=== PATIENT | male | born 1990 | race African-American/Black ===

== ENCOUNTER 2017-01-31 22:13 | Emergency (ER) | payer MEDICARE, MEDICAID ==
[2017-01-31 22:49] LABS: Hematocrit 46 % (42-52); Hemoglobin 15.7 g/dl (14.0-18.0); Mean Corpuscular HGB Conc 34 g/dl (31-36); Mean Corpuscular Hemoglobin 32 pg (27-31); Mean Corpuscular Volume 94 fL (80-94); Mean Platelet Volume 8 um3 (7.4-10.4); Red Blood Count 4.91 10^6/ul (4.0-5.4); Red Cell Distribution Width 14 % (10.5-15); White Blood Count 10.3 10^3/ul (3.5-10.8)
[2017-01-31 23:04] LABS: ALT 26 U/L (7-52); AST 18 U/L (13-39); Albumin 4.9 g/dL (3.2-5.2); Alkaline Phosphatase 70 U/L (34-104); Anion Gap 10 mmol/L (2-11); BUN/Creatinine Ratio 13.4 (8-20); Blood Urea Nitrogen 13 mg/dL (6-24); CO2 Carbon Dioxide 25 mmol/L (22-32); Calcium 9.8 mg/dL (8.6-10.3); Chloride 103 mmol/L (101-111); EGFR African American 122.3 (>60); EGFR Non-African American 95.1 (>60); Globulin 2.7 g/dL (2-4); Glucose 92 mg/dL (70-100); Potassium 3.6 mmol/L (3.5-5.0); Sodium 138 mmol/L (133-145); Total Protein 7.6 g/dL (6.4-8.9)
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
[2017-01-31 23:43] LABS: Acetaminophen < 15 mcg/mL; Alcohol 23 mg/dL (<10); Salicylate < 2.50 mg/dL (<30)
[2017-01-31 23:53] LABS: TSH (Thyroid Stimulating Horm) 1.51 mcIU/mL (0.34-5.60)
[2017-02-01 01:01] LABS: Urine Bilirubin Negative (Negative); Urine Glucose Negative (Negative); Urine Nitrite Negative (Negative)
[2017-02-01 01:07] LABS: Benzodiazepine Urine Screen None Detected (None Detect)
[2017-02-01 10:54] VITALS: BP 119/54
== END 2017-02-01 16:03 ==
LOC: ED 22:13
DX: F20.9 Schizophrenia, unspecified (principal); F32.9 Major depressive disorder, single episode, unspecified; F17.210 Nicotine dependence, cigarettes, uncomplicated
CPT/HCPCS: 36415; 80053; 80307; 80320; 80329; 81003; 84443; 85025; 93005; 99285; G0480

== ENCOUNTER 2017-02-28 21:03 | Inpatient (IN) | payer MEDICARE, MEDICAID ==
[2017-02-28 21:48] LABS: Hematocrit 45 % (42-52); Hemoglobin 15.8 g/dl (14.0-18.0); Mean Corpuscular HGB Conc 35 g/dl (31-36); Mean Corpuscular Hemoglobin 32 pg (27-31); Mean Corpuscular Volume 93 fL (80-94); Mean Platelet Volume 8 um3 (7.4-10.4); Red Blood Count 4.87 10^6/ul (4.0-5.4); Red Cell Distribution Width 14 % (10.5-15); White Blood Count 9.7 10^3/ul (3.5-10.8)
[2017-02-28 22:03] LABS: ALT 17 U/L (7-52); AST 16 U/L (13-39); Albumin 4.7 g/dL (3.2-5.2); Alkaline Phosphatase 62 U/L (34-104); Anion Gap 9 mmol/L (2-11); BUN/Creatinine Ratio 8.1 (8-20); Blood Urea Nitrogen 7 mg/dL (6-24); CO2 Carbon Dioxide 22 mmol/L (22-32); Calcium 9.3 mg/dL (8.6-10.3); Chloride 105 mmol/L (101-111); EGFR African American 140.5 (>60); EGFR Non-African American 109.3 (>60); Globulin 2.4 g/dL (2-4); Glucose 108 mg/dL (70-100); Potassium 3.3 mmol/L (3.5-5.0); Sodium 136 mmol/L (133-145); Total Protein 7.1 g/dL (6.4-8.9)
[2017-02-28] MEDS ORDERED: OLANzapine TAB*ODT* 10 MG TAB PO ONE (22:15)
[2017-02-28 22:23] LABS: Acetaminophen < 15 mcg/mL; Alcohol < 10 mg/dL (<10); Salicylate < 2.50 mg/dL (<30)
[2017-02-28 22:31] LABS: TSH (Thyroid Stimulating Horm) 1.71 mcIU/mL (0.34-5.60)
[2017-02-28 22:33] LABS: Urine Bilirubin Negative (Negative); Urine Glucose Negative (Negative); Urine Nitrite Negative (Negative)
[2017-02-28 22:50] LABS: Benzodiazepine Urine Screen None Detected (None Detect)
--- NOTE | 2017-02-28 23:07 | ED ---
Rafael Wallace Rebecca, scribed for Robbie Katz MD on 02/28/17 at 2124 . Psychiatric Complaint - HPI Summary HPI Summary: Pt is a 26 y/o M BIBA accompanied by [facility] and [facility] who presents to ED c/o auditory and visual hallucinations. Sx aggravated and alleviated by nothing. Per EMS, he was quiet while en route to [facility] ED. PMHx schizophrenia, anxiety, depression, PTSD. - History Of Current Complaint Chief Complaint: EDMentalHealth Hx Obtained From: Patient, EMS Onset/Duration: Still Present Aggravating Factor(s): Nothing Alleviating Factor(s): Nothing Associated Signs And Symptoms: Positive: Hallucinating - Auditory and visual Related History: Positive For: Prior Psychiatric Issues - Schizophrenia, anxiety , depression, PTSD - Allergies/Home Medications Allergies/Adverse Reactions: Allergies Allergy/AdvReac Type Severity Reaction Status Date / Time No Known Allergies Allergy Verified 05/30/16 18:50 Home Medications: Home Medications Allopurinol TAB* [Zyloprim 100 MG TAB*] 100 mg PO DAILY 03/01/17 [History Confirmed 03/01/17] Gabapentin TAB(NF) [Neurontin 600 mg TAB(NF)] 600 mg PO TID 03/01/17 [History Confirmed 03/01/17] Argyle Carbonate TAB* 450 mg PO BID 03/01/17 [History Confirmed 03/01/17] PMH/Surg Hx/FS Hx/Imm Hx Endocrine/Hematology History: Denies: Hx Anticoagulant Therapy, Hx Blood Disorders, Hx Blood Transfusions, Hx Bone Marrow Disease, Hx Diabetes, Hx Systemic Lupus Erythematosus, Hx Sickle Cell Disease, Hx Thyroid Disease, Hx Anemia, Hx Unexplained Bleeding, Other Endocrine/Hematological Disorders Cardiovascular History: Denies: Hx Aneurysm, Hx Angina, Hx Angioplasty, Hx Auto Implanted Cardiovert Defib, Hx Cardiac Arrest, Hx Cardiomegaly, Hx Congenital Heart Disease, Hx Congestive Heart Failure, Hx Coronary Artery Disease, Hx Deep Vein Thrombosis, Hx Hypercholesterolemia, Hx Hypotension, Hx Hypertension, Hx Pacemaker/ICD, Hx Peripheral Vascular Disease, Hx Rheumatic Fever, Hx Syncope, Hx Valvular Heart Disease, Other Cardiovascular Problems/Disorders Respiratory History: Denies: Hx Asthma, Hx Chronic Bronchitis, Hx Chronic Obstructive Pulmonary Disease (COPD), Hx Cystic Fibrosis, Hx Lung Cancer, Hx Pleural Effusion, Hx Pneumonia, Hx Pulmonary Edema, Hx Pulmonary Embolism, Hx Seasonal Allergies, Hx Sleep Apnea, Other Respiratory Problems/Disorders GI History: Denies: Hx Cirrhosis, Hx Crohn's Disease, Hx Diverticulosis, Hx Gall Bladder Disease, Hx Gastroesophageal Reflux Disease, Hx Gastrointestinal Bleed, Hx Hiatal Hernia, Hx Irritable Bowel, Hx Jaundice, Hx Obstructive Bowel, Hx Ileostomy, Hx Pyloric Stenosis, Hx Ulcer, Other GI Disorders History: Denies: Hx Acute Renal Failure, Hx Benign Prostatic Hyperplasia, Hx Chronic Renal Failure, Hx Dialysis, Hx Kidney Infection, Hx Kidney Stones, Other Problems/Disorders Musculoskeletal History: Denies: Hx Arthritis, Hx Back Problems, Hx Bursitis, Hx Congenital Bone Abnormalities, Hx Fibromyalgia, Hx Gout, Hx Orthopedic Injury, Hx Osteoporosis, Hx Scoliosis, Hx Tendonitis, Other Musculoskeletal History Sensory History: Denies: Hx Cataracts, Hx Contacts or Glasses, Hx Eye Injury, Hx Eye Prosthesis, Hx Glaucoma, Hx Macular Degeneration, Hx Vision Problem, Hx Deafness , Hx Hearing Aid, Hx Hearing Problem, Other Sensory Impairments Opthamlomology History: Denies: Hx Cataracts, Hx Contacts or Glasses, Hx Eye Injury, Hx Eye Prosthesis, Hx Glaucoma, Hx Macular Degeneration, Hx Vision Problem, Other Sensory Impairments Neurological History: Denies: Hx Dementia, Hx Developmental Delay, Hx Headaches, Hx Migraine, Hx Seizures, Hx Spinal Cord Injury, Hx Transient Ischemic Attacks (TIA), Other Neuro Impairments/Disorders Psychiatric History: Reports: Hx Anxiety, Hx Depression, Hx Post Traumatic Stress Disorder, Hx Inpatient Treatment, Hx Community Mental Health Tx, Hx Schizophrenia, Hx Suicide Attempt, Hx of Violent Episodes Against Others, Hx Substance Abuse, Other Psychiatric Issues/Disorders - psychosis Denies: Hx Attention Deficit Hyperactivity Disorder, Hx Eating Disorder, Hx Panic Disorder, Hx Bipolar Disorder - Cancer History Hx Chemotherapy: No Hx Radiation Therapy: No - Surgical History Hx Anesthesia Reactions: No - Immunization History Date of Tetanus Vaccine: unk Date of Influenza Vaccine: unk Infectious Disease History: No Infectious Disease History: Denies: Hx Clostridium Difficile, Hx Hepatitis, Hx Human Immunodeficiency Virus (HIV), Hx Shingles, Hx Tuberculosis, Traveled Outside the [place] in Last 30 Days - Family History Known Family History: Positive: Hypertension, Diabetes - grandfather - Social History Alcohol Use: Weekly Hx Substance Use: Yes Substance Use Type: Reports: Marijuana Substance Use Comment - Amount & Last Used: last use 02/29/2016 Hx Tobacco Use: Yes Smoking Status (MU): Current Every Day Smoker Type: Cigarettes Amount Used/How Often: 1/2 PPD Length of Time of Smoking/Using Tobacco: 5YRS Have You Smoked in the Last Year: Yes Review of Systems Negative: Fever Positive: Other - Auditory and visual hallucinations All Other Systems Reviewed And Are Negative: Yes Physical Exam Triage Information Reviewed: Yes Vital Signs On Initial Exam: Initial Vitals Temp Pulse Resp BP Pulse Ox 97.4 F 72 18 140/69 97 02/28/17 21:15 02/28/17 21:15 02/28/17 21:15 02/28/17 21:15 02/28/17 21:15 Vital Signs Reviewed: Yes Appearance: Positive: Well-Appearing, No Pain Distress Skin: Positive: Warm Head/Face: Positive: Normal Head/Face Inspection Eyes: Positive: KALEY ENT: Positive: Hearing grossly normal Neck: Positive: Supple Respiratory/Lung Sounds: Positive: Breath Sounds Present Cardiovascular: Positive: RRR Abdomen Description: Positive: Nontender, Soft Bowel Sounds: Positive: Present Musculoskeletal: Positive: Strength/ROM Intact Neurological: Positive: Alert, Oriented to Person Place, Time Psychiatric: Positive: Anxious Diagnostics - Vital Signs Vital Signs Temp Pulse Resp BP Pulse Ox 02/28/17 21:15 97.4 F 72 18 140/69 97 - Laboratory Result Diagrams: 02/28/17 21:30 02/28/17 21:30 Lab Statement: Any lab studies that have been ordered have been reviewed, and results considered in the medical decision making process. Course/Dx - Course Assessment/Plan: Pt is a 26 y/o M BIBA accompanied by [facility] and [facility] who presents to ED c/o auditory and visual hallucinations. Sx aggravated and alleviated by nothing. Per EMS, he was quiet while en route to [facility] ED. PMHx schizophrenia, anxiety, depression, PTSD. After [facility] it has been determined that the pt will be admitted to [facility]. - Differential Dx/Clinical Impression Provider Diagnosis: Psychosis - Physician Notifications Instructed by Provider To: Admit As Inpatient Discharge - Discharge Plan Condition: Fair Disposition: PSYCHIATRIC FACILITY-[facility] The documentation as recorded by the Rafael jones Rebecca accurately reflects the service I personally performed and the decisions made by , Robbie Katz MD.
[2017-03-01] MEDS ORDERED: Ibuprofen TAB* 600 MG ONE (01:40)
[2017-03-01] MEDS ORDERED: Ibuprofen TAB* 600 MG PO ONE (01:42)
[2017-03-01] MEDS ORDERED: Al Hydrox/Mg Hydrox/Simet LIQ* 30 ML UDC PO PRN (06:11)
[2017-03-01] MEDS ORDERED: Mouth Piece, Nicotine* 1 EACH CARTRIDGE INH SCH (06:11)
[2017-03-01] MEDS ORDERED: Nicotine Inhaler* 10 MG AMP INH PRN (06:11)
[2017-03-01] MEDS: Lithium Carbonate ER* 450 MG TAB.ER PO SCH ×2 (11:29→20:53)
[2017-03-01] MEDS: Vitamin THERAPEUTIC TAB PO SCH (11:29)
[2017-03-01] MEDS: Allopurinol TAB* 100 MG PO SCH (11:30)
[2017-03-01] MEDS: Gabapentin CAP(*) 300 MG PO SCH ×4 (11:30→20:52)
[2017-03-01] MEDS: Nicotine GUM* 2 MG PO PRN ×3 (11:42→20:54)
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
[2017-03-02] MEDS: Lithium Carbonate ER* 450 MG TAB.ER PO SCH ×2 (09:22→20:30)
[2017-03-02] MEDS: Vitamin THERAPEUTIC TAB PO SCH (09:22)
[2017-03-02] MEDS: Gabapentin CAP(*) 300 MG PO SCH ×3 (09:22→20:30)
[2017-03-02] MEDS: Allopurinol TAB* 100 MG PO SCH (09:23)
[2017-03-02] MEDS: Nicotine GUM* 2 MG PO PRN (14:46)
--- NOTE | 2017-03-02 14:58 | PN ---
Subjective - Subjective Service Type: 20218 Hosp care 15 min low complexity Subjective: Ba reports that he came back to the hospital because he wasn't feeling safe at home but denied paranoia, hallucinations or SI/HI. Smokes pot daily but doesn 't believe that has anything to do with his mental health, it rather helps he says. Objective - Appearance Appearance: Well Developed/Nourished Dysmorphic Features: No Hygiene: Mal-odorous Grooming: Disheveled - Behavior Psychomotor Activities: Normal Exhibits Abnormal Movement: No - Attitude and Relatedness Attitude and Relatedness: Regressed Eye Contact: Fair - Speech Quality: Unpressured Latencies: Long Quantity: Terse - Mood Patient's Decription of Mood: "Okay" - Affect Observed Affect: Constricted Affect Consistent with: Dysphoria - Thought Process Patient's Thought Process: Coherent, Tangential Thought Content: No Passive Wish, No Suicidal Planning, No Homicidal Ideation, No Paranoid Ideation - Sensorium Experiencing Hallucinations: No, Sensorium is Clear Type of Hallucinations: Visual: No, Auditory: No, Command: No - Level of Consciousness Level of Consciousness: Alert Orientation: Yes Intact, Yes Orientated to Time, Yes Orientated to Place, Yes Orientated to Person - Impulse Control Impulse Control: Intact - Insight and Judgement Insight and Judgement: Impaired - Group Participation Particating in Group Activities: No - Medication Management Medication Management Adherence: Yes Assessment - Assessment Merits Inpatient Hospitalization: For Immediate Safety, For Stabilization, For Discharge Planning Inpatient DSM-IV Dx: Schizoprenia vs Substance induced psychosis. Clinical Impression: 26 y/o male with nkown h/o daily Cannabis use and a prior diagnosis of Schizophrenia readmitted for feeling unsafe at home in the context of regular use of Cannabis and possible noncompliance of meds. Plan - Plan Treatment Plan: Name: BA JONES Birthdate: 1990 [id number] Continued Medication Management: Continue Outpt Medication Medications: Current Medications Acetaminophen (Tylenol Tab*) 650 mg PO Q4H PRN PRN Reason: PAIN or TEMP > 101 F Al Hydrox/Mg Hydrox/Simethicone (Maalox Plus*) 30 ml PO Q4H PRN PRN Reason: INDIGESTION Last Admin: 03/01/17 11:33 Dose: 30 ml Allopurinol (Zyloprim Tab*) 100 mg PO DAILY [facility] Last Admin: 03/02/17 09:23 Dose: 100 mg Device (Nicotine Mouth Piece*) 1 each INH [facility] Gabapentin (Neurontin Cap(*)) 600 mg PO TID [facility] Last Admin: 03/02/17 14:46 Dose: 600 mg [place] Carbonate ([place] Carbonate Er Tab*) 450 mg PO BID [facility] Last Admin: 03/02/17 09:22 Dose: 450 mg Multivitamins (Theragran Tab*) 1 tab PO DAILY [facility] Last Admin: 03/02/17 09:22 Dose: 1 tab Nicotine (Nicotine Inhaler*) 10 mg INH Q2H PRN PRN Reason: CRAVING Last Admin: 03/01/17 11:36 Dose: 10 mg Nicotine Polacrilex (Nicotine Gum*) 2 mg PO Q2H PRN PRN Reason: CRAVING Last Admin: 03/02/17 14:46 Dose: 2 mg - Discharge Plan Discharge Plan: Outpatient Follow Up [facility]
[2017-03-03] MEDS: Lithium Carbonate ER* 450 MG TAB.ER PO SCH ×2 (10:46→21:10)
[2017-03-03] MEDS: Gabapentin CAP(*) 300 MG PO SCH ×3 (10:46→21:09)
[2017-03-03] MEDS: Vitamin THERAPEUTIC TAB PO SCH (10:47)
[2017-03-03] MEDS: Allopurinol TAB* 100 MG PO SCH (10:47)
--- NOTE | 2017-03-03 11:48 | PN ---
MHU: Group Therapy Note - Service Type Service Type: [id number] Group Psychotherapy - Cognitive Behavioral Group Therapy ( CBT):Patient attended CBT programming this morning and presented with flat affect that did not vary with discussion. Although responsive to direct prompts to respond to questions, patient did not engage in spontaneous conversation.
--- NOTE | 2017-03-03 18:15 | PN ---
Subjective - Subjective Service Type: 74458 Hosp care 15 min low complexity Subjective: Patient endorses daily use of cannabis. He reports the marijuana he smoked was already rolled and he did not inspect the cannabis to see if it indeed cannabis or if it had been spiked with something else. Patient does report that after smoking this pre-rolled joint, he began to feel that he was "not in control". He reports feeling he might hurt someone else, destroy something, or hurt himself. Patient reports he experienced "uncontrolled emotions" and reported he felt he was "being led to commit suicide". Patient reports experiencing commanding AHs of both male and female voices. He reported they were telling him to do multiple terrible things. He called his sister and informed her the voices were telling him to rape her. He reported they told him to "do what you want, rape, murder, incest". Patient reports experiencing racing thoughts and reports recent poor sleep. Patient reports he experienced VHs while trying to sleep. He described looking around his room at clothes on the floor or pictures on the wall and they would "morph into a character from a cartoon". He reports seeing [employer] tunes characters including Bugs Bunsamreen. Patient reports he does not believe he has a mental illness. He is grandiose and religiously preoccupied. He reports that he is "privy to knowledge in the bible" and describes himself as "omnipresent". He reports his hallucinations started while in college. He reports he had been daily smoking since before graduation. He reports noticing AHs shortly after observing his friend kill himself by GSW. He reports its at this time he became fascinated with and the universe. Currently patient reports good sleep and appetite. He reports compliance with Haldol dec 150mg IM [id number]. His mother is noted to have reported she does not believe patient is compliance with [place] 450mg po BID. Admission [place] level - 0.23. Patient amenable to d/c of Haldol dec and to the initiation Abilify with plan to uptitrate from starting dose of 15mg po qhs to 30mg po qhs and if beneficial initiate DESHPANDE Abilify Maintena prior to discharge. Objective - Appearance Appearance: Well Developed/Nourished, Healthy Appearing Dysmorphic Features: No Hygiene: Normal Grooming: Fairly Well Kept - Behavior Psychomotor Activities: Normal Exhibits Abnormal Movement: No - Attitude and Relatedness Attitude and Relatedness: Cooperative Eye Contact: Fair - Speech Quality: Unpressured Latencies: Normal Quantity: Appropriate - Mood Patient's Decription of Mood: "Okay" - Affect Observed Affect: Fair Affect Consistent with: Euthymia - Thought Process Patient's Thought Process: Coherent Thought Content: No Passive Wish, No Suicidal Planning, No Homicidal Ideation, No Paranoid Ideation - Sensorium Experiencing Hallucinations: No, Sensorium is Clear Type of Hallucinations: Visual: No, Auditory: No, Command: No - Level of Consciousness Level of Consciousness: Alert Orientation: Yes Intact, Yes Orientated to Time, Yes Orientated to Place, Yes Orientated to Person - Impulse Control Impulse Control: Intact - Insight and Judgement Insight and Judgement: Poor - Group Participation Particating in Group Activities: Yes - Medication Management Medication Management Adherence: Yes Assessment - Assessment Merits Inpatient Hospitalization: For Immediate Safety, For Stabilization Inpatient DSM-IV Dx: Schizoaffective d/o, Bipolar type MRE manic Plan - Plan Treatment Plan: Name: CALLIE JONES Birthdate: 1990 [id number] 1. Continue admission to the [facility] for safety and symptom management. 2. Will discontinue patient's scheduled IM Haldol decanoate 150mg [id number] due to ineffectiveness. 3. Will start Abilify po tab 15mg po qhs for mood stabilization and psychosis. Plan to uptitrate to 30mg po qhs and monitor symptoms, if noted to be beneficial will start monthly IM DESHPANDE Abilify Maintena. 4. Continue [place] at home dose of 450mg po BID for mood stabilization. Repeat [place] Level on Thursday03/09/17. Also will order Lipid panel, repeat CMP, and HgbA1C.] 5. Continue Gabapentin 300mg po TID for anxiety. 6. Continue gathering collateral information from ACT team and family. 7. Patient to participate in milieu activities and groups. Continued Medication Management: Different Medication Medications: Current Medications Acetaminophen (Tylenol Tab*) 650 mg PO Q4H PRN PRN Reason: PAIN or TEMP > 101 F Al Hydrox/Mg Hydrox/Simethicone (Maalox Plus*) 30 ml PO Q4H PRN PRN Reason: INDIGESTION Last Admin: 03/01/17 11:33 Dose: 30 ml Allopurinol (Zyloprim Tab*) 100 mg PO DAILY [facility] Last Admin: 03/03/17 10:47 Dose: 100 mg Device (Nicotine Mouth Piece*) 1 each INH .[facility] Gabapentin (Neurontin Cap(*)) 600 mg PO TID [facility] Last Admin: 03/03/17 14:14 Dose: 600 mg [place] Carbonate ([place] Carbonate Er Tab*) 450 mg PO BID [facility] Last Admin: 03/03/17 10:46 Dose: 450 mg Multivitamins (Theragran Tab*) 1 tab PO DAILY [facility] Last Admin: 03/03/17 10:47 Dose: 1 tab Nicotine (Nicotine Inhaler*) 10 mg INH Q2H PRN PRN Reason: CRAVING Last Admin: 03/01/17 11:36 Dose: 10 mg Nicotine Polacrilex (Nicotine Gum*) 2 mg PO Q2H PRN PRN Reason: CRAVING Last Admin: 03/02/17 14:46 Dose: 2 mg - Discharge Plan Discharge Plan: Outpatient Follow Up
[2017-03-03] MEDS: Nicotine GUM* 2 MG PO PRN (21:12)
[2017-03-03] MEDS: ARIPiprazole TAB* 15 MG PO SCH (22:00)
[2017-03-04] MEDS: Allopurinol TAB* 100 MG PO SCH (08:49)
[2017-03-04] MEDS: Vitamin THERAPEUTIC TAB PO SCH (08:49)
[2017-03-04] MEDS: Gabapentin CAP(*) 300 MG PO SCH ×3 (08:49→21:35)
[2017-03-04] MEDS: Lithium Carbonate ER* 450 MG TAB.ER PO SCH ×2 (08:49→21:35)
--- NOTE | 2017-03-04 13:30 | PN ---
Subjective - Subjective Service Type: 58592 Hosp care 15 min low complexity Subjective: Patient noted to be visible in the milieu, social with peers, and is attending groups. Patient reports improved mood this morning. He reports having a "good" nights sleep last night and waking feeling rested without thinking about turning over and going to back to sleep like is nml recently. Patient reports med compliance with 1st dose of Abilify 15mg last night. He reports no med s/e's. Patient continues to express bizarre ideations on interview. He expresses no grandiose ideations or yazidism preoccupations. Patient reports no SI/HI and AH/VH. Objective - Appearance Appearance: Well Developed/Nourished, Healthy Appearing Dysmorphic Features: No Hygiene: Normal Grooming: Fairly Well Kept - Behavior Psychomotor Activities: Normal Exhibits Abnormal Movement: No - Attitude and Relatedness Attitude and Relatedness: Cooperative Eye Contact: Fair - Speech Quality: Unpressured Latencies: Normal Quantity: Terse - Mood Patient's Decription of Mood: "Better" - Affect Observed Affect: Fair Affect Consistent with: Euthymia - Thought Process Patient's Thought Process: Coherent Thought Content: No Passive Wish, No Suicidal Planning, No Homicidal Ideation, No Paranoid Ideation - Sensorium Experiencing Hallucinations: No, Sensorium is Clear Type of Hallucinations: Visual: No, Auditory: No, Command: No - Level of Consciousness Level of Consciousness: Alert Orientation: Yes Intact, Yes Orientated to Time, Yes Orientated to Place, Yes Orientated to Person - Impulse Control Impulse Control: Intact - Insight and Judgement Insight and Judgement: Fair - Group Participation Particating in Group Activities: Yes - Medication Management Medication Management Adherence: Yes Assessment - Assessment Merits Inpatient Hospitalization: For Immediate Safety, For Stabilization Inpatient DSM-IV Dx: Schizoaffective d/o, Bipolar type MRE manic Plan - Plan Treatment Plan: Name: CALLIE JONES Birthdate: 1990 [id number] 1. Continue admission to the [facility] for safety and symptom management. 2. Will discontinue patient's scheduled IM Haldol decanoate 150mg [id number] due to ineffectiveness. 3. Continue Abilify po tab 15mg po qhs for mood stabilization and psychosis. Plan to uptitrate to 30mg po qhs and monitor symptoms on Thursday and if med noted to be beneficial will start monthly IM DESHPANDE Abilify Maintena. 4. Continue [place] at home dose of 450mg po BID for mood stabilization. Repeat [place] Level on Thursday03/09/17. Also will order Lipid panel, repeat CMP, and HgbA1C.] 5. Continue Gabapentin 600mg po TID for anxiety. 6. Continue gathering collateral information from ACT team. 7. Collateral information obtained from mother. 8. Patient to participate in milieu activities and groups. Continued Medication Management: Different Medication Medications: Current Medications Acetaminophen (Tylenol Tab*) 650 mg PO Q4H PRN PRN Reason: PAIN or TEMP > 101 F Al Hydrox/Mg Hydrox/Simethicone (Maalox Plus*) 30 ml PO Q4H PRN PRN Reason: INDIGESTION Last Admin: 03/01/17 11:33 Dose: 30 ml Allopurinol (Zyloprim Tab*) 100 mg PO DAILY [facility] Last Admin: 03/04/17 08:49 Dose: 100 mg Aripiprazole (Abilify Tab*) 15 mg PO BEDTIME [facility] Last Admin: 03/03/17 22:00 Dose: 15 mg Device (Nicotine Mouth Piece*) 1 each INH [facility] Gabapentin (Neurontin Cap(*)) 600 mg PO TID [facility] Last Admin: 03/04/17 08:49 Dose: 600 mg [place] Carbonate ([place] Carbonate Er Tab*) 450 mg PO BID [facility] Last Admin: 03/04/17 08:49 Dose: 450 mg Multivitamins (Theragran Tab*) 1 tab PO DAILY [facility] Last Admin: 03/04/17 08:49 Dose: 1 tab Nicotine (Nicotine Inhaler*) 10 mg INH Q2H PRN PRN Reason: CRAVING Last Admin: 03/01/17 11:36 Dose: 10 mg Nicotine Polacrilex (Nicotine Gum*) 2 mg PO Q2H PRN PRN Reason: CRAVING Last Admin: 03/03/17 21:12 Dose: 2 mg - Discharge Plan Discharge Plan: Outpatient Follow Up
--- NOTE | 2017-03-04 14:01 | PN ---
MHU: Group Therapy Note - Service Type Service Type: 37097 Group Psychotherapy - Cognitive Behavioral Therapy (CBT): Patient presents with high volume of speech that impresses as being coherent within the context of self-report, but is tangential and off topic in group context. Concerns regarding disorganization of thought are apparent.
[2017-03-04] MEDS: ARIPiprazole TAB* 15 MG PO SCH (21:35)
[2017-03-05] MEDS: Gabapentin CAP(*) 300 MG PO SCH ×3 (10:22→20:43)
[2017-03-05] MEDS: Lithium Carbonate ER* 450 MG TAB.ER PO SCH ×2 (10:23→20:44)
[2017-03-05] MEDS: Allopurinol TAB* 100 MG PO SCH (10:23)
[2017-03-05] MEDS: Vitamin THERAPEUTIC TAB PO SCH (10:26)
--- NOTE | 2017-03-05 10:45 | PN ---
Subjective - Subjective Service Type: 39850 Hosp care 15 min low complexity Subjective: Patient noted to be visible in the milieu, social, pleasant, and participating in groups. Patient reports med compliance and denies med s/e's. He reports no SIMMONS, CP, Abd pain and reports urination and bowel movements are wnl. Patient reports ongoing good sleep and appetite. Patient reports feeling more like his old self. He continues to be circumstantial in TP but not demonstrating racing thoughts. TC was appropriate.He did not express grandiose ideations, jain preoccupations , or bizarre ideations on interview. Patient denies SI/HI and AH/VH. Objective - Appearance Appearance: Well Developed/Nourished Dysmorphic Features: No Hygiene: Normal Grooming: Well Kept - Behavior Psychomotor Activities: Normal Exhibits Abnormal Movement: No - Attitude and Relatedness Attitude and Relatedness: Cooperative Eye Contact: Good - Speech Quality: Unpressured Latencies: Normal Quantity: Appropriate - Mood Patient's Decription of Mood: "Fine" - Affect Observed Affect: Fair Affect Consistent with: Euthymia - Thought Process Patient's Thought Process: Coherent Thought Content: No Passive Wish, No Suicidal Planning, No Homicidal Ideation, No Paranoid Ideation - Sensorium Experiencing Hallucinations: No, Sensorium is Clear Type of Hallucinations: Visual: No, Auditory: No, Command: No - Level of Consciousness Level of Consciousness: Alert Orientation: Yes Intact, Yes Orientated to Time, Yes Orientated to Place, Yes Orientated to Person - Impulse Control Impulse Control: Intact - Insight and Judgement Insight and Judgement: Fair - Group Participation Particating in Group Activities: Yes - Medication Management Medication Management Adherence: Yes Assessment - Assessment Merits Inpatient Hospitalization: For Immediate Safety, For Stabilization Inpatient DSM-IV Dx: Schizoaffective d/o, Bipolar type MRE manic Plan - Plan Treatment Plan: Name: CALLIE JONES Birthdate: 1990 [id number] 1. Continue admission to the [facility] for safety and symptom management. 2. Will discontinue patient's scheduled IM Haldol decanoate 150mg [id number] due to ineffectiveness. 3. Continue Abilify po tab 15mg po qhs for mood stabilization and psychosis. Plan to uptitrate to 30mg po qhs and monitor symptoms on Thursday and if med noted to be beneficial will start monthly IM [place]ANDE Abilify Maintena. 4. Continue [place] at home dose of 450mg po BID for mood stabilization. Repeat [place] Level tomorrow am. Also will order Lipid panel and HgbA1C.] 5. Continue Gabapentin 600mg po TID for anxiety. 6. Continue gathering collateral information from ACT team. 7. Collateral information obtained from mother. 8. Patient to participate in milieu activities and groups. Medications: Current Medications Acetaminophen (Tylenol Tab*) 650 mg PO Q4H PRN PRN Reason: PAIN or TEMP > 101 F Al Hydrox/Mg Hydrox/Simethicone (Maalox Plus*) 30 ml PO Q4H PRN PRN Reason: INDIGESTION Last Admin: 03/01/17 11:33 Dose: 30 ml Allopurinol (Zyloprim Tab*) 100 mg PO DAILY [facility] Last Admin: 03/05/17 10:23 Dose: 100 mg Aripiprazole (Abilify Tab*) 15 mg PO BEDTIME [facility] Last Admin: 03/04/17 21:35 Dose: 15 mg Device (Nicotine Mouth Piece*) 1 each INH [facility] Gabapentin (Neurontin Cap(*)) 600 mg PO TID [facility] Last Admin: 03/05/17 10:22 Dose: 600 mg [place] Carbonate ([place] Carbonate Er Tab*) 450 mg PO BID [facility] Last Admin: 03/05/17 10:23 Dose: 450 mg Multivitamins (Theragran Tab*) 1 tab PO DAILY [facility] Last Admin: 03/05/17 10:26 Dose: 1 tab Nicotine (Nicotine Inhaler*) 10 mg INH Q2H PRN PRN Reason: CRAVING Last Admin: 03/01/17 11:36 Dose: 10 mg Nicotine Polacrilex (Nicotine Gum*) 2 mg PO Q2H PRN PRN Reason: CRAVING Last Admin: 03/03/17 21:12 Dose: 2 mg - Discharge Plan Discharge Plan: Outpatient Follow Up Outpatient Program: ACT team
[2017-03-05] MEDS: ARIPiprazole TAB* 15 MG PO SCH (20:44)
[2017-03-06] MEDS: Lithium Carbonate ER* 450 MG TAB.ER PO SCH ×2 (09:05→22:10)
[2017-03-06] MEDS: Vitamin THERAPEUTIC TAB PO SCH (09:05)
[2017-03-06] MEDS: Gabapentin CAP(*) 300 MG PO SCH ×3 (09:05→22:09)
[2017-03-06] MEDS: Allopurinol TAB* 100 MG PO SCH (09:05)
[2017-03-06 10:30] LABS: Lithium 0.34 mmol/L (0.6-1.2)
[2017-03-06 10:31] LABS: Albumin 4.4 g/dL (3.2-5.2); BUN/Creatinine Ratio 14.6 (8-20); Calcium 9.5 mg/dL (8.6-10.3); EGFR African American 135.1 (>60); Globulin 2.5 g/dL (2-4); HDL Cholesterol 47.5 mg/dL; Total Bilirubin 0.4 mg/dL (0.2-1.0); Total Protein 6.9 g/dL (6.4-8.9)
[2017-03-06 10:58] LABS: Potassium 3.7 mmol/L (3.5-5.0)
--- NOTE | 2017-03-06 11:37 | PN ---
MHU: Group Therapy Note - Service Type Service Type: 60232 Group Psychotherapy - Cognitive Behavioral Group Therapy ( CBT):Patient was attentive and participatory in CBT programming this morning, and remained in good behavioral control. Patient expressed positive insights regarding relevant treatment interventions and goals.
--- NOTE | 2017-03-06 12:28 | PN ---
Subjective - Subjective Service Type: 88835 Hosp care 35 min high complexity Subjective: Patient continues to be visible in the milieu and noted to be social with peers. He is attending groups. Patient seen with unit SW. He is calm and cooperative with the interview. He is linear and goal directed in TP. Disposition options discussed with patient. Patient informed the team and mom do not feel it is best for him to return to mom's residence. He is noted to become med non-compliant once discharged home from his recent inpatient hospitalizations. Within days he is noted to return to alcohol abuse and cannabis use as well. Patient becomes manic and violent when intoxicated and/or when [place] non- compliant. Patient has made many homicidal statements mom and his 2yo nephew. He has recently reported to his sister he had thoughts of raping her. Patient has had no behavioral issues on the unit. He has been med compliant and denies med s/e's. He declines recommendation to discharge to an inpatient rehab for alcohol and cannabis. He reports he will meet with [facility] next week. Patient amenable to increase in Abilify from 15mg to 30mg po qhs for psychosis/mood stabilization. He denies SI/HI and AH/VH. He continues to express grandiose ideations, but displays more insight and understands why team feels he may present a danger to his family if he continues to abuse drugs and alcohol and if he continues to be med non-compliant. Mom#[phone] called and updated on content of conversation with patient and on Abilify dose increase. Objective - Appearance Appearance: Well Developed/Nourished, Healthy Appearing Dysmorphic Features: No Hygiene: Normal Grooming: Fairly Well Kept - Behavior Psychomotor Activities: Normal Exhibits Abnormal Movement: No - Attitude and Relatedness Attitude and Relatedness: Cooperative Eye Contact: Good - Speech Quality: Unpressured Latencies: Normal Quantity: Appropriate - Mood Patient's Decription of Mood: "Okay" - Affect Observed Affect: Fair Affect Consistent with: Euthymia - Thought Process Patient's Thought Process: Coherent Thought Content: No Passive Wish, No Suicidal Planning, No Homicidal Ideation, No Paranoid Ideation - Sensorium Experiencing Hallucinations: No, Sensorium is Clear Type of Hallucinations: Visual: No, Auditory: No, Command: No - Level of Consciousness Level of Consciousness: Alert Orientation: Yes Intact, Yes Orientated to Time, Yes Orientated to Place, Yes Orientated to Person - Impulse Control Impulse Control: Intact - Insight and Judgement Insight and Judgement: Fair - Group Participation Particating in Group Activities: Yes - Medication Management Medication Management Adherence: Yes Assessment - Assessment Merits Inpatient Hospitalization: For Immediate Safety, For Stabilization Inpatient DSM-IV Dx: Schizoaffective d/o, Bipolar type MRE manic Plan - Plan Treatment Plan: Name: CALLIE JONES Birthdate: 1990 [id number] 1. Continue admission to the [facility] for safety and symptom management. 2. Will discontinue patient's scheduled IM Haldol decanoate 150mg [id number] due to ineffectiveness. 3. Increase Abilify from 15mg to 30mg po qhs for mood stabilization and psychosis. If med noted to be beneficial will start monthly IM [place]ANDE Abilify Maintena prior to discharge. 4. Continue [place] at home dose of 450mg po BID for mood stabilization. Repeat [place] Level today(03/06/17) up from 0.23 to 0.34. Lipid panel and HgbA1C. - both WNL. CMP - evelated transaminases. Repeat CMP and [place] level prior to patient discharge.] 5. Continue Gabapentin 600mg po TID for anxiety. 6. Continue gathering collateral information from ACT team. 7. Collateral information obtained from mother. 8. Patient to participate in milieu activities and groups. Medications: Current Medications Acetaminophen (Tylenol Tab*) 650 mg PO Q4H PRN PRN Reason: PAIN or TEMP > 101 F Al Hydrox/Mg Hydrox/Simethicone (Maalox Plus*) 30 ml PO Q4H PRN PRN Reason: INDIGESTION Last Admin: 03/01/17 11:33 Dose: 30 ml Allopurinol (Zyloprim Tab*) 100 mg PO DAILY [facility] Last Admin: 03/06/17 09:05 Dose: 100 mg Aripiprazole (Abilify Tab*) 30 mg PO BEDTIME [facility] Device (Nicotine Mouth Piece*) 1 each INH [facility] Gabapentin (Neurontin Cap(*)) 600 mg PO TID [facility] Last Admin: 03/06/17 09:05 Dose: 600 mg [place] Carbonate ([place] Carbonate Er Tab*) 450 mg PO BID [facility] Last Admin: 03/06/17 09:05 Dose: 450 mg Multivitamins (Theragran Tab*) 1 tab PO DAILY [facility] Last Admin: 03/06/17 09:05 Dose: 1 tab Nicotine (Nicotine Inhaler*) 10 mg INH Q2H PRN PRN Reason: CRAVING Last Admin: 03/01/17 11:36 Dose: 10 mg Nicotine Polacrilex (Nicotine Gum*) 2 mg PO Q2H PRN PRN Reason: CRAVING Last Admin: 03/03/17 21:12 Dose: 2 mg - Discharge Plan Discharge Plan: Outpatient Follow Up
[2017-03-06] MEDS: ARIPiprazole TAB* 15 MG PO SCH (22:10)
[2017-03-07] MEDS: Gabapentin CAP(*) 300 MG PO SCH ×3 (10:35→22:04)
[2017-03-07] MEDS: Allopurinol TAB* 100 MG PO SCH (10:35)
[2017-03-07] MEDS: Vitamin THERAPEUTIC TAB PO SCH (10:35)
[2017-03-07] MEDS: Lithium Carbonate ER* 450 MG TAB.ER PO SCH ×2 (10:35→22:04)
[2017-03-07] MEDS: ARIPiprazole TAB* 15 MG PO SCH (22:04)
[2017-03-08] MEDS: Lithium Carbonate ER* 450 MG TAB.ER PO SCH ×2 (10:02→22:00)
[2017-03-08] MEDS: Gabapentin CAP(*) 300 MG PO SCH ×3 (10:02→22:00)
[2017-03-08] MEDS: Vitamin THERAPEUTIC TAB PO SCH (10:02)
[2017-03-08] MEDS: Allopurinol TAB* 100 MG PO SCH (10:02)
--- NOTE | 2017-03-08 19:17 | PN ---
Subjective - Subjective Service Type: 24630 Hosp care 15 min low complexity Subjective: Ba appears to be at his base line mental status. Says he anxious over his thoughts but had hard time explaining. Otherwise happily involved with peers n the milieu. Per Nursing no problem. Objective - Appearance Appearance: Healthy Appearing, Obese Dysmorphic Features: No Hygiene: Normal Grooming: Disheveled - Behavior Psychomotor Activities: Normal Exhibits Abnormal Movement: No - Attitude and Relatedness Attitude and Relatedness: Child Like Eye Contact: Fair - Speech Quality: Unpressured Latencies: Normal Quantity: Terse - Mood Patient's Decription of Mood: "Fine" - Affect Observed Affect: Non-labile Affect Consistent with: Euthymia - Thought Process Patient's Thought Process: Coherent, Goal Directed Thought Content: No Passive Wish, No Suicidal Planning, No Homicidal Ideation, No Paranoid Ideation - Sensorium Experiencing Hallucinations: No, Sensorium is Clear Type of Hallucinations: Visual: No, Auditory: No, Command: No - Level of Consciousness Level of Consciousness: Alert Orientation: Yes Intact, Yes Orientated to Time, Yes Orientated to Place, Yes Orientated to Person - Impulse Control Impulse Control: Tenuous - Group Participation Particating in Group Activities: Yes - Medication Management Medication Management Adherence: Yes Assessment - Assessment Merits Inpatient Hospitalization: Consolidate Improvements, Pending Safe DC Plan Inpatient DSM-IV Dx: Schizoaffective d/o, Bipolar type MRE manic Clinical Impression: 26 y/o male with nkown h/o daily Cannabis use and a prior diagnosis of Schizophrenia readmitted for feeling unsafe at home in the context of regular use of Cannabis and possible noncompliance of meds. Plan - Plan Treatment Plan: Name: BA JONES Birthdate: 1990 [id number] Continued Medication Management: Continue Outpt Medication Medications: Current Medications Acetaminophen (Tylenol Tab*) 650 mg PO Q4H PRN PRN Reason: PAIN or TEMP > 101 F Al Hydrox/Mg Hydrox/Simethicone (Maalox Plus*) 30 ml PO Q4H PRN PRN Reason: INDIGESTION Last Admin: 03/01/17 11:33 Dose: 30 ml Allopurinol (Zyloprim Tab*) 100 mg PO DAILY [facility] Last Admin: 03/08/17 10:02 Dose: 100 mg Aripiprazole (Abilify Tab*) 30 mg PO BEDTIME [facility] Last Admin: 03/07/17 22:04 Dose: 30 mg Device (Nicotine Mouth Piece*) 1 each INH .[place] [facility] Gabapentin (Neurontin Cap(*)) 600 mg PO TID [facility] Last Admin: 03/08/17 13:50 Dose: 600 mg [place] Carbonate ([place] Carbonate Er Tab*) 450 mg PO BID [facility] Last Admin: 03/08/17 10:02 Dose: 450 mg Multivitamins (Theragran Tab*) 1 tab PO DAILY [facility] Last Admin: 03/08/17 10:02 Dose: 1 tab Nicotine (Nicotine Inhaler*) 10 mg INH Q2H PRN PRN Reason: CRAVING Last Admin: 03/01/17 11:36 Dose: 10 mg Nicotine Polacrilex (Nicotine Gum*) 2 mg PO Q2H PRN PRN Reason: CRAVING Last Admin: 03/03/17 21:12 Dose: 2 mg - Discharge Plan Discharge Plan: Outpatient Follow Up Outpatient Program: [facility]
[2017-03-08] MEDS: ARIPiprazole TAB* 15 MG PO SCH (22:00)
[2017-03-08] MEDS: Acetaminophen TAB* 325 MG PO PRN (22:01)
[2017-03-09] MEDS: Lithium Carbonate ER* 450 MG TAB.ER PO SCH ×2 (09:55→21:26)
[2017-03-09] MEDS: Allopurinol TAB* 100 MG PO SCH (09:55)
[2017-03-09] MEDS: Vitamin THERAPEUTIC TAB PO SCH (09:55)
[2017-03-09] MEDS: Gabapentin CAP(*) 300 MG PO SCH ×3 (09:55→21:25)
[2017-03-09] MEDS: Acetaminophen TAB* 325 MG PO PRN (09:56)
--- NOTE | 2017-03-09 10:40 | PN ---
Subjective - Subjective Service Type: 05379 Hosp care 15 min low complexity Subjective: Patient reports no issues over the weekend. Patient noted to be visible in the milieu, social, and participating in milieu activities and groups. Patient reports med compliance with increased Abilify dose, now at 30mg po qhs. He reports no med s/e's. Patient is linear in TP and TC is focused on discharge disposition but mostly appropriate. He has not expressed grandiose or paranoid delusions on interview. Patient declined recommendation to enter inpatient rehab. Patient also reports he will decline meeting with [facility] rep. He reports having a cousin, Marilyn#[phone]. Per discussion with Marilyn she will allow patient to discharge to her home. She has conditions that he must be on his medications as recommended by this provider, specifically Abilify Maintena. Patient reports sleep and appetite are wnl. He denies SI/HI/AI(assaultive ideations) and AH/VH. Objective - Appearance Appearance: Well Developed/Nourished Dysmorphic Features: No Hygiene: Normal Grooming: Fairly Well Kept - Behavior Psychomotor Activities: Normal Exhibits Abnormal Movement: No - Attitude and Relatedness Attitude and Relatedness: Cooperative Eye Contact: Good - Speech Quality: Unpressured Latencies: Normal Quantity: Appropriate - Mood Patient's Decription of Mood: "Fine" - Affect Observed Affect: Fair Affect Consistent with: Euthymia - Thought Process Patient's Thought Process: Coherent Thought Content: No Passive Wish, No Suicidal Planning, No Homicidal Ideation, No Paranoid Ideation - Sensorium Experiencing Hallucinations: No, Sensorium is Clear Type of Hallucinations: Visual: No, Auditory: No, Command: No - Level of Consciousness Level of Consciousness: Alert Orientation: Yes Intact, Yes Orientated to Time, Yes Orientated to Place, Yes Orientated to Person - Impulse Control Impulse Control: Intact - Insight and Judgement Insight and Judgement: Fair - Group Participation Particating in Group Activities: Yes - Medication Management Medication Management Adherence: Yes Assessment - Assessment Merits Inpatient Hospitalization: For Immediate Safety, For Stabilization Inpatient DSM-IV Dx: Schizoaffective d/o, Bipolar type MRE manic Plan - Plan Treatment Plan: Name: CALLIE JONES Birthdate: 1990 [id number] 1. Continue admission to the [facility] for safety and symptom management. 2. Will discontinue patient's scheduled IM Haldol decanoate 150mg [id number] due to ineffectiveness. 3. Continue Abilify 30mg po qhs for mood stabilization and psychosis. Plan to start [place] Abilify Maintena tomorrow. 4. Continue [place] at home dose of 450mg po BID for mood stabilization. Repeat [place] Level 03/06/17 up from 0.23(admission) to 0.34. Lipid panel and HgbA1C. - both WNL. CMP - evelated transaminases. Repeat CMP and [place] level prior to patient discharge.] 5. Continue Gabapentin 600mg po TID for anxiety. 6. Continue gathering collateral information from ACT team. 7. Collateral information obtained from mother. 8. Collateral information obtained from aunt#[phone]. 9. Patient to participate in milieu activities and groups. Continued Medication Management: Different Medication Medications: Current Medications Acetaminophen (Tylenol Tab*) 650 mg PO Q4H PRN PRN Reason: PAIN or TEMP > 101 F Last Admin: 03/09/17 09:56 Dose: 650 mg Al Hydrox/Mg Hydrox/Simethicone (Maalox Plus*) 30 ml PO Q4H PRN PRN Reason: INDIGESTION Last Admin: 03/01/17 11:33 Dose: 30 ml Allopurinol (Zyloprim Tab*) 100 mg PO DAILY [facility] Last Admin: 03/09/17 09:55 Dose: 100 mg Aripiprazole (Abilify Tab*) 30 mg PO BEDTIME [facility] Last Admin: 03/08/17 22:00 Dose: 30 mg Device (Nicotine Mouth Piece*) 1 each INH .[place] Gabapentin (Neurontin Cap(*)) 600 mg PO TID [facility] Last Admin: 03/09/17 09:55 Dose: 600 mg [place] Carbonate ([place] Carbonate Er Tab*) 450 mg PO BID [facility] Last Admin: 03/09/17 09:55 Dose: 450 mg Multivitamins (Theragran Tab*) 1 tab PO DAILY [facility] Last Admin: 03/09/17 09:55 Dose: 1 tab Nicotine (Nicotine Inhaler*) 10 mg INH Q2H PRN PRN Reason: CRAVING Last Admin: 03/01/17 11:36 Dose: 10 mg Nicotine Polacrilex (Nicotine Gum*) 2 mg PO Q2H PRN PRN Reason: CRAVING Last Admin: 03/03/17 21:12 Dose: 2 mg - Discharge Plan Discharge Plan: Outpatient Follow Up
--- NOTE | 2017-03-09 13:09 | PN ---
[facility]: Group Therapy Note - Service Type Service Type: 36604 Group Psychotherapy - Cognitive Behavioral Group Therapy ( CBT):Patient presented in CBT programming as disorganized and disruptive in discussion and needed repeated redirection to attend to presented materials.
[2017-03-09] MEDS: ARIPiprazole TAB* 15 MG PO SCH (21:25)
[2017-03-10] MEDS: Allopurinol TAB* 100 MG PO SCH (09:39)
[2017-03-10] MEDS: Lithium Carbonate ER* 450 MG TAB.ER PO SCH ×2 (09:39→21:41)
[2017-03-10] MEDS: Gabapentin CAP(*) 300 MG PO SCH ×3 (09:39→21:40)
[2017-03-10] MEDS: Vitamin THERAPEUTIC TAB PO SCH (09:40)
--- NOTE | 2017-03-10 16:00 | PN ---
Subjective - Subjective Service Type: [id number] Hosp care 15 min low complexity Subjective: Patient noted to be visible in the milieu, pleasant, social and participating in groups. Patient's affect is relaxed and calm. He engages this provider in appropriate conversation. He does not express paranoid or grandiose delusions nor is he religiously preoccupied. Patient reports his aunts phone is off. He reports he will attempt to have his sister pick him up. He was instructed to have someone attend the 1pm meeting with ACT prior to his discharge. Patient is med compliant and denies med s/e's. He is to start Abilify Maintena in the am prior to discharge. He denies SI/HI and AH/VH. Objective - Appearance Appearance: Well Developed/Nourished Dysmorphic Features: No Hygiene: Normal Grooming: Fairly Well Kept - Behavior Psychomotor Activities: Normal Exhibits Abnormal Movement: No - Attitude and Relatedness Attitude and Relatedness: Cooperative Eye Contact: Good - Speech Quality: Unpressured Latencies: Normal Quantity: Appropriate - Mood Patient's Decription of Mood: "Good" - Affect Observed Affect: Fair Affect Consistent with: Euthymia - Thought Process Patient's Thought Process: Coherent Thought Content: No Passive Wish, No Suicidal Planning, No Homicidal Ideation, No Paranoid Ideation - Sensorium Experiencing Hallucinations: No, Sensorium is Clear Type of Hallucinations: Visual: No, Auditory: No, Command: No - Level of Consciousness Level of Consciousness: Alert Orientation: Yes Intact, Yes Orientated to Time, Yes Orientated to Place, Yes Orientated to Person - Impulse Control Impulse Control: Intact - Insight and Judgement Insight and Judgement: Fair - Group Participation Particating in Group Activities: Yes - Medication Management Medication Management Adherence: Yes Assessment - Assessment Merits Inpatient Hospitalization: For Immediate Safety, For Stabilization Inpatient DSM-IV Dx: Schizoaffective d/o, Bipolar type MRE manic Plan - Plan Treatment Plan: Name: CALLIE JONES Birthdate: 1990 [id number] 1. Continue admission to the [facility] for safety and symptom management. 2. Will discontinue patient's scheduled IM Haldol decanoate 150mg [id number] due to ineffectiveness. 3. Continue Abilify 30mg po qhs for mood stabilization and psychosis. Plan to start [place] Abilify Maintena in am. 4. Continue [place] at home dose of 450mg po BID for mood stabilization. Repeat [place] Level 03/06/17 up from 0.23(admission) to 0.34. Lipid panel and HgbA1C. - both WNL. CMP - evelated transaminases. Repeat CMP and [place] level prior to patient discharge.] 5. Continue Gabapentin 600mg po TID for anxiety. 6. Meeting with ACT team rep, this provider, roxann HUNTER, patient and patient's family member tomorrow at 1pm. 7. Collateral information obtained from mother. 8. Collateral information obtained from aunt#[phone]. 9. Patient to participate in milieu activities and groups. Medications: Current Medications Acetaminophen (Tylenol Tab*) 650 mg PO Q4H PRN PRN Reason: PAIN or TEMP > 101 F Last Admin: 03/09/17 09:56 Dose: 650 mg Al Hydrox/Mg Hydrox/Simethicone (Maalox Plus*) 30 ml PO Q4H PRN PRN Reason: INDIGESTION Last Admin: 03/01/17 11:33 Dose: 30 ml Allopurinol (Zyloprim Tab*) 100 mg PO DAILY [facility] Last Admin: 03/10/17 09:39 Dose: 100 mg Aripiprazole (Abilify Tab*) 30 mg PO BEDTIME [facility] Last Admin: 03/09/17 21:25 Dose: 30 mg Device (Nicotine Mouth Piece*) 1 each INH .[facility] Gabapentin (Neurontin Cap(*)) 600 mg PO TID [facility] Last Admin: 03/10/17 13:28 Dose: 600 mg [place] Carbonate ([place] Carbonate Er Tab*) 450 mg PO BID [facility] Last Admin: 03/10/17 09:39 Dose: 450 mg Multivitamins (Theragran Tab*) 1 tab PO DAILY [facility] Last Admin: 03/10/17 09:40 Dose: 1 tab Nicotine (Nicotine Inhaler*) 10 mg INH Q2H PRN PRN Reason: CRAVING Last Admin: 03/01/17 11:36 Dose: 10 mg Nicotine Polacrilex (Nicotine Gum*) 2 mg PO Q2H PRN PRN Reason: CRAVING Last Admin: 03/03/17 21:12 Dose: 2 mg - Discharge Plan Discharge Plan: Outpatient Follow Up
[2017-03-10] MEDS: ARIPiprazole TAB* 15 MG PO SCH (21:41)
[2017-03-11 08:20] VITALS: BP 143/81
[2017-03-11] MEDS: Gabapentin CAP(*) 300 MG PO SCH ×2 (09:39→14:28)
[2017-03-11] MEDS: Allopurinol TAB* 100 MG PO SCH (09:39)
[2017-03-11] MEDS: Lithium Carbonate ER* 450 MG TAB.ER PO SCH (09:39)
[2017-03-11] MEDS: Vitamin THERAPEUTIC TAB PO SCH (09:39)
--- NOTE | 2017-03-11 10:32 | PN ---
Subjective - Subjective Service Type: 43928 Hosp care 15 min low complexity Assessment - Assessment Inpatient DSM-IV Dx: Schizoaffective d/o, Bipolar type MRE manic Plan - Plan Treatment Plan: Name: CALLIE JONES Birthdate: 1990 [id number] 1. Continue admission to the [facility] for safety and symptom management. 2. Will discontinue patient's scheduled IM Haldol decanoate 150mg [id number] due to ineffectiveness. 3. Continue Abilify 30mg po qhs for mood stabilization and psychosis. Plan to start [place] Abilify Maintena in am. 4. Continue [place] at home dose of 450mg po BID for mood stabilization. Repeat [place] Level 03/06/17 up from 0.23(admission) to 0.34. Lipid panel and HgbA1C. - both WNL. CMP - evelated transaminases. Repeat CMP and [place] level prior to patient discharge.] 5. Continue Gabapentin 600mg po TID for anxiety. 6. Meeting with ACT team rep, this provider, inradha SW, patient and patient's family member tomorrow at 1pm. 7. Collateral information obtained from mother. 8. Collateral information obtained from aunt#[phone]. 9. Patient to participate in milieu activities and groups. Medications: Current Medications Acetaminophen (Tylenol Tab*) 650 mg PO Q4H PRN PRN Reason: PAIN or TEMP > 101 F Last Admin: 03/09/17 09:56 Dose: 650 mg Al Hydrox/Mg Hydrox/Simethicone (Maalox Plus*) 30 ml PO Q4H PRN PRN Reason: INDIGESTION Last Admin: 03/01/17 11:33 Dose: 30 ml Allopurinol (Zyloprim Tab*) 100 mg PO DAILY [facility] Last Admin: 03/11/17 09:39 Dose: 100 mg Aripiprazole (Abilify Tab*) 30 mg PO BEDTIME [facility] Last Admin: 03/10/17 21:41 Dose: 30 mg Aripiprazole (Abilify Maintena (Nf)) 400 mg IM Q28D [facility] Last Admin: 03/11/17 10:22 Dose: 400 mg Device (Nicotine Mouth Piece*) 1 each INH .[place] [facility] Gabapentin (Neurontin Cap(*)) 600 mg PO TID [facility] Last Admin: 03/11/17 09:39 Dose: 600 mg [place] Carbonate ([place] Carbonate Er Tab*) 450 mg PO BID [facility] Last Admin: 03/11/17 09:39 Dose: 450 mg Multivitamins (Theragran Tab*) 1 tab PO DAILY [facility] Last Admin: 03/11/17 09:39 Dose: 1 tab Nicotine (Nicotine Inhaler*) 10 mg INH Q2H PRN PRN Reason: CRAVING Last Admin: 03/01/17 11:36 Dose: 10 mg Nicotine Polacrilex (Nicotine Gum*) 2 mg PO Q2H PRN PRN Reason: CRAVING Last Admin: 03/03/17 21:12 Dose: 2 mg
--- NOTE | 2017-03-11 14:35 | DS ---
Subjective - Subjective Service Types: 93969 Hosp DC Day Mgmt simple under 30 min Subjective: Patient noted to be visible most of the day in the milieu, pleasant, social with peers and attending groups. Patient is med compliant. Patient denies med s/ e's. Patient reports feeling ready for discharge. Patient is A&Ox4, linear and GD in TP, and future oriented in TC. He looks forward to discharge home to be with his friend for his B-day. Patient again today has not expressed paranoid or grandiose delusions, nor has he been bizarre in thinking as on admission. Patient again denies SI/HI and AH/VH. Patient is psychiatrically stable. Patient aware ACT team will be at his new place of residence tomorrow at 2pm for there post hospital discharge follow-up appt. Discharge plan has been discussed and patient is amenable and acknowledges understanding. Patient instructed to call the crisis hotline, 911, or self present to a local ED if SI/HI or AIs recur. Patient was amenable and acknowledged understanding of family and community supports. Patient will be discharged to his family friend's home who has okayed his coming there to live, Mrs. Marilyn George#[phone]. Objective - Appearance Appearance: Well Developed/Nourished, Healthy Appearing Dysmorphic Features: No Hygiene: Normal Grooming: Fairly Well Kept - Behavior Psychomotor Activities: Normal Exhibits Abnormal Movement: No - Attitude and Relatedness Attitude and Relatedness: Cooperative Eye Contact: Poor - Speech Quality: Unpressured Latencies: Normal Quantity: Appropriate - Mood Patient's Decription of Mood: "Fine" - Affect Observed Affect: Fair Affect Consistent with: Euthymia - Thought Process Patient's Thought Process: Coherent Thought Content: No Passive Wish, No Suicidal Planning, No Homicidal Ideation, No Paranoid Ideation - Sensorium Experiencing Hallucinations: No, Sensorium is Clear Type of Hallucinations: Visual: No, Auditory: No, Command: No - Level of Consciousness Level of Consciousness: Alert Orientation: Yes Intact, Yes Orientated to Time, Yes Orientated to Place, Yes Orientated to Person - Impulse Control Impulse Control: Intact - Insight and Judgement Insight and Judgement: Fair - Group Participation Particating in Group Activities: Yes - Medication Management Medication Management Adherence: Yes Treatment Course & Assessment Clinical Course & Impression: HOSPITAL COURSE: Patient is a 26yo male with PPHx significant for Schizoaffective d/o, bipolar type mre manic. Patient self presented to the [facility] ED at behest of his family after reporting SI and HI as well as more disorganized thinking and delusional and bizarre thoughts. Patient reported to family recent thoughts to kill his mother and nephew as well as rape his sister. Patient lives with his mother who frequently has her 2yo grandson at her house to baby sit for her daughter. Patient endorses daily use of cannabis. He reports the marijuana he smoked was already rolled and he did not inspect the cannabis to see if it indeed cannabis or if it had been spiked with something else. He believes this may have triggered his latest decompensation. Patient does report that after smoking this pre-rolled joint,he began to feel that he was "not in control". He reports feeling he might hurt someone else, destroy something, or hurt himself. Patient reports he experienced "uncontrolled emotions" and reported he felt he was "being led to commit suicide". Patient reports experiencing commanding AHs of both male and female voices. He reported they were telling him to do multiple terrible things. He called his sister and informed her the voices were telling him to rape her. He reported they told him to "do what you want, rape, murder, incest". Patient reports experiencing racing thoughts and reports recent poor sleep. Patient reports he experienced VHs while trying to sleep. He described looking around his room at clothes on the floor or pictures on the wall and they would "morph into a character from a cartoon". He reports seeing [employer] tunes characters including Bugs Bunny. Patient reports he does not believe he has a mental illness. He is grandiose and religiously preoccupied. He reports that he is "privy to knowledge in the bible" and describes himself as "omnipresent". He reports his hallucinations started while in college. He reports he had been daily smoking since before graduation. He reports noticing AHs shortly after observing his friend kill himself by GSW. He reports its at this time he became fascinated with and the universe. On admission,patient reported compliance with Haldol dec 150mg IM [id number]. His mother is noted to have reported she does not believe patient is compliance with Nelagoney 450mg po BID. Admission Nelagoney level - 0.23. Patient amenable to d/c of Haldol dec due to ineffectiveness. Patient educated on importance of Nelagoney med compliance. Patient was amenable to the initiation of Abilify with plan to uptitrate from starting dose of 15mg po qhs to 30mg po qhs and if beneficial initiate DESHPANDE Abilify Maintena prior to discharge. Abilify was noted to be beneficial and patient did take his first injection of Abilify Maintena on day of discharge. On day of discharge, patient noted to continue to be visible most of the day in the milieu, pleasant, social with peers and attending groups. Patient is med compliant. Patient denies med s/e's. Patient reports feeling ready for discharge. Patient is A&Ox4, linear and GD in TP, and future oriented in TC. He looks forward to discharge home to be with his friend for his -day. Patient again today has not expressed paranoid or grandiose delusions, nor has he been bizarre in thinking as on admission. Patient again denies SI/HI and AH/VH. Patient is psychiatrically stable. Patient made aware ACT team will be at his new place of residence tomorrow at 2pm for there post hospital discharge follow- up appt. Discharge plan has been discussed and patient is amenable and acknowledges understanding. Patient instructed to call the crisis hotline, 911, or self present to a local ED if SI/HI or AIs recur. Patient was amenable and acknowledged understanding of family and community supports. Patient will be discharged to his family friend's home who has okayed his coming there to live, Mrs. Marilyn George#[phone]. PERTINENT LABS: Laboratory Tests 02/28/17 02/28/17 02/28/17 21:30 21:30 22:05 WBC 9.7 RBC 4.87 Hgb 15.8 Hct 45 MCV 93 MCH 32 H MCHC 35 RDW 14 Plt Count 304 MPV 8 Neut % (Auto) 64.2 Lymph % (Auto) 25.5 [place] % (Auto) 9.0 Eos % (Auto) 0.9 Baso % (Auto) 0.4 Absolute Neuts (auto) 6.2 Absolute Lymphs (auto) 2.5 Absolute Monos (auto) 0.9 H Absolute Eos (auto) 0.1 Absolute Basos (auto) 0 Absolute Nucleated RBC 0 Nucleated RBC % 0 Sodium 136 Potassium 3.3 L Chloride 105 Carbon Dioxide 22 Anion Gap 9 BUN 7 Creatinine 0.86 Est GFR ( Amer) 140.5 Est GFR (Non-Af Amer) 109.3 BUN/Creatinine Ratio 8.1 Glucose 108 H Hemoglobin A1c Calcium 9.3 Total Bilirubin 0.40 AST 16 ALT 17 Alkaline Phosphatase 62 Total Protein 7.1 Albumin 4.7 Globulin 2.4 Albumin/Globulin Ratio 2.0 Triglycerides Cholesterol LDL Cholesterol HDL Cholesterol TSH 1.71 Urine Color Urine Appearance Urine pH Ur Specific [place] Urine Protein Urine Ketones Urine Blood Urine Nitrate Urine Bilirubin Urine Urobilinogen Ur Leukocyte Esterase Urine Glucose Salicylates < 2.50 Urine Opiates Screen None detected Acetaminophen < 15 Ur Barbiturates Screen None detected Ur Phencyclidine Scrn None detected Ur Amphetamines Screen None detected U Benzodiazepines Scrn None detected Nelagoney Urine Cocaine Screen None detected U Cannabinoids Screen Presumptive positive H Serum Alcohol < 10 02/28/17 03/02/17 03/06/17 22:05 08:31 08:56 WBC RBC Hgb Hct MCV MCH MCHC RDW Plt Count MPV Neut % (Auto) Lymph % (Auto) [place] % (Auto) Eos % (Auto) Baso % (Auto) Absolute Neuts (auto) Absolute Lymphs (auto) Absolute Monos (auto) Absolute Eos (auto) Absolute Basos (auto) Absolute Nucleated RBC Nucleated RBC % Sodium 136 Potassium 3.7 Chloride 104 Carbon Dioxide 23 Anion Gap 9 BUN 13 Creatinine 0.89 Est GFR ( Amer) 135.1 Est GFR (Non-Af Amer) 105.0 BUN/Creatinine Ratio 14.6 Glucose 134 H Hemoglobin A1c Calcium 9.5 Total Bilirubin 0.40 AST 84 H ALT 56 H Alkaline Phosphatase 71 Total Protein 6.9 Albumin 4.4 Globulin 2.5 Albumin/Globulin Ratio 1.8 Triglycerides 395 Cholesterol 195 LDL Cholesterol 69 HDL Cholesterol 47.5 TSH Urine Color Yellow Urine Appearance Clear Urine pH 7.0 Ur Specific [place] 1.009 L Urine Protein Negative Urine Ketones Negative Urine Blood Negative Urine Nitrate Negative Urine Bilirubin Negative Urine Urobilinogen Negative Ur Leukocyte Esterase Negative Urine Glucose Negative Salicylates Urine Opiates Screen Acetaminophen Ur Barbiturates Screen Ur Phencyclidine Scrn Ur Amphetamines Screen U Benzodiazepines Scrn Nelagoney 0.23 L 0.34 L Urine Cocaine Screen U Cannabinoids Screen Serum Alcohol 03/06/17 08:56 WBC RBC Hgb Hct MCV MCH MCHC RDW Plt Count MPV Neut % (Auto) Lymph % (Auto) [place] % (Auto) Eos % (Auto) Baso % (Auto) Absolute Neuts (auto) Absolute Lymphs (auto) Absolute Monos (auto) Absolute Eos (auto) Absolute Basos (auto) Absolute Nucleated RBC Nucleated RBC % Sodium Potassium Chloride Carbon Dioxide Anion Gap BUN Creatinine Est GFR ( Amer) Est GFR (Non-Af Amer) BUN/Creatinine Ratio Glucose Hemoglobin A1c 5.2 Calcium Total Bilirubin AST ALT Alkaline Phosphatase Total Protein Albumin Globulin Albumin/Globulin Ratio Triglycerides Cholesterol LDL Cholesterol HDL Cholesterol TSH Urine Color Urine Appearance Urine pH Ur Specific [place] Urine Protein Urine Ketones Urine Blood Urine Nitrate Urine Bilirubin Urine Urobilinogen Ur Leukocyte Esterase Urine Glucose Salicylates Urine Opiates Screen Acetaminophen Ur Barbiturates Screen Ur Phencyclidine Scrn Ur Amphetamines Screen U Benzodiazepines Scrn Nelagoney Urine Cocaine Screen U Cannabinoids Screen Serum Alcohol Consultants: none Discharge Meds: Home Medications Medication Instructions Recorded Confirmed Type Allopurinol TAB* [Zyloprim 100 MG 100 mg PO DAILY 03/01/17 03/01/17 History TAB*] Gabapentin TAB(NF) [Neurontin 600 600 mg PO TID 03/01/17 03/01/17 History mg TAB(NF)] Aripiprazole Maintena (NF) 400 mg IM Q28D #1 syringe 03/11/17 Rx [Abilify Maintena (NF)] Nelagoney Carbonate ER TAB* 450 mg PO BID #60 tab.er 03/11/17 Rx Vitamin THERAPEUTIC TAB* 1 tab PO DAILY #30 tab 03/11/17 Rx [Theragran TAB*] Follow-Up: Appt. for with ACT team tomorrow at 2pm scheduled by SW as well with PCP for within 2weeks of discharge. Clear for Discharge: Adequate Clinical Respons, Acceptable Safety Profile Inpatient DSM-IV Dx: Schizoaffective d/o, Bipolar type MRE manic Discharge Planning - Discharge Planning Discharge Plan: Outpatient Follow Up Outpatient Program: Private Clinician(s) - PCP Recommendations for Continuing Care: Therapeutic Drug Levels Medications: Current Medications Acetaminophen (Tylenol Tab*) 650 mg PO Q4H PRN PRN Reason: PAIN or TEMP > 101 F Last Admin: 03/09/17 09:56 Dose: 650 mg Al Hydrox/Mg Hydrox/Simethicone (Maalox Plus*) 30 ml PO Q4H PRN PRN Reason: INDIGESTION Last Admin: 03/01/17 11:33 Dose: 30 ml Allopurinol (Zyloprim Tab*) 100 mg PO DAILY [facility] Last Admin: 03/11/17 09:39 Dose: 100 mg Aripiprazole (Abilify Tab*) 30 mg PO BEDTIME [facility] Last Admin: 03/10/17 21:41 Dose: 30 mg Aripiprazole (Abilify Maintena (Nf)) 400 mg IM Q28D [facility] Last Admin: 03/11/17 10:22 Dose: 400 mg Device (Nicotine Mouth Piece*) 1 each INH .CARTRIDGE [facility] Gabapentin (Neurontin Cap(*)) 600 mg PO TID [facility] Last Admin: 03/11/17 14:28 Dose: 600 mg Nelagoney Carbonate (Nelagoney Carbonate Er Tab*) 450 mg PO BID [facility] Last Admin: 03/11/17 09:39 Dose: 450 mg Multivitamins (Theragran Tab*) 1 tab PO DAILY [facility] Last Admin: 03/11/17 09:39 Dose: 1 tab Nicotine (Nicotine Inhaler*) 10 mg INH Q2H PRN PRN Reason: CRAVING Last Admin: 03/01/17 11:36 Dose: 10 mg Nicotine Polacrilex (Nicotine Gum*) 2 mg PO Q2H PRN PRN Reason: CRAVING Last Admin: 03/03/17 21:12 Dose: 2 mg Discharge Planning: Prescriptions provided for discharge [x] Yes [] No Follow up care details as per social work arrangements. Patient response to discharge plan: [] eager for discharge [x] agreeable with discharge plan [] ambivalent about discharge [] disagrees with discharge today
--- NOTE | 2017-03-11 16:19 | PN ---
[facility]: Group Therapy Note - Service Type Service Type: [id number] Group Psychotherapy - Medication Education Group: Patient joined group midway and left early. Patient asked questions that were not particularly on topic.
== END 2017-03-11 18:10 | disposition home or self-care (01) | DRG 885 ==
LOC: ED 21:03 → BSU 03-01 03:00 → ED 03-01 03:12
PROVIDERS: ADMIT Psychiatry & Neurology Psychiatry; ATTEND Psychiatry & Neurology Psychiatry
PROC: GZHZZZZ Group Psychotherapy (ICD-10-PCS; principal; 2017-03-03)
DX: F25.0 Schizoaffective disorder, bipolar type (principal); R45.851 Suicidal ideations; R45.850 Homicidal ideations; F12.20 Cannabis dependence, uncomplicated; F10.20 Alcohol dependence, uncomplicated; F32.9 Major depressive disorder, single episode, unspecified; F17.210 Nicotine dependence, cigarettes, uncomplicated; F41.9 Anxiety disorder, unspecified; F43.10 Post-traumatic stress disorder, unspecified; Z91.5 Personal history of self-harm; Z56.0 Unemployment, unspecified; Z82.49 Family history of ischemic heart disease and other diseases of the circulatory system; Z83.3 Family history of diabetes mellitus
CPT/HCPCS: 36415; 80053; 80061; 80178; 80307; 80320; 80329; 81003; 83036; 84443; 85025; 90853; 99222; 99231; 99232; 99233; 99238; 99406; A9270-GY; G0480

== ENCOUNTER 2017-03-16 23:27 | Emergency (ER) | payer MEDICARE, MEDICAID ==
[2017-03-16 23:50] VITALS: BP 133/75
[2017-03-17 00:37] LABS: Hematocrit 44 % (42-52); Hemoglobin 14.6 g/dl (14.0-18.0); Mean Corpuscular HGB Conc 33 g/dl (31-36); Mean Corpuscular Hemoglobin 31 pg (27-31); Mean Corpuscular Volume 94 fL (80-94); Mean Platelet Volume 7 um3 (7.4-10.4); Red Blood Count 4.65 10^6/ul (4.0-5.4); Red Cell Distribution Width 14 % (10.5-15); White Blood Count 14.6 10^3/ul (3.5-10.8)
[2017-03-17 00:48] LABS: ALT 37 U/L (7-52); AST 19 U/L (13-39); Albumin 4.8 g/dL (3.2-5.2); Alkaline Phosphatase 58 U/L (34-104); Anion Gap 8 mmol/L (2-11); BUN/Creatinine Ratio 7.5 (8-20); Blood Urea Nitrogen 8 mg/dL (6-24); CO2 Carbon Dioxide 24 mmol/L (22-32); Calcium 9.3 mg/dL (8.6-10.3); Chloride 105 mmol/L (101-111); EGFR African American 109.2 (>60); EGFR Non-African American 84.9 (>60); Globulin 2.5 g/dL (2-4); Glucose 100 mg/dL (70-100); Potassium 3.4 mmol/L (3.5-5.0); Sodium 137 mmol/L (133-145); Total Protein 7.3 g/dL (6.4-8.9)
[2017-03-17 00:49] LABS: Acetaminophen < 15 mcg/mL; Alcohol < 10 mg/dL (<10); Salicylate < 2.50 mg/dL (<30)
[2017-03-17 01:01] LABS: Urine Bacteria Absent (Absent); Urine Bilirubin Negative (Negative); Urine Glucose Negative (Negative); Urine Nitrite Negative (Negative)
[2017-03-17 01:11] LABS: Benzodiazepine Urine Screen None Detected (None Detect)
[2017-03-17] MEDS ORDERED: LORazepam TAB(*) 1 MG ONE (02:01)
[2017-03-17] MEDS ORDERED: LORazepam TAB(*) 1 MG PO ONE (02:02)
--- NOTE | 2017-03-17 07:34 | ED ---
Rafael Wallace Rebecca, scribed for Reagan Doyle MD on 03/17/17 at 0116 . Psychiatric Complaint - HPI Summary HPI Summary: Pt is a 26 y/o M who presents to ED stating that he would like to be admitted. When asked why he presents, he repeatedly states "I'm high." Confirms marijuana use today and denies any alcohol use. PMHx schizophrenia, anxiety and depression that are not particularly worse recently. - History Of Current Complaint Chief Complaint: EDMentalHealth Hx Obtained From: Patient Onset/Duration: Still Present Aggravating Factor(s): Drug Use - Marijuana Alleviating Factor(s): Nothing Related History: Positive For: Prior Psychiatric Issues - Schizophrenia, anxiety , depression Ingestion History: Type/Name Of Drug - Marijuana - Allergies/Home Medications Allergies/Adverse Reactions: Allergies Allergy/AdvReac Type Severity Reaction Status Date / Time No Known Allergies Allergy Verified 03/16/17 23:50 PMH/Surg Hx/FS Hx/Imm Hx Endocrine/Hematology History: Denies: Hx Anticoagulant Therapy, Hx Blood Disorders, Hx Blood Transfusions, Hx Bone Marrow Disease, Hx Diabetes, Hx Systemic Lupus Erythematosus, Hx Sickle Cell Disease, Hx Thyroid Disease, Hx Anemia, Hx Unexplained Bleeding, Other Endocrine/Hematological Disorders Cardiovascular History: Denies: Hx Aneurysm, Hx Angina, Hx Angioplasty, Hx Auto Implanted Cardiovert Defib, Hx Cardiac Arrest, Hx Cardiomegaly, Hx Congenital Heart Disease, Hx Congestive Heart Failure, Hx Coronary Artery Disease, Hx Deep Vein Thrombosis, Hx Hypercholesterolemia, Hx Hypotension, Hx Hypertension, Hx Pacemaker/ICD, Hx Peripheral Vascular Disease, Hx Rheumatic Fever, Hx Syncope, Hx Valvular Heart Disease, Other Cardiovascular Problems/Disorders Respiratory History: Denies: Hx Asthma, Hx Chronic Bronchitis, Hx Chronic Obstructive Pulmonary Disease (COPD), Hx Cystic Fibrosis, Hx Lung Cancer, Hx Pleural Effusion, Hx Pneumonia, Hx Pulmonary Edema, Hx Pulmonary Embolism, Hx Seasonal Allergies, Hx Sleep Apnea, Other Respiratory Problems/Disorders GI History: Denies: Hx Cirrhosis, Hx Crohn's Disease, Hx Diverticulosis, Hx Gall Bladder Disease, Hx Gastroesophageal Reflux Disease, Hx Gastrointestinal Bleed, Hx Hiatal Hernia, Hx Irritable Bowel, Hx Jaundice, Hx Obstructive Bowel, Hx Ileostomy, Hx Pyloric Stenosis, Hx Ulcer, Other GI Disorders History: Denies: Hx Acute Renal Failure, Hx Benign Prostatic Hyperplasia, Hx Chronic Renal Failure, Hx Dialysis, Hx Kidney Infection, Hx Kidney Stones, Other Problems/Disorders Musculoskeletal History: Denies: Hx Arthritis, Hx Back Problems, Hx Bursitis, Hx Congenital Bone Abnormalities, Hx Fibromyalgia, Hx Gout, Hx Orthopedic Injury, Hx Osteoporosis, Hx Scoliosis, Hx Tendonitis, Other Musculoskeletal History Sensory History: Denies: Hx Cataracts, Hx Contacts or Glasses, Hx Eye Injury, Hx Eye Prosthesis, Hx Glaucoma, Hx Macular Degeneration, Hx Vision Problem, Hx Deafness , Hx Hearing Aid, Hx Hearing Problem, Other Sensory Impairments Opthamlomology History: Denies: Hx Cataracts, Hx Contacts or Glasses, Hx Eye Injury, Hx Eye Prosthesis, Hx Glaucoma, Hx Macular Degeneration, Hx Vision Problem, Other Sensory Impairments Neurological History: Denies: Hx Dementia, Hx Developmental Delay, Hx Headaches, Hx Migraine, Hx Seizures, Hx Spinal Cord Injury, Hx Transient Ischemic Attacks (TIA), Other Neuro Impairments/Disorders Psychiatric History: Reports: Hx Anxiety, Hx Depression, Hx Post Traumatic Stress Disorder, Hx Inpatient Treatment, Hx Community Mental Health Tx, Hx Schizophrenia, Hx Suicide Attempt, Hx of Violent Episodes Against Others, Hx Substance Abuse, Other Psychiatric Issues/Disorders - psychosis Denies: Hx Attention Deficit Hyperactivity Disorder, Hx Eating Disorder, Hx Panic Disorder, Hx Bipolar Disorder - Cancer History Hx Chemotherapy: No Hx Radiation Therapy: No - Surgical History Hx Anesthesia Reactions: No - Immunization History Date of Tetanus Vaccine: unk Date of Influenza Vaccine: unk Infectious Disease History: Denies: Hx Clostridium Difficile, Hx Hepatitis, Hx Human Immunodeficiency Virus (HIV), Hx Shingles, Hx Tuberculosis, Traveled Outside the [place] in Last 30 Days - Family History Known Family History: Positive: Hypertension, Diabetes - grandfather - Social History Alcohol Use: Occasionally Hx Substance Use: Yes Substance Use Type: Reports: Marijuana Substance Use Comment - Amount & Last Used: tonight Hx Tobacco Use: Yes Smoking Status (MU): Heavy Every Day Tobacco Smoker Type: Cigarettes Amount Used/How Often: 1/2 PPD Length of Time of Smoking/Using Tobacco: 5YRS Have You Smoked in the Last Year: Yes Review of Systems Negative: Fever Positive: Other - High from marijuana All Other Systems Reviewed And Are Negative: Yes Physical Exam - Summary Physical Exam Summary: General: well-appearing, no pain distress Skin: warm, color reflects adequate perfusion, dry Head: normal Eyes: EOMI, KALEY ENT: normal Neck: supple, nontender Respiratory: CTA, breath sounds present Cardiovascular: RRR Abdomen: soft, nontender Bowel: present Musculoskeletal: normal, strength/ROM intact Neurological: normal, sensory/motor intact, A&O x3 Psychological: affect/mood appropriate Triage Information Reviewed: Yes Vital Signs On Initial Exam: Initial Vitals Temp Pulse Resp BP Pulse Ox 98.2 F 100 18 133/75 98 03/16/17 23:47 03/16/17 23:47 03/16/17 23:47 03/16/17 23:47 03/16/17 23:47 Vital Signs Reviewed: Yes - [place] Coma Scale Coma Scale Total: 15 Diagnostics - Vital Signs Vital Signs Temp Pulse Resp BP Pulse Ox 03/16/17 23:47 98.2 F 100 18 133/75 98 - Laboratory Lab Results: Lab Results 03/17/17 Range/Units 00:20 WBC 14.6 H (3.5-10.8) 10^3/ul RBC 4.65 (4.0-5.4) 10^6/ul Hgb 14.6 (14.0-18.0) g/dl Hct 44 (42-52) % MCV 94 (80-94) fL MCH 31 (27-31) pg MCHC 33 (31-36) g/dl RDW 14 (10.5-15) % Plt Count 342 (150-450) 10^3/ul MPV 7 L (7.4-10.4) um3 Neut % (Auto) 74.0 (38-83) % Lymph % (Auto) 18.4 L (25-47) % [place] % (Auto) 6.5 (1-9) % Eos % (Auto) 0.6 (0-6) % Baso % (Auto) 0.5 (0-2) % Absolute Neuts (auto) 10.8 H (1.5-7.7) 10^3/ul Absolute Lymphs (auto) 2.7 (1.0-4.8) 10^3/ul Absolute Monos (auto) 1.0 H (0-0.8) 10^3/ul Absolute Eos (auto) 0.1 (0-0.6) 10^3/ul Absolute Basos (auto) 0.1 (0-0.2) 10^3/ul Absolute Nucleated RBC 0.01 10^3/ul Nucleated RBC % 0 Result Diagrams: 03/17/17 00:20 03/17/17 00:20 Lab Statement: Any lab studies that have been ordered have been reviewed, and results considered in the medical decision making process. Course/Dx - Course Assessment/Plan: Pt is a 26 y/o M who presents to ED stating that he would like to be admitted. When asked why he presents, he repeatedly states "I'm high." Confirms marijuana use today and denies any alcohol use. PMHx schizophrenia, anxiety and depression that are not particularly worse recently. Medically cleared for MHE at 0216. Upon completion of his MHE and consultation with Dr. العراقي, it has been determined that the pt will be D/C to home. Elevated BP noted and advised to f/u with PCP. - Differential Dx/Clinical Impression Provider Diagnosis: Mental health problem Discharge - Discharge Plan Condition: Stable Disposition: HOME Referrals: Felipe Alva MD [Primary Care Provider] - The documentation as recorded by the Rafael jones Rebecca accurately reflects the service I personally performed and the decisions made by me, Reagan Doyle MD.
[2017-03-17 07:35] LABS: Lithium 0.44 mmol/L (0.6-1.2)
--- NOTE | 2017-03-17 20:15 | CONSULT ---
Consult Consult: I gave doc to doc to psychiatrist at [facility] for this patient, provided history to best of my ability. Dr. Herring no longer in department. He accepted doc to doc report for this patient that had already left our facility.
== END 2017-03-17 06:03 | disposition home or self-care (01) ==
LOC: ED 23:27
DX: Z00.8 Encounter for other general examination (principal); F12.90 Cannabis use, unspecified, uncomplicated; F17.210 Nicotine dependence, cigarettes, uncomplicated
CPT/HCPCS: 36415; 80053; 80178; 80307; 80320; 80329; 81003; 81015; 84443; 85025; 87086; 99285; A9270-GY; G0480

== ENCOUNTER 2017-03-17 08:34 | Emergency (ER) | payer MEDICARE, MEDICAID ==
[2017-03-17 08:40] VITALS: BP 154/74
[2017-03-17 10:24] LABS: Benzodiazepine Urine Screen None Detected (None Detect)
--- NOTE | 2017-03-17 18:59 | ED ---
Mohini Wallace Thomas, scribed for Reji Herring MD on 03/17/17 at 0951 . Psychiatric Complaint - HPI Summary HPI Summary: The pt is a 26 y/o M BIB security with HI and paranoia. He was discharged from [facility] this AM at 06:00, but he was brought back by security at approximately 07: 00 for verbalized HI. In the examination room, he says there are people I want to kill that are following me, keep searching information and putting shame on my name. People drive by and stare at me and talk to me. Pt denies sleep disturbances and SI. He takes Abilifiy and [place]. He says that he drank 2 days ago. PMHx: schizophrenia, Bipolar. SHx: occasional alcohol use, marijuana use. - History Of Current Complaint Chief Complaint: EDMentalHealth Time Seen by Provider: 03/17/17 08:47 Hx Obtained From: Patient, Other: - Security Onset/Duration: Still Present Timing: Constant Severity Currently: Moderate Aggravating Factor(s): Nothing Alleviating Factor(s): Nothing Associated Signs And Symptoms: Positive: Paranoid Behavior, Social Withdrawal. Negative: Sleep Disturbance Related History: Positive For: Prior Psychiatric Issues Has Suicidal: Denies: Thoughts Has Homicidal: Reports: Thoughts, Demonstrates Gesture Recent Stressor(s): He was discharged from [facility] at 06:00 - Allergies/Home Medications Allergies/Adverse Reactions: Allergies Allergy/AdvReac Type Severity Reaction Status Date / Time No Known Allergies Allergy Verified 03/17/17 08:41 PMH/Surg Hx/FS Hx/Imm Hx Previously Healthy: No Endocrine/Hematology History: Denies: Hx Anticoagulant Therapy, Hx Blood Disorders, Hx Blood Transfusions, Hx Bone Marrow Disease, Hx Diabetes, Hx Systemic Lupus Erythematosus, Hx Sickle Cell Disease, Hx Thyroid Disease, Hx Anemia, Hx Unexplained Bleeding, Other Endocrine/Hematological Disorders Cardiovascular History: Denies: Hx Aneurysm, Hx Angina, Hx Angioplasty, Hx Auto Implanted Cardiovert Defib, Hx Cardiac Arrest, Hx Cardiomegaly, Hx Congenital Heart Disease, Hx Congestive Heart Failure, Hx Coronary Artery Disease, Hx Deep Vein Thrombosis, Hx Hypercholesterolemia, Hx Hypotension, Hx Hypertension, Hx Pacemaker/ICD, Hx Peripheral Vascular Disease, Hx Rheumatic Fever, Hx Syncope, Hx Valvular Heart Disease, Other Cardiovascular Problems/Disorders Respiratory History: Denies: Hx Asthma, Hx Chronic Bronchitis, Hx Chronic Obstructive Pulmonary Disease (COPD), Hx Cystic Fibrosis, Hx Lung Cancer, Hx Pleural Effusion, Hx Pneumonia, Hx Pulmonary Edema, Hx Pulmonary Embolism, Hx Seasonal Allergies, Hx Sleep Apnea, Other Respiratory Problems/Disorders GI History: Denies: Hx Cirrhosis, Hx Crohn's Disease, Hx Diverticulosis, Hx Gall Bladder Disease, Hx Gastroesophageal Reflux Disease, Hx Gastrointestinal Bleed, Hx Hiatal Hernia, Hx Irritable Bowel, Hx Jaundice, Hx Obstructive Bowel, Hx Ileostomy, Hx Pyloric Stenosis, Hx Ulcer, Other GI Disorders History: Denies: Hx Acute Renal Failure, Hx Benign Prostatic Hyperplasia, Hx Chronic Renal Failure, Hx Dialysis, Hx Kidney Infection, Hx Kidney Stones, Other Problems/Disorders Musculoskeletal History: Denies: Hx Arthritis, Hx Back Problems, Hx Bursitis, Hx Congenital Bone Abnormalities, Hx Fibromyalgia, Hx Gout, Hx Orthopedic Injury, Hx Osteoporosis, Hx Scoliosis, Hx Tendonitis, Other Musculoskeletal History Sensory History: Denies: Hx Cataracts, Hx Contacts or Glasses, Hx Eye Injury, Hx Eye Prosthesis, Hx Glaucoma, Hx Macular Degeneration, Hx Vision Problem, Hx Deafness , Hx Hearing Aid, Hx Hearing Problem, Other Sensory Impairments Opthamlomology History: Denies: Hx Cataracts, Hx Contacts or Glasses, Hx Eye Injury, Hx Eye Prosthesis, Hx Glaucoma, Hx Macular Degeneration, Hx Vision Problem, Other Sensory Impairments Neurological History: Denies: Hx Dementia, Hx Developmental Delay, Hx Headaches, Hx Migraine, Hx Seizures, Hx Spinal Cord Injury, Hx Transient Ischemic Attacks (TIA), Other Neuro Impairments/Disorders Psychiatric History: Reports: Hx Anxiety, Hx Depression, Hx Post Traumatic Stress Disorder, Hx Inpatient Treatment, Hx Community Mental Health Tx, Hx Schizophrenia, Hx Suicide Attempt, Hx Substance Abuse, Other Psychiatric Issues/ Disorders - psychosis Denies: Hx Attention Deficit Hyperactivity Disorder, Hx Eating Disorder, Hx Panic Disorder, Hx Bipolar Disorder, Hx of Violent Episodes Against Others - Cancer History Hx Chemotherapy: No Hx Radiation Therapy: No - Surgical History Surgery Procedure, Year, and Place: None. Hx Anesthesia Reactions: No - Immunization History Date of Tetanus Vaccine: unk Date of Influenza Vaccine: unk Infectious Disease History: Unable to Obtain/Confirm Infectious Disease History: Denies: Hx Clostridium Difficile, Hx Hepatitis, Hx Human Immunodeficiency Virus (HIV), Hx Shingles, Hx Tuberculosis, Traveled Outside the [place] in Last 30 Days - Family History Known Family History: Positive: Hypertension, Diabetes - grandfather - Social History Alcohol Use: Occasionally Hx Substance Use: Yes Substance Use Type: Reports: Marijuana Substance Use Comment - Amount & Last Used: tonight Hx Tobacco Use: Yes Smoking Status (MU): Heavy Every Day Tobacco Smoker Type: Cigarettes Amount Used/How Often: 1/2 PPD Length of Time of Smoking/Using Tobacco: 5YRS Have You Smoked in the Last Year: Yes Review of Systems Negative: Fever Psychological: Other - POS: SI, paranoia; NEG: SI, sleep disturbances All Other Systems Reviewed And Are Negative: Yes Physical Exam - Summary Physical Exam Summary: The patient is well-nourished in no acute distress and in no acute pain. The skin is warm and dry and skin color reflects adequate perfusion. HEENT: The head is normocephalic and atraumatic. The pupils are equal and reactive. The conjunctivae are clear and without drainage. Nares are patent and without drainage. Mouth reveals moist mucous membranes and the throat is without erythema and exudate. The external ears are intact. The ear canals are patent and without drainage. The tympanic membranes are intact. Neck is supple with full range of motion and non-tender. There are no carotid bruits. There is no neck vein distension. Respiratory: Chest is non-tender. Lungs are clear to auscultation and breath sounds are symmetrical and equal. Cardiovascular: Heart is regular rate and rhythm. There is no murmur or rub auscultated. There is no peripheral edema and pulses are symmetrical and equal. Abdomen: The abdomen is soft and non-tender. There are normal bowel sounds heard in all four quadrants and there is no organomegaly palpated. Musculoskeletal: There is no back pain noted. Extremities are non-tender with full range of motion. There is good capillary refill. There is no peripheral edema or calf tenderness elicited. Neurological: Patient is alert and oriented to person, place and time. The patient has symmetrical motor strength in all four extremities. Cranial nerves are grossly intact. Deep tendon reflexes are symmetrical and equal in all four extremities. Psychiatric: He is extremely paranoid. He is disheveled. He has flight of ideas. There is no evidence of lacerations to his arms. He is alert and cooperative. Triage Information Reviewed: Yes Vital Signs On Initial Exam: Initial Vitals Temp Pulse Resp BP Pulse Ox 98.2 F 98 20 154/74 100 03/17/17 08:34 03/17/17 08:34 03/17/17 08:34 03/17/17 08:34 03/17/17 08:34 Vital Signs Reviewed: Yes - Sylvia Coma Scale Coma Scale Total: 15 Diagnostics - Vital Signs Vital Signs Temp Pulse Resp BP Pulse Ox 03/17/17 08:34 98.2 F 98 20 154/74 100 - Laboratory Lab Results: Lab Results 03/17/17 Range/Units 09:40 Urine Opiates Screen None detected (None Detect) Ur Barbiturates Screen None detected (None Detect) Ur Phencyclidine Scrn None detected (None Detect) Ur Amphetamines Screen None detected (None Detect) U Benzodiazepines Scrn None detected (None Detect) Urine Cocaine Screen None detected (None Detect) U Cannabinoids Screen Presumptive positive H (None Detect) Lab Statement: Any lab studies that have been ordered have been reviewed, and results considered in the medical decision making process. - EKG 16:31 Cardiac Rate: NL - 82 BPM EKG Interpretation: NSR. Nml axis. No ST elev. No STEMI. 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 He was discharged from [facility] this AM at 06:00, but he was brought back by security at approximately 07:00 for verbalized HI. In the examination room, he says there are people I want to kill that are following me, keep searching information and putting shame on my name. People drive by and stare at me and talk to me. Pt denies sleep disturbances and SI. He takes Abilifiy and [place]. He says that he drank 2 days ago. PMHx: schizophrenia, Bipolar. SHx: occasional alcohol use, marijuana use. EKG at 16:31 shows NSR at 82 BPM, Nml axis, regular rhythm, no ST elevations, no STEMI, poor R wave progression. Drug screen shows presumptive positive for cannabinoids. He is medically cleared for MHE at 10:03. After MHE, patient will be transferred to higher level of care at [place]. The patient is stable. - Differential Dx/Clinical Impression Differential Diagnosis/HQI/PQRI: Positive: Acute Psychosis, Schizophrenia Provider Diagnosis: Acute psychosis - Physician Notifications Reason For Transfer: Patient not appropriate for [facility] No beds available. Discharge - Discharge Plan Condition: Stable Disposition: PSYCHIATRIC FACILITY-OTHER Discharge Disposition Comment: Transferred to [place] for higher level of care. Referrals: Felipe Alva MD [Primary Care Provider] - The documentation as recorded by the Mohini jones Thomas accurately reflects the service I personally performed and the decisions made by me, Reji Herring MD.
== END 2017-03-17 21:05 ==
LOC: ED 08:34
DX: F23 Brief psychotic disorder (principal); F17.210 Nicotine dependence, cigarettes, uncomplicated
CPT/HCPCS: 36415; 80307; 93005; 99285

== ENCOUNTER 2017-09-12 00:56 | Inpatient (IN) | payer MEDICARE, MEDICAID ==
[2017-09-12 02:02] LABS: ABS Basophils 0.1 10^3/ul (0-0.2); ABS Eosinophils 0.2 10^3/ul (0-0.6); ABS Lymphocytes 2.8 10^3/ul (1.0-4.8); ABS Monocytes 0.7 10^3/ul (0-0.8); ABS Nucleated RBC 0 10^3/ul; Eosinophil % 2.8 % (0-6); Hematocrit 45 % (42-52); Hemoglobin 15.9 g/dl (14.0-18.0); Lymphocyte % 35.5 % (25-47); Mean Corpuscular HGB Conc 35 g/dl (31-36); Mean Corpuscular Hemoglobin 33 pg (27-31); Mean Corpuscular Volume 92 fL (80-94); Mean Platelet Volume 8 um3 (7.4-10.4); Nucleated Red Blood Cells % 0.1; Platelet Count 228 10^3/ul (150-450); Red Blood Count 4.87 10^6/ul (4.0-5.4); Red Cell Distribution Width 14 % (10.5-15); White Blood Count 7.8 10^3/ul (3.5-10.8)
[2017-09-12 02:20] LABS: EGFR Non-African American 101.5 (>60)
[2017-09-12 02:21] LABS: Urine Appearance Clear; Urine Blood Negative (Negative); Urine Color Yellow; Urine Ketones Trace (Negative); Urine Protein Negative (Negative); Urine Specific Gravity 1.034 (1.010-1.030); Urine Urobilinogen Positive (Negative)
[2017-09-12] MEDS ORDERED: Nicotine GUM* 2 MG PO PRN (07:45)
[2017-09-12] MEDS ORDERED: Mouth Piece, Nicotine* 1 EACH CARTRIDGE INH SCH (07:45)
[2017-09-12] MEDS ORDERED: Al Hydrox/Mg Hydrox/Simet LIQ* 30 ML UDC PO PRN (07:45)
[2017-09-12] MEDS ORDERED: Nicotine Inhaler* 10 MG AMP INH PRN (07:45)
[2017-09-12] MEDS ORDERED: Acetaminophen TAB* 325 MG PO PRN (07:45)
[2017-09-12] MEDS: Gabapentin CAP(*) 300 MG PO SCH ×3 (10:03→21:18)
[2017-09-12] MEDS: Vitamin THERAPEUTIC TAB PO SCH (10:03)
[2017-09-12] MEDS: Lithium LIQ* 300 MG/5 ML UDC PO SCH ×2 (10:03→21:19)
[2017-09-12 12:36] VITALS: BP 93/46
--- NOTE | 2017-09-12 14:24 | ED ---
William Wallace Sixian, scribed for Bobby Davis MD on 09/12/17 at 0205 . Psychiatric Complaint - HPI Summary HPI Summary: This patient is a 27 year old M presenting to ED with a chief complaint of SI and audtiory hallucinations since 0000 today. Patient reports hearing voices telling him to harm himself and has been dealing with actual demons who have been affecting his behavior. Pt states he has not been taking his mental health medications for several months. pt states he has also continued to use several illegal drugs as well as alcohol intake. - History Of Current Complaint Chief Complaint: EDMentalHealth Time Seen by Provider: 09/12/17 01:17 Hx Obtained From: Patient Onset/Duration: Lasting Hours, Still Present Timing: Hours Aggravating Factor(s): Nothing Alleviating Factor(s): Nothing Has Suicidal: Reports: Thoughts - Allergies/Home Medications Allergies/Adverse Reactions: Allergies Allergy/AdvReac Type Severity Reaction Status Date / Time No Known Allergies Allergy Verified 09/12/17 01:21 PMH/Surg Hx/FS Hx/Imm Hx Endocrine/Hematology History: Denies: Hx Anticoagulant Therapy, Hx Blood Disorders, Hx Blood Transfusions, Hx Bone Marrow Disease, Hx Diabetes, Hx Systemic Lupus Erythematosus, Hx Sickle Cell Disease, Hx Thyroid Disease, Hx Anemia, Hx Unexplained Bleeding, Other Endocrine/Hematological Disorders Cardiovascular History: Denies: Hx Aneurysm, Hx Angina, Hx Angioplasty, Hx Auto Implanted Cardiovert Defib, Hx Cardiac Arrest, Hx Cardiomegaly, Hx Congenital Heart Disease, Hx Congestive Heart Failure, Hx Coronary Artery Disease, Hx Deep Vein Thrombosis, Hx Hypercholesterolemia, Hx Hypotension, Hx Hypertension, Hx Pacemaker/ICD, Hx Peripheral Vascular Disease, Hx Rheumatic Fever, Hx Syncope, Hx Valvular Heart Disease, Other Cardiovascular Problems/Disorders Respiratory History: Denies: Hx Asthma, Hx Chronic Bronchitis, Hx Chronic Obstructive Pulmonary Disease (COPD), Hx Cystic Fibrosis, Hx Lung Cancer, Hx Pleural Effusion, Hx Pneumonia, Hx Pulmonary Edema, Hx Pulmonary Embolism, Hx Seasonal Allergies, Hx Sleep Apnea, Other Respiratory Problems/Disorders GI History: Denies: Hx Cirrhosis, Hx Crohn's Disease, Hx Diverticulosis, Hx Gall Bladder Disease, Hx Gastroesophageal Reflux Disease, Hx Gastrointestinal Bleed, Hx Hiatal Hernia, Hx Irritable Bowel, Hx Jaundice, Hx Obstructive Bowel, Hx Ileostomy, Hx Pyloric Stenosis, Hx Ulcer, Other GI Disorders History: Denies: Hx Acute Renal Failure, Hx Benign Prostatic Hyperplasia, Hx Chronic Renal Failure, Hx Dialysis, Hx Kidney Infection, Hx Kidney Stones, Other Problems/Disorders Musculoskeletal History: Denies: Hx Arthritis, Hx Back Problems, Hx Bursitis, Hx Congenital Bone Abnormalities, Hx Fibromyalgia, Hx Gout, Hx Orthopedic Injury, Hx Osteoporosis, Hx Scoliosis, Hx Tendonitis, Other Musculoskeletal History Sensory History: Denies: Hx Cataracts, Hx Contacts or Glasses, Hx Eye Injury, Hx Eye Prosthesis, Hx Glaucoma, Hx Macular Degeneration, Hx Vision Problem, Hx Deafness , Hx Hearing Aid, Hx Hearing Problem, Other Sensory Impairments Opthamlomology History: Denies: Hx Cataracts, Hx Contacts or Glasses, Hx Eye Injury, Hx Eye Prosthesis, Hx Glaucoma, Hx Macular Degeneration, Hx Vision Problem, Other Sensory Impairments Neurological History: Denies: Hx Dementia, Hx Developmental Delay, Hx Headaches, Hx Migraine, Hx Seizures, Hx Spinal Cord Injury, Hx Transient Ischemic Attacks (TIA), Other Neuro Impairments/Disorders Psychiatric History: Reports: Hx Anxiety, Hx Depression, Hx Post Traumatic Stress Disorder, Hx Inpatient Treatment, Hx Community Mental Health Tx, Hx Schizophrenia, Hx Suicide Attempt, Hx Substance Abuse, Other Psychiatric Issues/ Disorders - psychosis Denies: Hx Attention Deficit Hyperactivity Disorder, Hx Eating Disorder, Hx Panic Disorder, Hx Bipolar Disorder, Hx of Violent Episodes Against Others - Cancer History Hx Chemotherapy: No Hx Radiation Therapy: No - Surgical History Surgery Procedure, Year, and Place: None. Hx Anesthesia Reactions: No - Immunization History Date of Tetanus Vaccine: unk Date of Influenza Vaccine: unk Immunizations Up to Date: Unable to Obtain/Confirm Infectious Disease History: No Infectious Disease History: Denies: Hx Clostridium Difficile, Hx Hepatitis, Hx Human Immunodeficiency Virus (HIV), Hx Shingles, Hx Tuberculosis, Traveled Outside the [place] in Last 30 Days - Family History Known Family History: Positive: None, Hypertension, Diabetes - grandfather - Social History Alcohol Use: Occasionally Hx Substance Use: Yes Substance Use Type: Reports: Marijuana Substance Use Comment - Amount & Last Used: tonight Hx Tobacco Use: Yes Smoking Status (MU): Heavy Every Day Tobacco Smoker Type: Cigarettes Amount Used/How Often: 1/2 PPD Length of Time of Smoking/Using Tobacco: 5YRS Have You Smoked in the Last Year: Yes Review of Systems Negative: Fever Psychological: Other - SI, hallucinations All Other Systems Reviewed And Are Negative: Yes Physical Exam - Summary Physical Exam Summary: Appearance: Well-appearing, no distress, Well-nourished Skin: Warm, color reflects adequate perfusion Head: Normal Head/Face inspection Eyes: Conjunctiva clear ENT: Normal inspection Neck: Supple, no nodes, no JVD. Respiratory: Lungs clear, Normal breath sounds, no respiratory distress Cardio: RRR, No murmur, pulses normal, brisk capillary refill Abdomen: soft, nontender, no guarding, no rebound Bowel sounds: present Musculoskeletal: Strength Intact/ ROM intact. No edema. Neuro: Alert, speech normal, sensory/motor intact Psychological: SI Auditory hallucinations Triage Information Reviewed: Yes Vital Signs On Initial Exam: Initial Vitals Temp Pulse Resp BP Pulse Ox 97.2 F 73 18 118/82 97 09/12/17 01:00 09/12/17 01:00 09/12/17 01:00 09/12/17 01:00 09/12/17 01:00 Vital Signs Reviewed: Yes Diagnostics - Vital Signs Vital Signs Temp Pulse Resp BP Pulse Ox 09/12/17 01:00 97.2 F 73 18 118/82 97 - Laboratory Lab Results: Lab Results 09/12/17 09/12/17 09/12/17 Range/Units 01:48 01:48 01:50 WBC 7.8 (3.5-10.8) 10^3/ul RBC 4.87 (4.0-5.4) 10^6/ul Hgb 15.9 (14.0-18.0) g/dl Hct 45 (42-52) % MCV 92 (80-94) fL MCH 33 H (27-31) pg MCHC 35 (31-36) g/dl RDW 14 (10.5-15) % Plt Count 228 (150-450) 10^3/ul MPV 8 (7.4-10.4) um3 Neut % (Auto) 52.0 (38-83) % Lymph % (Auto) 35.5 (25-47) % [place] % (Auto) 8.8 H (0-7) % Eos % (Auto) 2.8 (0-6) % Baso % (Auto) 0.9 (0-2) % Absolute Neuts (auto) 4.0 (1.5-7.7) 10^3/ul Absolute Lymphs (auto) 2.8 (1.0-4.8) 10^3/ul Absolute Monos (auto) 0.7 (0-0.8) 10^3/ul Absolute Eos (auto) 0.2 (0-0.6) 10^3/ul Absolute Basos (auto) 0.1 (0-0.2) 10^3/ul Absolute Nucleated RBC 0 10^3/ul Nucleated RBC % 0.1 Sodium 138 (133-145) mmol/L Potassium Pending Chloride 105 (101-111) mmol/L Carbon Dioxide 24 (22-32) mmol/L Anion Gap Pending BUN 13 (6-24) mg/dL Creatinine 0.91 (0.67-1.17) mg/dL Est GFR ( Amer) 130.6 (>60) Est GFR (Non-Af Amer) 101.5 (>60) BUN/Creatinine Ratio 14.3 (8-20) Glucose 105 H (70-100) mg/dL Calcium 9.2 (8.6-10.3) mg/dL Total Bilirubin 0.30 (0.2-1.0) mg/dL AST Pending ALT 36 (7-52) U/L Alkaline Phosphatase 75 (34-104) U/L Total Protein 6.6 (6.4-8.9) g/dL Albumin 4.5 (3.2-5.2) g/dL Globulin 2.1 (2-4) g/dL Albumin/Globulin Ratio 2.1 (1-3) TSH 2.74 (0.34-5.60) mcIU/mL Urine Color Urine Appearance Urine pH (5-9) Ur Specific [place] (1.010-1.030) Urine Protein (Negative) Urine Ketones (Negative) Urine Blood (Negative) Urine Nitrate (Negative) Urine Bilirubin (Negative) Urine Urobilinogen (Negative) Ur Leukocyte Esterase (Negative) Urine WBC (Auto) (Absent) Urine RBC (Auto) (Absent) Urine Bacteria (Absent) Urine Glucose (Negative) Urine Ascorbic Acid (Negative) Salicylates < 2.50 (<30) mg/dL Urine Opiates Screen None detected (None Detect) Acetaminophen < 15 mcg/mL Ur Barbiturates Screen None detected (None Detect) Ur Phencyclidine Scrn None detected (None Detect) Ur Amphetamines Screen None detected (None Detect) U Benzodiazepines Scrn None detected (None Detect) Urine Cocaine Screen Presumptive positive A (None Detect) U Cannabinoids Screen Presumptive positive A (None Detect) Serum Alcohol < 10 (<10) mg/dL 09/12/17 Range/Units 01:50 WBC (3.5-10.8) 10^3/ul RBC (4.0-5.4) 10^6/ul Hgb (14.0-18.0) g/dl Hct (42-52) % MCV (80-94) fL MCH (27-31) pg MCHC (31-36) g/dl RDW (10.5-15) % Plt Count (150-450) 10^3/ul MPV (7.4-10.4) um3 Neut % (Auto) (38-83) % Lymph % (Auto) (25-47) % [place] % (Auto) (0-7) % Eos % (Auto) (0-6) % Baso % (Auto) (0-2) % Absolute Neuts (auto) (1.5-7.7) 10^3/ul Absolute Lymphs (auto) (1.0-4.8) 10^3/ul Absolute Monos (auto) (0-0.8) 10^3/ul Absolute Eos (auto) (0-0.6) 10^3/ul Absolute Basos (auto) (0-0.2) 10^3/ul Absolute Nucleated RBC 10^3/ul Nucleated RBC % Sodium (133-145) mmol/L Potassium Chloride (101-111) mmol/L Carbon Dioxide (22-32) mmol/L Anion Gap BUN (6-24) mg/dL Creatinine (0.67-1.17) mg/dL Est GFR ( Amer) (>60) Est GFR (Non-Af Amer) (>60) BUN/Creatinine Ratio (8-20) Glucose (70-100) mg/dL Calcium (8.6-10.3) mg/dL Total Bilirubin (0.2-1.0) mg/dL AST ALT (7-52) U/L Alkaline Phosphatase (34-104) U/L Total Protein (6.4-8.9) g/dL Albumin (3.2-5.2) g/dL Globulin (2-4) g/dL Albumin/Globulin Ratio (1-3) TSH (0.34-5.60) mcIU/mL Urine Color Yellow Urine Appearance Clear Urine pH 5.0 (5-9) Ur Specific [place] 1.034 H (1.010-1.030) Urine Protein Negative (Negative) Urine Ketones Trace A (Negative) Urine Blood Negative (Negative) Urine Nitrate Negative (Negative) Urine Bilirubin Negative (Negative) Urine Urobilinogen Positive A (Negative) Ur Leukocyte Esterase Trace A (Negative) Urine WBC (Auto) Trace(0-5/hpf) (Absent) Urine RBC (Auto) Trace(0-2/hpf) (Absent) Urine Bacteria Absent (Absent) Urine Glucose Negative (Negative) Urine Ascorbic Acid * A (Negative) Salicylates (<30) mg/dL Urine Opiates Screen (None Detect) Acetaminophen mcg/mL Ur Barbiturates Screen (None Detect) Ur Phencyclidine Scrn (None Detect) Ur Amphetamines Screen (None Detect) U Benzodiazepines Scrn (None Detect) Urine Cocaine Screen (None Detect) U Cannabinoids Screen (None Detect) Serum Alcohol (<10) mg/dL Result Diagrams: 09/12/17 01:48 09/12/17 01:48 Lab Statement: Any lab studies that have been ordered have been reviewed, and results considered in the medical decision making process. Re-Evaluation - Re-Evaluation First Eval Change: Unchanged - Pt clear for Psych evaluation Course/Dx - Course Assessment/Plan: Pt seen and evaluated by Psych. Plan for inpatient psych treatment. - Differential Dx/Clinical Impression Differential Diagnosis/HQI/PQRI: Positive: Acute Psychosis, Anxiety, Bipolar Disorder, Depression, Schizophrenia, Suicidal Ideation Provider Diagnosis: Acute psychosis Discharge - Discharge Plan Condition: Stable Disposition: PSYCHIATRIC FACILITY-[facility] The documentation as recorded by the William jones Sixian accurately reflects the service I personally performed and the decisions made by , Bobby Davis MD.
--- NOTE | 2017-09-12 22:05 | HP ---
PSYCHIATRIC HISTORY AND PHYSICAL: DATE OF ADMISSION: 09/12/17 JUSTIFICATION FOR ADMISSION: The patient is in need of 24-hour supervision and care secondary to alvaro cidal ideations. CHIEF COMPLAINT: "I think the voices are spiritual. They are telling me things about the future." HISTORY OF PRESENT ILLNESS: The patient is a 27-year-old single -Thai male with a history of chronic and persistent schizophrenia, who was brought into the hospital on 9.41 legal status due to hearing voices and endorsing suicidal ideation. Per the police report, the patient had called his mother voicing suicidality resulting in her calling the police. Upon evaluation, he admitted to rec ent alcohol and marijuana use, although when he was confronted that his urine drug screen also had co arik in it, he denied this, stating that somebody must have spiked his cannabis. The patient was ca lm and appropriate during the evaluation. He does endorse increased auditory hallucinations over the last several weeks, although he insist that he has been adherent with outpatient medications. We wer e able to reach his live-in girlfriend, Alea, who stated that she was unaware that he was going throu gh these issues recently and could not speak regarding his safety. The patient denied suicidal ideati ons; however, we could not reach his mother to substantiate the claims on the police report. When I meet with him, he appears to be internally preoccupied. He does admit to hearing voices. He also ap pears to be somewhat paranoid and slightly disorganized. He is requesting transfer to an inpatient ubstance abuse treatment facility. PAST PSYCHIATRIC HISTORY: This is the 13th inpatient psychiatric admission for this patient since hi s first psychotic break at the age of 20 when he was a freshman at [employer]. His most re cent admission was in February 2017 under the service of Dr. Patrick Elena. At that time, he had b een switched from Haldol to Abilify Maintena and discharged to his apartment in [place]. More recentl y, he has been treated with IM Haldol Decanoate 150 mg every 2 weeks with last injection being approx imately 3 days ago. He is also treated with lithium and gabapentin. The patient has had long-term p sychiatric hospitalization at [facility] as well as acute hospitalization at [facility]. He has been followed by the ACT team in the past; however, currently, he is seen by Kevin Feliz and therapist, Aman Llanos at the [facility]. SUBSTANCE ABUSE HISTORY: The patient admits to drinking 2 to 3 beers daily and smoking about 2 g of marijuana daily. He denies cocaine abuse despite the substance being in his urine drug screen. He d enies ever being in a rehab facility in the past. PAST MEDICAL HISTORY: Significant for gout. FAMILY HISTORY: Insignificant for mental illness or completed suicide. SOCIAL HISTORY: The patient was born and raised in [place], brought up primarily by his mother. He d oes have 3 sisters and a brother. He was able to graduate from [place] [employer] and went to [employer] where he had his first psychotic break. He has not been able to return to college or gain employment since. He does receive disability benefits. At one point, he lived with his [facility] er in [place] before moving back to this area. He currently has a girlfriend who resides with him in [place]. He identifies as being heterosexual. He denies any current legal stressors. REVIEW OF SYSTEMS: The patient denies headache or double vision. He denies sore throat, cough, ches t pain, or difficulty breathing. He denies abdominal pain, nausea, vomiting, diarrhea, or constipati on. He denies difficulty ambulating, rashes, enlarged lymph nodes, fevers, or changes in weight. PHYSICAL EXAMINATION VITAL SIGNS: Blood pressure is 93/46, heart rate 80, temperature 98.4 degrees Fahrenheit, respirator y rate is 18, oxygen saturations are 99% on room air. HEENT: Head is normocephalic, atraumatic. NECK: Supple. CHEST: Clear to auscultation bilaterally. CARDIAC: Exam reveals normal heart sounds. ABDOMEN: Soft and nontender. MUSCULOSKELETAL: Exam reveals no sign of edema. NEUROLOGIC: He is grossly intact with no focal deficits. SKIN: Warm and dry. LABORATORY DATA: His CBC is within normal limits. Complete metabolic panel is significant for slig htly elevated glucose at 105, slightly low potassium at 3.3. His TSH is normal at 2.74. Metabolic la bs show that his hemoglobin A1c is 5.5, total cholesterol 199, triglycerides 481, LDL cholesterol 122 , and HDL cholesterol 39.2. Urinalysis is significant for trace leukocyte esterases as well as trace ketones. Urine drug screen is positive for both cocaine and cannabinoid metabolites. His alcohol l evel is negative. MENTAL STATUS EXAM: The patient is a young light skinned -Thai male, wearing a [employer] basketball jersey who is clean, well groomed, calm, cooperative, initially lying in bed, but easily responds to this observer. Speech is slow and measured, but articulate. His mood would appe ar to be euthymic with a somewhat blunted affect. Thought process is slowed with some signs of impov erishment. Thought content is paranoid. He is endorsing auditory, but not visual hallucinations. I nsight and judgment are fair given his willingness to come in for treatment. Cognitively, he is awak e and alert with an average intellect. DIAGNOSES: [place] I: Schizophrenia, cannabis use disorder, cocaine use disorder. [place] II: Deferred. A xis III: Gout. [place] IV: Moderate primary support stressors. [place] V: At this time is 35. IMPRESSION: The patient is a 27-year-old single -Thai male with a history of schizophreni a as well as apparent cocaine and cannabis abuse, who arrived via the police after calling his mother and expressing suicidal ideations. In our emergency room, he was no longer suicidal but he was clear ly responding to internal stimuli and it was felt that involuntary admission was warranted. Currently , he is stating that he can no longer control his cannabis consumption and would like to go to inpati ent rehab. PLAN: The patient is admitted to the adult behavioral health unit where he was placed on q.15 minute checks for his own safety. We would like to get further collateral information and are awaiting rosetta ne call back from his mother. We would also like to talk with members of the [facility] to see when in fact his last injection of Haldol was and how compliant he has been. Wh ile he is here, he is certainly encouraged to take advantage of group therapy in the milieu setting. If he continues to request inpatient drug rehab, we will certainly make this available. [id number]/[facility] #: [id number]
[2017-09-13] MEDS: Gabapentin CAP(*) 300 MG PO SCH ×3 (12:21→21:12)
[2017-09-13] MEDS: Vitamin THERAPEUTIC TAB PO SCH (12:21)
[2017-09-13] MEDS: Allopurinol TAB* 100 MG PO SCH (12:22)
[2017-09-13] MEDS: Lithium LIQ* 300 MG/5 ML UDC PO SCH ×2 (12:22→21:13)
[2017-09-14] MEDS: Allopurinol TAB* 100 MG PO SCH (10:51)
[2017-09-14] MEDS: Gabapentin CAP(*) 300 MG PO SCH ×2 (10:51→16:33)
[2017-09-14] MEDS: Vitamin THERAPEUTIC TAB PO SCH (10:51)
[2017-09-14] MEDS: Lithium LIQ* 300 MG/5 ML UDC PO SCH (10:52)
--- NOTE | 2017-09-14 11:13 | PN ---
Subjective - Subjective Date of Service: 09/14/17 Service Type: 42617 Hosp care 15 min low complexity Subjective: Ba is found in his bed. He is isolative and not participating much in the group/milieu setting. Today he has reversed himself and states that he is no longer interested in drug rehab. He admits that he expressed suicidal ideation to his mother over the phone on Thursday, but denies any intention to and has not had thoughts of self-harm since arriving at the hospital. I placed a voicemail to his outpatient psychiatrist, Dr. Feliz, and await collateral contact with [facility]. The patient denies AH or VH. He denies HI. Objective - Appearance Appearance: Obese Dysmorphic Features: No Hygiene: Normal Grooming: Fairly Well Kept - Behavior Psychomotor Activities: Normal Exhibits Abnormal Movement: No - Attitude and Relatedness Attitude and Relatedness: Withdrawn Eye Contact: Fair - Speech Quality: Unpressured Latencies: Normal Quantity: Terse - Mood Patient's Decription of Mood: "Okay" - Affect Observed Affect: Unvariable Affect Consistent with: Euthymia - Thought Process Patient's Thought Process: Impoverished Thought Content: No Passive Wish, No Suicidal Planning, No Homicidal Ideation, No Paranoid Ideation - Sensorium Experiencing Hallucinations: No, Sensorium is Clear Type of Hallucinations: Visual: No, Auditory: No, Command: No - Level of Consciousness Level of Consciousness: Alert Orientation: Yes Intact, Yes Orientated to Time, Yes Orientated to Place, Yes Orientated to Person - Impulse Control Impulse Control: Tenuous - Insight and Judgement Insight and Judgement: Fair - Group Participation Particating in Group Activities: No - Medication Management Medication Management Adherence: Yes Assessment - Assessment Merits Inpatient Hospitalization: For Immediate Safety, For Stabilization Inpatient DSM-V Dx: F20.9 Clinical Impression: 27 y.o. single, AA male with a history of schizophrenia and chronic cannabis dependence arrives via 9.41 legal status after calling his mother and expressing SI over the phone. The patient was endorsing AH and requesting referral to an inpatient drug rehab due to cannabis misuse. Plan - Plan Treatment Plan: Name: BA JONES Birthdate: 1990 [id number] We have resumed the patient's outpatient regimen of haldol decanoate, lithium ER and gabapentin. I have called [facility] to see when his next dose of haldol dec is scheduled. The patient is now backing off his request for inpatient drug treatment. Will continue to treat on an inpatient basis here on the [facility]. Continued Medication Management: Continue Outpt Medication Medications: Current Medications Acetaminophen (Tylenol Tab*) 650 mg PO Q4H PRN PRN Reason: PAIN or TEMP > 101 F Al Hydrox/Mg Hydrox/Simethicone (Maalox Plus*) 30 ml PO Q4H PRN PRN Reason: INDIGESTION Allopurinol (Zyloprim Tab*) 100 mg PO DAILY [facility] Last Admin: 09/14/17 10:51 Dose: 100 mg Device (Nicotine Mouth Piece*) 1 each INH .[place] Gabapentin (Neurontin Cap(*)) 600 mg PO TID [facility] Last Admin: 09/14/17 10:51 Dose: 600 mg Guanica Citrate (Guanica Liq*) 450 mg PO BID [facility] Last Admin: 09/14/17 10:52 Dose: 450 mg Multivitamins (Theragran Tab*) 1 tab PO DAILY [facility] Last Admin: 09/14/17 10:51 Dose: 1 tab Nicotine (Nicotine Inhaler*) 10 mg INH Q2H PRN PRN Reason: CRAVING Nicotine Polacrilex (Nicotine Gum*) 2 mg PO Q2H PRN PRN Reason: CRAVING - Discharge Plan Discharge Plan: Inpatient Hospitalization
[2017-09-15] MEDS: Gabapentin CAP(*) 300 MG PO SCH ×2 (03:30→10:59)
[2017-09-15] MEDS: Lithium LIQ* 300 MG/5 ML UDC PO SCH ×2 (03:30→11:00)
[2017-09-15] MEDS: Vitamin THERAPEUTIC TAB PO SCH (10:59)
[2017-09-15] MEDS: Allopurinol TAB* 100 MG PO SCH (10:59)
--- NOTE | 2017-09-15 16:03 | DS ---
DATE OF ADMISSION: 09/12/2017. DATE OF DISCHARGE: 09/15/2017. DISCHARGE DIAGNOSES: [place] I: Schizophrenia; cannabis use disorder; cocaine use disorder. AXIS II: Deferred. AXIS III: Gout. AXIS IV: Moderate, primary support stressors. AXIS V: At the time of admission was 35 and at the time of discharge is 55. CONDITION AT THE TIME OF DISCHARGE: Improved. The patient is no longer endorsing suicidal ideations . He has denied suicidal ideations throughout this hospitalization. One cause for concern is that blanka remy remains somewhat delusional. He believes that he is an excellent ad taker and can get int o the [employer] and thereafter work for the [employer] and earn money. We have been notified by the outpatient mental health clinic that he has recently taken out two credit cards and placed charges for expensive items on these without the support of his home furnishings sales representative payee. We have been in contact with his outpatient residential case manager, Darnell Christian, at [facility] a s well as Dr. Moses Feliz. It does appear that the patient's baseline includes delusions and liz tory hallucinations. For this reason, he is monitored closely and kept on Haldol Decanoate therapy e very two weeks. The patient is agreeable with outpatient follow-up. He states that his intention is to continue taking medications. He states there are no problems with his housing and he denies suic idal or homicidal ideations. For this reason, we feel that we do not have any compelling reason to k eep him on an involuntary basis and he is being discharged to outpatient care. MENTAL STATUS EXAMINATION AT THE TIME OF DISCHARGE: The patient is a young, light- skinned, somewhat overweight, -[place] male wearing a [employer] basketball jersey who demonstrates so mewhat limited grooming, although he is calm and cooperative, sits up in bed, makes good eye contact. Speech is somewhat slow and measured, but otherwise articulate. His mood would appear to be euthym ic with a somewhat blunted affect. Thought process is slowed with some signs of impoverishment. Tho ught content significant for some grandiose delusions that he will play for the [employer] someday. Current ly, he is denying auditory or visual hallucinations, but has recently been spotted responding to inte rnal stimuli, which I understand is his psychiatric baseline. Insight and judgment are fair given hi s willingness to follow-up in the outpatient clinic. Cognitively, he is awake and alert with what wo uld appear to be a low average intellect. DISCHARGE INSTRUCTIONS TO THE PATIENT: A. Medications: The patient takes Haldol Decanoate 150 mg IM every two weeks, next injection due We , 09/23/2017. He also takes Allopurinol 100 mg p.o. daily, Happy Citrate 450 mg p.o. b.i.d. , Gabapentin 600 mg p.o. t.i.d. B. Diet: Regular. C. Activities: As tolerated. The patient is a smoker and he is offered continued nicotine replacem ent therapy; however, he is declining it at this time. Instead, we give him the [facility]' Quitline which is a toll free number at in the event that he changes his mind. The re are no laboratory or diagnostic studies pending at this time. D. Follow-up care: The patient will be seen at the [facility] on September [address] Moses Feliz. He also has a follow-up appointment with his casewo Darnell pak. E. Substance abuse follow-up: The patient was offered substance use treatment referrals to [facility] rehab; however, he is refusing at this time. LABORATORY DATA: Metabolic testing was done on the 12 of September revealing a hemoglobin A1c of 5.5, triglycerides 481, cholesterol 199, LDL cholesterol 122, HDL cholesterol 39.2. HOSPITAL COURSE - PART A: Reason for admission: The patient is a 27-year-old, single, -[place] an male with a history of chronic and persistent schizophrenia who I am told has a fairly low baselin e of functioning who was brought into the hospital on 9.41 legal status due to hearing voices and end orsing suicidal ideation. Per the police report, the patient had called his mother, who resides [place], voicing suicidality resulting in her calling the police. Upon evaluation, he admitted to recent alcohol and marijuana use, although when he was confronted that his urine drug screen also had cocai ne in it, he denied use of that substance, stating that somebody must have spiked his cannabis. The patient was calm and appropriate during the evaluation. He does endorse increased auditory hallucinat ions over the last several weeks, although he insisted that he had been adherent with outpatient medi cations. We were able to reach his live-in girlfriend, Alea, who stated that she was unaware that he was going through these issues and could not speak regarding his safety. The patient denied suicidal ideations; however, we could not reach his mother to substantiate the claims of the police report. When I met with him, he appeared to be internally preoccupied. He did admit to hearing voices. He a lso appeared to be somewhat paranoid and slightly disorganized. [facility] HOSPITAL COURSE - PART B: Psychiatric treatment rendered: The patient was admitted to the [facility] where he was placed on q.15 minute checks for his own safety. We immediately resu med his prior medications, including oral Gabapentin and Happy. We were able to reach the [facility] and confirm that his last shot of Decanoate Haldol had been on the August at the dose of 150 mg every two weeks. They were less aware of his adherence with oral medic ations. As previously stated, he was initially requesting substance abuse rehab; however, on follow- up, he started declining this, saying that cannabis was not a problem and that he would like to go ho me. When I spoke with Dr. Feliz, Dr. Feliz mentioned that the patient has recently obtained some credit cards and gotten into some credit card debt against the wishes of his financial representativ e payee. We spoke with Ba about this and he was fairly delusional on the subject, insisting that soon he would get a job for the [employer] as a ad taker and he wo uld be able to repay all these debts. My understanding is that this is more or less his baseline. A t any rate, throughout his hospital stay he was calm and cooperative, he was never violent or aggress kel, never made any thoughts of self-harm known to the staff. He was safe on all checks. He does ma intain an apartment in [place] and he is willing to follow-up on an outpatient basis. He steadfastly denies any thoughts of hurting himself or others and for these reasons we felt that we could not just camden further inpatient hospitalization. The patient is to be discharged today, back to his apartment a nd his follow-up will continue to be at [facility]. He did refuse substanc e abuse rehabilitation either in the inpatient or outpatient settings. [id number]/[facility] #: [id number]
[2017-09-23] MEDS ORDERED: Haloperidol Decanoate* 50 MG/ML AMP IM SCH (12:00)
== END 2017-09-15 14:35 | disposition home or self-care (01) | DRG 885 ==
LOC: ED 00:56 → BSU 05:27
PROVIDERS: ADMIT Psychiatry & Neurology Psychiatry; ATTEND Psychiatry & Neurology Psychiatry
DX: F20.9 Schizophrenia, unspecified (principal); R45.851 Suicidal ideations; F14.10 Cocaine abuse, uncomplicated; F12.10 Cannabis abuse, uncomplicated; F17.210 Nicotine dependence, cigarettes, uncomplicated; M10.9 Gout, unspecified; Z81.8 Family history of other mental and behavioral disorders
CPT/HCPCS: 36415; 80053; 80061; 80307; 80320; 80329; 81003; 81015; 83036; 83721; 84443; 85025; 86703; 87086; 99222; 99231; 99238; 99285; A9270-GY; G0480

== ENCOUNTER 2017-09-20 14:59 | Inpatient (IN) | payer MEDICARE, MEDICAID ==
[2017-09-20 15:36] LABS: ABS Basophils 0.1 10^3/ul (0-0.2); ABS Eosinophils 0.1 10^3/ul (0-0.6); ABS Lymphocytes 1.8 10^3/ul (1.0-4.8); ABS Monocytes 0.7 10^3/ul (0-0.8); ABS Neutrophils 4.7 10^3/ul (1.5-7.7); ABS Nucleated RBC 0 10^3/ul; Eosinophil % 1.3 % (0-6); Hematocrit 46 % (42-52); Hemoglobin 15.8 g/dl (14.0-18.0); Lymphocyte % 24.2 % (25-47); Mean Corpuscular HGB Conc 35 g/dl (31-36); Mean Corpuscular Hemoglobin 32 pg (27-31); Mean Corpuscular Volume 92 fL (80-94); Mean Platelet Volume 7.2 um3 (7.4-10.4); Nucleated Red Blood Cells % 0.1; Platelet Count 244 10^3/ul (150-450); Red Blood Count 4.96 10^6/ul (4.0-5.4); Red Cell Distribution Width 14 % (10.5-15); White Blood Count 7.4 10^3/ul (3.5-10.8)
[2017-09-20 21:02] LABS: Urine Appearance Clear; Urine Blood Negative (Negative); Urine Color Yellow; Urine Ketones Negative (Negative); Urine Protein Negative (Negative); Urine Specific Gravity 1.023 (1.010-1.030); Urine Urobilinogen Positive (Negative)
--- NOTE | 2017-09-20 21:32 | ED ---
Brooke Wallace Edward, scribed for Lucian Avilauel on 09/20/17 at 1508 . Psychiatric Complaint - HPI Summary HPI Summary: 27 y/o male presents to the ED with SI thoughts with a plan. Pt states he "lost everything". He states he has a gun at home and plans to use it. Associated sx: hallucinations. PMHx schizophrenia, bipolar disorder. - History Of Current Complaint Time Seen by Provider: 09/20/17 15:07 Hx Obtained From: Patient Character: Depressed Aggravating Factor(s): Nothing Alleviating Factor(s): Nothing Associated Signs And Symptoms: Positive: Hallucinating Related History: Positive For: Prior Psychiatric Issues Has Suicidal: Reports: Thoughts, With A Plan - Allergies/Home Medications Allergies/Adverse Reactions: Allergies Allergy/AdvReac Type Severity Reaction Status Date / Time No Known Allergies Allergy Verified 09/20/17 17:15 PMH/Surg Hx/FS Hx/Imm Hx Previously Healthy: No Endocrine/Hematology History: Denies: Hx Anticoagulant Therapy, Hx Blood Disorders, Hx Blood Transfusions, Hx Bone Marrow Disease, Hx Diabetes, Hx Systemic Lupus Erythematosus, Hx Sickle Cell Disease, Hx Thyroid Disease, Hx Anemia, Hx Unexplained Bleeding, Other Endocrine/Hematological Disorders Cardiovascular History: Denies: Hx Aneurysm, Hx Angina, Hx Angioplasty, Hx Auto Implanted Cardiovert Defib, Hx Cardiac Arrest, Hx Cardiomegaly, Hx Congenital Heart Disease, Hx Congestive Heart Failure, Hx Coronary Artery Disease, Hx Deep Vein Thrombosis, Hx Hypercholesterolemia, Hx Hypotension, Hx Hypertension, Hx Pacemaker/ICD, Hx Peripheral Vascular Disease, Hx Rheumatic Fever, Hx Syncope, Hx Valvular Heart Disease, Other Cardiovascular Problems/Disorders Respiratory History: Denies: Hx Asthma, Hx Chronic Bronchitis, Hx Chronic Obstructive Pulmonary Disease (COPD), Hx Cystic Fibrosis, Hx Lung Cancer, Hx Pleural Effusion, Hx Pneumonia, Hx Pulmonary Edema, Hx Pulmonary Embolism, Hx Seasonal Allergies, Hx Sleep Apnea, Other Respiratory Problems/Disorders GI History: Denies: Hx Cirrhosis, Hx Crohn's Disease, Hx Diverticulosis, Hx Gall Bladder Disease, Hx Gastroesophageal Reflux Disease, Hx Gastrointestinal Bleed, Hx Hiatal Hernia, Hx Irritable Bowel, Hx Jaundice, Hx Obstructive Bowel, Hx Ileostomy, Hx Pyloric Stenosis, Hx Ulcer, Other GI Disorders History: Denies: Hx Acute Renal Failure, Hx Benign Prostatic Hyperplasia, Hx Chronic Renal Failure, Hx Dialysis, Hx Kidney Infection, Hx Kidney Stones, Other Problems/Disorders Musculoskeletal History: Denies: Hx Arthritis, Hx Back Problems, Hx Bursitis, Hx Congenital Bone Abnormalities, Hx Fibromyalgia, Hx Gout, Hx Orthopedic Injury, Hx Osteoporosis, Hx Scoliosis, Hx Tendonitis, Other Musculoskeletal History Sensory History: Denies: Hx Cataracts, Hx Contacts or Glasses, Hx Eye Injury, Hx Eye Prosthesis, Hx Glaucoma, Hx Macular Degeneration, Hx Vision Problem, Hx Deafness , Hx Hearing Aid, Hx Hearing Problem, Other Sensory Impairments Opthamlomology History: Denies: Hx Cataracts, Hx Contacts or Glasses, Hx Eye Injury, Hx Eye Prosthesis, Hx Glaucoma, Hx Macular Degeneration, Hx Vision Problem, Other Sensory Impairments Neurological History: Denies: Hx Dementia, Hx Developmental Delay, Hx Headaches, Hx Migraine, Hx Seizures, Hx Spinal Cord Injury, Hx Transient Ischemic Attacks (TIA), Other Neuro Impairments/Disorders Psychiatric History: Reports: Hx Anxiety, Hx Depression, Hx Post Traumatic Stress Disorder, Hx Inpatient Treatment, Hx Community Mental Health Tx, Hx Schizophrenia, Hx Suicide Attempt, Hx Substance Abuse, Other Psychiatric Issues/ Disorders - psychosis Denies: Hx Attention Deficit Hyperactivity Disorder, Hx Eating Disorder, Hx Panic Disorder, Hx Bipolar Disorder, Hx of Violent Episodes Against Others - Cancer History Hx Chemotherapy: No Hx Radiation Therapy: No - Surgical History Surgery Procedure, Year, and Place: None. Hx Anesthesia Reactions: No - Immunization History Date of Tetanus Vaccine: unk Date of Influenza Vaccine: unk Infectious Disease History: Denies: Hx Clostridium Difficile, Hx Hepatitis, Hx Human Immunodeficiency Virus (HIV), Hx Shingles, Hx Tuberculosis - Family History Known Family History: Positive: Hypertension, Diabetes - grandfather - Social History Alcohol Use: Occasionally Hx Substance Use: Yes Substance Use Type: Reports: Marijuana Substance Use Comment - Amount & Last Used: tonight Hx Tobacco Use: Yes Smoking Status (MU): Heavy Every Day Tobacco Smoker Type: Cigarettes Amount Used/How Often: 1/2 PPD Length of Time of Smoking/Using Tobacco: 5YRS Have You Smoked in the Last Year: Yes Review of Systems Constitutional: Negative Eyes: Negative ENT: Negative Cardiovascular: Negative Respiratory: Negative Gastrointestinal: Negative Genitourinary: Negative Musculoskeletal: Negative Skin: Negative Neurological: Negative Psychological: Other - SI All Other Systems Reviewed And Are Negative: Yes Physical Exam - Summary Physical Exam Summary: Appearance: Well appearing, no pain distress Skin: warm, dry, reflects adequate perfusion Head/face: normal Eyes: EOMI, KALEY ENT: normal Neck: supple, non-tender Respiratory: CTA, breath sounds present Cardiovascular: RRR, pulses symmetrical Abdomen: non-tender, soft Bowel: present Musculoskeletal: normal, strength/ROM intact Neuro: normal, sensory motor intact, A&Ox3 Psych: flat affect. Triage Information Reviewed: Yes Vital Signs Reviewed: Yes Diagnostics - Laboratory Result Diagrams: 09/20/17 15:23 09/20/17 15:23 Lab Statement: Any lab studies that have been ordered have been reviewed, and results considered in the medical decision making process. - EKG 1 EKG Interpretation: 19:00 - SR @ 78 BPM. No acute changes Course/Dx - Course Assessment/Plan: 27 y/o male presents to the ED with SI thoughts with a plan. Pt states he "lost everything". He states he has a gun at home and plans to use it. Associated sx: hallucinations. PMHx schizophrenia, bipolar disorder. Pt medically cleared for MHU. EKG - 19:00 - SR @ 78 BPM. No acute changes. Pt will be signed out to the evening attending pending dispo. - Differential Dx/Clinical Impression Provider Diagnosis: Depression, Substance-induced psychotic disorder, Suicidal ideation Discharge - Sign-Out/Discharge Documenting (check all that apply): Sign-Out Patient Signing out patient TO: Dennis Mann Receiving patient FROM: Matthew Avila - Discharge Plan Referrals: Felipe Alva MD [Primary Care Provider] - The documentation as recorded by the Brooke jones Edward accurately reflects the service I personally performed and the decisions made by Austin aquino Emmanuel.
--- NOTE | 2017-09-21 05:26 | ED ---
Terry Wallace Nikita, scribed for Dennis Mann MD on 09/21/17 at 0035 . Progress - Progress Note Progress Note: This patient was signed out from Dr. Avila, pending disposition, awaiting official MHE. Patient was last at [facility], awaiting possible acceptance there. - Consult/PCP Time Called: 16:30 Course/Dx - Diagnoses Provider Diagnoses: Depression, Substance-induced psychotic disorder, Suicidal ideation Discharge - Sign-Out/Discharge Documenting (check all that apply): Sign-Out Patient Signing out patient TO: Reagan Doyle - Discharge Plan Condition: Stable Discharge Disposition Comment: still awaiting official psychiatric dispo Referrals: Felipe Alva MD [Primary Care Provider] - - Billing Disposition and Condition Condition: STABLE The documentation as recorded by the Terry jones Nikita accurately reflects the service I personally performed and the decisions made by me, Dennis Mann MD.
[2017-09-21] MEDS ORDERED: Nicotine GUM* 2 MG PO PRN (08:55)
[2017-09-21] MEDS ORDERED: Al Hydrox/Mg Hydrox/Simet LIQ* 30 ML UDC PO PRN (08:55)
--- NOTE | 2017-09-21 11:20 | PN ---
ED Flex Patient Progress Note Subjective: This is a 27 year-old M who is pending admission to psychiatric facility ([facility] or ) secondary to SI status post fiancs suicide . Pt offers no complaints at this time. He is resting comfortably upon entrance and reports he had breakfast without difficulty. Denies any pain and has no other complaints at this time. Objective: Vitals: Most recent vital signs documented below. General NAD, Alert and oriented x3. Heart: rrr , S1-S2 Lungs: CTA , breathing easily ab: Soft, positive bowel sounds, nontender to palpation Assessment: 1) SI Plan: Pending psychiatric transfer / admit. Will follow up daily __while in ED_ __. Plan is to transfer to [facility] as opposed to being admitted here as admission here may make his symptoms worse - he met his late fianc on this mental health unit. Vital Signs Temp Pulse Resp BP Pulse Ox 98.4 F 83 17 122/64 98 09/21/17 10:40 09/21/17 10:40 09/21/17 10:40 09/21/17 10:40 09/21/17 10:40 Lab Results - Entire Visit 09/20/17 09/20/17 09/20/17 20:20 20:20 15:23 WBC 7.4 RBC 4.96 Hgb 15.8 Hct 46 MCV 92 MCH 32 H MCHC 35 RDW 14 Plt Count 244 MPV 7.2 L Neut % (Auto) 63.7 Lymph % (Auto) 24.2 L Walker % (Auto) 10.1 H Eos % (Auto) 1.3 Baso % (Auto) 0.7 Absolute Neuts (auto) 4.7 Absolute Lymphs (auto) 1.8 Absolute Monos (auto) 0.7 Absolute Eos (auto) 0.1 Absolute Basos (auto) 0.1 Absolute Nucleated RBC 0 Nucleated RBC % 0.1 Sodium Potassium Chloride Carbon Dioxide Anion Gap BUN Creatinine Est GFR ( Amer) Est GFR (Non-Af Amer) BUN/Creatinine Ratio Glucose Calcium Total Bilirubin AST ALT Alkaline Phosphatase Total Protein Albumin Globulin Albumin/Globulin Ratio TSH Urine Color Yellow Urine Appearance Clear Urine pH 6.0 Ur Specific [place] 1.023 Urine Protein Negative Urine Ketones Negative Urine Blood Negative Urine Nitrate Negative Urine Bilirubin Negative Urine Urobilinogen Positive A Ur Leukocyte Esterase Negative Urine Glucose Negative Urine Ascorbic Acid * A Salicylates Urine Opiates Screen None detected Acetaminophen Ur Barbiturates Screen None detected Ur Phencyclidine Scrn None detected Ur Amphetamines Screen None detected U Benzodiazepines Scrn None detected Urine Cocaine Screen None detected U Cannabinoids Screen Presumptive positive A Serum Alcohol 09/20/17 15:23 WBC RBC Hgb Hct MCV MCH MCHC RDW Plt Count MPV Neut % (Auto) Lymph % (Auto) Walker % (Auto) Eos % (Auto) Baso % (Auto) Absolute Neuts (auto) Absolute Lymphs (auto) Absolute Monos (auto) Absolute Eos (auto) Absolute Basos (auto) Absolute Nucleated RBC Nucleated RBC % Sodium 136 Potassium 3.9 Chloride 102 Carbon Dioxide 29 Anion Gap 5 BUN 13 Creatinine 1.03 Est GFR ( Amer) 113.2 Est GFR (Non-Af Amer) 88.0 BUN/Creatinine Ratio 12.6 Glucose 81 Calcium 9.6 Total Bilirubin 0.50 AST 15 ALT 22 Alkaline Phosphatase 52 Total Protein 7.1 Albumin 4.6 Globulin 2.5 Albumin/Globulin Ratio 1.8 TSH 0.44 Urine Color Urine Appearance Urine pH Ur Specific [place] Urine Protein Urine Ketones Urine Blood Urine Nitrate Urine Bilirubin Urine Urobilinogen Ur Leukocyte Esterase Urine Glucose Urine Ascorbic Acid Salicylates < 2.50 Urine Opiates Screen Acetaminophen < 15 Ur Barbiturates Screen Ur Phencyclidine Scrn Ur Amphetamines Screen U Benzodiazepines Scrn Urine Cocaine Screen U Cannabinoids Screen Serum Alcohol < 10
[2017-09-21] MEDS: Vitamin THERAPEUTIC TAB PO SCH (17:21)
[2017-09-21] MEDS: Lithium Carbonate ER* 450 MG TAB.ER PO SCH ×2 (17:21→20:17)
[2017-09-21] MEDS: Nicotine Patch Removal NOTE PATCH OFF SCH (21:09)
[2017-09-21] MEDS ORDERED: diPHENhydraMINE PO* 50 MG PO PRN (22:52)
[2017-09-21] MEDS ORDERED: diPHENhydraMINE PO* 25 MG ONE (23:14)
[2017-09-22] MEDS: Nicotine PATCH 14 MG/24 HR* PATCH TRANSDERM SCH (09:43)
[2017-09-22] MEDS: Lithium Carbonate ER* 450 MG TAB.ER PO SCH ×2 (09:43→20:09)
[2017-09-22] MEDS: Vitamin THERAPEUTIC TAB PO SCH (09:43)
[2017-09-22] MEDS: Nicotine Patch Removal NOTE PATCH OFF SCH (20:10)
--- NOTE | 2017-09-22 21:22 | HP ---
HISTORY AND PHYSICAL: DATE OF ADMISSION: 09/21/17 ATTENDING PROVIDER: Camilo Peterson MD * (DICTATED BY IVIS PAL NP) JUSTIFICATION FOR ADMISSION: The patient is in need of 24-hour supervision and care secondary to suicidal ideation and psychosis. CHIEF COMPLAINT: "It is just my insanity... I have vision of the future and they come true." HISTORY OF PRESENT ILLNESS: The patient is a 27-year-old single, - Mauritanian male with a history of chronic and persistent schizophrenia who was brought into the hospital on legal status due to threatening to kill himself using a gun. Most recently, his ex-girlfriend suicided earlier last week. Ba is interested in being discharged from this facility. He does use marijuana. He comes up positive for that on the drug test. He does hear voices. He does not state that they are threatening at this time. He states that his life is getting better. He did not mention the suicide of his ex- girlfriend, Alea, when I spoke with him. He is psychotic at this time. He does not endorse suicidal ideation at this time. He did discuss that he does not have a gun, does not have access to a gun. He is internally preoccupied. He is a bit paranoid and he is disorganized. PAST PSYCHIATRIC HISTORY: This is the 14th inpatient psychiatric admission for this patient since his first psychotic break at the age of 20 when he was a freshman at [employer]. His most recent admission was earlier this morning, 09/12/17, under the service of Dr. Salinas Duque. He has been treated with IM Haldol Decanoate 150 mg every 2 weeks with the last injection being on 09/09/17. He is due for another injection tomorrow. He is also treated with lithium and gabapentin. Ba has had a long-term psychiatric hospitalization at [facility] as well as an acute hospitalization at [facility]. He has been followed by the ACT team in the past. Currently, he is seen by Dr. Moses Feliz and therapist, Aman Llanos , at the [facility]. SUBSTANCE ABUSE HISTORY: The patient states he drinks 2 to 3 beers daily and he smokes about 2 g of marijuana daily. He denies cocaine abuse despite that appeared in his drug screen in the past. PAST MEDICAL HISTORY: Significant for gout. FAMILY HISTORY: Insignificant for mental illness or completed suicide. SOCIAL HISTORY: The patient was born and raised in [place], brought up primarily by his mother. He does have 3 sisters and a brother. He was able to graduate from [place] [employer] and went to [employer] where he had his first psychotic break. He has not been able to return to college or gain employment since. He does receive disability benefits. At one point, he lived with his father in [place] before moving back to this area. His recently estranged girlfriend, Alea, suicided early last week. He identifies as being heterosexual. He denies any current legal stressors. REVIEW OF SYSTEMS: The patient denies headache or double vision. He denies sore throat, cough, chest pain, or difficulty breathing. He denies abdominal pain, nausea, vomiting, diarrhea, or constipation. He denies difficulty ambulating, rashes, enlarged lymph nodes, fever, or changes in weight. PHYSICAL EXAMINATION VITAL SIGNS: Blood pressure is 140/71, heart rate 93, temperature is 98.4, respiratory rate 18, O2 sat on room air 99%. For further physical examination data, please see emergency department documents obtained less than 24 hours ago. MENTAL STATUS EXAM: Ba is a young light skinned -[place]auritanian male, wearing a tank top and shorts. He is clean, reasonably well groomed. He is calm and generally cooperative, initially lying in bed, but upon hearing his name arises to speak with this movie writer. Speech is precise. His mood is apparently euthymic with an odd affect. Thought process is slow. Thought content is bizarre. Insight and judgment are fair at best. Cognitively, he is awake and alert x3 with an average intellect. LABORATORY DATA: His CBC is within normal limits. His CMP is significant for an elevated MCH, decreased MPV, decreased lymph percentage and increased monocyte percentage. As of 09/12/17, his A1c is 5.5. His total cholesterol is 199, triglycerides 481, LDL cholesterol 122, and HDL cholesterol 39.2. Urine is positive for urobilinogen and ascorbic acid and the toxicology is positive for cannabinoids. His alcohol level is negative. DIAGNOSES: [place] I: Schizophrenia, cannabis use disorder. [place] II: Deferred. [place]lee III: Gout. [place] IV: Significant primary support stressors. Oklee V: At this time is 35. IMPRESSION: The patient is a 27-year-old single -[place]itanian male with a history of schizophrenia as well as an apparent cannabis abuse disorder, who arrived via the police after expressing suicidal ideations that he wanted to kill himself with a gun. He states at this point that he is no longer suicidal , but he is distinctly psychotic. Currently, he would really like to go home. PLAN: The patient is admitted to the adult behavioral health unit where he is placed on q.15-minute checks for his own safety. We will obtain further collateral from his mother and from [facility]. While he is here, he is encouraged to take advantage of group therapy and the milieu setting. IVIS PAL, SALOMON [id number]/CPS #: [id number] PELON
[2017-09-23] MEDS: Acetaminophen TAB* 325 MG PO PRN (00:44)
[2017-09-23] MEDS ORDERED: Haloperidol Decanoate* 50 MG/ML AMP IM SCH (11:00)
--- NOTE | 2017-09-23 11:00 | PN ---
Subjective - Subjective Date of Service: 09/23/17 Service Type: 49753 Hosp care 25 min moderate complexity Subjective: Callie is found resting in the dark in his room under the covers. He is pleasant during the interview and eventually sits up to talk. He would really like to leave today. I indicated that there was concern about how he was dealing with the of his ex-girlfriend and that he threatened to shoot himself with a gun. He explained that he was dealing with her in his own way and that he hadn't threatened to kill himself with a gun at all. He states he was asked how he would kill himself, and he answered, "With a gun." He states he had a vision of his own dying, but he was saved in his "dream" by a woman who pulled him out of the way. I spoke to Dr. Shady Feliz at the [facility] who suggested that we continue the Haldol Decanoate 150 mg q2 weeks. He also was curious about Callie's lithium level, so one of those will be drawn with the possibility of increasing that dose, which is currently 450 mg BID. I also spoke to Aman Llanos RN, at the [facility]. He reports Callie is almost constantly religiously preoccupied in addition to believing the [employer] want him to play for them. Apparently Rebecca Mcmanus LCSW was called out to speak with Callie after his ex-girlfriend Alea . Otherwise he has minimized the impact on himself. Objective - Appearance Appearance: Well Developed/Nourished Dysmorphic Features: No Hygiene: Normal Grooming: Disheveled - Behavior Psychomotor Activities: Normal Exhibits Abnormal Movement: No - Attitude and Relatedness Attitude and Relatedness: Cooperative Eye Contact: Good - Speech Quality: Unpressured Latencies: Normal Quantity: Appropriate - Mood Patient's Decription of Mood: "Great" - Affect Observed Affect: Good Affect Consistent with: Euthymia - Thought Process Patient's Thought Process: Coherent, Goal Directed Thought Content: Yes Passive Wish - He dreams about his own attempt, but not completion., Yes Paranoid Ideation - Is currently psychotic and pleasant and not clearly paranoid., No Suicidal Planning, No Homicidal Ideation - Sensorium Experiencing Hallucinations: Yes Type of Hallucinations: Visual: No, Auditory: Yes, Command: No - Level of Consciousness Level of Consciousness: Alert Orientation: Yes Intact, Yes Orientated to Time, Yes Orientated to Place, Yes Orientated to Person - Impulse Control Impulse Control: Impaired - Insight and Judgement Insight and Judgement: Fair - Group Participation Particating in Group Activities: No - Medication Management Medication Management Adherence: Yes - Additional Observations Comments: Pleasant with goal directed thoughts regarding being discharged today if possible. Does not appear to be grossly disorganized, but it is obvious that he thoughts are not clear. Assessment - Assessment Merits Inpatient Hospitalization: For Stabilization Inpatient DSM-V Dx: F20.0 Clinical Impression: 27-y.o. black male currently living in [place] who comes in to the ED with complaints of suicidal ideation and related fear. He is psychotic at this time, stating he feels "great" today because his "body feel is so good." The high dose of Haldol Dec does not seem to improve him to wellness and it is unclear whether he is taking lithium consistently. Plan - Plan Treatment Plan: Name: CALLIE JONES Birthdate: 1990 [id number] Continued Medication Management: Continue Outpt Medication Medications: Current Medications Acetaminophen (Tylenol Tab*) 650 mg PO Q4H PRN PRN Reason: for pain; or Temp >101 F Last Admin: 09/23/17 00:44 Dose: 650 mg Al Hydrox/Mg Hydrox/Simethicone (Maalox Plus*) 30 ml PO Q4H PRN PRN Reason: INDIGESTION Diphenhydramine HCl (Benadryl Po*) 50 mg PO ONCE PRN PRN Reason: INSOMNIA Haloperidol Decanoate (Haldol Decanoate*) 150 mg IM Q14D [facility] Kaylor Carbonate (Kaylor Carbonate Er Tab*) 450 mg PO BID [facility] Last Admin: 09/22/17 20:09 Dose: 450 mg Multivitamins (Theragran Tab*) 1 tab PO DAILY [facility] Last Admin: 09/22/17 09:43 Dose: 1 tab Nicotine (Nicotine Inhaler*) 10 mg INH Q2H PRN PRN Reason: CRAVING Nicotine (Nicotine Patch 14 Mg/24 Hr*) 1 patch TRANSDERM DAILY@0800 [facility] Last Admin: 09/22/17 09:43 Dose: Not Given Nicotine Polacrilex (Nicotine Gum*) 2 mg PO Q2H PRN PRN Reason: CRAVING Pharmacy Profile Note (Nicotine Patch Removal Note*) 1 note PATCH OFF [address] Last Admin: 09/22/17 20:10 Dose: Not Given - Discharge Plan Discharge Plan: Outpatient Follow Up Outpatient Program: [facility] Additional Comments: The current plan is for Callie to receive the ordered 150 mg Haldol Decanoate injection today. We will also obtain a lithium level. Discharge will depend on his immediate and future behaviors.
[2017-09-23] MEDS: Nicotine PATCH 14 MG/24 HR* PATCH TRANSDERM SCH (11:51)
[2017-09-23] MEDS: Lithium Carbonate ER* 450 MG TAB.ER PO SCH ×2 (11:51→20:37)
[2017-09-23] MEDS: Vitamin THERAPEUTIC TAB PO SCH (11:51)
[2017-09-23] MEDS: Nicotine Patch Removal NOTE PATCH OFF SCH (20:38)
[2017-09-24] MEDS: Vitamin THERAPEUTIC TAB PO SCH (12:06)
[2017-09-24] MEDS: Lithium Carbonate ER* 450 MG TAB.ER PO SCH ×2 (12:06→21:50)
[2017-09-24] MEDS: Nicotine PATCH 14 MG/24 HR* PATCH TRANSDERM SCH (12:48)
--- NOTE | 2017-09-24 15:57 | PN ---
Subjective - Subjective Date of Service: 09/24/17 Service Type: 17480 Hosp care 25 min moderate complexity Subjective: Ba is found lying in bed resting and thinking. He appears full of thought, but states he isn't really thinking about anything in particular. He would like d/c tomorrow, but there must be some discussion regarding that potentiality. Ba seems to have made his peace with Alea's , stating that she is in [place] now and he has no plans to join her any time soon. He also has forward- looking plans to see his dad in [place], stating he has money to buy a plane ticket and go stay with him with a plan to eventually move there. He continues to have delusional thoughts regarding being picked up by the [employer] as a house player. The plan to see his father may also be delusional, as his father has not been supportive, according to Krissy Stewart LMSW. Further, Krissy indicates Ba does not have a lot of good support outside the hospital. Objective - Appearance Appearance: Healthy Appearing Dysmorphic Features: No Hygiene: Normal Grooming: Fairly Well Kept - Behavior Psychomotor Activities: Normal Exhibits Abnormal Movement: No - Attitude and Relatedness Attitude and Relatedness: Superficially Cooperative Eye Contact: Good - Speech Quality: Unpressured Latencies: Short Quantity: Appropriate - Mood Patient's Decription of Mood: "Great" - Affect Observed Affect: Constricted Affect Consistent with: Euthymia - Thought Process Patient's Thought Process: Goal Directed Thought Content: No Passive Wish, No Suicidal Planning, No Homicidal Ideation, No Paranoid Ideation - Sensorium Experiencing Hallucinations: Yes Type of Hallucinations: Visual: Yes - sees prophecies in his phone, Auditory: Yes - is not forthcoming about content, Command: No - Level of Consciousness Level of Consciousness: Alert Orientation: Yes Intact, Yes Orientated to Time, Yes Orientated to Place, Yes Orientated to Person - Impulse Control Impulse Control: Impaired - Insight and Judgement Insight and Judgement: Impaired - Group Participation Particating in Group Activities: No - Medication Management Medication Management Adherence: Yes - Additional Observations Comments: Pleasant with goal directed thoughts regarding being discharged tomorrow if possible. Does not appear to be grossly disorganized, but it is obvious that his thoughts are not clear. Today he revealed that he sees prophecies though his phone. While not obviiously religiously preoccupied, he did identify his ex- girlfriend as being in "[place]." Assessment - Assessment Merits Inpatient Hospitalization: For Stabilization Inpatient DSM-V Dx: F20.0 Clinical Impression: 27-y.o. black male currently living in [place] who comes in to the ED with complaints of suicidal ideation and related fear. The high dose of Haldol Dec does not seem to improve him to wellness and it is unclear whether he is taking lithium consistently. The lithium level will be re-ordered. Discussion regarding his discharge will continue. Plan - Plan Treatment Plan: Name: BA JONES Birthdate: 1990 [id number] Medications: Current Medications Acetaminophen (Tylenol Tab*) 650 mg PO Q4H PRN PRN Reason: for pain; or Temp >101 F Last Admin: 09/23/17 00:44 Dose: 650 mg Al Hydrox/Mg Hydrox/Simethicone (Maalox Plus*) 30 ml PO Q4H PRN PRN Reason: INDIGESTION Diphenhydramine HCl (Benadryl Po*) 50 mg PO ONCE PRN PRN Reason: INSOMNIA Haloperidol Decanoate (Haldol Decanoate*) 150 mg IM Q14D [facility] Last Admin: 09/23/17 13:12 Dose: 150 mg [place] Carbonate ([place] Carbonate Er Tab*) 450 mg PO BID [facility] Last Admin: 09/24/17 12:06 Dose: 450 mg Multivitamins (Theragran Tab*) 1 tab PO DAILY [facility] Last Admin: 09/24/17 12:06 Dose: 1 tab Nicotine (Nicotine Inhaler*) 10 mg INH Q2H PRN PRN Reason: CRAVING Nicotine (Nicotine Patch 14 Mg/24 Hr*) 1 patch TRANSDERM DAILY@0800 [facility] Last Admin: 09/24/17 12:48 Dose: Not Given Nicotine Polacrilex (Nicotine Gum*) 2 mg PO Q2H PRN PRN Reason: CRAVING Pharmacy Profile Note (Nicotine Patch Removal Note*) 1 note PATCH OFF 2100 [facility] Last Admin: 09/23/17 20:38 Dose: Not Given - Discharge Plan Additional Comments: Ba received the Haldol 150 mg injection yesterday. We will also obtain a lithium level. Discharge will depend on his immediate and future behaviors.
[2017-09-24] MEDS: Nicotine Patch Removal NOTE PATCH OFF SCH (21:50)
[2017-09-25] MEDS: Lithium Carbonate ER* 450 MG TAB.ER PO SCH ×2 (10:46→21:39)
[2017-09-25] MEDS: Nicotine PATCH 14 MG/24 HR* PATCH TRANSDERM SCH (10:46)
[2017-09-25] MEDS: Vitamin THERAPEUTIC TAB PO SCH (10:48)
--- NOTE | 2017-09-25 14:45 | PN ---
Subjective - Subjective Date of Service: 09/25/17 Service Type: 31873 Hosp care 35 min high complexity Subjective: Ba meets with Krissy Stewart and me in the comfort room. Ba is not happy about being kept at the hospital. He explains again how he is safe for discharge but in the process also reveals some psychotic lines of thought that seem to eventually lead to suicidal ideation, albeit in about five years. While the level of psychosis may be typical for Ba, the circumstances regarding his admission (the suicide of his ex-girlfriend) in addition to his recent vision of shooting himself and being saved by a woman who is his friend from [employer] lead to caution regarding discharge. Objective - Appearance Appearance: Well Developed/Nourished Dysmorphic Features: No Hygiene: Normal Grooming: Fairly Well Kept - Behavior Psychomotor Activities: Normal Exhibits Abnormal Movement: No - Attitude and Relatedness Attitude and Relatedness: Psychotically Related Eye Contact: Good - Speech Quality: Unpressured Latencies: Normal Quantity: Copious - Mood Patient's Decription of Mood: "Good" - Affect Observed Affect: Tense Affect Consistent with: Euthymia - Thought Process Patient's Thought Process: Disorganized Thought Content: Yes Passive Wish, No Suicidal Planning, No Homicidal Ideation, No Paranoid Ideation - Sensorium Experiencing Hallucinations: Yes Type of Hallucinations: Visual: Yes, Auditory: Yes, Command: No - Level of Consciousness Level of Consciousness: Alert Orientation: Yes Intact, Yes Orientated to Time, Yes Orientated to Place, Yes Orientated to Person - Impulse Control Impulse Control: Tenuous - Insight and Judgement Insight and Judgement: Impaired - Group Participation Particating in Group Activities: No - Medication Management Medication Management Adherence: Yes - Additional Observations Comments: Superficially pleasant with goal directed thoughts regarding being discharged as soon as possible. There is an odd, slightly menacing quality to the conversation. Content of conversation consists of psychotic dreams and visions that are grandiose and bizarre. Assessment - Assessment Merits Inpatient Hospitalization: For Immediate Safety Inpatient DSM-V Dx: F20.0 Clinical Impression: 27-y.o. black male currently living in [place] who comes in to the ED with complaints of suicidal ideation and related fear. The high dose of Haldol Dec does not seem to improve him to wellness and it is unclear whether he is taking lithium consistently. Ba has declined to get a lithium level drawn. Discussion regarding his discharge will continue. Plan - Plan Treatment Plan: Name: BA JONES Birthdate: 1990 [id number] Medications: Current Medications Acetaminophen (Tylenol Tab*) 650 mg PO Q4H PRN PRN Reason: for pain; or Temp >101 F Last Admin: 09/23/17 00:44 Dose: 650 mg Al Hydrox/Mg Hydrox/Simethicone (Maalox Plus*) 30 ml PO Q4H PRN PRN Reason: INDIGESTION Diphenhydramine HCl (Benadryl Po*) 50 mg PO ONCE PRN PRN Reason: INSOMNIA Haloperidol Decanoate (Haldol Decanoate*) 150 mg IM Q14D [facility] Last Admin: 09/23/17 13:12 Dose: 150 mg [place] Carbonate ([place] Carbonate Er Tab*) 450 mg PO BID [facility] Last Admin: 09/25/17 10:46 Dose: 450 mg Multivitamins (Theragran Tab*) 1 tab PO DAILY [facility] Last Admin: 09/25/17 10:48 Dose: 1 tab Nicotine (Nicotine Inhaler*) 10 mg INH Q2H PRN PRN Reason: CRAVING Nicotine (Nicotine Patch 14 Mg/24 Hr*) 1 patch TRANSDERM DAILY@0800 [facility] Last Admin: 09/25/17 10:46 Dose: Not Given Nicotine Polacrilex (Nicotine Gum*) 2 mg PO Q2H PRN PRN Reason: CRAVING Pharmacy Profile Note (Nicotine Patch Removal Note*) 1 note PATCH OFF 2100 [facility] Last Admin: 09/24/17 21:50 Dose: Not Given - Discharge Plan Additional Comments: Ba received the Haldol 150 mg injection. We will also attempt to obtain a lithium level. Discharge will depend on his immediate and future behaviors. He has not been participating in any milieu activities and he has been encouraged to participate and that his discharge will depend on his engagement.
[2017-09-25] MEDS: Nicotine Inhaler* 10 MG AMP INH PRN (19:03)
[2017-09-25] MEDS ORDERED: Mouth Piece, Nicotine* 1 EACH CARTRIDGE ONE (19:03)
[2017-09-25] MEDS: Nicotine Patch Removal NOTE PATCH OFF SCH (21:40)
[2017-09-26] MEDS: Lithium Carbonate ER* 450 MG TAB.ER PO SCH ×2 (10:24→20:58)
[2017-09-26] MEDS: Vitamin THERAPEUTIC TAB PO SCH (10:24)
[2017-09-26] MEDS: Nicotine PATCH 14 MG/24 HR* PATCH TRANSDERM SCH (10:27)
[2017-09-26] MEDS: Nicotine Inhaler* 10 MG AMP INH PRN (21:17)
[2017-09-26] MEDS: Acetaminophen TAB* 325 MG PO PRN (21:18)
[2017-09-26] MEDS: Nicotine Patch Removal NOTE PATCH OFF SCH (22:09)
[2017-09-27] MEDS: Nicotine PATCH 14 MG/24 HR* PATCH TRANSDERM SCH (09:52)
[2017-09-27] MEDS: Vitamin THERAPEUTIC TAB PO SCH (09:52)
[2017-09-27] MEDS: Lithium Carbonate ER* 450 MG TAB.ER PO SCH ×2 (09:52→20:23)
--- NOTE | 2017-09-27 14:40 | ED ---
Mohini Wallace Thomas, scribed for Reagan Doyle MD on 09/21/17 at 1446 . Progress - Progress Note Progress Note: The patient is a sign out from Dr. Mann, pending mental health evaluation. After evaluation by the evaluators, Dr. Alford recommends admission to [facility]. The patient will be voluntarily admitted to [facility]. Course/Dx - Diagnoses Provider Diagnoses: Schizoaffective disorder - Provider Notifications Discussed Care Of Patient With: Sb Alford Time Discussed With Above Provider: 14:45 Instructed by Provider To: Admit As Inpatient Discharge - Sign-Out/Discharge Documenting (check all that apply): Discharge - ADMIT MHU STABLE, Receiving Sign -Out Receiving patient FROM: Dennis Mann - Discharge Plan Condition: Stable Disposition: ADMITTED TO [facility] - Billing Disposition and Condition Condition: STABLE Disposition: HOSP-[facility] The documentation as recorded by the Mohini jones Thomas accurately reflects the service I personally performed and the decisions made by , Reagan Doyle MD.
--- NOTE | 2017-09-27 16:02 | PN ---
Subjective - Subjective Date of Service: 09/27/17 Service Type: 14911 Hosp care 15 min low complexity Subjective: Ba continues to be aloof, guarded and ambivalent about thoughts of self harm or any decision making. He has a long latency in responding to questions and doesn't appear to have decision capacity for a safe discharge a t this time due to the facts mentioned above. Objective - Appearance Appearance: Healthy Appearing Dysmorphic Features: No Grooming: Disheveled - Behavior Psychomotor Activities: Abnormal-Decreased Exhibits Abnormal Movement: No - Attitude and Relatedness Attitude and Relatedness: Guarded Eye Contact: Poor - Speech Quality: Unpressured Latencies: Long Quantity: Terse - Mood Patient's Decription of Mood: "Sad" - Affect Observed Affect: Constricted Affect Consistent with: Dysphoria - Thought Process Patient's Thought Process: Coherent, Impoverished Thought Content: Yes Passive Wish, No Suicidal Planning, No Homicidal Ideation, No Paranoid Ideation - Sensorium Experiencing Hallucinations: No, Sensorium is Clear Type of Hallucinations: Visual: No, Auditory: No, Command: No - Level of Consciousness Level of Consciousness: Alert Orientation: Yes Intact, Yes Orientated to Time, Yes Orientated to Place, Yes Orientated to Person - Impulse Control Impulse Control: Tenuous - Insight and Judgement Insight and Judgement: Impaired - Group Participation Particating in Group Activities: No - Medication Management Medication Management Adherence: Yes Assessment - Assessment Merits Inpatient Hospitalization: For Immediate Safety, For Stabilization, Pending Safe DC Plan Inpatient DSM-V Dx: F20.0 Clinical Impression: Still guarded and ambivalent with lack of mental capacity to make a reasonable decision about his safety and discharge. Plan - Plan Treatment Plan: Name: BA JONES Birthdate: 1990 [id number] Continued Medication Management: Continue Outpt Medication Medications: Current Medications Acetaminophen (Tylenol Tab*) 650 mg PO Q4H PRN PRN Reason: for pain; or Temp >101 F Last Admin: 09/26/17 21:18 Dose: 650 mg Al Hydrox/Mg Hydrox/Simethicone (Maalox Plus*) 30 ml PO Q4H PRN PRN Reason: INDIGESTION Diphenhydramine HCl (Benadryl Po*) 50 mg PO ONCE PRN PRN Reason: INSOMNIA Haloperidol Decanoate (Haldol Decanoate*) 150 mg IM Q14D [facility] Last Admin: 09/23/17 13:12 Dose: 150 mg [place] Carbonate ([place] Carbonate Er Tab*) 450 mg PO BID [facility] Last Admin: 09/27/17 09:52 Dose: 450 mg Multivitamins (Theragran Tab*) 1 tab PO DAILY [facility] Last Admin: 09/27/17 09:52 Dose: 1 tab Nicotine (Nicotine Inhaler*) 10 mg INH Q2H PRN PRN Reason: CRAVING Last Admin: 09/26/17 21:17 Dose: 10 mg Nicotine (Nicotine Patch 14 Mg/24 Hr*) 1 patch TRANSDERM DAILY@0800 [facility] Last Admin: 09/27/17 09:52 Dose: Not Given Nicotine Polacrilex (Nicotine Gum*) 2 mg PO Q2H PRN PRN Reason: CRAVING Pharmacy Profile Note (Nicotine Patch Removal Note*) 1 note PATCH OFF 2100 [facility] Last Admin: 09/26/17 22:09 Dose: Not Given - Discharge Plan Discharge Plan: Outpatient Follow Up Outpatient Program: [facility]
[2017-09-27] MEDS: Nicotine Patch Removal NOTE PATCH OFF SCH (20:24)
[2017-09-28] MEDS: Lithium Carbonate ER* 450 MG TAB.ER PO SCH ×2 (09:45→21:00)
[2017-09-28] MEDS: Vitamin THERAPEUTIC TAB PO SCH (09:45)
[2017-09-28] MEDS: Nicotine PATCH 14 MG/24 HR* PATCH TRANSDERM SCH (09:50)
--- NOTE | 2017-09-28 13:35 | PN ---
Subjective - Subjective Date of Service: 09/28/17 Service Type: 68818 Hosp care 25 min moderate complexity Subjective: Ba was informed today that we are recommending that he go to the [facility], specifically [facility]. Ba is not enthusiastic about this plan, but does eventually agree to be transferred to [facility]. Krissy Setwart and I present our concerns for his safety, which he dismisses as not his concerns. Nevertheless, from last week's conversation when he mentioned suicide at age 27 (his current age), his disorganizatiion which seems to be interfering with his ability to comprehend simple explanations, and his inconsistent manner in reassuring different providers of his safety, he is clearly a candidate for a longer term stay in the hospital. Objective - Appearance Appearance: Healthy Appearing Dysmorphic Features: No Hygiene: Normal Grooming: Fairly Well Kept - Behavior Psychomotor Activities: Normal Exhibits Abnormal Movement: No - Attitude and Relatedness Attitude and Relatedness: Psychotically Related Eye Contact: Good - Speech Quality: Unpressured Latencies: Short Quantity: Appropriate - Mood Patient's Decription of Mood: "Good" - Affect Observed Affect: Constricted Affect Consistent with: Dysphoria - Thought Process Patient's Thought Process: Disorganized Thought Content: No Passive Wish, No Suicidal Planning, No Homicidal Ideation, No Paranoid Ideation - Sensorium Experiencing Hallucinations: Yes Type of Hallucinations: Visual: No, Auditory: Yes, Command: No - Level of Consciousness Level of Consciousness: Alert Orientation: Yes Intact, Yes Orientated to Time, Yes Orientated to Place, Yes Orientated to Person - Impulse Control Impulse Control: Impaired - Insight and Judgement Insight and Judgement: Poor - Group Participation Particating in Group Activities: No - Medication Management Medication Management Adherence: Yes - Additional Observations Comments: Superficially pleasant with goal directed thoughts regarding being discharged as soon as possible. There is an odd, slightly menacing quality to the conversation. Content of conversation consists of psychotic dreams and visions that are grandiose and bizarre. He is unable to provide a cogent argument as to why he is safe. His disorganization is moderate to severe. Assessment - Assessment Merits Inpatient Hospitalization: For Stabilization Inpatient DSM-V Dx: F20.0 Clinical Impression: 27-y.o. black male currently living in [place] who comes in to the ED with complaints of suicidal ideation and related fear. The high dose of Haldol Dec does not seem to improve him to wellness and it is unclear whether he is taking lithium consistently. Ba has declined to get a lithium level drawn. Discussion regarding his discharge has resulted in the decision to send him to the [facility] in [place], [place]. Plan - Plan Treatment Plan: Name: BA JONES Birthdate: 1990 [id number] Medications: Current Medications Acetaminophen (Tylenol Tab*) 650 mg PO Q4H PRN PRN Reason: for pain; or Temp >101 F Last Admin: 09/26/17 21:18 Dose: 650 mg Al Hydrox/Mg Hydrox/Simethicone (Maalox Plus*) 30 ml PO Q4H PRN PRN Reason: INDIGESTION Diphenhydramine HCl (Benadryl Po*) 50 mg PO ONCE PRN PRN Reason: INSOMNIA Haloperidol Decanoate (Haldol Decanoate*) 150 mg IM Q14D [facility] Last Admin: 09/23/17 13:12 Dose: 150 mg [place] Carbonate ([place] Carbonate Er Tab*) 450 mg PO BID [facility] Last Admin: 09/28/17 09:45 Dose: 450 mg Multivitamins (Theragran Tab*) 1 tab PO DAILY [facility] Last Admin: 09/28/17 09:45 Dose: 1 tab Nicotine (Nicotine Inhaler*) 10 mg INH Q2H PRN PRN Reason: CRAVING Last Admin: 09/26/17 21:17 Dose: 10 mg Nicotine (Nicotine Patch 14 Mg/24 Hr*) 1 patch TRANSDERM DAILY@0800 [facility] Last Admin: 09/28/17 09:50 Dose: Not Given Nicotine Polacrilex (Nicotine Gum*) 2 mg PO Q2H PRN PRN Reason: CRAVING Pharmacy Profile Note (Nicotine Patch Removal Note*) 1 note PATCH OFF 2100 [facility] Last Admin: 09/27/17 20:24 Dose: Not Given - Discharge Plan Discharge Plan: Consider Longer Term Tx Additional Comments: Ba received the Haldol 150 mg injection. We may attempt to obtain a lithium level, but he has so far declined that option. He has not been participating in any milieu activities. discharge had been contingent on his participation; Ba was made aware of that. nevertheless, he did not participate in many groups over the weekend. His engagement was low; his insight was poor: he will be referred to the [facility].
[2017-09-28] MEDS: Nicotine Patch Removal NOTE PATCH OFF SCH (19:44)
[2017-09-29] MEDS: Lithium Carbonate ER* 450 MG TAB.ER PO SCH ×2 (09:16→20:36)
[2017-09-29] MEDS: Vitamin THERAPEUTIC TAB PO SCH (09:17)
[2017-09-29] MEDS: Nicotine PATCH 14 MG/24 HR* PATCH TRANSDERM SCH (09:17)
[2017-09-29] MEDS: Nicotine Patch Removal NOTE PATCH OFF SCH (20:36)
[2017-09-30] MEDS: Vitamin THERAPEUTIC TAB PO SCH (10:28)
[2017-09-30] MEDS: Lithium Carbonate ER* 450 MG TAB.ER PO SCH ×2 (10:28→21:23)
[2017-09-30] MEDS: Nicotine PATCH 14 MG/24 HR* PATCH TRANSDERM SCH (10:30)
--- NOTE | 2017-09-30 14:39 | PN ---
Subjective - Subjective Date of Service: 09/30/17 Service Type: 43266 Hosp care 15 min low complexity Subjective: Ba is found in the morning lying in bed asleep. In the afternoon, he is in the Comfort Room lying on the couch asleep. Ba is uninterested in being here or participating in groups. Still, he remains psychotically related when spoken with and has some trouble comprehending questions. Objective - Appearance Appearance: Well Developed/Nourished Dysmorphic Features: No Hygiene: Mal-odorous Grooming: Disheveled - Behavior Psychomotor Activities: Normal Exhibits Abnormal Movement: No - Attitude and Relatedness Attitude and Relatedness: Psychotically Related Eye Contact: Good - Speech Quality: Unpressured Latencies: Short Quantity: Terse - Mood Patient's Decription of Mood: "Fine" - Affect Observed Affect: Constricted - Thought Process Patient's Thought Process: Disorganized Thought Content: No Passive Wish, No Suicidal Planning, No Homicidal Ideation, No Paranoid Ideation - Sensorium Experiencing Hallucinations: Yes Type of Hallucinations: Visual: No, Auditory: Yes, Command: No - Level of Consciousness Level of Consciousness: Alert Orientation: Yes Intact, Yes Orientated to Time, Yes Orientated to Place, Yes Orientated to Person - Impulse Control Impulse Control: Impaired - Insight and Judgement Insight and Judgement: Poor - Group Participation Particating in Group Activities: No - Medication Management Medication Management Adherence: Yes - Additional Observations Comments: Superficially pleasant with goal directed thoughts regarding being discharged as soon as possible. There is an odd, slightly menacing quality to conversation. Content of conversation consists of psychotic dreams and visions that are grandiose and bizarre. He is unable to provide a cogent argument as to why he is safe. His disorganization is moderate to severe. Assessment - Assessment Merits Inpatient Hospitalization: For Stabilization Inpatient DSM-V Dx: F20.0 Clinical Impression: 27-y.o. black male currently living in [place] who comes in to the ED with complaints of suicidal ideation and related fear. The high dose of Haldol Dec does not seem to improve him to wellness and it is unclear whether he is taking lithium consistently in the outpatient setting. Ba has twice declined to get a lithium level drawn. Discussion regarding his discharge has resulted in the decision to send him to the [facility] in [place], [place]. Plan - Plan Treatment Plan: Name: BA JONES Birthdate: 1990 [id number] Medications: Current Medications Acetaminophen (Tylenol Tab*) 650 mg PO Q4H PRN PRN Reason: for pain; or Temp >101 F Last Admin: 09/26/17 21:18 Dose: 650 mg Al Hydrox/Mg Hydrox/Simethicone (Maalox Plus*) 30 ml PO Q4H PRN PRN Reason: INDIGESTION Diphenhydramine HCl (Benadryl Po*) 50 mg PO ONCE PRN PRN Reason: INSOMNIA Haloperidol Decanoate (Haldol Decanoate*) 150 mg IM Q14D [facility] Last Admin: 09/23/17 13:12 Dose: 150 mg [place] Carbonate ([place] Carbonate Er Tab*) 450 mg PO BID [facility] Last Admin: 09/30/17 10:28 Dose: 450 mg Multivitamins (Theragran Tab*) 1 tab PO DAILY [facility] Last Admin: 09/30/17 10:28 Dose: 1 tab Nicotine (Nicotine Inhaler*) 10 mg INH Q2H PRN PRN Reason: CRAVING Last Admin: 09/26/17 21:17 Dose: 10 mg Nicotine (Nicotine Patch 14 Mg/24 Hr*) 1 patch TRANSDERM DAILY@0800 [facility] Last Admin: 09/30/17 10:30 Dose: Not Given Nicotine Polacrilex (Nicotine Gum*) 2 mg PO Q2H PRN PRN Reason: CRAVING Pharmacy Profile Note (Nicotine Patch Removal Note*) 1 note PATCH OFF 2100 [facility] Last Admin: 09/29/17 20:36 Dose: Not Given - Discharge Plan Discharge Plan: Consider Longer Term Tx Outpatient Program: [facility] Additional Comments: Ba received the Haldol 150 mg injection soon after admission. We attempted to obtain a lithium level, but he has so far declined that option. He has not been participating in any milieu activities. His engagement is low; his insight is poor: he has been referred to the [facility].
[2017-10-01] MEDS: Nicotine Patch Removal NOTE PATCH OFF SCH (01:00)
[2017-10-01] MEDS: Nicotine PATCH 14 MG/24 HR* PATCH TRANSDERM SCH (09:45)
[2017-10-01] MEDS: Lithium Carbonate ER* 450 MG TAB.ER PO SCH (10:39)
[2017-10-01] MEDS: Vitamin THERAPEUTIC TAB PO SCH (10:39)
[2017-10-01 12:39] VITALS: BP 133/70
--- NOTE | 2017-10-02 10:44 | DS ---
DISCHARGE SUMMARY: DATE OF ADMISSION: 09/21/17 DATE OF DISCHARGE: 10/01/17 PROVIDER: Beti Hugo NP in Psychiatry. SUPERVISING PHYSICIAN: Dr. Salinas Duque.* (dictated by Beti Hugo NP ) DIAGNOSES: [place] I: Schizoaffective disorder and cannabis use disorder; also hx psychosis, not otherwise specified. [place] II: Deferred. [place] III: History of multiple head traumas r/t football injuries CONDITION AT THE TIME OF DISCHARGE: Ba's condition is guarded. He remains paranoid, delusional, has poor insight despite 2 weeks here of ongoing inpatient treatment. He is not psychiatrically cleared. He is going to be discharged to [facility] at the [facility] that he prefers to visit. He is seclusive to himself. He is not social with others, although he is cooperative when asked to do most things. MENTAL STATUS EXAMINATION: At the time of discharge, the patient is calm and cooperative. His eye contact is intermittent. He is alert and oriented x3. His grooming is adequate. He had to be prompted to take a shower. His speech rate is normal. His thought processes are illogical, for example, he believes that the great rulers of the world are Bugs Bunny and Annie Bunny, and he believes that if he were to shoot himself, a goddess would intervene and work order sorting clerk the way and save him. He is having auditory hallucinations. He is not stating he has visual hallucinations. He passionately denies SI and HI, although he also in his ramblings gives plenty of reasons to worry that SI and HI are still a distinct part of the program. He is somewhat willing to go to [facility]. He is going to be followed there. He has to believe that he will be discharged in 2 weeks, although that was not promised to him. DISCHARGE INSTRUCTIONS TO THE PATIENT: Medications: 1. Haldol Decanoate 150 mg IM q.14 days. 2. Cos Cob carbonate 450 mg p.o. b.i.d. 3. Nicotine replacement inhaler and gum and the patch. Diet is regular. Activities are as tolerated. He is a smoker, but he has currently declined a referral to the [facility] Smokers' [facility]. There are no studies pending at the time of discharge, although we did request that he give a blood sample for a lithium level. He declined to do that, thus the lab study may be pending , but there is no blood with which to do these tests. Followup care: He will have followup care through [facility]. He is a direct transfer there. They are responsible for making all the inpatient referrals and appointments at the time of discharge from that facility. Substance abuse followup would be ideal if he were to agree to it, but he has refused cannabis treatment for long time and also does not have any insight into why he would need it. HOSPITAL COURSE: Part A: "It is just my insanity, I have the vision of the future and they come true." The patient is a 27-year-old single - Romanian male with a history of chronic and persistent schizophrenia, who was brought to the hospital on status due to threatening to kill himself using a gun. Most recently, his ex-girlfriend suicided earlier last week. Ba is interested in being discharged from this facility. He does use marijuana. He comes up positive for that on the drug screen. He does hear voices. He does not state that they are threatening at this time. He states that his life is getting better. He did not mention the suicide of his ex-girlfriend, Alea when I spoke to him. He is psychotic at this time. He does not endorse suicidal ideation at this time. He did discuss that he does not have a gun, does not have access to a gun. He is internally preoccupied. He is a bit paranoid and he is disorganized. Part B: Psychiatric treatment was rendered. The patient was admitted to the adult behavioral unit and placed on 15-minute checks for safety. He is on a full code. Ba agreed to take the 150 mg of Haldol Decanoate and received that injection in his right biceps. He did not improve after having that injection. He agreed to take medication and was medication compliant while on the unit, but this also does not appear to have made any difference in his presentation or behavior. He did not particularly want to go to groups. He interacted with peers moderately well. He mostly ignored them. He tolerated the medications that he was given. No meds were started or changed or discontinued as he had been somewhat noncompliant from home before and we were curious to see if he would become stable on his own. His hemoglobin A1c was 5.3. His triglycerides were 197, cholesterol 216, LDL cholesterol 135, HDL cholesterol 42.0. He did not require any consult. He continues to be delusional and psychotic. He denies suicidality, but it is not a convincing denial and he is so disorganized that it is impossible to tell what is reality for him and what is not. BETI HUGO, BOILER HOUSE MECHANIC [id number]/[facility] #: [id number] PELON
== END 2017-10-01 15:38 | disposition short-term general hospital (02) | DRG 885 ==
LOC: ED 14:59 → BSU 09-21 14:20
PROVIDERS: ADMIT Psychiatry & Neurology Psychiatry; ATTEND Psychiatry & Neurology Psychiatry
DX: F25.9 Schizoaffective disorder, unspecified (principal); R45.851 Suicidal ideations; F31.9 Bipolar disorder, unspecified; F41.9 Anxiety disorder, unspecified; F43.10 Post-traumatic stress disorder, unspecified; F29 Unspecified psychosis not due to a substance or known physiological condition; F17.210 Nicotine dependence, cigarettes, uncomplicated; F12.90 Cannabis use, unspecified, uncomplicated; M10.9 Gout, unspecified; Z91.14 Patient's other noncompliance with medication regimen; Z91.5 Personal history of self-harm; Z82.49 Family history of ischemic heart disease and other diseases of the circulatory system; Z83.3 Family history of diabetes mellitus; Z72.89 Other problems related to lifestyle
CPT/HCPCS: 36415; 80053; 80061; 80307; 80320; 80329; 81003; 83036; 84443; 85025; 93005; 99222; 99231; 99232; 99233; 99238; 99283; A9270-GY; G0480; J1631

== ENCOUNTER 2017-12-23 15:41 | Emergency (ER) | payer MEDICARE, MEDICAID ==
[2017-12-23 16:37] LABS: ABS Basophils 0 10^3/ul (0-0.2); ABS Eosinophils 0.2 10^3/ul (0-0.6); ABS Lymphocytes 1.4 10^3/ul (1.0-4.8); ABS Monocytes 0.6 10^3/ul (0-0.8); ABS Neutrophils 5.6 10^3/ul (1.5-7.7); ABS Nucleated RBC 0 10^3/ul; Eosinophil % 2.3 % (0-6); Hematocrit 40 % (42-52); Hemoglobin 13.5 g/dl (14.0-18.0); Lymphocyte % 17.6 % (25-47); Mean Corpuscular HGB Conc 34 g/dl (31-36); Mean Corpuscular Hemoglobin 32 pg (27-31); Mean Corpuscular Volume 93 fL (80-94); Mean Platelet Volume 7.2 um3 (7.4-10.4); Nucleated Red Blood Cells % 0; Platelet Count 269 10^3/ul (150-450); Red Blood Count 4.27 10^6/ul (4.00-5.40); Red Cell Distribution Width 15 % (10.5-15); White Blood Count 7.8 10^3/ul (3.5-10.8)
[2017-12-23 17:01] LABS: Urine Appearance Cloudy; Urine Blood Negative (Negative); Urine Color Yellow; Urine Ketones Negative (Negative); Urine Protein Negative (Negative); Urine Specific Gravity 1.023 (1.010-1.030); Urine Urobilinogen Negative (Negative)
[2017-12-23] MEDS ORDERED: Ibuprofen TAB* 600 MG PO ONE (18:13)
[2017-12-23] MEDS ORDERED: diPHENhydraMINE PO* 50 MG PO ONE (18:23)
[2017-12-23] MEDS ORDERED: LORazepam TAB(*) 1 MG PO ONE (18:23)
[2017-12-23] MEDS ORDERED: Haloperidol TAB* 5 MG PO ONE (18:23)
[2017-12-23] MEDS ORDERED: Haloperidol TAB* 5 MG ONE (18:26)
[2017-12-23] MEDS ORDERED: LORazepam TAB(*) 1 MG ONE (18:26)
[2017-12-23] MEDS ORDERED: diPHENhydraMINE PO* 50 MG ONE (18:26)
--- NOTE | 2017-12-23 18:32 | ED ---
Harsha Wallace Tiffany, scribed for Lucian Avilauel on 12/23/17 at 1613 . Psychiatric Complaint - HPI Summary HPI Summary: 27 year old Norberto MORFIN complains of delusions since one hour ago. Symptoms aggravated by nothing. Symptoms alleviated by nothing. Patient reports lower back pain, bilateral wrist pain, bilateral ankle pain. He denies suicidal ideation, auditory hallucinations. States that he wants to "see Richard Jai before he destroys the world" and "be in [place] when it is attacked." Hx schizoaffective bipolar disorder. - History Of Current Complaint Time Seen by Provider: 12/23/17 15:53 Hx Obtained From: Patient Onset/Duration: Lasting Hours - 1, Still Present Timing: Constant Aggravating Factor(s): Nothing Alleviating Factor(s): Nothing Has Suicidal: Denies: Thoughts - Allergies/Home Medications Allergies/Adverse Reactions: Allergies Allergy/AdvReac Type Severity Reaction Status Date / Time No Known Allergies Allergy Verified 09/20/17 17:15 PMH/Surg Hx/FS Hx/Imm Hx Previously Healthy: No Endocrine/Hematology History: Denies: Hx Anticoagulant Therapy, Hx Blood Disorders, Hx Blood Transfusions, Hx Bone Marrow Disease, Hx Diabetes, Hx Systemic Lupus Erythematosus, Hx Sickle Cell Disease, Hx Thyroid Disease, Hx Anemia, Hx Unexplained Bleeding, Other Endocrine/Hematological Disorders Cardiovascular History: Denies: Hx Aneurysm, Hx Angina, Hx Angioplasty, Hx Auto Implanted Cardiovert Defib, Hx Cardiac Arrest, Hx Cardiomegaly, Hx Congenital Heart Disease, Hx Congestive Heart Failure, Hx Coronary Artery Disease, Hx Deep Vein Thrombosis, Hx Hypercholesterolemia, Hx Hypotension, Hx Hypertension, Hx Pacemaker/ICD, Hx Peripheral Vascular Disease, Hx Rheumatic Fever, Hx Syncope, Hx Valvular Heart Disease, Other Cardiovascular Problems/Disorders Respiratory History: Denies: Hx Asthma, Hx Chronic Bronchitis, Hx Chronic Obstructive Pulmonary Disease (COPD), Hx Cystic Fibrosis, Hx Lung Cancer, Hx Pleural Effusion, Hx Pneumonia, Hx Pulmonary Edema, Hx Pulmonary Embolism, Hx Seasonal Allergies, Hx Sleep Apnea, Other Respiratory Problems/Disorders GI History: Denies: Hx Cirrhosis, Hx Crohn's Disease, Hx Diverticulosis, Hx Gall Bladder Disease, Hx Gastroesophageal Reflux Disease, Hx Gastrointestinal Bleed, Hx Hiatal Hernia, Hx Irritable Bowel, Hx Jaundice, Hx Obstructive Bowel, Hx Ileostomy, Hx Pyloric Stenosis, Hx Ulcer, Other GI Disorders History: Denies: Hx Acute Renal Failure, Hx Benign Prostatic Hyperplasia, Hx Chronic Renal Failure, Hx Dialysis, Hx Kidney Infection, Hx Kidney Stones, Other Problems/Disorders Musculoskeletal History: Denies: Hx Arthritis, Hx Back Problems, Hx Bursitis, Hx Congenital Bone Abnormalities, Hx Fibromyalgia, Hx Gout, Hx Orthopedic Injury, Hx Osteoporosis, Hx Scoliosis, Hx Tendonitis, Other Musculoskeletal History Sensory History: Denies: Hx Cataracts, Hx Contacts or Glasses, Hx Eye Injury, Hx Eye Prosthesis, Hx Glaucoma, Hx Macular Degeneration, Hx Vision Problem, Hx Deafness , Hx Hearing Aid, Hx Hearing Problem, Other Sensory Impairments Opthamlomology History: Denies: Hx Cataracts, Hx Contacts or Glasses, Hx Eye Injury, Hx Eye Prosthesis, Hx Glaucoma, Hx Macular Degeneration, Hx Vision Problem, Other Sensory Impairments Neurological History: Denies: Hx Dementia, Hx Developmental Delay, Hx Headaches, Hx Migraine, Hx Seizures, Hx Spinal Cord Injury, Hx Transient Ischemic Attacks (TIA), Other Neuro Impairments/Disorders Psychiatric History: Reports: Hx Anxiety, Hx Depression, Hx Post Traumatic Stress Disorder, Hx Inpatient Treatment, Hx Community Mental Health Tx, Hx Schizophrenia, Hx Suicide Attempt, Hx Substance Abuse, Other Psychiatric Issues/ Disorders - psychosis, schizoaffective bipolar disorder Denies: Hx Attention Deficit Hyperactivity Disorder, Hx Eating Disorder, Hx Panic Disorder, Hx of Violent Episodes Against Others - Cancer History Hx Chemotherapy: No Hx Radiation Therapy: No - Surgical History Surgery Procedure, Year, and Place: None. Hx Anesthesia Reactions: No - Immunization History Date of Tetanus Vaccine: unk Date of Influenza Vaccine: unk Infectious Disease History: Denies: Hx Clostridium Difficile, Hx Hepatitis, Hx Human Immunodeficiency Virus (HIV), Hx Shingles, Hx Tuberculosis - Family History Known Family History: Positive: Hypertension, Diabetes - grandfather - Social History Alcohol Use: Occasionally Hx Substance Use: Yes Substance Use Type: Reports: Marijuana Hx Tobacco Use: Yes Smoking Status (MU): Heavy Every Day Tobacco Smoker Type: Cigarettes Amount Used/How Often: 1/2 PPD Length of Time of Smoking/Using Tobacco: 5YRS Have You Smoked in the Last Year: Yes Review of Systems Positive: Other - Lower back pain, bilateral wrist pain, bilateral ankle pain Positive: Other - delusions; NEGATIVE: auditory hallucinations, SI All Other Systems Reviewed And Are Negative: Yes Physical Exam - Summary Physical Exam Summary: Appearance: Well appearing, no pain distress Skin: warm, dry, reflects adequate perfusion Head/face: normal Eyes: EOMI, KALEY ENT: normal Neck: supple, non-tender Respiratory: CTA, breath sounds present Cardiovascular: RRR, pulses symmetrical Abdomen: non-tender, soft Bowel: present Musculoskeletal: normal, strength/ROM intact Neuro: normal, sensory motor intact, A&Ox3 Psych: Anxious. Flat affect Triage Information Reviewed: Yes Vital Signs On Initial Exam: Initial Vitals Temp Pulse Resp BP Pulse Ox 98.2 F 80 17 115/63 97 12/23/17 15:52 12/23/17 15:52 12/23/17 15:52 12/23/17 15:52 12/23/17 15:52 Vital Signs Reviewed: Yes Diagnostics - Vital Signs Vital Signs Temp Pulse Resp BP Pulse Ox 12/23/17 17:21 98.8 F 70 16 103/38 99 12/23/17 15:52 98.2 F 80 17 115/63 97 - Laboratory Lab Results: Lab Results 12/23/17 12/23/17 12/23/17 Range/Units 16:26 16:26 16:49 WBC 7.8 (3.5-10.8) 10^3/ul RBC 4.27 (4.00-5.40) 10^6/ul Hgb 13.5 L (14.0-18.0) g/dl Hct 40 L (42-52) % MCV 93 (80-94) fL MCH 32 H (27-31) pg MCHC 34 (31-36) g/dl RDW 15 (10.5-15) % Plt Count 269 (150-450) 10^3/ul MPV 7.2 L (7.4-10.4) um3 Neut % (Auto) 71.6 (38-83) % Lymph % (Auto) 17.6 L (25-47) % [place] % (Auto) 7.9 H (0-7) % Eos % (Auto) 2.3 (0-6) % Baso % (Auto) 0.6 (0-2) % Absolute Neuts (auto) 5.6 (1.5-7.7) 10^3/ul Absolute Lymphs (auto) 1.4 (1.0-4.8) 10^3/ul Absolute Monos (auto) 0.6 (0-0.8) 10^3/ul Absolute Eos (auto) 0.2 (0-0.6) 10^3/ul Absolute Basos (auto) 0 (0-0.2) 10^3/ul Absolute Nucleated RBC 0 10^3/ul Nucleated RBC % 0 Sodium 139 (135-145) mmol/L Potassium 3.6 (3.5-5.0) mmol/L Chloride 106 (101-111) mmol/L Carbon Dioxide 24 (22-32) mmol/L Anion Gap 9 (2-11) mmol/L BUN 12 (6-24) mg/dL Creatinine 0.93 (0.67-1.17) mg/dL Est GFR ( Amer) 119.8 (>60) Est GFR (Non-Af Amer) 99.0 (>60) BUN/Creatinine Ratio 12.9 (8-20) Glucose 95 (70-100) mg/dL Calcium 9.2 (8.6-10.3) mg/dL Total Bilirubin 0.40 (0.2-1.0) mg/dL AST 18 (13-39) U/L ALT 18 (7-52) U/L Alkaline Phosphatase 61 (34-104) U/L Total Protein 6.6 (6.4-8.9) g/dL Albumin 4.2 (3.2-5.2) g/dL Globulin 2.4 (2-4) g/dL Albumin/Globulin Ratio 1.8 (1-3) TSH 0.59 (0.34-5.60) mcIU/mL Urine Color Yellow Urine Appearance Cloudy Urine pH 5.0 (5-9) Ur Specific [place] 1.023 (1.010-1.030) Urine Protein Negative (Negative) Urine Ketones Negative (Negative) Urine Blood Negative (Negative) Urine Nitrate Negative (Negative) Urine Bilirubin Negative (Negative) Urine Urobilinogen Negative (Negative) Ur Leukocyte Esterase Negative (Negative) Urine Glucose Negative (Negative) Urine Ascorbic Acid * A (Negative) Salicylates < 2.50 (<30) mg/dL Urine Opiates Screen (None Detect) Acetaminophen < 15 mcg/mL Ur Barbiturates Screen (None Detect) Ur Phencyclidine Scrn (None Detect) Ur Amphetamines Screen (None Detect) U Benzodiazepines Scrn (None Detect) Urine Cocaine Screen (None Detect) U Cannabinoids Screen (None Detect) Serum Alcohol < 10 (<10) mg/dL 12/23/17 Range/Units 16:49 WBC (3.5-10.8) 10^3/ul RBC (4.00-5.40) 10^6/ul Hgb (14.0-18.0) g/dl Hct (42-52) % MCV (80-94) fL MCH (27-31) pg MCHC (31-36) g/dl RDW (10.5-15) % Plt Count (150-450) 10^3/ul MPV (7.4-10.4) um3 Neut % (Auto) (38-83) % Lymph % (Auto) (25-47) % [place] % (Auto) (0-7) % Eos % (Auto) (0-6) % Baso % (Auto) (0-2) % Absolute Neuts (auto) (1.5-7.7) 10^3/ul Absolute Lymphs (auto) (1.0-4.8) 10^3/ul Absolute Monos (auto) (0-0.8) 10^3/ul Absolute Eos (auto) (0-0.6) 10^3/ul Absolute Basos (auto) (0-0.2) 10^3/ul Absolute Nucleated RBC 10^3/ul Nucleated RBC % Sodium (135-145) mmol/L Potassium (3.5-5.0) mmol/L Chloride (101-111) mmol/L Carbon Dioxide (22-32) mmol/L Anion Gap (2-11) mmol/L BUN (6-24) mg/dL Creatinine (0.67-1.17) mg/dL Est GFR ( Amer) (>60) Est GFR (Non-Af Amer) (>60) BUN/Creatinine Ratio (8-20) Glucose (70-100) mg/dL Calcium (8.6-10.3) mg/dL Total Bilirubin (0.2-1.0) mg/dL AST (13-39) U/L ALT (7-52) U/L Alkaline Phosphatase (34-104) U/L Total Protein (6.4-8.9) g/dL Albumin (3.2-5.2) g/dL Globulin (2-4) g/dL Albumin/Globulin Ratio (1-3) TSH (0.34-5.60) mcIU/mL Urine Color Urine Appearance Urine pH (5-9) Ur Specific [place] (1.010-1.030) Urine Protein (Negative) Urine Ketones (Negative) Urine Blood (Negative) Urine Nitrate (Negative) Urine Bilirubin (Negative) Urine Urobilinogen (Negative) Ur Leukocyte Esterase (Negative) Urine Glucose (Negative) Urine Ascorbic Acid (Negative) Salicylates (<30) mg/dL Urine Opiates Screen None detected (None Detect) Acetaminophen mcg/mL Ur Barbiturates Screen None detected (None Detect) Ur Phencyclidine Scrn None detected (None Detect) Ur Amphetamines Screen None detected (None Detect) U Benzodiazepines Scrn None detected (None Detect) Urine Cocaine Screen None detected (None Detect) U Cannabinoids Screen Presumptive positive A (None Detect) Serum Alcohol (<10) mg/dL Result Diagrams: 12/23/17 16:26 12/23/17 16:26 Lab Statement: Any lab studies that have been ordered have been reviewed, and results considered in the medical decision making process. Course/Dx - Course Course Of Treatment: 27 year old Norberto MORFIN complains of delusions since one hour ago. Patient medically cleared for MHE at 17:20. Patient will be signed out to Dr. Oneill at shift change, awaiting MHE, pending dispo plan. - Differential Dx/Clinical Impression Differential Diagnosis/HQI/PQRI: Positive: Acute Psychosis, Schizophrenia Provider Diagnosis: Unspecified psychosis Discharge - Sign-Out/Discharge Documenting (check all that apply): Sign-Out Patient Signing out patient TO: Cristobal Oneill - Awaiting MHE, pending dispo - Discharge Plan Referrals: Felipe Alva MD [Primary Care Provider] - The documentation as recorded by the Harsha jones Tiffany accurately reflects the service I personally performed and the decisions made by , Matthew Avila.
--- NOTE | 2017-12-23 20:33 | RAD ---
INDICATION: Cough COMPARISON: None TECHNIQUE: PA and lateral dual-energy views were obtained. FINDINGS: Bones/Soft Tissues: There are no acute bony findings. Cardiomediastinal: The cardiomediastinal silhouette is normal. Lungs: There are no infiltrates. Pleura: There are no pleural effusions. Other: None IMPRESSION: NEGATIVE EXAMINATION.
--- NOTE | 2017-12-23 20:33 | RAD ---
INDICATION: Back pain COMPARISON: None TECHNIQUE: Routine PA, lateral, and oblique imaging was performed . FINDINGS: Bones: There are no acute bony findings. There are no significant osteoarthritic findings. Alignment: Normal Disc spaces: The disc spaces are well-maintained Soft tissues: There are no soft tissue abnormalities. IMPRESSION: NEGATIVE EXAMINATION.
--- NOTE | 2017-12-24 01:51 | ED ---
Mireya Wallace Jade, scribed for Cristobal Oneill MD on 12/23/17 at 2047 . Progress - Progress Note Progress Note: Pt will be transferred in the morning to [facility], pending availability. He has been stable through the night. - EKG/XRAY/CT XRAY: Lumbar Spine - 18:12 NEGATIVE EXAMINATION. ED physician reviewed radiology report. Xray Comments: CXR 18:12 NEGATIVE EXAMINATION. ED physician reviewed radiology report. Course/Dx - Course Course Of Treatment: 27 year old Norberto MORFIN complains of delusions since one hour ago. Patient medically cleared for MHE at 17:20. Patient will be signed out to Dr. Oneill at shift change, awaiting MHE, pending dispo plan. - Diagnoses Provider Diagnoses: Schizophrenia, Acute psychosis Discharge - Sign-Out/Discharge Documenting (check all that apply): Sign-Out Patient, Receiving Sign-Out Signing out patient TO: Dedrick Conway Receiving patient FROM: Matthew Avila - Discharge Plan Condition: Stable Referrals: Felipe Alva MD [Primary Care Provider] - - Billing Disposition and Condition Condition: STABLE The documentation as recorded by the Mireya jones Jade accurately reflects the service I personally performed and the decisions made by Nino aquino Kirk, MD.
[2017-12-24 09:32] VITALS: BP 99/66
--- NOTE | 2017-12-24 10:19 | PN ---
ED Flex Patient Progress Note Date of Service: 12/24/17 Subjective: This is a 27 year-old M who is pending transfer to another psychiatric facility secondary to psychosis Pt is currently sleeping at this time. He got up early today and went back to sleep Objective: Vitals: Most recent vital signs documented below. General NAD, currently a sleep Heart: rrr at 70 bpm Lungs: breathing unlabored Laboratory: Current laboratory results documented below. Assessment: psychosis Plan: Pending psychiatric to transfer to [place] will follow up daily until bed available condition:Stable disposition: transfer Vital Signs Temp Pulse Resp BP Pulse Ox 98.2 F 74 17 99/66 99 12/24/17 09:31 12/24/17 09:31 12/24/17 09:31 12/24/17 09:31 12/24/17 09:31 Lab Results - Entire Visit 12/23/17 12/23/17 12/23/17 16:49 16:49 16:26 WBC RBC Hgb Hct MCV MCH MCHC RDW Plt Count MPV Neut % (Auto) Lymph % (Auto) [place] % (Auto) Eos % (Auto) Baso % (Auto) Absolute Neuts (auto) Absolute Lymphs (auto) Absolute Monos (auto) Absolute Eos (auto) Absolute Basos (auto) Absolute Nucleated RBC Nucleated RBC % Sodium 139 Potassium 3.6 Chloride 106 Carbon Dioxide 24 Anion Gap 9 BUN 12 Creatinine 0.93 Est GFR ( Amer) 119.8 Est GFR (Non-Af Amer) 99.0 BUN/Creatinine Ratio 12.9 Glucose 95 Calcium 9.2 Total Bilirubin 0.40 AST 18 ALT 18 Alkaline Phosphatase 61 Total Protein 6.6 Albumin 4.2 Globulin 2.4 Albumin/Globulin Ratio 1.8 TSH 0.59 Urine Color Yellow Urine Appearance Cloudy Urine pH 5.0 Ur Specific [place] 1.023 Urine Protein Negative Urine Ketones Negative Urine Blood Negative Urine Nitrate Negative Urine Bilirubin Negative Urine Urobilinogen Negative Ur Leukocyte Esterase Negative Urine Glucose Negative Urine Ascorbic Acid * A Salicylates < 2.50 Urine Opiates Screen None detected Acetaminophen < 15 Ur Barbiturates Screen None detected Ur Phencyclidine Scrn None detected Ur Amphetamines Screen None detected U Benzodiazepines Scrn None detected Urine Cocaine Screen None detected U Cannabinoids Screen Presumptive positive A Serum Alcohol < 10 12/23/17 16:26 WBC 7.8 RBC 4.27 Hgb 13.5 L Hct 40 L MCV 93 MCH 32 H MCHC 34 RDW 15 Plt Count 269 MPV 7.2 L Neut % (Auto) 71.6 Lymph % (Auto) 17.6 L [place] % (Auto) 7.9 H Eos % (Auto) 2.3 Baso % (Auto) 0.6 Absolute Neuts (auto) 5.6 Absolute Lymphs (auto) 1.4 Absolute Monos (auto) 0.6 Absolute Eos (auto) 0.2 Absolute Basos (auto) 0 Absolute Nucleated RBC 0 Nucleated RBC % 0 Sodium Potassium Chloride Carbon Dioxide Anion Gap BUN Creatinine Est GFR ( Amer) Est GFR (Non-Af Amer) BUN/Creatinine Ratio Glucose Calcium Total Bilirubin AST ALT Alkaline Phosphatase Total Protein Albumin Globulin Albumin/Globulin Ratio TSH Urine Color Urine Appearance Urine pH Ur Specific [place] Urine Protein Urine Ketones Urine Blood Urine Nitrate Urine Bilirubin Urine Urobilinogen Ur Leukocyte Esterase Urine Glucose Urine Ascorbic Acid Salicylates Urine Opiates Screen Acetaminophen Ur Barbiturates Screen Ur Phencyclidine Scrn Ur Amphetamines Screen U Benzodiazepines Scrn Urine Cocaine Screen U Cannabinoids Screen Serum Alcohol
--- NOTE | 2017-12-24 10:53 | PN ---
ED Flex Patient Progress Note Date of Service: 12/24/17 Subjective: ED Flex Day #1 for this 27 y.o. single, AA male with a history of schizophrenia and chronic cannabis use DO, recently discharged from [facility], who presents with bizarre, paranoid behavior and inability to care for himself in the setting of self-discontinuation of psychiatric medications. Objective: young AA male, poorly groomed; paranoid and responding to internal stimuli Assessment: Schizophrenia Plan: Will pursue readmission to [facility]. Vital Signs Temp Pulse Resp BP Pulse Ox 98.2 F 74 17 99/66 99 12/24/17 09:31 12/24/17 09:31 12/24/17 09:31 12/24/17 09:31 12/24/17 09:31 Lab Results - Entire Visit 12/23/17 12/23/17 12/23/17 16:49 16:49 16:26 WBC RBC Hgb Hct MCV MCH MCHC RDW Plt Count MPV Neut % (Auto) Lymph % (Auto) [place] % (Auto) Eos % (Auto) Baso % (Auto) Absolute Neuts (auto) Absolute Lymphs (auto) Absolute Monos (auto) Absolute Eos (auto) Absolute Basos (auto) Absolute Nucleated RBC Nucleated RBC % Sodium 139 Potassium 3.6 Chloride 106 Carbon Dioxide 24 Anion Gap 9 BUN 12 Creatinine 0.93 Est GFR ( Amer) 119.8 Est GFR (Non-Af Amer) 99.0 BUN/Creatinine Ratio 12.9 Glucose 95 Calcium 9.2 Total Bilirubin 0.40 AST 18 ALT 18 Alkaline Phosphatase 61 Total Protein 6.6 Albumin 4.2 Globulin 2.4 Albumin/Globulin Ratio 1.8 TSH 0.59 Urine Color Yellow Urine Appearance Cloudy Urine pH 5.0 Ur Specific [place] 1.023 Urine Protein Negative Urine Ketones Negative Urine Blood Negative Urine Nitrate Negative Urine Bilirubin Negative Urine Urobilinogen Negative Ur Leukocyte Esterase Negative Urine Glucose Negative Urine Ascorbic Acid * A Salicylates < 2.50 Urine Opiates Screen None detected Acetaminophen < 15 Ur Barbiturates Screen None detected Ur Phencyclidine Scrn None detected Ur Amphetamines Screen None detected U Benzodiazepines Scrn None detected Urine Cocaine Screen None detected U Cannabinoids Screen Presumptive positive A Serum Alcohol < 10 12/23/17 16:26 WBC 7.8 RBC 4.27 Hgb 13.5 L Hct 40 L MCV 93 MCH 32 H MCHC 34 RDW 15 Plt Count 269 MPV 7.2 L Neut % (Auto) 71.6 Lymph % (Auto) 17.6 L [place] % (Auto) 7.9 H Eos % (Auto) 2.3 Baso % (Auto) 0.6 Absolute Neuts (auto) 5.6 Absolute Lymphs (auto) 1.4 Absolute Monos (auto) 0.6 Absolute Eos (auto) 0.2 Absolute Basos (auto) 0 Absolute Nucleated RBC 0 Nucleated RBC % 0 Sodium Potassium Chloride Carbon Dioxide Anion Gap BUN Creatinine Est GFR ( Amer) Est GFR (Non-Af Amer) BUN/Creatinine Ratio Glucose Calcium Total Bilirubin AST ALT Alkaline Phosphatase Total Protein Albumin Globulin Albumin/Globulin Ratio TSH Urine Color Urine Appearance Urine pH Ur Specific [place] Urine Protein Urine Ketones Urine Blood Urine Nitrate Urine Bilirubin Urine Urobilinogen Ur Leukocyte Esterase Urine Glucose Urine Ascorbic Acid Salicylates Urine Opiates Screen Acetaminophen Ur Barbiturates Screen Ur Phencyclidine Scrn Ur Amphetamines Screen U Benzodiazepines Scrn Urine Cocaine Screen U Cannabinoids Screen Serum Alcohol
[2017-12-24] MEDS ORDERED: Mouth Piece, Nicotine* 1 EACH CARTRIDGE INH PRN (13:23)
[2017-12-24] MEDS: Nicotine Inhaler* 10 MG AMP INH PRN ×2 (14:05→16:33)
--- NOTE | 2017-12-24 18:23 | ED ---
Negro Wallace Angela, scribed for Dedrick Conway MD on 12/24/17 at 1808 . Progress - Progress Note Progress Note: Pt was signed out by Dr. Oneill, pending transfer to [facility]. Course/Dx - Course Course Of Treatment: Mr. Sutherland was intermittently mildly agitated during his stay here in the emergency department but only required medication once on initial presentation. He is being transferred to [facility] Dr. Jessica brand. - Diagnoses Provider Diagnoses: Acute psychosis Discharge - Sign-Out/Discharge Documenting (check all that apply): Discharge/Admit/Transfer - Transfer, Receiving Sign-Out Receiving patient FROM: Cristobal Oneill - Discharge Plan Condition: Stable Disposition: PSYCHIATRIC FACILITY-OTHER Referrals: Felipe Alva MD [Primary Care Provider] - - Billing Disposition and Condition Condition: STABLE Disposition: Psychiatric Facility Other The documentation as recorded by the Negro jones Angela accurately reflects the service I personally performed and the decisions made by , Dedrick Conway MD.
[2017-12-24] MEDS ORDERED: Haloperidol TAB* 5 MG PO SCH (21:00)
== END 2017-12-24 05:00 ==
LOC: ED 15:41
DX: F20.9 Schizophrenia, unspecified (principal); F23 Brief psychotic disorder
CPT/HCPCS: 36415; 71046; 72110; 80053; 80178; 80307; 80320; 80329; 81003; 84443; 85025; 99283; A9270-GY; G0480

== ENCOUNTER 2019-04-25 16:51 | Emergency (ER) | payer MEDICARE, MEDICAID ==
[2019-04-25] MEDS ORDERED: Naproxen TAB* 250 MG PO PRN (17:12)
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
[2019-04-25 20:30] LABS: Urine Benzodiazepine Screen None Detected (None Detect); Urine Opiates Screen None Detected (None Detect)
[2019-04-25 21:44] VITALS: BP 0/0
== END 2019-04-25 21:42 | disposition home or self-care (01) ==
LOC: ED 16:51
DX: F25.0 Schizoaffective disorder, bipolar type (principal); F43.10 Post-traumatic stress disorder, unspecified; F41.9 Anxiety disorder, unspecified; Z79.899 Other long term (current) drug therapy; F17.210 Nicotine dependence, cigarettes, uncomplicated
CPT/HCPCS: 36415; 80307; 80320; 99285; G0480

== ENCOUNTER 2019-05-08 00:47 | Emergency (ER) | payer MEDICARE, MEDICAID ==
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
[2019-05-08 02:30] LABS: ABS Basophils 0.1 10^3/ul (0-0.2); ABS Eosinophils 0.5 10^3/ul (0-0.6); ABS Lymphocytes 2.3 10^3/ul (1.0-4.8); ABS Monocytes 0.9 10^3/ul (0-0.8); ABS Neutrophils 7.4 10^3/ul (1.5-7.7); Eosinophil % 4.1 %; Hematocrit 47 % (42-52); Hemoglobin 15.9 g/dL (14.0-18.0); Lymphocyte % 20.9 %; Mean Corpuscular HGB Conc 34 g/dL (31-36); Mean Corpuscular Hemoglobin 32 pg (27-31); Mean Corpuscular Volume 94 fL (80-94); Mean Platelet Volume 7.8 fL (7.4-10.4); Platelet Count 269 10^3/uL (150-450); Red Blood Count 5.03 10^6 /uL (4.18-5.48); Red Cell Distribution Width 14 % (10-15); White Blood Count 11.1 10^3/uL (3.5-10.8)
[2019-05-08 02:44] LABS: ALT 51 U/L (7-52); AST 24 U/L (13-39); Albumin 4.6 g/dL (3.2-5.2); Alkaline Phosphatase 68 U/L (34-104); Anion Gap 6 mmol/L (2-11); Blood Urea Nitrogen 16 mg/dL (6-24); CO2 Carbon Dioxide 28 mmol/L (22-32); Calcium 9.8 mg/dL (8.6-10.3); Chloride 105 mmol/L (101-111); EGFR African American 101.1 (>60); EGFR Non-African American 83.5 (>60); Globulin 2.3 g/dL (2-4); Glucose 98 mg/dL (70-100); Potassium 4.1 mmol/L (3.5-5.0); Sodium 139 mmol/L (135-145); Total Protein 6.9 g/dL (6.4-8.9)
[2019-05-08 02:55] LABS: Acetaminophen < 15 mcg/mL; Alcohol < 10 mg/dL (<10); Lithium < 0.10 mmol/L (0.6-1.2); Salicylate < 2.50 mg/dL (<30)
[2019-05-08 03:09] LABS: TSH (Thyroid Stimulating Horm) 0.79 mcIU/mL (0.34-5.60)
[2019-05-08 05:15] VITALS: BP 122/73
== END 2019-05-08 05:09 | disposition home or self-care (01) ==
LOC: ED 00:47
DX: F25.9 Schizoaffective disorder, unspecified (principal); F19.10 Other psychoactive substance abuse, uncomplicated; F17.210 Nicotine dependence, cigarettes, uncomplicated; Z79.899 Other long term (current) drug therapy
CPT/HCPCS: 36415; 80053; 80178; 80320; 80329; 84443; 85025; 99284; G0480

== ENCOUNTER 2019-05-11 19:41 | Inpatient (IN) | payer MEDICARE, MEDICAID ==
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
[2019-05-11 20:56] LABS: ABS Basophils 0.1 10^3/ul (0-0.2); ABS Eosinophils 0.3 10^3/ul (0-0.6); ABS Lymphocytes 2.2 10^3/ul (1.0-4.8); ABS Monocytes 0.8 10^3/ul (0-0.8); ABS Neutrophils 5.5 10^3/ul (1.5-7.7); Eosinophil % 3.5 %; Hematocrit 45 % (42-52); Hemoglobin 15.7 g/dL (14.0-18.0); Lymphocyte % 24.9 %; Mean Corpuscular HGB Conc 35 g/dL (31-36); Mean Corpuscular Hemoglobin 33 pg (27-31); Mean Corpuscular Volume 93 fL (80-94); Mean Platelet Volume 7.8 fL (7.4-10.4); Platelet Count 275 10^3/uL (150-450); Red Blood Count 4.81 10^6 /uL (4.18-5.48); Red Cell Distribution Width 14 % (10-15); White Blood Count 8.9 10^3/uL (3.5-10.8)
[2019-05-11 20:56] LABS: Urine Appearance Clear; Urine Bilirubin Negative (Negative); Urine Blood Negative (Negative); Urine Color Colorless; Urine Glucose Negative (Negative); Urine Ketones Negative (Negative); Urine Nitrite Negative (Negative); Urine Protein Negative (Negative); Urine Specific Gravity 1.004 (1.010-1.030); Urine Urobilinogen Negative (Negative)
[2019-05-11 21:13] LABS: ALT 55 U/L (7-52); AST 28 U/L (13-39); Albumin 4.6 g/dL (3.2-5.2); Alkaline Phosphatase 55 U/L (34-104); Anion Gap 7 mmol/L (2-11); BUN/Creatinine Ratio 11.8 (8-20); Blood Urea Nitrogen 10 mg/dL (6-24); CO2 Carbon Dioxide 24 mmol/L (22-32); Calcium 9.6 mg/dL (8.6-10.3); Chloride 109 mmol/L (101-111); EGFR African American 131.8 (>60); Globulin 2.3 g/dL (2-4); Glucose 99 mg/dL (70-100); Potassium 3.5 mmol/L (3.5-5.0); Sodium 140 mmol/L (135-145); Total Protein 6.9 g/dL (6.4-8.9)
[2019-05-11 21:14] LABS: Urine Benzodiazepine Screen None Detected (None Detect); Urine Opiates Screen None Detected (None Detect)
[2019-05-11 21:21] LABS: INR 1.03 (0.82-1.09)
[2019-05-11 21:32] LABS: Acetaminophen < 15 mcg/mL; Alcohol < 10 mg/dL (<10); Salicylate < 2.50 mg/dL (<30)
[2019-05-11 21:46] LABS: TSH (Thyroid Stimulating Horm) 1.87 mcIU/mL (0.34-5.60)
--- NOTE | 2019-05-11 22:05 | ED ---
Progress - Progress Note Progress Note: Patient is received as a sign-out from Dr. Price to Dr. Lang at 2200 05/11/19 shift change pending MHE and disposition of this mental health patient. MHE was conducted. 556 - middle school resource teacher Rupali states that the patient's case was discussed with Dr. Martinez. Due to full census, patient will be transferred to another psychiatric facility. Patient is signed out to Dr. Powell at 0700 05/12/19 shift change pending transfer of this mental health patient. Course/Dx - Diagnoses Provider Diagnoses: Mood disorder - Provider Notifications Discussed Care Of Patient With: Brown Martinez Time Discussed With Above Provider: 05:57 Instructed by Provider To: Other - 57 - middle school resource teacher Rupali states that the patient's case was discussed with Dr. Martinez. Due to full census, patient will be transferred to another psychiatric facility. Discharge ED - Sign-Out/Discharge Documenting (check all that apply): Sign-Out Patient, Receiving Sign-Out Signing out patient TO: Robbie Powell Receiving patient FROM: Aggie Price - Discharge Plan Condition: Stable Referrals: No Primary Care Phys,NOPCP [Primary Care Provider] - - Billing Disposition and Condition Condition: STABLE - Attestation Statements Document Initiated by Miguel: Yes Documenting Scribe: SAMUEL VAIL Provider For Whom Miguel is Documenting (Include Credential): JONAS LANG MD Scribe Attestation: SAMUEL Wallace, scribed for JONAS LANG MD on 05/12/19 at 0634. Scribe Documentation Reviewed: Yes Provider Attestation: The documentation as recorded by the SAMUEL jones accurately reflects the service I personally performed and the decisions made by me, JONAS LANG MD Status of Scribe Document: Viewed
--- NOTE | 2019-05-12 07:10 | ED ---
Progress - Progress Note Progress Note: Patient is a sign-out at 07:00 on 05/12/[address] Monik Lang MD to Dr. Robbie Powell MD at shift change, pending transfer to another psychiatric facility. At 09:10, regrind mill operator reports that patient's case was reviewed by Dr. Salinas Duque. Patient is pending collateral and disposition. At 10:43, regrind mill operator reports that patient will be discharged with a diagnosis of schizo-affective disorder. Patient will be discharged with a diagnosis of schizo-affective disorder. - Consult/PCP Time Called: 02:00 Course/Dx - Course Course Of Treatment: Patient is a sign-out at 07:00 on 05/12/[address] Monik Lang MD to Dr. Robbie Powell MD at shift change, pending transfer to another psychiatric facility. At 09:10, regrind mill operator reports that patient's case was reviewed by Dr. Salinas Duque. Patient is pending collateral and disposition. Patient will be discharged with a diagnosis of schizo-affective disorder. - Diagnoses Provider Diagnoses: Mood disorder, Schizoaffective disorder, unspecified condition - Provider Notifications Discussed Care Of Patient With: Salinas Duque - At 09:10, regrind mill operator reports that patient's case was reviewed by Dr. Salinas Duque. Patient is pending collateral and disposition. Time Discussed With Above Provider: 09:10 Discharge ED - Sign-Out/Discharge Documenting (check all that apply): Patient Departure - Discharge, Receiving Sign-Out Receiving patient FROM: Monik Lang - 07:00 on 05/12/19 - Discharge Plan Condition: Stable Disposition: HOME Referrals: [facility] [Outside] - Billing Disposition and Condition Condition: STABLE Disposition: Home - Attestation Statements Document Initiated by Scribe: Yes Documenting Scribe: Lisandra Garcia Provider For Whom Miguel is Documenting (Include Credential): Robbie Powell MD Scribe Attestation: Lisandra Wallace, scribed for Robbie Powell MD on 05/12/19 at 1327. Scribe Documentation Reviewed: Yes Provider Attestation: The documentation as recorded by the Lisandra jones accurately reflects the service I personally performed and the decisions made by me, Robbie Powell MD Status of Scribe Document: Viewed
[2019-05-12] MEDS ORDERED: Senna TAB 8.6 mg* TAB PO PRN (13:01)
--- NOTE | 2019-05-12 13:12 | PN ---
ED Psychiatric Progress Note Date of Service: 05/12/19 Subjective: ED day #1 for this 28 y.o. single, AA male with a history of schizoaffective disorder brought by ambulance from [facility], where he presented as bizarre and threatening. I spoke with Aparna at the ACT team, who took over the patient's care on April 06 after he moved [place] [facility] [place] [facility] the [facility] She reports that he stopped taking his medications on 05/05 and quickly decompensated, presenting as hypersexual and threatening towards Home staff. He denies SI or HI currently but presents as bizarre with long speech latencies. He appears internally distracted, holding his head in his hands, stating "I can't function." Patient reports he last received decanoate Prolixin exactly one week ago. Objective: young AA male in blue paper scrubs, watching TV; appears anxious with blunted affect; admits to ; denies SI or HI Assessment: Schizoaffective DO, Bipolar Type Plan: Patient warrants inpatient psychiatric admission, however, there are no available male beds on the adult BSU. Will resume meds and transfer to outside [facility] facility. Vital Signs Temp Pulse Resp BP Pulse Ox 97.7 F 84 16 132/66 100 05/12/19 11:15 05/12/19 11:15 05/12/19 11:15 05/12/19 11:15 05/12/19 11:15 Lab Results - Entire Visit 05/11/19 05/11/19 05/11/19 21:06 20:50 20:50 WBC 8.9 RBC 4.81 Hgb 15.7 Hct 45 MCV 93 MCH 33 H MCHC 35 RDW 14 Plt Count 275 MPV 7.8 Neut % (Auto) 61.4 Lymph % (Auto) 24.9 Trinity % (Auto) 9.5 Eos % (Auto) 3.5 Baso % (Auto) 0.7 Absolute Neuts (auto) 5.5 Absolute Lymphs (auto) 2.2 Absolute Monos (auto) 0.8 Absolute Eos (auto) 0.3 Absolute Basos (auto) 0.1 Absolute Nucleated RBC 0.0 Nucleated RBC % 0.0 INR (Anticoag Therapy) 1.03 Sodium 140 Potassium 3.5 Chloride 109 Carbon Dioxide 24 Anion Gap 7 BUN 10 Creatinine 0.85 Est GFR ( Amer) 131.8 Est GFR (Non-Af Amer) 109.0 BUN/Creatinine Ratio 11.8 Glucose 99 Calcium 9.6 Total Bilirubin 0.30 AST 28 ALT 55 H Alkaline Phosphatase 55 Total Protein 6.9 Albumin 4.6 Globulin 2.3 Albumin/Globulin Ratio 2.0 TSH 1.87 Urine Color Urine Appearance Urine pH Ur Specific Hudson Urine Protein Urine Ketones Urine Blood Urine Nitrate Urine Bilirubin Urine Urobilinogen Ur Leukocyte Esterase Urine Glucose Salicylates < 2.50 Urine Opiates Screen Acetaminophen < 15 Ur Barbiturates Screen Ur Phencyclidine Scrn Ur Amphetamines Screen U Benzodiazepines Scrn Urine Cocaine Screen U Cannabinoids Screen Serum Alcohol < 10 05/11/19 05/11/19 20:46 20:46 WBC RBC Hgb Hct MCV MCH MCHC RDW Plt Count MPV Neut % (Auto) Lymph % (Auto) Trinity % (Auto) Eos % (Auto) Baso % (Auto) Absolute Neuts (auto) Absolute Lymphs (auto) Absolute Monos (auto) Absolute Eos (auto) Absolute Basos (auto) Absolute Nucleated RBC Nucleated RBC % INR (Anticoag Therapy) Sodium Potassium Chloride Carbon Dioxide Anion Gap BUN Creatinine Est GFR ( Amer) Est GFR (Non-Af Amer) BUN/Creatinine Ratio Glucose Calcium Total Bilirubin AST ALT Alkaline Phosphatase Total Protein Albumin Globulin Albumin/Globulin Ratio TSH Urine Color Colorless Urine Appearance Clear Urine pH 7.0 Ur Specific Hudson 1.004 L Urine Protein Negative Urine Ketones Negative Urine Blood Negative Urine Nitrate Negative Urine Bilirubin Negative Urine Urobilinogen Negative Ur Leukocyte Esterase Negative Urine Glucose Negative Salicylates Urine Opiates Screen None detected Acetaminophen Ur Barbiturates Screen None detected Ur Phencyclidine Scrn None detected Ur Amphetamines Screen None detected U Benzodiazepines Scrn None detected Urine Cocaine Screen None detected U Cannabinoids Screen None detected Serum Alcohol
[2019-05-13] MEDS ORDERED: Acetaminophen TAB* 325 MG PO PRN (03:04)
[2019-05-13] MEDS ORDERED: Al Hydrox/Mg Hydrox/Simet LIQ* 30 ML UDC PO PRN (03:04)
[2019-05-13] MEDS: Benztropine TAB* 1 MG PO SCH ×3 (04:04→20:55)
[2019-05-13] MEDS: Lithium Carbonate ER (NF) 300 MG TAB.ER PO SCH ×3 (04:05→20:54)
[2019-05-13] MEDS: fluPHENAZine HCL TAB* 1 MG PO SCH ×3 (04:05→20:54)
[2019-05-13] MEDS: Nicotine* 2MG (FRUIT FLAVOR) GUM PO PRN ×2 (11:20→15:20)
[2019-05-13] MEDS: Vitamin THERAPEUTIC TAB PO SCH (11:20)
[2019-05-13] MEDS: Nicotine PATCH 21 MG/24 HR* PATCH TRANSDERM SCH (11:20)
[2019-05-13] MEDS: Cholecalciferol TAB* 1000 UNITS PO SCH (11:20)
--- NOTE | 2019-05-13 15:13 | HP ---
HISTORY AND PHYSICAL: DATE OF ADMISSION: 05/13/19 PROVIDER: Beti Hugo NP, Psychiatry. SUPERVISING PHYSICIAN: Salinas Duque MD * (DICTATED BY BETI HUGO NP ) JUSTIFICATION FOR ADMISSION: The patient is in need of 24-hour supervision and care secondary to suicidal ideation and homicidal ideation. CHIEF COMPLAINT: "I couldn't survive...like take care of myself, damn I don't know if I'll make it home." HISTORY OF PRESENT ILLNESS: The patient is a 28-year-old single male with a history of schizoaffective disorder, who arrives by law enforcement and is here on a 9.39 status after coming from his room at [facility] at [facility] stating that everything hurts in that he is endorsing SI and HI. Ba has been working with the ACT team. He has been prescribed several medications that he had been taking, but recently for the last 10 days approximately, he has not been taking his medications that are tablets. He has been agreeing to get his injectable Prolixin Decanoate 25 mg every 2 weeks. When I meet with him with Jessica Cain LMSW, he denies that he is suicidal. He states "I feel the best I have in years." This grandiosity is followed up by statements that are a little bit bizarre including "everything is connected mathematically" as well as "I had to come back to my roots" meaning this hospital. He also stated that "I'm getting very frequent ranjana vu, I believe I have future knowledge." He describes being impulsive, stating in one moment that he would not hurt anyone and the next moment saying he will defend innocent people and that is why he wants to be a [employer]. He also would like to be a member of the [employer] and play basketball. There is a distinct lack of insight into his illness and he is struggling to take in the fact that this is a repetitive pattern that he is experiencing. He has gone to hospitals multiple times and that this is not a typical path for a 28-year-old man. He is psychotic at this time. He has racing thoughts, believes odd things such as his dreams are so realistic that they are in fact real. He believes "I'm in my prime this year, I have a little weight to lose, may be 50 pounds. I want to be in the [employer]." PAST PSYCHIATRIC HISTORY: Ba has been hospitalized at least 12 times at [facility] since 2010. He recently from approximately September through 11 months has been at the [facility] in [place] where he has been in the outpatient setting where he also can stay and live on the campus of [facility]. Upon his discharge from there, he worked with the ACT team. He has of late not been compliant with the ACT team. He has not always been home so they cannot always find him and he has not at least for the last 10 days been interested in taking his pills. He did say that he does not mind an injection, but he wants an injection that will solve all of his problems and that is his hope for what he could get out of being here now. His last Prolixin injection of 37.5 mg was on 05/03/19 and is due on 05/17/19. PAST MEDICAL HISTORY: Ba has gout. MEDICATIONS: At this time, he is takin. Prolixin 37.5 mg IM q.2 weeks. (Last dose 05/03/19. Next due 05/17/19.) 2. Cogentin 0.5 mg twice a day. 3. Diclofenac 100 mg every day. 4. Prolixin 1 mg twice a day. 5. Marcelline 600 b.i.d. FAMILY HISTORY: Not significant for mental illness or completed suicide. SOCIAL HISTORY: Ba was born and raised in [place]. He was brought up primarily by his mother. He has 3 sisters and a brother. He graduated from [employer] [employer] and then went to [employer]. At that point, he had his first psychotic break. He has not been able to return to college or gain employment since then. He receives disability benefits. At one point, he lived with his father in [place] before moving back to this area. He has an ex-girlfriend named Alea who suicided in 2018. He identifies as being heterosexual and he denies any current legal problems. REVIEW OF SYSTEMS: The patient reports feeling alert. He denies shortness of breath, heat or cold intolerance, chest pain or abdominal pain. He denies neurological symptoms. He denies fevers or changes in weight. PHYSICAL EXAMINATION CONSTITUTIONAL: Well developed, well nourished, alert, not distressed. VITAL SIGNS: On 05/13/19 at 0800, temperature was 98.3, pulse 89, respirations 16, O2 sat on room air 100%, blood pressure 119/63. HEENT: Normocephalic, atraumatic. Eyes: Conjunctivae normal. NECK: Musculoskeletal range of motion, normal neck. No JVD. No stridor. No tracheal deviation. Mild paraspinal neck tenderness in the posterior neck. PULMONARY: Chest wall: Effort normal. No respiratory distress. No wheezes. No rales. CARDIO: Rhythm regular. Rate normal. Heart sounds normal. Intact distal pulses. The pedal pulses are 2+ and symmetric. Radial pulses are 2+ and symmetric. There is no murmur. ABDOMEN: Soft, nontender. No distention. No guarding. No rebound. MUSCULOSKELETAL: No edema. LYMPH: No cervical adenopathy. NEURO: Alert and oriented x4. SKIN: Warm and dry. DIAGNOSTIC STUDIES/LAB DATA: On 05/11/19 at 2050, we note that most lab data are within normal limits. His MCH is 33. His ALT is high at 55. Urine specific gravity is low 1.004. Toxicology screen: There is nothing detected. MENTAL STATUS EXAMINATION: Ba is a 5 feet 11 inch, 250 pound male, who has shortly cropped hair. His grooming is good. He has normal posture. He is enjoying sitting in a rocking chair. He is cooperative. He is a little bit agitated. His speech is of a normal rate, tone, and volume. He is euthymic and perhaps a little elevated. His affect is full. His thought processes, he endorses having racing thoughts. Thought content contains some delusional thoughts such as having future knowledge and everything being connected. He denies homicidality and suicidality to me, but to other staff people states that he cannot stop thinking about suicide. Perceptions: There is no indication that he is hallucinating. His insight is poor. His judgment is fair to poor. Cognition: He is alert and oriented x4. DIAGNOSIS: Schizoaffective disorder. IMPRESSION: Ba is a 28-year-old male, who comes to the hospital following his revelation that he is suicidal and homicidal when he is at the [facility] where he lives. Once he is here, he denies much of that information. PLAN: The patient is admitted to the adult behavioral health unit and placed on q.15-minute checks for his own safety. He is encouraged to participate in supportive, milieu, individual, and group therapies. Estimated length of stay is 7 to 14 days. We will titrate medications to efficacy and monitor for mood and thought content. Continue Prolixin at 37.5 mg q 2 weeks. Discharge planning will include family involvement and outpatient providers. BETI HUGO, SALOMON [id number]/CPS #: [id number] PELON
[2019-05-13] MEDS: Nicotine Patch Removal NOTE PATCH OFF SCH (20:54)
[2019-05-14] MEDS: Cholecalciferol TAB* 1000 UNITS PO SCH (09:02)
[2019-05-14] MEDS: fluPHENAZine HCL TAB* 1 MG PO SCH ×2 (09:02→21:08)
[2019-05-14] MEDS: Benztropine TAB* 1 MG PO SCH ×2 (09:03→21:10)
[2019-05-14] MEDS: Nicotine* 2MG (FRUIT FLAVOR) GUM PO PRN ×2 (09:03→21:09)
[2019-05-14] MEDS: Nicotine PATCH 21 MG/24 HR* PATCH TRANSDERM SCH (09:03)
[2019-05-14] MEDS: Lithium Carbonate ER (NF) 300 MG TAB.ER PO SCH ×2 (09:03→21:08)
[2019-05-14] MEDS: Vitamin THERAPEUTIC TAB PO SCH (09:03)
[2019-05-14] MEDS: Nicotine Patch Removal NOTE PATCH OFF SCH (21:09)
[2019-05-15] MEDS: Vitamin THERAPEUTIC TAB PO SCH (09:37)
[2019-05-15] MEDS: Lithium Carbonate ER (NF) 300 MG TAB.ER PO SCH ×2 (09:37→22:38)
[2019-05-15] MEDS: fluPHENAZine HCL TAB* 1 MG PO SCH ×2 (09:37→22:38)
[2019-05-15] MEDS: Cholecalciferol TAB* 1000 UNITS PO SCH (09:37)
[2019-05-15] MEDS: Nicotine* 2MG (FRUIT FLAVOR) GUM PO PRN (09:39)
[2019-05-15] MEDS: Nicotine PATCH 21 MG/24 HR* PATCH TRANSDERM SCH (09:40)
[2019-05-15] MEDS: Benztropine TAB* 1 MG PO SCH ×2 (09:40→22:37)
--- NOTE | 2019-05-15 18:48 | PN ---
Subjective - Subjective Date of Service: 05/15/19 Subjective: I am ok! denies side effects after restarting meds, denies SI/HI and contracts for safety. Per staff has been seclusive to his room. Objective - General Observations Appearance: Well Groomed Appears Stated Age: Yes Stature: Overweight Posture: WNL Eye Contact: Average Behavior/Activity: WNL - Interaction Observations Attitude Towards Examiner: Evasive Stated Mood: Irritable Affect: Flat Speech Pattern/Tone: Clear Thought Process: Coherent, Goal Directed Perception: WNL Thought Content: WNL Delusion Type: None - Cognitive Function Orientation: A&O x 4 Level of Consciousness: Alert Cognition: WNL Judgment Within Normal Limits: Yes - Medication Compliance Cooperative with Inpatient Medication Regimen: Yes - Group Participation Participates in Group Activities: No Assessment - Assessment Merits Inpatient Hospitalization: For Ongoing Evaluation, Consolidate Improvements, For Discharge Planning Clinical Impression: Superficially engaged in programming, reporting lower distress level, denying SI /HI, tolerating meds with no reported side effects. Plan - Plan Treatment Plan: Name: CALLIE JONES Birthdate: 1990 [id number] Continued Medication Management: Continue Outpt Medication Medications: Current Medications Acetaminophen (Tylenol Tab*) 650 mg PO Q4H PRN PRN Reason: PAIN or TEMP > 101 F Al Hydrox/Mg Hydrox/Simethicone (Maalox Plus*) 30 ml PO Q4H PRN PRN Reason: INDIGESTION Benztropine Mesylate (Cogentin Tab*) 0.5 mg PO BID [facility] Last Admin: 05/15/19 09:40 Dose: Not Given Cholecalciferol (Vitamin D Tab*) 1,000 units PO DAILY [facility] Last Admin: 05/15/19 09:37 Dose: 1,000 units Fluphenazine HCl (Prolixin Tab*) 1 mg PO BID [facility] Last Admin: 05/15/19 09:37 Dose: 1 mg [place] Carbonate ([place] Carbonate Er (Nf)) 600 mg PO BID [facility]; Protocol Last Admin: 05/15/19 09:37 Dose: 600 mg Multivitamins (Theragran Tab*) 1 tab PO DAILY [facility] Last Admin: 05/15/19 09:37 Dose: 1 tab Nicotine (Nicotine Patch 21 Mg/24 Hr*) 1 patch TRANSDERM DAILY [facility] Last Admin: 05/15/19 09:40 Dose: Not Given Nicotine Polacrilex (Nicotine Gum*) 2 mg PO Q2H PRN PRN Reason: CRAVING Last Admin: 05/15/19 09:39 Dose: 2 mg Pharmacy Profile Note (Nicotine Patch Removal Note*) 1 note PATCH OFF [address] [facility] Last Admin: 05/14/19 21:09 Dose: Not Given Senna (Senokot 8.6 Mg Tab*) 1 tab PO DAILY PRN PRN Reason: CONSTIPATION - Discharge Plan Discharge Plan: Outpatient Follow Up Outpatient Program: [facility]
[2019-05-15] MEDS: Nicotine Patch Removal NOTE PATCH OFF SCH (23:19)
[2019-05-16] MEDS: Vitamin THERAPEUTIC TAB PO SCH (10:27)
[2019-05-16] MEDS: Nicotine* 2MG (FRUIT FLAVOR) GUM PO PRN ×2 (10:27→20:09)
[2019-05-16] MEDS: Lithium Carbonate ER (NF) 300 MG TAB.ER PO SCH ×2 (10:27→20:08)
[2019-05-16] MEDS: Cholecalciferol TAB* 1000 UNITS PO SCH (10:27)
[2019-05-16] MEDS: fluPHENAZine HCL TAB* 1 MG PO SCH ×2 (10:27→20:07)
[2019-05-16] MEDS: Nicotine PATCH 21 MG/24 HR* PATCH TRANSDERM SCH (10:27)
[2019-05-16] MEDS: Benztropine TAB* 1 MG PO SCH ×2 (10:28→20:08)
--- NOTE | 2019-05-16 14:28 | PN ---
Subjective - Subjective Date of Service: 05/16/19 Service Type: 93259 Hosp care 15 min low complexity Subjective: Ba was lying down in bed when I found him early this afternoon. He was comfortable and stating he was just relaxing. When asked how he was, he stated he was fine and that "It seems better...my vision, my head, my thoughts." He was unable to elaborate and seemed to believe that this was enough conversation for one meeting. There is a significant amount of collateral from [facility] in Jessica Cain's note (BIOLOGICAL ENGINEER) regarding the bizarre behavior and continuous decompensation of Ba from their point of view. Objective - General Observations Appearance: Disheveled Appears Stated Age: Yes Stature: Overweight Posture: WNL Eye Contact: Average Behavior/Activity: Slowed - Interaction Observations Attitude Towards Examiner: Cooperative, Evasive Affect: Blunted Speech Pattern/Tone: Clear, Quiet Volume Thought Process: Coherent, Impoverished Perception: WNL Thought Content: Grandiose Hallucination Type: Denies Delusion Type: Denies, Grandeur - Cognitive Function Orientation: A&O x 4 Level of Consciousness: Awake, Alert, Appropriate Cognition: Impaired Cognition, Impaired Attention/Concentration, Impaired Ability to Abstract Estimated Intelligence: Normal Insight: Difficulty Acknowledging Presence of Psyciatric Problems Judgment Within Normal Limits: No Ability to Make Reasonable Decisions: Serverely Impaired - Medication Compliance Cooperative with Inpatient Medication Regimen: Yes - Group Participation Participates in Group Activities: Partial Assessment - Assessment Merits Inpatient Hospitalization: For Immediate Safety Clinical Impression: Superficially engaged in programming, reporting lower distress level, denying SI /HI, tolerating meds with no reported side effects. 28 year old male with schizoaffective disorder who comes to the hospital with bizarre thoughts and dysregulated mood. Plan - Plan Treatment Plan: Name: BA JONES Birthdate: 1990 [id number] Continue outpatient medications. Schedule Prolixin injection for tomorrow ( Thursday05/17/19). Get lithium level. Collaborate with [facility]. Continued Medication Management: Continue Outpt Medication Medications: Current Medications Acetaminophen (Tylenol Tab*) 650 mg PO Q4H PRN PRN Reason: PAIN or TEMP > 101 F Al Hydrox/Mg Hydrox/Simethicone (Maalox Plus*) 30 ml PO Q4H PRN PRN Reason: INDIGESTION Benztropine Mesylate (Cogentin Tab*) 0.5 mg PO BID [facility] Last Admin: 05/16/19 10:28 Dose: Not Given Cholecalciferol (Vitamin D Tab*) 1,000 units PO DAILY [facility] Last Admin: 05/16/19 10:27 Dose: 1,000 units Fluphenazine Decanoate (Prolixin Decanoate*) 37.5 mg IM Q14D [facility] Fluphenazine HCl (Prolixin Tab*) 1 mg PO BID [facility] Last Admin: 05/16/19 10:27 Dose: 1 mg [place] Carbonate ([place] Carbonate Er (Nf)) 600 mg PO BID [facility]; Protocol Last Admin: 05/16/19 10:27 Dose: 600 mg Multivitamins (Theragran Tab*) 1 tab PO DAILY [facility] Last Admin: 05/16/19 10:27 Dose: 1 tab Nicotine (Nicotine Patch 21 Mg/24 Hr*) 1 patch TRANSDERM DAILY [facility] Last Admin: 05/16/19 10:27 Dose: Not Given Nicotine Polacrilex (Nicotine Gum*) 2 mg PO Q2H PRN PRN Reason: CRAVING Last Admin: 05/16/19 10:27 Dose: 2 mg Pharmacy Profile Note (Nicotine Patch Removal Note*) 1 note PATCH OFF 2099 [facility] Last Admin: 05/15/19 23:19 Dose: Not Given Senna (Senokot 8.6 Mg Tab*) 1 tab PO DAILY PRN PRN Reason: CONSTIPATION
[2019-05-16] MEDS: Nicotine Patch Removal NOTE PATCH OFF SCH (20:08)
[2019-05-17] MEDS: fluPHENAZine HCL TAB* 1 MG PO SCH ×2 (09:41→19:47)
[2019-05-17] MEDS: Lithium Carbonate ER (NF) 300 MG TAB.ER PO SCH ×2 (09:41→19:47)
[2019-05-17] MEDS: Vitamin THERAPEUTIC TAB PO SCH (09:41)
[2019-05-17] MEDS: Cholecalciferol TAB* 1000 UNITS PO SCH (09:42)
[2019-05-17] MEDS: Benztropine TAB* 1 MG PO SCH ×2 (09:43→19:48)
[2019-05-17] MEDS: Nicotine* 2MG (FRUIT FLAVOR) GUM PO PRN (09:43)
[2019-05-17] MEDS: Nicotine PATCH 21 MG/24 HR* PATCH TRANSDERM SCH (09:43)
[2019-05-17] MEDS ORDERED: Fluphenazine Decanoate* 25 MG/ML 5 ML VIAL IM SCH (12:00)
--- NOTE | 2019-05-17 15:51 | PN ---
Subjective - Subjective Date of Service: 05/17/19 Service Type: 11607 Hosp care 25 min moderate complexity Subjective: Ba states, "I'm actually doing very well..." but goes on to talk about not being able to tell the difference between reality and non-reality and how he's not responsible for his behavior when he's not in reality. He states there are times when movies and tv are real and he can't tell that it's wrong. We discuss alternative medication options, which he rejects immediately because there is no scientific basis for what I am saying. As we tensely begin to discuss it, it becomes clear that he is not interested in anything but an argument. Nevertheless, I am interested in why he is taking Prolixin decanoate rather than Invega Sustenna. He asserted that while he is not suicidal now, he brings himself to the ED "so much" because the distress of not knowing the difference between reality and non -reality makes him suicidal. Despite his angry stance throughout the conversation, he offered an odd smile at the end. Objective - General Observations Appearance: Disheveled Appears Stated Age: Yes Stature: Overweight Posture: Slumped Eye Contact: Intense Behavior/Activity: WNL, Agitated - Interaction Observations Attitude Towards Examiner: Defensive, Demanding, Hostile, Dismissive Stated Mood: Dysphoric, Irritable, Angry Affect: Labile Speech Pattern/Tone: Clear, Rambling Thought Process: Goal Directed, Disorganized Perception: WNL Thought Content: Paranoid, Grandiose Hallucination Type: Denies Delusion Type: Denies, Reference, Alevism - Cognitive Function Orientation: A&O x 4 Level of Consciousness: Awake, Alert, Appropriate Cognition: Impaired Cognition Estimated Intelligence: Normal Insight: Difficulty Acknowledging Presence of Psyciatric Problems Judgment Within Normal Limits: No Ability to Make Reasonable Decisions: Serverely Impaired - Medication Compliance Cooperative with Inpatient Medication Regimen: Yes - Group Participation Participates in Group Activities: Partial Assessment - Assessment Merits Inpatient Hospitalization: For Immediate Safety Inpatient DSM-V Dx: F25.0 Clinical Impression: Superficially engaged in programming, reporting lower distress level, denying SI /HI, tolerating meds with no reported side effects. 28 year old male with schizoaffective disorder who comes to the hospital with bizarre thoughts and dysregulated mood. Plan - Plan Treatment Plan: Name: BA JONES Birthdate: 1990 [id number] Continue outpatient medications. Schedule Prolixin injection for tomorrow ( Thursday05/17/19). Get lithium level. Collaborate with [facility]. 05/17/19 Get lithium level tomorrow as well as lipids. Schedule conversation with [facility] regarding medication choices and whether a change would be helpful or a hindrance. Continued Medication Management: Continue Outpt Medication Medications: Current Medications Acetaminophen (Tylenol Tab*) 650 mg PO Q4H PRN PRN Reason: PAIN or TEMP > 101 F Al Hydrox/Mg Hydrox/Simethicone (Maalox Plus*) 30 ml PO Q4H PRN PRN Reason: INDIGESTION Benztropine Mesylate (Cogentin Tab*) 0.5 mg PO BID [facility] Last Admin: 05/17/19 09:43 Dose: Not Given Cholecalciferol (Vitamin D Tab*) 1,000 units PO DAILY [facility] Last Admin: 05/17/19 09:42 Dose: 1,000 units Fluphenazine Decanoate (Prolixin Decanoate*) 37.5 mg IM Q14D [facility] Last Admin: 05/17/19 12:30 Dose: 1.5 ml Fluphenazine HCl (Prolixin Tab*) 1 mg PO BID [facility] Last Admin: 05/17/19 09:41 Dose: 1 mg [place] Carbonate ([place] Carbonate Er (Nf)) 600 mg PO BID [facility]; Protocol Last Admin: 05/17/19 09:41 Dose: 600 mg Multivitamins (Theragran Tab*) 1 tab PO DAILY [facility] Last Admin: 05/17/19 09:41 Dose: 1 tab Nicotine (Nicotine Patch 21 Mg/24 Hr*) 1 patch TRANSDERM DAILY [facility] Last Admin: 05/17/19 09:43 Dose: Not Given Nicotine Polacrilex (Nicotine Gum*) 2 mg PO Q2H PRN PRN Reason: CRAVING Last Admin: 05/17/19 09:43 Dose: 2 mg Pharmacy Profile Note (Nicotine Patch Removal Note*) 1 note PATCH OFF 2100 [facility] Last Admin: 05/16/19 20:08 Dose: Not Given Senna (Senokot 8.6 Mg Tab*) 1 tab PO DAILY PRN PRN Reason: CONSTIPATION
[2019-05-17] MEDS: Nicotine Patch Removal NOTE PATCH OFF SCH (19:48)
[2019-05-18] MEDS: Cholecalciferol TAB* 1000 UNITS PO SCH (09:40)
[2019-05-18] MEDS: Lithium Carbonate ER (NF) 300 MG TAB.ER PO SCH ×2 (09:41→20:02)
[2019-05-18] MEDS: Vitamin THERAPEUTIC TAB PO SCH (09:41)
[2019-05-18] MEDS: fluPHENAZine HCL TAB* 1 MG PO SCH (09:42)
[2019-05-18] MEDS: Nicotine* 2MG (FRUIT FLAVOR) GUM PO PRN (09:43)
[2019-05-18] MEDS: Benztropine TAB* 1 MG PO SCH (10:36)
[2019-05-18] MEDS: Nicotine PATCH 21 MG/24 HR* PATCH TRANSDERM SCH (10:36)
--- NOTE | 2019-05-18 16:36 | PN ---
Subjective - Subjective Date of Service: 05/18/19 Service Type: 62259 Hosp care 25 min moderate complexity Subjective: Callie and I meet in the milieu. He is on the couch staring at a blank screen. He says he's not thinking about anything. He states specifically that he has no SI or HI. He states, "I'm stable; I'm relaxed...I'm doing the best I have in years." He talks in a vague way about not suffering anymore because he's discovered that "it" happened--it being yazidi and goals. He continues with puzzling talk, saying, "Progress made the difference. The things I was taught about reality have changed on a personal level." He further commented on reality vs. non-reality and argued about definitions and physics and consequences. He asserts that he is well and should be discharged. He entered a court request today. Callie was given computer privileges yesterday which were denied today and will continue to be ongoing. He is quite upset about it and called his father who then called me. I spoke with his dad, Reagan Sutherland [phone], who was disappointed that Callie was denied access to the computer. I explained that Callie had been focusing on strict oriental orthodox interpretations of the Bible, specifically focusing on armageddon. (There is a note by enterprise application analystevelyn Buckner that is an excellent explanation of what kinds of hyper-oriental orthodox as well as bizarre thoughts Callie is having.) As I explained that Callie also is having trouble distinguishing between "reality and non-reality". Reagan stated, "What you say is true. I have to explain what is real, too." Objective - General Observations Appearance: Disheveled Appears Stated Age: Yes Stature: Overweight Posture: Slumped Eye Contact: Avoidant Behavior/Activity: Peculiar - Interaction Observations Attitude Towards Examiner: Uncooperative, Defensive, Hostile, Manipulative Stated Mood: Dysphoric Affect: Blunted Speech Pattern/Tone: Clear, Normal Volume, Rambling, Perseverating Thought Process: Disorganized, Tangential, Racing Perception: WNL Thought Content: Preoccupation/Ruminations, Paranoid, Grandiose Hallucination Type: Denies Delusion Type: Grandeur, Taoist - Cognitive Function Orientation: A&O x 4 Level of Consciousness: Awake, Alert, Appropriate, Drowsy Cognition: Impaired Cognition, Impaired Attention/Concentration, Impaired Ability to Abstract, Impaired Fund of Knowledge Estimated Intelligence: Normal Insight: Difficulty Acknowledging Presence of Psyciatric Problems Judgment Within Normal Limits: No Ability to Make Reasonable Decisions: Serverely Impaired - Medication Compliance Cooperative with Inpatient Medication Regimen: Yes - Group Participation Participates in Group Activities: No Assessment - Assessment Merits Inpatient Hospitalization: For Immediate Safety Inpatient DSM-V Dx: F25.0 Clinical Impression: Superficially engaged in programming, reporting lower distress level, denying SI /HI, tolerating meds with no reported side effects. 28 year old male with schizoaffective disorder who comes to the hospital with bizarre thoughts and dysregulated mood. Plan - Plan Treatment Plan: Name: CALLIE SUTHERLAND Birthdate: 1990 [id number] Continue outpatient medications. Schedule Prolixin injection for tomorrow ( Thursday05/17/19). Get lithium level. Collaborate with [facility]. 05/17/19 Get lithium level tomorrow as well as lipids. Schedule conversation with [facility] regarding medication choices and whether a change would be helpful or a hindrance. 05/18/19 [place] level was refused, as was HgbA1c and lipid draw. Increase Prolixin oral to 5 mg BID from 1 mg BID. D/Cd computer privileges. Talked with father. Continued Medication Management: Different Medication Medications: Current Medications Acetaminophen (Tylenol Tab*) 650 mg PO Q4H PRN PRN Reason: PAIN or TEMP > 101 F Al Hydrox/Mg Hydrox/Simethicone (Maalox Plus*) 30 ml PO Q4H PRN PRN Reason: INDIGESTION Benztropine Mesylate (Cogentin Tab*) 0.5 mg PO DAILY [facility] Cholecalciferol (Vitamin D Tab*) 1,000 units PO DAILY [facility] Last Admin: 05/18/19 09:40 Dose: 1,000 units Fluphenazine Decanoate (Prolixin Decanoate*) 37.5 mg IM Q14D [facility] Last Admin: 05/17/19 12:30 Dose: 1.5 ml Fluphenazine HCl (Prolixin Tab*) 5 mg PO BID [facility] [place] Carbonate ([place] Carbonate Er (Nf)) 600 mg PO BID [facility]; Protocol Last Admin: 05/18/19 09:41 Dose: 600 mg Multivitamins (Theragran Tab*) 1 tab PO DAILY [facility] Last Admin: 05/18/19 09:41 Dose: 1 tab Nicotine (Nicotine Patch 21 Mg/24 Hr*) 1 patch TRANSDERM DAILY [facility] Last Admin: 05/18/19 10:36 Dose: Not Given Nicotine Polacrilex (Nicotine Gum*) 2 mg PO Q2H PRN PRN Reason: CRAVING Last Admin: 05/18/19 09:43 Dose: 2 mg Pharmacy Profile Note (Nicotine Patch Removal Note*) 1 note PATCH OFF 2100 [facility] Last Admin: 05/17/19 19:48 Dose: Not Given Senna (Senokot 8.6 Mg Tab*) 1 tab PO DAILY PRN PRN Reason: CONSTIPATION
[2019-05-18] MEDS: fluPHENAZine HCL TAB* 5 MG PO SCH (20:01)
[2019-05-18] MEDS: Nicotine Patch Removal NOTE PATCH OFF SCH (22:24)
[2019-05-19] MEDS: Benztropine TAB* 1 MG PO SCH (10:19)
[2019-05-19] MEDS: Nicotine* 2MG (FRUIT FLAVOR) GUM PO PRN (10:19)
[2019-05-19] MEDS: Lithium Carbonate ER (NF) 300 MG TAB.ER PO SCH (10:20)
[2019-05-19] MEDS: Vitamin THERAPEUTIC TAB PO SCH (10:21)
[2019-05-19] MEDS: Cholecalciferol TAB* 1000 UNITS PO SCH (10:21)
[2019-05-19] MEDS: fluPHENAZine HCL TAB* 5 MG PO SCH ×2 (10:21→20:47)
[2019-05-19] MEDS: Nicotine PATCH 21 MG/24 HR* PATCH TRANSDERM SCH (10:54)
--- NOTE | 2019-05-19 15:06 | PN ---
Subjective - Subjective Date of Service: 05/19/19 Service Type: 01911 Hosp care 25 min moderate complexity Subjective: Ba is argumentative and seems to enjoy provoking others. His arguments are nonsensical and circular. He makes odd references such as "Josias Lomeli had a dream too" when discussing his difficulty dream from reality. Objective - General Observations Appearance: Neat Appears Stated Age: Yes Stature: Overweight, Tall Posture: Tense Eye Contact: Intense Behavior/Activity: Agitated - Interaction Observations Attitude Towards Examiner: Uncooperative, Defensive, Hostile, Mistrustful, Disrespectful Stated Mood: Elevated, Irritable, Angry Affect: Restricted Speech Pattern/Tone: Excessive, Perseverating, Loud Volume Thought Process: Goal Directed, Disorganized, Loose Associations, Flight of Ideas Perception: Derealization Thought Content: Preoccupation/Ruminations, Obsessional, Paranoid, Grandiose Thought Process: Lethality: Paranoid Ideation Hallucination Type: Denies Delusion Type: Persecution, Grandeur, Sabianist - Cognitive Function Orientation: A&O x 4 Level of Consciousness: Awake, Alert Cognition: Impaired Cognition, Impaired Ability to Abstract, Impaired Fund of Knowledge Estimated Intelligence: Borderline Range Insight: Mostly Blames Others for Problems, Difficulty Acknowledging Presence of Psyciatric Problems Judgment Within Normal Limits: No Ability to Make Reasonable Decisions: Serverely Impaired - Medication Compliance Cooperative with Inpatient Medication Regimen: Partial - Group Participation Participates in Group Activities: No Assessment - Assessment Merits Inpatient Hospitalization: For Immediate Safety Inpatient DSM-V Dx: F25.0 Clinical Impression: Superficially engaged in programming, reporting lower distress level, denying SI /HI, tolerating meds with no reported side effects. 28 year old male with schizoaffective disorder who comes to the hospital with bizarre thoughts and dysregulated mood. Plan - Plan Treatment Plan: Name: BA JONES Birthdate: 1990 [id number] Continue outpatient medications. Schedule Prolixin injection for tomorrow ( Thursday05/17/19). Get lithium level. Collaborate with [facility]. 05/17/19 Get lithium level tomorrow as well as lipids. Schedule conversation with [facility] regarding medication choices and whether a change would be helpful or a hindrance. 05/18/19 [place] level was refused, as was HgbA1c and lipid draw. Increase Prolixin oral to 5 mg BID from 1 mg BID. D/Cd computer privileges. Talked with father. 05/19/19 [place] has been cheeked, switched to liquid formulation. Increased prolixin was refused. Will continue offering 5mg bid. Medications: Current Medications Acetaminophen (Tylenol Tab*) 650 mg PO Q4H PRN PRN Reason: PAIN or TEMP > 101 F Al Hydrox/Mg Hydrox/Simethicone (Maalox Plus*) 30 ml PO Q4H PRN PRN Reason: INDIGESTION Benztropine Mesylate (Cogentin Tab*) 0.5 mg PO DAILY [facility] Last Admin: 05/19/19 10:19 Dose: Not Given Cholecalciferol (Vitamin D Tab*) 1,000 units PO DAILY [facility] Last Admin: 05/19/19 10:21 Dose: 1,000 units Fluphenazine Decanoate (Prolixin Decanoate*) 37.5 mg IM Q14D [facility] Last Admin: 05/17/19 12:30 Dose: 1.5 ml Fluphenazine HCl (Prolixin Tab*) 5 mg PO BID [facility] Last Admin: 05/19/19 10:21 Dose: Not Given [place] Citrate ([place] Liq*) 600 mg PO BID [facility] Multivitamins (Theragran Tab*) 1 tab PO DAILY [facility] Last Admin: 05/19/19 10:21 Dose: 1 tab Nicotine (Nicotine Patch 21 Mg/24 Hr*) 1 patch TRANSDERM DAILY [facility] Last Admin: 05/19/19 10:54 Dose: Not Given Nicotine Polacrilex (Nicotine Gum*) 2 mg PO Q2H PRN PRN Reason: CRAVING Last Admin: 05/19/19 10:19 Dose: 2 mg Pharmacy Profile Note (Nicotine Patch Removal Note*) 1 note PATCH OFF 2100 [facility] Last Admin: 05/18/19 22:24 Dose: Not Given Senna (Senokot 8.6 Mg Tab*) 1 tab PO DAILY PRN PRN Reason: CONSTIPATION
[2019-05-19] MEDS: Lithium LIQ* 300 MG/5 ML UDC PO SCH ×2 (20:39→20:47)
[2019-05-19] MEDS: Nicotine Patch Removal NOTE PATCH OFF SCH (20:43)
[2019-05-20] MEDS: Cholecalciferol TAB* 1000 UNITS PO SCH (09:16)
[2019-05-20] MEDS: fluPHENAZine HCL TAB* 5 MG PO SCH (09:16)
[2019-05-20] MEDS: Nicotine PATCH 21 MG/24 HR* PATCH TRANSDERM SCH (09:16)
[2019-05-20] MEDS: Vitamin THERAPEUTIC TAB PO SCH (09:16)
[2019-05-20] MEDS: Benztropine TAB* 1 MG PO SCH (09:16)
[2019-05-20] MEDS: Lithium LIQ* 300 MG/5 ML UDC PO SCH (09:17)
--- NOTE | 2019-05-20 12:13 | PN ---
Subjective - Subjective Date of Service: 05/20/19 Service Type: [id number] Hosp care 25 min moderate complexity Subjective: Ba met with Jenna and Anneliese of the ACT team. Eventually, I included myself in the conversation. Ba is in favor of taking oral medications once per day, rather than BID. He would also like to reduce the number of medications he's taking by mouth. He did agree to take Prolixin 12.5 IM today to add up to the new dose of 50 mg [id number] that he will take going forward. Ba doesn't like living in [facility] and wants to move into an apartment. He was given feedback that this would be possible once he was more stable, including using fewer drugs. Ba detailed that he'd been using crack , marijuana, K2, and spice. He proudly stated he'd never used heroin or anything that required needles. He was advised against synthetic drugs. He said crack "isn't me." He was clear that he was going to continue using marijuana and alcohol. I did discuss with Ba his sometime appearance of being threatening. He talked about never wanting to fight with his body, but only with his words. When told that he could be intimidating, he stated that it was only because he has "that kind of face" sometimes. Objective - General Observations Appearance: Neat Appears Stated Age: Yes Stature: Overweight Posture: WNL Eye Contact: Intense Behavior/Activity: Peculiar - Interaction Observations Attitude Towards Examiner: Cooperative Stated Mood: Euthymic, Irritable Affect: Full Speech Pattern/Tone: Clear, Normal Volume Thought Process: Coherent Perception: WNL Thought Content: Paranoid, Grandiose Hallucination Type: Denies Delusion Type: Advent - Cognitive Function Orientation: A&O x 4 Level of Consciousness: Awake, Alert, Appropriate Cognition: Impaired Cognition, Impaired Attention/Concentration Estimated Intelligence: Normal Insight: Difficulty Acknowledging Presence of Psyciatric Problems Judgment Within Normal Limits: No Ability to Make Reasonable Decisions: Serverely Impaired - Medication Compliance Cooperative with Inpatient Medication Regimen: Partial - Group Participation Participates in Group Activities: Partial Assessment - Assessment Merits Inpatient Hospitalization: For Immediate Safety Inpatient DSM-V Dx: F25.0 Clinical Impression: Superficially engaged in programming, reporting lower distress level, denying SI /HI, tolerating meds with no reported side effects. 28 year old male with schizoaffective disorder who comes to the hospital with bizarre thoughts and dysregulated mood. Plan - Plan Treatment Plan: Name: BA JONES Birthdate: 1990 [id number] Continue outpatient medications. Schedule Prolixin injection for tomorrow ( Thursday05/17/19). Get lithium level. Collaborate with ACT. 05/17/19 Get lithium level tomorrow as well as lipids. Schedule conversation with ACT regarding medication choices and whether a change would be helpful or a hindrance. 05/18/19 [place] level was refused, as was HgbA1c and lipid draw. Increase Prolixin oral to 5 mg BID from 1 mg BID. D/Cd computer privileges. Talked with father. 05/19/19 [place] has been cheeked, switched to liquid formulation. Increased prolixin was refused. Will continue offering 5mg bid. 05/20/19 Offer Prolixin decanoate 12.5 mg today and follow up dose that used to be 37.5 with the increased dose of 50 mg per 2 weeks. Consider discharge to [facility] rather than to [facility]. Eliminate Cogentin, as he is refusing it and doesn't want it and denies side effects from Prolixin. Change lithium to ER at bedtime. Obtain blood level on Thursday or Thursday for lithium level and HgbA1c and lipid panel. Medications: Current Medications Acetaminophen (Tylenol Tab*) 650 mg PO Q4H PRN PRN Reason: PAIN or TEMP > 101 F Al Hydrox/Mg Hydrox/Simethicone (Maalox Plus*) 30 ml PO Q4H PRN PRN Reason: INDIGESTION Benztropine Mesylate (Cogentin Tab*) 0.5 mg PO DAILY [facility] Last Admin: 05/20/19 09:16 Dose: Not Given Cholecalciferol (Vitamin D Tab*) 1,000 units PO DAILY [facility] Last Admin: 05/20/19 09:16 Dose: 1,000 units Fluphenazine Decanoate (Prolixin Decanoate*) 37.5 mg IM Q14D [facility] Last Admin: 05/17/19 12:30 Dose: 1.5 ml Fluphenazine HCl (Prolixin Tab*) 5 mg PO BID [facility] Last Admin: 05/20/19 09:16 Dose: Not Given [place]io Citrate ([place]io Liq*) 600 mg PO BID [facility] Last Admin: 05/20/19 09:17 Dose: Not Given Multivitamins (Theragran Tab*) 1 tab PO DAILY [facility] Last Admin: 05/20/19 09:16 Dose: 1 tab Nicotine (Nicotine Patch 21 Mg/24 Hr*) 1 patch TRANSDERM DAILY [facility] Last Admin: 05/20/19 09:16 Dose: Not Given Nicotine Polacrilex (Nicotine Gum*) 2 mg PO Q2H PRN PRN Reason: CRAVING Last Admin: 05/19/19 10:19 Dose: 2 mg Pharmacy Profile Note (Nicotine Patch Removal Note*) 1 note PATCH OFF 2100 [facility] Last Admin: 05/19/19 20:43 Dose: Not Given Senna (Senokot 8.6 Mg Tab*) 1 tab PO DAILY PRN PRN Reason: CONSTIPATION
[2019-05-20] MEDS ORDERED: Fluphenazine Decanoate* 25 MG/ML 5 ML VIAL IM ONE (13:00)
[2019-05-20] MEDS: Nicotine Patch Removal NOTE PATCH OFF SCH (19:25)
[2019-05-20] MEDS ORDERED: Lithium Carbonate ER* 450 MG TAB.ER PO SCH (21:00)
[2019-05-20] MEDS: Lithium Carbonate ER* 450 MG TAB.ER PO SCH (22:07)
[2019-05-21 08:22] VITALS: BP 136/81
[2019-05-21 08:25] LABS: HDL Cholesterol 44.8 mg/dL
[2019-05-21 09:14] LABS: Lithium 0.75 mmol/L (0.6-1.2)
[2019-05-21] MEDS: Vitamin THERAPEUTIC TAB PO SCH (10:33)
[2019-05-21] MEDS: Cholecalciferol TAB* 1000 UNITS PO SCH (10:33)
[2019-05-21] MEDS: Nicotine* 2MG (FRUIT FLAVOR) GUM PO PRN (10:34)
[2019-05-21] MEDS: Benztropine TAB* 1 MG PO SCH (10:35)
[2019-05-21] MEDS: Nicotine PATCH 21 MG/24 HR* PATCH TRANSDERM SCH (10:35)
[2019-05-21] MEDS: Lithium Carbonate ER* 450 MG TAB.ER PO SCH (21:05)
[2019-05-21] MEDS: Nicotine Patch Removal NOTE PATCH OFF SCH (21:10)
[2019-05-22] MEDS: Nicotine PATCH 21 MG/24 HR* PATCH TRANSDERM SCH (09:20)
[2019-05-22] MEDS: Vitamin THERAPEUTIC TAB PO SCH (09:20)
[2019-05-22] MEDS: Cholecalciferol TAB* 1000 UNITS PO SCH (09:20)
[2019-05-22] MEDS: Benztropine TAB* 1 MG PO SCH (09:20)
[2019-05-22] MEDS: Lithium Carbonate ER* 450 MG TAB.ER PO SCH (20:00)
[2019-05-22] MEDS: Nicotine Patch Removal NOTE PATCH OFF SCH (21:15)
[2019-05-23] MEDS: Cholecalciferol TAB* 1000 UNITS PO SCH (08:26)
[2019-05-23] MEDS: Vitamin THERAPEUTIC TAB PO SCH (08:26)
[2019-05-23] MEDS: Benztropine TAB* 1 MG PO SCH (08:26)
[2019-05-23] MEDS: Nicotine PATCH 21 MG/24 HR* PATCH TRANSDERM SCH (08:26)
--- NOTE | 2019-05-23 13:53 | PN ---
Subjective - Subjective Date of Service: 05/23/19 Service Type: 89189 Hosp care 15 min low complexity Subjective: Ba denies anything being wrong. He denies hallucinations and shows no signs of responding to internal stimuli. When confronted with his odd jehovah's witness beliefs, he indicates that he had a jehovah's witness experience at age 8 and that episcopalian is important to him and to his father. He also asks for his computer privileges back, which I hesitate to do without consulting the treatment team. He denies having "odd thoughts" and converses easily and without being distracted. When I spoke to the ACT team last week, they were happy with his progress and stated he was close to his baseline. I have offered Ba discharge on Thursday. Objective - General Observations Appearance: Neat Appears Stated Age: Yes Stature: Overweight Posture: WNL Eye Contact: Average Behavior/Activity: WNL, Peculiar - Interaction Observations Attitude Towards Examiner: Cooperative, Defensive Stated Mood: Euthymic Affect: Blunted Speech Pattern/Tone: Clear, Normal Volume Thought Process: Coherent, Goal Directed Perception: WNL Thought Content: Preoccupation/Ruminations, Grandiose Hallucination Type: Denies Delusion Type: Denies, Mormonism - Cognitive Function Orientation: A&O x 4 Level of Consciousness: Awake, Alert, Appropriate Cognition: Impaired Cognition Estimated Intelligence: Normal Insight: Difficulty Acknowledging Presence of Psyciatric Problems Judgment Within Normal Limits: No Ability to Make Reasonable Decisions: Moderately Impaired - Medication Compliance Cooperative with Inpatient Medication Regimen: Yes - Group Participation Participates in Group Activities: No Assessment - Assessment Merits Inpatient Hospitalization: For Immediate Safety Inpatient DSM-V Dx: F25.0 Clinical Impression: Superficially engaged in programming, reporting lower distress level, denying SI /HI, tolerating meds with no reported side effects. 28 year old male with schizoaffective disorder who comes to the hospital with bizarre thoughts and dysregulated mood. Plan - Plan Treatment Plan: Name: BA JONES Birthdate: 1990 [id number] Continue outpatient medications. Schedule Prolixin injection for tomorrow ( Thursday05/17/19). Get lithium level. Collaborate with ACT. 05/17/19 Get lithium level tomorrow as well as lipids. Schedule conversation with ACT regarding medication choices and whether a change would be helpful or a hindrance. 05/18/19 [place] level was refused, as was HgbA1c and lipid draw. Increase Prolixin oral to 5 mg BID from 1 mg BID. D/Cd computer privileges. Talked with father. 05/19/19 [place] has been cheeked, switched to liquid formulation. Increased prolixin was refused. Will continue offering 5mg bid. 05/20/19 Offer Prolixin decanoate 12.5 mg today and follow up dose that used to be 37.5 with the increased dose of 50 mg per 2 weeks. [facility]. Eliminate Cogentin, as he is refusing it and doesn't want it and denies side effects from Prolixin. Change lithium to ER at bedtime. Obtain blood level on Thursday or Thursday for lithium level and HgbA1c and lipid panel. 05/23/19 [place] level was 0.75. Hemoglobin A1c was 5.5. Lipid are elevated. Discharge will be to ACT on Thursday. Medications: Current Medications Acetaminophen (Tylenol Tab*) 650 mg PO Q4H PRN PRN Reason: PAIN or TEMP > 101 F Al Hydrox/Mg Hydrox/Simethicone (Maalox Plus*) 30 ml PO Q4H PRN PRN Reason: INDIGESTION Benztropine Mesylate (Cogentin Tab*) 0.5 mg PO DAILY [facility] Last Admin: 05/23/19 08:26 Dose: Not Given Cholecalciferol (Vitamin D Tab*) 1,000 units PO DAILY [facility] Last Admin: 05/23/19 08:26 Dose: 1,000 units Fluphenazine Decanoate (Prolixin Decanoate*) 50 mg IM Q14D [facility] [place] Carbonate ([place] Carbonate Er Tab*) 1,350 mg PO BEDTIME [facility] Last Admin: 05/22/19 20:00 Dose: 1,350 mg Multivitamins (Theragran Tab*) 1 tab PO DAILY [facility] Last Admin: 05/23/19 08:26 Dose: 1 tab Nicotine (Nicotine Patch 21 Mg/24 Hr*) 1 patch TRANSDERM DAILY [facility] Last Admin: 05/23/19 08:26 Dose: Not Given Nicotine Polacrilex (Nicotine Gum*) 2 mg PO Q2H PRN PRN Reason: CRAVING Last Admin: 05/21/19 10:34 Dose: 2 mg Pharmacy Profile Note (Nicotine Patch Removal Note*) 1 note PATCH OFF 2100 [facility] Last Admin: 05/22/19 21:15 Dose: Not Given Senna (Senokot 8.6 Mg Tab*) 1 tab PO DAILY PRN PRN Reason: CONSTIPATION - Discharge Plan Discharge Plan: Outpatient Follow Up
[2019-05-23] MEDS: Lithium Carbonate ER* 450 MG TAB.ER PO SCH (19:52)
[2019-05-23] MEDS: Nicotine Patch Removal NOTE PATCH OFF SCH (19:53)
[2019-05-24] MEDS: Vitamin THERAPEUTIC TAB PO SCH (10:00)
[2019-05-24] MEDS: Benztropine TAB* 1 MG PO SCH (10:00)
[2019-05-24] MEDS: Nicotine PATCH 21 MG/24 HR* PATCH TRANSDERM SCH (10:00)
[2019-05-24] MEDS: Cholecalciferol TAB* 1000 UNITS PO SCH (10:00)
[2019-05-24] MEDS: Lithium Carbonate ER* 450 MG TAB.ER PO SCH (20:02)
[2019-05-24] MEDS: Nicotine Patch Removal NOTE PATCH OFF SCH (22:22)
[2019-05-25] MEDS: Vitamin THERAPEUTIC TAB PO SCH (10:09)
[2019-05-25] MEDS: Nicotine PATCH 21 MG/24 HR* PATCH TRANSDERM SCH (10:09)
[2019-05-25] MEDS: Benztropine TAB* 1 MG PO SCH (10:09)
[2019-05-25] MEDS: Cholecalciferol TAB* 1000 UNITS PO SCH (10:09)
--- NOTE | 2019-05-27 10:55 | DS ---
CC: ACT Team * DISCHARGE SUMMARY: DATE OF ADMISSION: 05/13/19 DATE OF DISCHARGE: 05/25/19 PROVIDER: Beti Hugo NP in Psychiatry. SUPERVISING PHYSICIAN: Salinas Duque MD * (DICTATED BY BETI HUGO NP) DIAGNOSIS: Schizoaffective disorder. CONDITION AT THE TIME OF DISCHARGE: Improved, psychiatrically cleared, stable. Ba occasionally participated in groups and was social with peers. He is eager for discharge. The ACT team has met with him and they agree with the decision for discharge as well. He has done well here psychiatrically. He tolerated an increase in medications well. He will be following up with the ACT team. MENTAL STATUS EXAM: At the time of discharge, Ba is calm, cooperative, and makes good eye contact. He is alert and oriented x4. His grooming is good. His speech pace is normal. Her thought processes are logical. He is not psychotic. He is mildly delusional. He denies AH, VH, SI, and HI. Insight and judgment are fair. He is willing to follow up and he is urged to meet with his therapist. DISCHARGE INSTRUCTIONS TO THE PATIENT: A. Medications: 1. Vitamin D 1000 units daily. 2. Diclofenac ER 100 mg daily. 3. Prolixin Decanoate 50 mg IM q.14 days. 4. Reasnor carbonate ER 1350 mg p.o. at bedtime. 5. Nicotine patch 21 mg per 24 hours. 6. Senna 8.6 mg daily p.r.n. constipation. These medications were dispensed to [facility]. B. Diet is regular. C. Activities as tolerated. He is a non-smoker. There are no studies pending at the time of discharge. D. Followup care. He is scheduled to meet with the [facility] ACT Team on the day of discharge at 10 a.m. He is also referred to [facility] within 30 days. He is requested to please make an appointment. E. Disposition. He is being discharged back to [facility] where he lives. F. Substance abuse followup is not currently indicated. HOSPITAL COURSE: Part A. Chief complaint: "I couldn't survive. like take care of myself, damn! I don't know if I will make it home." The patient is a 28-year-old single -[place] male with a history of schizoaffective disorder who arrives by law enforcement and is here on a 9.39 status after coming from his room at [facility] at [facility] stating that everything hurts and that he is endorsing SI and HI. Ba has been working with the ACT team. He has been prescribed several medications that he has been taking, but recently for the last 10 days approximately he has not been taking his medications that are tablets. He has been agreeing to get his injectable Prolixin 37.5 mg every 2 weeks. When I met him with Jessica Cain LMSW, he denies that he is suicidal. He states "I feel the best I have in years." This grandiosity is followed up by statements that are a little bit bizarre including "everything is connected mathematically " as well as "I have to come back to my roots" meaning this hospital. He stated "I am getting very frequent ranjana vu. I believe I have future knowledge. " He describes being impulsive, stating in one moment that he would not hurt anyone and then the next moment saying he will defend innocent people and that is why he wants to be a marine. He also would like to be a member of the [employer] and play basketball. There is a distinct lack of insight into his illness and he is struggling to take in the fact that this is a repetitive pattern that he is experiencing. He has gone to hospitals multiple times and that is not a typical path for a 28-year-old man. He is psychotic at this time. He has racing thoughts, believes odd things such as his dreams are so realistic that they are in fact real. He believes "I am in my prime this year. I have a little weight to lose, maybe 50 pounds. I want to be in the [employer]." Part B: Psychiatric treatment was rendered. The patient was admitted to the adult behavioral unit and placed on 15-minute checks for safety. Ba struggled on the unit. His most frequent position was on a couch wrapped in a blanket. He did interact with peers well when he was interacting with them. His course of treatment is as follows: At first, we would continue outpatient medications including scheduling Prolixin at 37.5 mg on 05/17/19. We attempted to get a lithium level, but Ba was not cooperative and we planned to collaborate with [facility]. On 05/17/19 , we were scheduled to get a lithium level as well as a lipid panel. We attempted to conversate to converse with ACT regarding medication choices and whether a change would be helpful or a hindrance. Ba was still psychotic at this time. On 05/18/19, the lithium level was refused as well as the hemoglobin A1c and the lipid draw. We increased Prolixin oral to 5 mg b.i.d. from 1 mg b.i.d. We had started computer privileges the day before, but he was watching islam episodes with [place] as the focus, thus we discontinued those privileges. I did speak with his father who was initially quite frustrated that the computer privileges were taken away, but when it was explained that his hyperreligiosity was causing problems and that there was indeed a Bible available on the unit, we successfully forged an alliance. On 05/19/19, Ba attempted to cheek the lithium, so we switched to a liquid formulation. The oral Prolixin increase was refused, although we continued to offer 5 mg b.i.d. On 05/20/19, I offered a low dose of Prolixin Decanoate 12.5 mg, which was a followup to the 37.5 injection that he got earlier in the week. This would amount to 50 mg of Prolixin every 2 weeks. We were considering a discharge to the ACT team rather than the [facility], which we thought would be required upon his admission. He was improving with the consistent or relatively consistent taking of lithium. We eliminated Maria G as he was refusing and does not want it and denies side effects from Prolixin. We changed his medication so that they would all be at bedtime, thus the lithium ER was moved to bedtime. As it is not possible to make 1200 mg, which was his previous dose , we moved to 1350 mg at bedtime and we will obtain a blood level on 05/23/19 as well as HbA1c and the lipid panel. On 05/23/19, the lithium level was 0.75. His hemoglobin A1c was 5.5. His lipids were elevated. We did determine that discharge to [facility] would be most appropriate for him and they were able to take him on 05/25/19. When I met with ACT, they were impressed that he was doing better and they felt he was very close to his baseline. This was somewhat of a surprise as he is mildly delusional and definitely bizarre at times. They were pleased with his progress, however and felt as though this was similar to his state of mind when he was discharged from the [facility] last time. A auto porter consult was entered for Ba. It was revealing in that his islam thoughts were not well formed and were considered bizarre and religiously delusional in places. The auto porter Remi Dudley felt like further consultation about yazidism would be problematic, and in fact we were encouraging staff not to discuss yazidism with him. Ba is improved. He remains mildly delusional, although he knows enough now to keep it hidden. He is a bit funny. He has a sense of humor now and interacts much better with others. He is not sleeping on the couch and wrapped in a blanket any longer and he is future oriented. BETI HUGO, SALOMON [id number]/CPS #: [id number] PELON
[2019-05-31] MEDS ORDERED: Fluphenazine Decanoate* 25 MG/ML 5 ML VIAL IM SCH (09:00)
== END 2019-05-25 10:20 | disposition home or self-care (01) | DRG 885 ==
LOC: ED 19:41 → BSU 05-13 03:00
PROVIDERS: ADMIT Psychiatry & Neurology Psychiatry; ATTEND Psychiatry & Neurology Psychiatry
DX: F25.0 Schizoaffective disorder, bipolar type (principal); R45.851 Suicidal ideations; R45.850 Homicidal ideations; M10.9 Gout, unspecified; G89.29 Other chronic pain; M54.2 Cervicalgia; F41.9 Anxiety disorder, unspecified; F43.10 Post-traumatic stress disorder, unspecified; F17.210 Nicotine dependence, cigarettes, uncomplicated; E66.3 Overweight; Z68.33 Body mass index [BMI] 33.0-33.9, adult; Z91.5 Personal history of self-harm; Z79.899 Other long term (current) drug therapy; Z28.21 Immunization not carried out because of patient refusal
CPT/HCPCS: 36415; 80053; 80061; 80178; 80307; 80320; 80329; 81003; 83036; 84443; 85025; 85610; 93005; 99222; 99231; 99232; 99238; 99284; A9270-GY; G0480; J2680

== ENCOUNTER 2019-06-02 14:37 | Emergency (ER) | payer MEDICARE, MEDICAID ==
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
[2019-06-02 16:02] LABS: ABS Eosinophils 0.3 10^3/ul (0-0.6); ABS Lymphocytes 2.2 10^3/ul (1.0-4.8); ABS Monocytes 0.7 10^3/ul (0-0.8); ABS Neutrophils 5.2 10^3/ul (1.5-7.7); Eosinophil % 3.8 %; Hematocrit 41 % (42-52); Hemoglobin 14.8 g/dL (14.0-18.0); Lymphocyte % 26.4 %; Mean Corpuscular HGB Conc 36 g/dL (31-36); Mean Corpuscular Hemoglobin 33 pg (27-31); Mean Corpuscular Volume 91 fL (80-94); Mean Platelet Volume 7.6 fL (7.4-10.4); Platelet Count 281 10^3/uL (150-450); Red Blood Count 4.54 10^6 /uL (4.18-5.48); Red Cell Distribution Width 14 % (10-15); White Blood Count 8.5 10^3/uL (3.5-10.8)
[2019-06-02 16:17] LABS: Anion Gap 5 mmol/L (2-11); BUN/Creatinine Ratio 16.5 (8-20); Blood Urea Nitrogen 13 mg/dL (6-24); CO2 Carbon Dioxide 27 mmol/L (22-32); Calcium 9.2 mg/dL (8.6-10.3); Chloride 107 mmol/L (101-111); EGFR African American 142.4 (>60); EGFR Non-African American 117.7 (>60); Glucose 118 mg/dL (70-100); Potassium 3.8 mmol/L (3.5-5.0); Sodium 139 mmol/L (135-145)
[2019-06-02 16:25] LABS: Alcohol < 10 mg/dL (<10); Salicylate < 2.50 mg/dL (<30)
--- OUTSIDE RECORDS SUMMARY | 2019-06-02 16:35 | XMS REPORT ---
:1990 Author Organization [facility] Care Team Providers Name Role Phone Shirley Chávez Primary Care Physician Unavailable Allergies, Adverse Reactions, Alerts Allergy Code CodeSystem Reaction Severity Criticality Status Start Substance Date Moderate Medications Medication Medication Medication Start Stop Route Dose Status Fill Code CodeSystem Date Date Instructions RxNorm Problems Problem Name Code CodeSystem Alternate Alternate Start End Status Narrative Code CodeSystem Date Date Schizophreni 15916858 SNOMED-CT Active a, 09-17 unspecified Schizophreni [id number] SNOMED-CT Active a, 09-17 unspecified Schizophreni [id number] SNOMED-CT Active a, 09-17 unspecified Relevant diagnostic tests/laboratory data Narrative No Information Procedures Procedure Code CodeSystem Target Date of Status Service Device Device Device Name Site Procedure Delivery Code Name UID Location SNOMED-CT () 2019-05-05 [facility] [place] [facility] [place] [address], [place], [id number] Encounters/Encounter Diagnoses Encounter Name Encounter Diagnosis Diagnosis Diagnosis Date of Service Code Code Name CodeSystem Diagnosis Delivery Location Crisis H2011 [id number] Schizophrenia SNOMED-CT 2019-05-05 [facility] , [facility] [address], [place], [id number] Vital Signs No Information Social History Element Description Description Start End Code CodeSystem AdditionalInfo Date Date SexAssignedAtBirth Male 1989-1 M AdministrativeGender 2-03 Hospital Discharge Instructions Reason For Referral Medical Equipment FDA Assessments
[2019-06-02 16:40] LABS: TSH (Thyroid Stimulating Horm) 0.34 mcIU/mL (0.34-5.60)
[2019-06-02 16:42] LABS: Free T4 0.87 ng/dL (0.61-1.12)
[2019-06-02 16:55] LABS: Acetaminophen < 15 mcg/mL
[2019-06-02 17:31] LABS: Urine Benzodiazepine Screen None Detected (None Detect); Urine Opiates Screen None Detected (None Detect)
--- NOTE | 2019-06-02 19:11 | ED ---
Progress - Progress Note Progress Note: This pt is a sign out to Dr. Lang from Dr. Powell at shift change 1900 pending a MHE and disposition. Re-Evaluation - Re-Evaluation First Eval Re-Evaluation Time: 18:41 Comment: Patient is answering questions tangentially, almost on purpose. I will have MH evaluate the patient. Course/Dx - Course Course Of Treatment: This pt is a sign out to Dr. Lang from Dr. Powell at shift change 1900 06/02/19 pending a MHE and disposition. Patient seen by mental health for evaluation. They spoke with patient's ACT team. ACT team will follow-up with the patient tomorrow. Discharged to home. - Diagnoses Provider Diagnoses: Mood disorder - Provider Notifications Discussed Care Of Patient With: Salinas Duque Time Discussed With Above Provider: 00:50 Instructed by Provider To: Other - Discharged home Discharge ED - Sign-Out/Discharge Documenting (check all that apply): Patient Departure - discharge - Discharge Plan Condition: Stable Disposition: HOME Patient Education Materials: Polysubstance Abuse (ED) Referrals: [facility] [Outside] No Primary Care Phys,NOPCP [Primary Care Provider] - ACT,Team [Other] - 1 Day - Billing Disposition and Condition Condition: STABLE Disposition: Home - Attestation Statements Document Initiated by Amberibe: Yes Documenting Scribe: Chauncey Koehler Provider For Whom Scribe is Documenting (Include Credential): Monik Lang MD Scribe Attestation: Chauncey Wallace, scribed for Monik Lang MD on 06/03/19 at 0112. Scribe Documentation Reviewed: Yes Provider Attestation: The documentation as recorded by the Chauncey jones accurately reflects the service I personally performed and the decisions made by me, Monik Lang MD Status of Scribe Document: Viewed Procedures - Sedation Patient Received Moderate/Deep Sedation with Procedure: No
[2019-06-02 22:25] VITALS: BP 134/75
[2019-06-02 22:32] LABS: Lithium < 0.10 mmol/L (0.6-1.2)
== END 2019-06-02 22:20 | disposition home or self-care (01) ==
LOC: ED 14:37
DX: F19.10 Other psychoactive substance abuse, uncomplicated (principal); F39 Unspecified mood [affective] disorder; F41.9 Anxiety disorder, unspecified; F32.9 Major depressive disorder, single episode, unspecified; F43.10 Post-traumatic stress disorder, unspecified; F17.210 Nicotine dependence, cigarettes, uncomplicated; Z90.49 Acquired absence of other specified parts of digestive tract
CPT/HCPCS: 36415; 80048; 80178; 80307; 80320; 80329; 84439; 84443; 85025; 99284; G0480

== ENCOUNTER 2019-06-09 13:17 | Emergency (ER) | payer MEDICARE, MEDICAID ==
[2019-06-09 13:25] VITALS: BP 115/70
== END 2019-06-09 15:37 | disposition left against medical advice (07) ==
LOC: ED 13:17
DX: Z53.21 Procedure and treatment not carried out due to patient leaving prior to being seen by health care provider (principal); R68.84 Jaw pain
CPT/HCPCS: 99282

== ENCOUNTER 2019-06-09 17:43 | Emergency (ER) | payer MEDICARE, MEDICAID ==
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
[2019-06-09 18:27] VITALS: BP 116/74
[2019-06-09] MEDS ORDERED: Ibuprofen TAB* 800 MG PO ONE (18:29)
== END 2019-06-09 18:55 | disposition home or self-care (01) ==
LOC: ED 17:43
DX: F19.10 Other psychoactive substance abuse, uncomplicated (principal); F41.9 Anxiety disorder, unspecified; F32.9 Major depressive disorder, single episode, unspecified; F43.10 Post-traumatic stress disorder, unspecified; F17.210 Nicotine dependence, cigarettes, uncomplicated; Z90.49 Acquired absence of other specified parts of digestive tract
CPT/HCPCS: 99282; A9270-GY

== ENCOUNTER 2019-06-14 18:26 | Inpatient (IN) | payer MEDICARE, MEDICAID ==
[2019-06-14] MEDS ORDERED: LORazepam INJ* 2 MG/ML 1 ML VIAL ONE ×3 (18:31→19:40)
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
[2019-06-14] MEDS ORDERED: Haloperidol INJ IV/IM* 5 MG/ML AMP IM ONE (19:31)
[2019-06-14] MEDS ORDERED: LORazepam INJ* 2 MG/ML 1 ML VIAL IM ONE (19:31)
[2019-06-14] MEDS ORDERED: diPHENhydraMINE IV* 50 MG/ML 1 ml VIAL (BENADRYL) IM ONE (19:31)
[2019-06-14] MEDS ORDERED: Lorazepam PYXIS KEY PRN (19:31)
[2019-06-14] MEDS ORDERED: Haloperidol INJ IV/IM* 5 MG/ML AMP ONE (19:40)
[2019-06-14] MEDS ORDERED: diPHENhydraMINE IV* 50 MG/ML 1 ml VIAL (BENADRYL) ONE (19:40)
--- NOTE | 2019-06-14 21:54 | ED ---
Progress - Progress Note Progress Note: Patient signed out from Dr. Madera shift change 06/14/19 22:00. Awaiting psychiatric evaluation. Pending disposition. Re-Evaluation - Re-Evaluation First Eval Re-Evaluation Time: 19:30 Second Eval Re-Evaluation Time: 20:00 Third Eval Re-Evaluation Time: 20:15 Course/Dx - Course Course Of Treatment: Patient will be signed out to Dr. Brannon upon shift change 06/15/19 07:00. Awaiting psychiatric evaluation. Pending disposition. - Diagnoses Provider Diagnoses: Agitation, Schizophrenia Discharge ED - Sign-Out/Discharge Documenting (check all that apply): Sign-Out Patient, Receiving Sign-Out Signing out patient TO: Alva Brannon - awaiting psychiatric evaluation and pending disposition Receiving patient FROM: Keith Madera - Discharge Plan Referrals: [facility] [Outside] - Attestation Statements Document Initiated by Scribe: Yes Documenting Scribe: Deepika Mcleod Provider For Whom Amberibe is Documenting (Include Credential): Monik Lang MD Scribe Attestation: Deepika Wallace, scribed for Monik Lang MD on 06/15/19 at 0556. Scribe Documentation Reviewed: Yes Provider Attestation: The documentation as recorded by the Deepika jones accurately reflects the service I personally performed and the decisions made by , Monik Lang MD Status of Scribe Document: Viewed
--- NOTE | 2019-06-15 07:13 | ED ---
Progress - Progress Note Progress Note: PPt is a signout from Dr. Lang at 0700 on 06/15/19 pending MHE and disposition. Pt did not have blood work drawn - will work to obtain now Re-Evaluation - Re-Evaluation First Eval Re-Evaluation Time: 07:26 Comment: Pt became upset when approached by security and nursing for lab drawn - stated he didn't understand why security was at his bedside. I spoke with the pt, explained the process and rationale. He was cooperative and agreeable to lab draw, urinalysis and mental health evaluation. Mental health requested to evaluate patient Second Eval Re-Evaluation Time: 08:50 Comment: Pt denied UTI symptoms. He is aware we are going to culture the urine. He declined testing for STIs, and declined tx of his UTI with abx. Third Eval Re-Evaluation Time: 09:22 Comment: Donnie from [facility] states he spoke with Dr. Duque who would like to further pursue his admission on a 9.60 status. 4th eval Re-Evaluation Time: 10:15 Comment: I informed Dr. Duque that the pt refused treatment for his UTI. I also told him I sent the urine off for STI cultures. Fifth Eval Re-Evaluation Time: 10:40 Comment: TOMY Fields, in room speaking with pt about his legal options. Course/Dx - Course Course Of Treatment: Pt is a signout from Dr. Lang at 0700 on 06/15/19 pending MHE and disposition. - Diagnoses Provider Diagnoses: Schizoaffective disorder Discharge ED - Sign-Out/Discharge Documenting (check all that apply): Patient Departure, Receiving Sign-Out Receiving patient FROM: Monik Lang - Discharge Plan Condition: Stable [place] [place] Disposition and Condition Condition: STABLE Disposition: [place]iatric [place] [facility] [place] Attestation Statements Document Initiated by Scribe: Yes Documenting Scribe: Myrna Perez Provider For Whom Miguel is Documenting (Include Credential): Alva Brannon MD. Scribe Attestation: Myrna Wallace, scribed for Alva Brannon MD. on 06/22/19 at 1304. Scribe Documentation Reviewed: Yes Provider Attestation: The documentation as recorded by the Myrna jones accurately reflects the service I personally performed and the decisions made by me, Alva Brannon MD. Status of Scribe Document: Viewed
[2019-06-15 07:50] LABS: ABS Basophils 0.1 10^3/ul (0-0.2); ABS Eosinophils 0.4 10^3/ul (0-0.6); ABS Monocytes 1.1 10^3/ul (0-0.8); ABS Neutrophils 5.8 10^3/ul (1.5-7.7); Eosinophil % 3.5 %; Hematocrit 51 % (42-52); Hemoglobin 17.2 g/dL (14.0-18.0); Lymphocyte % 28.9 %; Mean Corpuscular HGB Conc 34 g/dL (31-36); Mean Corpuscular Hemoglobin 32 pg (27-31); Mean Corpuscular Volume 93 fL (80-94); Mean Platelet Volume 7.8 fL (7.4-10.4); Nucleated Red Blood Cells % 0.1; Platelet Count 330 10^3/uL (150-450); Red Blood Count 5.42 10^6 /uL (4.18-5.48); Red Cell Distribution Width 14 % (10-15); White Blood Count 10.3 10^3/uL (3.5-10.8)
[2019-06-15 07:56] LABS: Urine Appearance Clear; Urine Bilirubin Negative (Negative); Urine Blood Negative (Negative); Urine Color Yellow; Urine Glucose Negative (Negative); Urine Ketones Negative (Negative); Urine Nitrite Negative (Negative); Urine Protein Negative (Negative); Urine Specific Gravity 1.005 (1.010-1.030); Urine Urobilinogen Negative (Negative)
[2019-06-15 07:58] LABS: ALT 56 U/L (7-52); AST 36 U/L (13-39); Albumin/Globulin Ratio 1.9 (1-3); Alkaline Phosphatase 71 U/L (34-104); Anion Gap 7 mmol/L (2-11); BUN/Creatinine Ratio 5.8 (8-20); Blood Urea Nitrogen 7 mg/dL (6-24); CO2 Carbon Dioxide 25 mmol/L (22-32); Calcium 9.8 mg/dL (8.6-10.3); Chloride 105 mmol/L (101-111); EGFR African American 87.9 (>60); EGFR Non-African American 72.6 (>60); Globulin 2.6 g/dL (2-4); Glucose 108 mg/dL (70-100); Potassium 4.1 mmol/L (3.5-5.0); Sodium 137 mmol/L (135-145); Total Protein 7.6 g/dL (6.4-8.9)
[2019-06-15 08:02] LABS: Urine Bacteria Absent (Absent); Urine Red Blood Cell Trace(0-2/hpf) (Absent); Urine Squamous Epithelial Cell Present (Absent); Urine White Blood Cell 3+(>20/hpf) (Absent)
[2019-06-15 08:09] LABS: Urine Benzodiazepine Screen None Detected (None Detect); Urine Opiates Screen None Detected (None Detect)
[2019-06-15 08:46] LABS: Acetaminophen < 15 mcg/mL; Alcohol < 10 mg/dL (<10); Salicylate < 2.50 mg/dL (<30)
[2019-06-15] MEDS ORDERED: Al Hydrox/Mg Hydrox/Simet LIQ* 30 ML UDC PO PRN (09:06)
[2019-06-15] MEDS ORDERED: Acetaminophen TAB* 325 MG PO PRN (09:06)
[2019-06-15] MEDS ORDERED: Senna TAB 8.6 mg* TAB PO PRN (09:07)
[2019-06-15] MEDS ORDERED: chlorproMAZINE TAB* 100 MG PO PRN ×2 (09:08→11:23)
[2019-06-15] MEDS ORDERED: Fluphenazine Decanoate* 25 MG/ML 5 ML VIAL IM SCH (10:00)
[2019-06-15 11:40] LABS: Lithium 0.57 mmol/L (0.6-1.2)
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
[2019-06-15] MEDS: Fluphenazine Decanoate* 25 MG/ML 5 ML VIAL IM SCH (14:59)
[2019-06-15] MEDS ORDERED: Lithium Carbonate ER* 450 MG TAB.ER PO SCH (21:00)
[2019-06-15] MEDS: Lithium Carbonate ER* 450 MG TAB.ER PO SCH (21:34)
[2019-06-15] MEDS ORDERED: Nicotine PATCH 21 MG/24 HR* PATCH ONE (21:45)
[2019-06-15] MEDS: Nicotine* 2MG (FRUIT FLAVOR) GUM PO PRN (22:16)
[2019-06-15] MEDS: Nicotine PATCH 21 MG/24 HR* PATCH TRANSDERM SCH (22:36)
[2019-06-16] MEDS ORDERED: Cholecalciferol TAB* 1000 UNITS PO SCH (09:00)
[2019-06-16] MEDS: Nicotine* 2MG (FRUIT FLAVOR) GUM PO PRN ×3 (10:44→19:51)
--- NOTE | 2019-06-16 10:49 | PN ---
Subjective - Subjective Date of Service: 06/16/19 Service Type: [id number] Hosp care 15 min low complexity Subjective: Ba remains irritable and uninsightful about the events leading to admission. He did accept the Prolixin Dec shot yesterday as ordered but is mostly seclusive to his room, currently laying naked under his covers in bed. Objective - General Observations Appearance: Disheveled, Malodorous Appears Stated Age: Yes Stature: Overweight Posture: WNL Eye Contact: Average Behavior/Activity: Accelerated - Interaction Observations Attitude Towards Examiner: Mistrustful Stated Mood: Irritable Affect: Labile Speech Pattern/Tone: Pressured Thought Process: Disorganized Thought Content: Paranoid, Grandiose Thought Process: Lethality: Paranoid Ideation Hallucination Type: Auditory Delusion Type: Persecution, Grandeur, Voodoo - Cognitive Function Orientation: A&O x 4 Level of Consciousness: Awake Cognition: WNL Estimated Intelligence: Normal Insight: Difficulty Acknowledging Presence of Psyciatric Problems Judgment Within Normal Limits: No Ability to Make Reasonable Decisions: Serverely Impaired - Medication Compliance Cooperative with Inpatient Medication Regimen: Yes - Group Participation Participates in Group Activities: No Assessment - Assessment Merits Inpatient Hospitalization: For Immediate Safety, For Stabilization Inpatient DSM-V Dx: F25.0 Clinical Impression: 29 y.o. single, AA male with a history of schizoaffective disorder, bipolar type brought in by law enforcement on a 9.60 legal status for violating the conditions of his AOT by being non-adherent with oral psychotropic medications and presenting as disorganized and menacing in the community. BSU: Problem List - Patient Problems (1) schizoaffective d/o, bipolar type, manic Current Visit: No Status: Acute Priority: High Plan - Plan Treatment Plan: Name: BA JONES Birthdate: 1990 [id number] We have resumed decanoate Prolixin 50mg IM q2wks and lithium ER 1350mg PO qhs. Patient is not able to function in the community and [facility] reports that they cannot render appropriate services. He is facing eviction from [facility]. Will require State Hospitalization. Continued Medication Management: Continue Outpt Medication Medications: Current Medications Acetaminophen (Tylenol Tab*) 650 mg PO Q4H PRN PRN Reason: for pain; or Temp >101 F Al Hydrox/Mg Hydrox/Simethicone (Maalox Plus*) 30 ml PO Q4H PRN PRN Reason: INDIGESTION Chlorpromazine HCl (Thorazine Tab*) 100 mg PO Q6H PRN PRN Reason: AGITATION Cholecalciferol (Vitamin D Tab*) 1,000 units PO DAILY [facility] Fluphenazine Decanoate (Prolixin Decanoate*) 50 mg IM Q14D [facility] Last Admin: 06/15/19 14:59 Dose: 50 mg [place] Carbonate ([place] Carbonate Er Tab*) 1,350 mg PO BEDTIME [facility] Last Admin: 06/15/19 21:34 Dose: 1,350 mg Miscellaneous (Ativan Pyxis Soto) 1 ea N/A .ATIVAN IV SOTO PRN PRN Reason: PYXIS SOTO Nicotine (Nicotine Patch 21 Mg/24 Hr*) 1 patch TRANSDERM DAILY [facility] Last Admin: 06/15/19 22:36 Dose: Not Given Nicotine Polacrilex (Nicotine Gum*) 2 mg PO Q2H PRN PRN Reason: CRAVINGS Last Admin: 06/15/19 22:16 Dose: 2 mg Pharmacy Profile Note (Nicotine Patch Removal Note*) 1 note PATCH OFF 2100 [facility] Senna (Senokot 8.6 Mg Tab*) 1 tab PO DAILY PRN PRN Reason: CONSTIPATION - Discharge Plan Discharge Plan: Consider Longer Term Tx Lab Results - Lab Results Lab Results: 06/15/19 06/15/19 06/15/19 07:35 07:35 07:44 WBC 10.3 RBC 5.42 Hgb 17.2 Hct 51 MCV 93 MCH 32 H MCHC 34 RDW 14 Plt Count 330 MPV 7.8 Neut % (Auto) 56.2 Lymph % (Auto) 28.9 [place] % (Auto) 10.7 Eos % (Auto) 3.5 Baso % (Auto) 0.7 Absolute Neuts (auto) 5.8 Absolute Lymphs (auto) 3.0 Absolute Monos (auto) 1.1 H Absolute Eos (auto) 0.4 Absolute Basos (auto) 0.1 Absolute Nucleated RBC 0.0 Nucleated RBC % 0.1 Sodium 137 Potassium 4.1 Chloride 105 Carbon Dioxide 25 Anion Gap 7 BUN 7 Creatinine 1.20 H Est GFR ( Amer) 87.9 Est GFR (Non-Af Amer) 72.6 BUN/Creatinine Ratio 5.8 L Glucose 108 H Calcium 9.8 Total Bilirubin 0.60 AST 36 ALT 56 H Alkaline Phosphatase 71 Total Protein 7.6 Albumin 5.0 Globulin 2.6 Albumin/Globulin Ratio 1.9 TSH 2.10 Urine Color Yellow Urine Appearance Clear Urine pH 6.0 Ur Specific [place] 1.005 L Urine Protein Negative Urine Ketones Negative Urine Blood Negative Urine Nitrate Negative Urine Bilirubin Negative Urine Urobilinogen Negative Ur Leukocyte Esterase 3+ A Urine WBC (Auto) 3+(>20/hpf) A Urine RBC (Auto) Trace(0-2/hpf) Ur Squamous Epith Cells Present A Urine Bacteria Absent Urine Glucose Negative Salicylates < 2.50 Urine Opiates Screen Acetaminophen < 15 Ur Barbiturates Screen Ur Phencyclidine Scrn Ur Amphetamines Screen U Benzodiazepines Scrn [place] 0.57 L Urine Cocaine Screen U Cannabinoids Screen Serum Alcohol < 10 C.trachomatis (Amp Det) N.gonorrhoeae (Amp Det) 06/15/19 06/15/19 07:44 07:44 WBC RBC Hgb Hct MCV MCH MCHC RDW Plt Count MPV Neut % (Auto) Lymph % (Auto) [place] % (Auto) Eos % (Auto) Baso % (Auto) Absolute Neuts (auto) Absolute Lymphs (auto) Absolute Monos (auto) Absolute Eos (auto) Absolute Basos (auto) Absolute Nucleated RBC Nucleated RBC % Sodium Potassium Chloride Carbon Dioxide Anion Gap BUN Creatinine Est GFR ( Amer) Est GFR (Non-Af Amer) BUN/Creatinine Ratio Glucose Calcium Total Bilirubin AST ALT Alkaline Phosphatase Total Protein Albumin Globulin Albumin/Globulin Ratio TSH Urine Color Urine Appearance Urine pH Ur Specific [place] Urine Protein Urine Ketones Urine Blood Urine Nitrate Urine Bilirubin Urine Urobilinogen Ur Leukocyte Esterase Urine WBC (Auto) Urine RBC (Auto) Ur Squamous Epith Cells Urine Bacteria Urine Glucose Salicylates Urine Opiates Screen None detected Acetaminophen Ur Barbiturates Screen None detected Ur Phencyclidine Scrn None detected Ur Amphetamines Screen None detected U Benzodiazepines Scrn None detected [place] Urine Cocaine Screen None detected U Cannabinoids Screen None detected Serum Alcohol C.trachomatis (Amp Det) Cancelled N.gonorrhoeae (Amp Det) Cancelled
[2019-06-16] MEDS: Nicotine PATCH 21 MG/24 HR* PATCH TRANSDERM SCH ×2 (12:06→19:52)
[2019-06-16] MEDS: Cholecalciferol TAB* 1000 UNITS PO SCH (12:06)
[2019-06-16] MEDS: Lithium Carbonate ER* 450 MG TAB.ER PO SCH (19:50)
[2019-06-16] MEDS: Nicotine Patch Removal NOTE PATCH OFF SCH (21:06)
[2019-06-17] MEDS: Nicotine PATCH 21 MG/24 HR* PATCH TRANSDERM SCH (10:25)
[2019-06-17] MEDS: Cholecalciferol TAB* 1000 UNITS PO SCH (10:25)
[2019-06-17] MEDS: Nicotine* 2MG (FRUIT FLAVOR) GUM PO PRN ×2 (10:25→21:40)
--- NOTE | 2019-06-17 11:59 | PN ---
Subjective - Subjective Date of Service: 06/17/19 Service Type: [id number] Hosp care 15 min low complexity Subjective: Ba is dishevelled and malodorous. He is taking his medication but not going to groups. The patient was overheard by staff screaming at his father over the phone. Ba is apparently unaware that the [facility] has issued a preliminary eviction notice and that he is facing homelessness. He is hyperreligious on presentation today, talking about monkeys and evolution. Objective - General Observations Appearance: Disheveled, Malodorous Appears Stated Age: Yes Stature: Overweight Posture: WNL Eye Contact: Average Behavior/Activity: Peculiar - Interaction Observations Attitude Towards Examiner: Dismissive Stated Mood: Dysphoric Affect: Labile Speech Pattern/Tone: Pressured Thought Process: Disorganized Thought Content: Paranoid, Grandiose Thought Process: Lethality: Paranoid Ideation Hallucination Type: Auditory Delusion Type: Persecution, Grandeur, Confucianism - Cognitive Function Orientation: A&O x 4 Level of Consciousness: Awake Cognition: WNL Estimated Intelligence: Normal Insight: Difficulty Acknowledging Presence of Psyciatric Problems Judgment Within Normal Limits: No Ability to Make Reasonable Decisions: Serverely Impaired - Medication Compliance Cooperative with Inpatient Medication Regimen: Yes - Group Participation Participates in Group Activities: No Assessment - Assessment Merits Inpatient Hospitalization: For Immediate Safety, For Stabilization Inpatient DSM-V Dx: F25.0 Clinical Impression: 29 y.o. single, AA male with a history of schizoaffective disorder, bipolar type brought in by law enforcement on a 9.60 legal status for violating the conditions of his AOT by being non-adherent with oral psychotropic medications and presenting as disorganized and menacing in the community. BSU: Problem List - Patient Problems (1) schizoaffective d/o, bipolar type, manic Current Visit: No Status: Acute Priority: High Plan - Plan Treatment Plan: Name: BA JONES Birthdate: 1990 [id number] We have resumed decanoate Prolixin 50mg IM q2wks (next due 06/29/19) and lithium ER 1350mg PO qhs. Patient is not able to function in the community and [facility] reports that they cannot render appropriate services. He is facing eviction from [facility]. Will require State Hospitalization. Continued Medication Management: Continue Outpt Medication Medications: Current Medications Acetaminophen (Tylenol Tab*) 650 mg PO Q4H PRN PRN Reason: for pain; or Temp >101 F Al Hydrox/Mg Hydrox/Simethicone (Maalox Plus*) 30 ml PO Q4H PRN PRN Reason: INDIGESTION Chlorpromazine HCl (Thorazine Tab*) 100 mg PO Q6H PRN PRN Reason: AGITATION Cholecalciferol (Vitamin D Tab*) 1,000 units PO DAILY [facility] Last Admin: 06/17/19 10:25 Dose: 1,000 units Fluphenazine Decanoate (Prolixin Decanoate*) 50 mg IM Q14D [facility] Last Admin: 06/15/19 14:59 Dose: 50 mg [place] Carbonate ([place] Carbonate Er Tab*) 1,350 mg PO BEDTIME [facility] Last Admin: 06/16/19 19:50 Dose: 1,350 mg Miscellaneous (Ativan Pyxis Soto) 1 ea N/A .ATIVAN IV SOTO PRN PRN Reason: PYXIS SOTO Nicotine (Nicotine Patch 21 Mg/24 Hr*) 1 patch TRANSDERM DAILY@0900 [facility] Last Admin: 06/17/19 10:25 Dose: 1 patch Nicotine Polacrilex (Nicotine Gum*) 2 mg PO Q2H PRN PRN Reason: CRAVINGS Last Admin: 06/17/19 10:25 Dose: 2 mg Pharmacy Profile Note (Nicotine Patch Removal Note*) 1 note PATCH OFF 2100 [facility] Last Admin: 06/16/19 21:06 Dose: 1 note Senna (Senokot 8.6 Mg Tab*) 1 tab PO DAILY PRN PRN Reason: CONSTIPATION - Discharge Plan Discharge Plan: Consider Longer Term Tx
[2019-06-17] MEDS: Nicotine Patch Removal NOTE PATCH OFF SCH (21:40)
[2019-06-17] MEDS: Lithium Carbonate ER* 450 MG TAB.ER PO SCH (21:40)
[2019-06-18] MEDS: Cholecalciferol TAB* 1000 UNITS PO SCH (10:28)
[2019-06-18] MEDS: Nicotine PATCH 21 MG/24 HR* PATCH TRANSDERM SCH (10:28)
[2019-06-18] MEDS: Nicotine* 2MG (FRUIT FLAVOR) GUM PO PRN ×3 (10:28→17:32)
[2019-06-18] MEDS: Lithium Carbonate ER* 450 MG TAB.ER PO SCH (22:51)
[2019-06-18] MEDS: Nicotine Patch Removal NOTE PATCH OFF SCH (23:44)
[2019-06-19] MEDS: Nicotine PATCH 21 MG/24 HR* PATCH TRANSDERM SCH (09:27)
[2019-06-19] MEDS: Cholecalciferol TAB* 1000 UNITS PO SCH (09:27)
[2019-06-19] MEDS: Nicotine* 2MG (FRUIT FLAVOR) GUM PO PRN ×4 (09:29→16:10)
--- NOTE | 2019-06-19 15:26 | PN ---
Subjective - Subjective Date of Service: 06/19/19 Service Type: [id number] Hosp care 25 min moderate complexity Subjective: Ba remains extremely guarded, suspicious and tense with an intense stare. Says he hasn't done anything wrong to be hospitalized. However acknowledges that he wasn't taking his meds as prescribed and [facility] people were messing with him. There were times during the the assessment he appeared to be responding to internal stimuli but denied A/V hallucinations. Also denied SI/HI. Objective - General Observations Appearance: Well Groomed Stature: WNL, Tall Posture: WNL Eye Contact: Intense Behavior/Activity: Slowed - Interaction Observations Attitude Towards Examiner: Evasive, Mistrustful Stated Mood: Dysphoric Affect: Blunted Speech Pattern/Tone: Clear, Normal Volume Thought Process: Coherent, [place] Perception: WNL Thought Content: Preoccupation/Ruminations, Paranoid Thought Process: Lethality: Paranoid Ideation Hallucination Type: Denies Delusion Type: Denies - Cognitive Function Orientation: A&O x 4 Level of Consciousness: Awake, Alert, Appropriate Cognition: WNL Estimated Intelligence: Normal Insight: Mostly Blames Others for Problems Judgment Within Normal Limits: No Ability to Make Reasonable Decisions: Serverely Impaired - Medication Compliance Cooperative with Inpatient Medication Regimen: Yes - Group Participation Participates in Group Activities: No Assessment - Assessment Inpatient DSM-V Dx: F25.0 Clinical Impression: 29 y.o. single, AA male with a history of schizoaffective disorder, bipolar type brought in by law enforcement on a 9.60 legal status for violating the conditions of his AOT by being non-adherent with oral psychotropic medications and presenting as disorganized and menacing in the community. Plan - Plan Treatment Plan: Name: BA JONES Birthdate: 1990 [id number] We have resumed decanoate Prolixin 50mg IM q2wks (next due 06/29/19) and lithium ER 1350mg PO qhs. Patient is not able to function in the community and [facility] reports that they cannot render appropriate services. He is facing eviction from [facility]. Will require State Hospitalization. Continued Medication Management: Continue Outpt Medication Medications: Current Medications Acetaminophen (Tylenol Tab*) 650 mg PO Q4H PRN PRN Reason: for pain; or Temp >101 F Al Hydrox/Mg Hydrox/Simethicone (Maalox Plus*) 30 ml PO Q4H PRN PRN Reason: INDIGESTION Chlorpromazine HCl (Thorazine Tab*) 100 mg PO Q6H PRN PRN Reason: AGITATION Cholecalciferol (Vitamin D Tab*) 1,000 units PO DAILY [facility] Last Admin: 06/19/19 09:27 Dose: 1,000 units Fluphenazine Decanoate (Prolixin Decanoate*) 50 mg IM Q14D [facility] Last Admin: 06/15/19 14:59 Dose: 50 mg [place] Carbonate ([place] Carbonate Er Tab*) 1,350 mg PO BEDTIME [facility] Last Admin: 06/18/19 22:51 Dose: 1,350 mg Miscellaneous (Ativan Pyxis Soto) 1 ea N/A .ATIVAN IV SOTO PRN PRN Reason: PYXIS SOTO Nicotine (Nicotine Patch 21 Mg/24 Hr*) 1 patch TRANSDERM DAILY@0900 [facility] Last Admin: 06/19/19 09:27 Dose: 1 patch Nicotine Polacrilex (Nicotine Gum*) 2 mg PO Q2H PRN PRN Reason: CRAVINGS Last Admin: 06/19/19 14:25 Dose: 2 mg Pharmacy Profile Note (Nicotine Patch Removal Note*) 1 note PATCH OFF 2100 [facility] Last Admin: 06/18/19 23:44 Dose: 1 note Senna (Senokot 8.6 Mg Tab*) 1 tab PO DAILY PRN PRN Reason: CONSTIPATION - Discharge Plan Discharge Plan: Outpatient Follow Up Outpatient Program: [facility]
[2019-06-19] MEDS: Lithium Carbonate ER* 450 MG TAB.ER PO SCH (19:46)
[2019-06-19] MEDS: Nicotine Patch Removal NOTE PATCH OFF SCH (19:48)
[2019-06-20] MEDS: Nicotine* 2MG (FRUIT FLAVOR) GUM PO PRN ×3 (00:30→18:22)
[2019-06-20] MEDS: Cholecalciferol TAB* 1000 UNITS PO SCH (13:41)
[2019-06-20] MEDS: Nicotine PATCH 21 MG/24 HR* PATCH TRANSDERM SCH (13:41)
--- NOTE | 2019-06-20 14:25 | PN ---
Subjective - Subjective Date of Service: 06/20/19 Service Type: [id number] Hosp care 15 min low complexity Subjective: Ba is seen in coverage for Salinas Duque MD. Ba is irritable and annoyed with being in the hospital. He would like to celebrate his holidays at home. He also mentions and continues to talk about fearing God and continues on with an incomprehensible talk about the devil and God and respect. He is reading the [employer]. Ba is not interested in being distracted from his congregational studies by any other reading material and requests to use the computer, which is denied. The conversation was ended by acknowledging that we disagree on his plan of care. Objective - General Observations Appearance: Disheveled Appears Stated Age: Yes Stature: Overweight Posture: WNL Eye Contact: Intense Behavior/Activity: Agitated - Interaction Observations Attitude Towards Examiner: Uncooperative, Demanding, Hostile Stated Mood: Dysphoric, Irritable Affect: Full Speech Pattern/Tone: Clear Thought Process: Disorganized Perception: WNL Thought Content: Preoccupation/Ruminations, Grandiose Hallucination Type: Denies Delusion Type: Episcopalian - Cognitive Function Orientation: A&O x 4 Level of Consciousness: Awake, Alert, Appropriate Cognition: Impaired Cognition, Impaired Attention/Concentration, Impaired Fund of Knowledge Estimated Intelligence: Normal Insight: Mostly Blames Others for Problems Judgment Within Normal Limits: No Ability to Make Reasonable Decisions: Serverely Impaired - Medication Compliance Cooperative with Inpatient Medication Regimen: Yes - Group Participation Participates in Group Activities: Partial Assessment - Assessment Merits Inpatient Hospitalization: For Immediate Safety Inpatient DSM-V Dx: F25.0 Clinical Impression: 29 y.o. single, AA male with a history of schizoaffective disorder, bipolar type brought in by law enforcement on a 9.60 legal status for violating the conditions of his AOT by being non-adherent with oral psychotropic medications and presenting as disorganized and menacing in the community. Plan - Plan Treatment Plan: Name: BA JONES Birthdate: 1990 [id number] We have resumed decanoate Prolixin 50mg IM q2wks (next due 06/29/19) and lithium ER 1350mg PO qhs. Patient is not able to function in the community and [facility] reports that they cannot render appropriate services. He is facing eviction from [facility]. Will require State Hospitalization. Continued Medication Management: Continue Outpt Medication Medications: Current Medications Acetaminophen (Tylenol Tab*) 650 mg PO Q4H PRN PRN Reason: for pain; or Temp >101 F Al Hydrox/Mg Hydrox/Simethicone (Maalox Plus*) 30 ml PO Q4H PRN PRN Reason: INDIGESTION Chlorpromazine HCl (Thorazine Tab*) 100 mg PO Q6H PRN PRN Reason: AGITATION Cholecalciferol (Vitamin D Tab*) 1,000 units PO DAILY [facility] Last Admin: 06/20/19 13:41 Dose: Not Given Fluphenazine Decanoate (Prolixin Decanoate*) 50 mg IM Q14D [facility] Last Admin: 06/15/19 14:59 Dose: 50 mg [place] Carbonate ([place] Carbonate Er Tab*) 1,350 mg PO BEDTIME [facility] Last Admin: 06/19/19 19:46 Dose: 1,350 mg Miscellaneous (Ativan Pyxis Soto) 1 ea N/A .ATIVAN IV SOTO PRN PRN Reason: PYXIS SOTO Nicotine (Nicotine Patch 21 Mg/24 Hr*) 1 patch TRANSDERM DAILY@0900 [facility] Last Admin: 06/20/19 13:41 Dose: Not Given Nicotine Polacrilex (Nicotine Gum*) 2 mg PO Q2H PRN PRN Reason: CRAVINGS Last Admin: 06/20/19 09:28 Dose: 2 mg Pharmacy Profile Note (Nicotine Patch Removal Note*) 1 note PATCH OFF 2100 [facility] Last Admin: 06/19/19 19:48 Dose: Not Given Senna (Senokot 8.6 Mg Tab*) 1 tab PO DAILY PRN PRN Reason: CONSTIPATION
[2019-06-20] MEDS: Lithium Carbonate ER* 450 MG TAB.ER PO SCH (22:43)
[2019-06-20] MEDS: Nicotine Patch Removal NOTE PATCH OFF SCH (22:46)
[2019-06-21] MEDS: Cholecalciferol TAB* 1000 UNITS PO SCH (09:33)
[2019-06-21] MEDS: Nicotine* 2MG (FRUIT FLAVOR) GUM PO PRN ×2 (09:33→17:28)
[2019-06-21] MEDS: Nicotine PATCH 21 MG/24 HR* PATCH TRANSDERM SCH (09:34)
[2019-06-21] MEDS: Lithium Carbonate ER* 450 MG TAB.ER PO SCH (19:03)
[2019-06-21] MEDS: Nicotine Patch Removal NOTE PATCH OFF SCH (19:05)
[2019-06-22] MEDS: Nicotine PATCH 21 MG/24 HR* PATCH TRANSDERM SCH (10:11)
[2019-06-22] MEDS: Cholecalciferol TAB* 1000 UNITS PO SCH (10:11)
--- NOTE | 2019-06-22 19:05 | PN ---
Subjective - Subjective Date of Service: 06/22/19 Service Type: [id number] Hosp care 25 min moderate complexity Subjective: Ba appears calmer, less intrusive and easily redirectable. Says he was doing better and should be discharged which according to all report is not true. Objective - General Observations Appearance: Unkempt Appears Stated Age: Yes Stature: Overweight Posture: WNL Eye Contact: Intense Behavior/Activity: Stereotyped - Interaction Observations Attitude Towards Examiner: Evasive, Manipulative, Mistrustful Stated Mood: Dysphoric Affect: Blunted Speech Pattern/Tone: Clear Thought Process: Coherent, Circumstantial, [place] Perception: WNL Thought Content: Paranoid, Phobic Hallucination Type: Denies Delusion Type: Denies - Cognitive Function Orientation: A&O x 4 Level of Consciousness: Awake, Alert Cognition: WNL Estimated Intelligence: Borderline Range Insight: Mostly Blames Others for Problems Judgment Within Normal Limits: No Ability to Make Reasonable Decisions: Serverely Impaired - Medication Compliance Cooperative with Inpatient Medication Regimen: Yes - Group Participation Participates in Group Activities: No Assessment - Assessment Merits Inpatient Hospitalization: For Immediate Safety, For Stabilization, Pending Safe DC Plan Inpatient DSM-V Dx: F25.0 Clinical Impression: 29 y.o. single, AA male with a history of schizoaffective disorder, bipolar type brought in by law enforcement on a 9.60 legal status for violating the conditions of his AOT by being non-adherent with oral psychotropic medications and presenting as disorganized and menacing in the community. Plan - Plan Treatment Plan: Name: BA JONES Birthdate: 1990 [id number] We have resumed decanoate Prolixin 50mg IM q2wks (next due 06/29/19) and lithium ER 1350mg PO qhs. Patient is not able to function in the community and [facility] reports that they cannot render appropriate services. He is facing eviction from [facility]. Will require State Hospitalization. Continued Medication Management: Continue Outpt Medication Medications: Current Medications Acetaminophen (Tylenol Tab*) 650 mg PO Q4H PRN PRN Reason: for pain; or Temp >101 F Al Hydrox/Mg Hydrox/Simethicone (Maalox Plus*) 30 ml PO Q4H PRN PRN Reason: INDIGESTION Chlorpromazine HCl (Thorazine Tab*) 100 mg PO Q6H PRN PRN Reason: AGITATION Cholecalciferol (Vitamin D Tab*) 1,000 units PO DAILY [facility] Last Admin: 06/22/19 10:11 Dose: 1,000 units Fluphenazine Decanoate (Prolixin Decanoate*) 50 mg IM Q14D [facility] Last Admin: 06/15/19 14:59 Dose: [address] [place] Carbonate ([place] Carbonate Er Tab*) 1,350 mg PO BEDTIME [facility] Last Admin: 06/21/19 19:03 Dose: 1,350 mg Miscellaneous (Ativan Pyxis Soto) 1 ea N/A .ATIVAN IV SOTO PRN PRN Reason: PYXIS SOTO Nicotine (Nicotine Patch 21 Mg/24 Hr*) 1 patch TRANSDERM DAILY@0900 [facility] Last Admin: 06/22/19 10:11 Dose: Not Given Nicotine Polacrilex (Nicotine Gum*) 2 mg PO Q2H PRN PRN Reason: CRAVINGS Last Admin: 06/21/19 17:28 Dose: 2 mg Pharmacy Profile Note (Nicotine Patch Removal Note*) 1 note PATCH OFF 2100 [facility] Last Admin: 06/21/19 19:05 Dose: Not Given Senna (Senokot 8.6 Mg Tab*) 1 tab PO DAILY PRN PRN Reason: CONSTIPATION - Discharge Plan Discharge Plan: Consider Longer Term Tx
[2019-06-22] MEDS: Lithium Carbonate ER* 450 MG TAB.ER PO SCH (20:46)
[2019-06-22] MEDS: Nicotine* 2MG (FRUIT FLAVOR) GUM PO PRN (20:46)
[2019-06-22] MEDS: Nicotine Patch Removal NOTE PATCH OFF SCH (21:19)
[2019-06-23] MEDS: Nicotine PATCH 21 MG/24 HR* PATCH TRANSDERM SCH (08:30)
[2019-06-23] MEDS: Nicotine* 2MG (FRUIT FLAVOR) GUM PO PRN ×2 (08:31→19:43)
[2019-06-23] MEDS: Cholecalciferol TAB* 1000 UNITS PO SCH (08:31)
[2019-06-23] MEDS: Nicotine Patch Removal NOTE PATCH OFF SCH (19:26)
[2019-06-23] MEDS: Lithium Carbonate ER* 450 MG TAB.ER PO SCH (20:21)
[2019-06-24] MEDS: Nicotine* 2MG (FRUIT FLAVOR) GUM PO PRN ×2 (03:02→09:24)
[2019-06-24] MEDS: Cholecalciferol TAB* 1000 UNITS PO SCH (09:23)
[2019-06-24] MEDS: Nicotine PATCH 21 MG/24 HR* PATCH TRANSDERM SCH (09:36)
--- NOTE | 2019-06-24 14:36 | PN ---
Subjective - Subjective Date of Service: 06/24/19 Service Type: [id number] Hosp care 15 min low complexity Subjective: Ba remains hyperreligious and labile at times, particularly when speaking to his parents over the phone. He is yelling at them and making delusional statements about God and scientology. He seems unaware that he is being evicted from the [facility]. Objective - General Observations Appearance: Disheveled, Malodorous Appears Stated Age: Yes Stature: Overweight Posture: WNL Eye Contact: Average Behavior/Activity: Peculiar - Interaction Observations Attitude Towards Examiner: Confused Stated Mood: Irritable Affect: Flat Speech Pattern/Tone: Delayed Thought Process: Impoverished Thought Content: Paranoid Thought Process: Lethality: Paranoid Ideation Hallucination Type: Auditory Delusion Type: Persecution, Pentecostalism - Cognitive Function Orientation: A&O x 4 Level of Consciousness: Awake Cognition: WNL Estimated Intelligence: Normal Insight: Difficulty Acknowledging Presence of Psyciatric Problems Judgment Within Normal Limits: No Ability to Make Reasonable Decisions: Serverely Impaired - Medication Compliance Cooperative with Inpatient Medication Regimen: Yes - Group Participation Participates in Group Activities: Yes Assessment - Assessment Merits Inpatient Hospitalization: For Immediate Safety, For Stabilization Inpatient DSM-V Dx: F25.0 Clinical Impression: 29 y.o. single, AA male with a history of schizoaffective disorder, bipolar type brought in by law enforcement on a 9.60 legal status for violating the conditions of his AOT by being non-adherent with oral psychotropic medications and presenting as disorganized and menacing in the community. BSU: Problem List - Patient Problems (1) schizoaffective d/o, bipolar type, manic Current Visit: No Status: Acute Priority: High Plan - Plan Treatment Plan: Name: BA JONES Birthdate: 1990 [id number] We have resumed decanoate Prolixin 50mg IM q2wks (next due 06/29/19) and lithium ER 1350mg PO qhs. Patient is not able to function in the community and ACT reports that they cannot render appropriate services. He is facing eviction from [facility]. Will require State Hospitalization. Continued Medication Management: Continue Outpt Medication Medications: Current Medications Acetaminophen (Tylenol Tab*) 650 mg PO Q4H PRN PRN Reason: for pain; or Temp >101 F Al Hydrox/Mg Hydrox/Simethicone (Maalox Plus*) 30 ml PO Q4H PRN PRN Reason: INDIGESTION Chlorpromazine HCl (Thorazine Tab*) 100 mg PO Q6H PRN PRN Reason: AGITATION Cholecalciferol (Vitamin D Tab*) 1,000 units PO DAILY [facility] Last Admin: 06/24/19 09:23 Dose: 1,000 units Fluphenazine Decanoate (Prolixin Decanoate*) 50 mg IM Q14D [facility] Last Admin: 06/15/19 14:59 Dose: 50 mg [place] Carbonate ([place] Carbonate Er Tab*) 1,350 mg PO BEDTIME [facility] Last Admin: 06/23/19 20:21 Dose: 1,350 mg Miscellaneous (Ativan Pyxis Soto) 1 ea N/A .ATIVAN IV SOTO PRN PRN Reason: PYXIS SOTO Nicotine (Nicotine Patch 21 Mg/24 Hr*) 1 patch TRANSDERM DAILY@0900 [facility] Last Admin: 06/24/19 09:36 Dose: Not Given Nicotine Polacrilex (Nicotine Gum*) 2 mg PO Q2H PRN PRN Reason: CRAVINGS Last Admin: 06/24/19 09:24 Dose: 2 mg Pharmacy Profile Note (Nicotine Patch Removal Note*) 1 note PATCH OFF 2100 [facility] Last Admin: 06/23/19 19:26 Dose: Not Given Senna (Senokot 8.6 Mg Tab*) 1 tab PO DAILY PRN PRN Reason: CONSTIPATION - Discharge Plan Discharge Plan: Consider Longer Term Tx
[2019-06-24] MEDS: Lithium Carbonate ER* 450 MG TAB.ER PO SCH (21:16)
[2019-06-24] MEDS: Nicotine Patch Removal NOTE PATCH OFF SCH (21:17)
[2019-06-25] MEDS: Cholecalciferol TAB* 1000 UNITS PO SCH (08:24)
[2019-06-25] MEDS: Nicotine* 2MG (FRUIT FLAVOR) GUM PO PRN ×3 (08:25→22:06)
[2019-06-25] MEDS: Nicotine PATCH 21 MG/24 HR* PATCH TRANSDERM SCH (09:37)
[2019-06-25] MEDS: Lithium Carbonate ER* 450 MG TAB.ER PO SCH (22:04)
[2019-06-25] MEDS: Nicotine Patch Removal NOTE PATCH OFF SCH (22:06)
[2019-06-26] MEDS: Cholecalciferol TAB* 1000 UNITS PO SCH (11:28)
[2019-06-26] MEDS: Nicotine PATCH 21 MG/24 HR* PATCH TRANSDERM SCH (11:28)
[2019-06-26] MEDS: Nicotine* 2MG (FRUIT FLAVOR) GUM PO PRN ×2 (11:29→19:58)
[2019-06-26] MEDS: Lithium Carbonate ER* 450 MG TAB.ER PO SCH (19:57)
[2019-06-26] MEDS: Nicotine Patch Removal NOTE PATCH OFF SCH (20:26)
[2019-06-27] MEDS: Cholecalciferol TAB* 1000 UNITS PO SCH (08:24)
[2019-06-27] MEDS: Nicotine* 2MG (FRUIT FLAVOR) GUM PO PRN ×3 (08:24→21:10)
[2019-06-27] MEDS: Nicotine PATCH 21 MG/24 HR* PATCH TRANSDERM SCH (08:48)
--- NOTE | 2019-06-27 13:37 | PN ---
Subjective - Subjective Date of Service: 06/27/19 Service Type: [id number] Hosp care 15 min low complexity Subjective: Ba remains bizarre and hyperreligious, but not threatening. This clinician reviewed a copy of the preliminary eviction notice that was forwarded this morning from [place]. It very much reads as more of a warning than an actual eviction and mostly relates to multiple instances of smoking cigarettes in his room and in the hallways. He agrees to abide by the rules once discharged and the ACT team agrees to pick him up on (06/30) from the hospital. He denies SI or HI. Objective - General Observations Appearance: Unkempt Appears Stated Age: Yes Stature: Overweight Posture: WNL Eye Contact: Intense Behavior/Activity: Peculiar - Interaction Observations Attitude Towards Examiner: Cooperative Stated Mood: Euthymic Affect: Flat Speech Pattern/Tone: Delayed Thought Process: [place] Thought Content: Preoccupation/Ruminations, Paranoid Thought Process: Lethality: Paranoid Ideation Hallucination Type: None Delusion Type: Persecution, Hinduism - Cognitive Function Orientation: A&O x 4 Level of Consciousness: Awake, Lethargic Estimated Intelligence: Normal Insight: WNL Judgment Within Normal Limits: Yes - Medication Compliance Cooperative with Inpatient Medication Regimen: Yes - Group Participation Participates in Group Activities: Yes Assessment - Assessment Merits Inpatient Hospitalization: For Immediate Safety, For Stabilization Inpatient DSM-V Dx: F25.0 Clinical Impression: 29 y.o. single, AA male with a history of schizoaffective disorder, bipolar type brought in by law enforcement on a 9.60 legal status for violating the conditions of his AOT by being non-adherent with oral psychotropic medications and presenting as disorganized and menacing in the community. BSU: Problem List - Patient Problems (1) schizoaffective d/o, bipolar type, manic Current Visit: No Status: Acute Priority: High Plan - Plan Treatment Plan: Name: BA JONES Birthdate: 1990 [id number] We have resumed decanoate Prolixin 50mg IM q2wks (next due 06/29/19) and lithium ER 1350mg PO qhs. Patient is not facing eviction from [facility] but rather a warning with a list of corrective actions. We will hold off on State Hospitalization and instead optimize his lithium and give him another dose of Prolixin Dec. Will target discharge to the ACT team on June 30. Continued Medication Management: Continue Outpt Medication Medications: Current Medications Acetaminophen (Tylenol Tab*) 650 mg PO Q4H PRN PRN Reason: for pain; or Temp >101 F Al Hydrox/Mg Hydrox/Simethicone (Maalox Plus*) 30 ml PO Q4H PRN PRN Reason: INDIGESTION Chlorpromazine HCl (Thorazine Tab*) 100 mg PO Q6H PRN PRN Reason: AGITATION Cholecalciferol (Vitamin D Tab*) 1,000 units PO DAILY [facility] Last Admin: 06/27/19 08:24 Dose: 1,000 units Fluphenazine Decanoate (Prolixin Decanoate*) 50 mg IM Q14D [facility] Last Admin: 06/15/19 14:59 Dose: 50 mg Fluphenazine Decanoate (Prolixin Decanoate*) 50 mg IM Q14D [facility] [place] Carbonate ([place] Carbonate Er Tab*) 1,350 mg PO BEDTIME [facility] Last Admin: 06/26/19 19:57 Dose: 1,350 mg Miscellaneous (Ativan Pyxis Soto) 1 ea N/A .ATIVAN IV SOTO PRN PRN Reason: PYXIS SOTO Nicotine (Nicotine Patch 21 Mg/24 Hr*) 1 patch TRANSDERM DAILY@0900 [facility] Last Admin: 06/27/19 08:48 Dose: Not Given Nicotine Polacrilex (Nicotine Gum*) 2 mg PO Q2H PRN PRN Reason: CRAVINGS Last Admin: 06/27/19 12:40 Dose: 2 mg Pharmacy Profile Note (Nicotine Patch Removal Note*) 1 note PATCH OFF 2100 [facility] Last Admin: 06/26/19 20:26 Dose: Not Given Senna (Senokot 8.6 Mg Tab*) 1 tab PO DAILY PRN PRN Reason: CONSTIPATION - Discharge Plan Discharge Plan: Inpatient Hospitalization
--- NOTE | 2019-06-27 13:47 | PN ---
BSU: Group Therapy Note - Service Type Service Type: [id number] Group Psychotherapy - Cognitive Behavioral Group Therapy ( CBT):Patient was attentive and participatory in CBT programming this morning, and remained in good behavioral control. Patient expressed positive insights regarding relevant treatment interventions and goals.
[2019-06-27] MEDS: Nicotine Patch Removal NOTE PATCH OFF SCH (19:20)
[2019-06-27] MEDS: Lithium Carbonate ER* 450 MG TAB.ER PO SCH (21:08)
[2019-06-28 07:38] LABS: Lithium 0.79 mmol/L (0.6-1.2)
[2019-06-28] MEDS: Cholecalciferol TAB* 1000 UNITS PO SCH (10:53)
[2019-06-28] MEDS: Nicotine PATCH 21 MG/24 HR* PATCH TRANSDERM SCH (10:53)
[2019-06-28] MEDS: Nicotine Patch Removal NOTE PATCH OFF SCH (19:23)
[2019-06-28] MEDS: Lithium Carbonate ER* 450 MG TAB.ER PO SCH (20:13)
[2019-06-28] MEDS: Nicotine* 2MG (FRUIT FLAVOR) GUM PO PRN (20:14)
[2019-06-29] MEDS ORDERED: Fluphenazine Decanoate* 25 MG/ML 5 ML VIAL IM SCH (09:00)
[2019-06-29] MEDS: Cholecalciferol TAB* 1000 UNITS PO SCH (09:46)
[2019-06-29] MEDS: Nicotine PATCH 21 MG/24 HR* PATCH TRANSDERM SCH (09:46)
[2019-06-29 10:10] VITALS: BP 110/64
[2019-06-29] MEDS: Fluphenazine Decanoate* 25 MG/ML 5 ML VIAL IM SCH (13:15)
--- NOTE | 2019-06-29 16:32 | PN ---
Subjective - Subjective Date of Service: 06/29/19 Service Type: [id number] Hosp care 15 min low complexity Subjective: Ba's lithium level is therapeutic at 0.79 and he accepted his injection of fluphenazine decanoate this morning without incident. He continues to be hyperreligious with poor insight but is non-threatening and taking his medications as directed. He denies SI or HI. Objective - General Observations Appearance: Well Groomed Appears Stated Age: Yes Stature: Overweight Posture: WNL Eye Contact: Average Behavior/Activity: WNL - Interaction Observations Attitude Towards Examiner: Cooperative Stated Mood: Euthymic Affect: Flat Speech Pattern/Tone: Clear, Appropriate Thought Process: Coherent Perception: WNL Thought Content: WNL Hallucination Type: None Delusion Type: Worship - Cognitive Function Orientation: A&O x 4 Level of Consciousness: Awake Cognition: WNL Estimated Intelligence: Normal Insight: WNL Judgment Within Normal Limits: Yes - Medication Compliance Cooperative with Inpatient Medication Regimen: Yes - Group Participation Participates in Group Activities: Yes Assessment - Assessment Merits Inpatient Hospitalization: Consolidate Improvements, Pending Safe DC Plan Inpatient DSM-V Dx: F25.0 Clinical Impression: 29 y.o. single, AA male with a history of schizoaffective disorder, bipolar type brought in by law enforcement on a 9.60 legal status for violating the conditions of his AOT by being non-adherent with oral psychotropic medications and presenting as disorganized and menacing in the community. BSU: Problem List - Patient Problems (1) schizoaffective d/o, bipolar type, manic Current Visit: No Status: Acute Priority: High Plan - Plan Treatment Plan: Name: BA JONES Birthdate: 1990 [id number] We have resumed decanoate Prolixin 50mg IM q2wks (next due 07/13/19) and lithium ER 1350mg PO qhs. Patient is not facing eviction from [facility] but rather a warning with a list of corrective actions. Will target discharge to the ACT team tomorrow, , June 30. Continued Medication Management: Continue Outpt Medication Medications: Current Medications Acetaminophen (Tylenol Tab*) 650 mg PO Q4H PRN PRN Reason: for pain; or Temp >101 F Last Admin: 06/27/19 21:09 Dose: 650 mg Al Hydrox/Mg Hydrox/Simethicone (Maalox Plus*) 30 ml PO Q4H PRN PRN Reason: INDIGESTION Chlorpromazine HCl (Thorazine Tab*) 100 mg PO Q6H PRN PRN Reason: AGITATION Cholecalciferol (Vitamin D Tab*) 1,000 units PO DAILY [facility] Last Admin: 06/29/19 09:46 Dose: Not Given Fluphenazine Decanoate (Prolixin Decanoate*) 50 mg IM Q14D [facility] Last Admin: 06/29/19 13:15 Dose: 50 mg [place] Carbonate ([place] Carbonate Er Tab*) 1,350 mg PO BEDTIME [facility] Last Admin: 06/28/19 20:13 Dose: 1,350 mg Miscellaneous (Ativan Pyxis Soto) 1 ea N/A .ATIVAN IV SOTO PRN PRN Reason: PYXIS SOTO Nicotine (Nicotine Patch 21 Mg/24 Hr*) 1 patch TRANSDERM DAILY@0900 [facility] Last Admin: 06/29/19 09:46 Dose: Not Given Nicotine Polacrilex (Nicotine Gum*) 2 mg PO Q2H PRN PRN Reason: CRAVINGS Last Admin: 06/28/19 20:14 Dose: 2 mg Pharmacy Profile Note (Nicotine Patch Removal Note*) 1 note PATCH OFF 2100 [facility] Last Admin: 06/28/19 19:23 Dose: Not Given Senna (Senokot 8.6 Mg Tab*) 1 tab PO DAILY PRN PRN Reason: CONSTIPATION - Discharge Plan Discharge Plan: Outpatient Follow Up Outpatient Program: ACT team Lab Results - Lab Results Lab Results: 06/28/19 06/28/19 06:46 06:46 Hemoglobin A1c 5.5 Triglycerides 164 Cholesterol 199 LDL Cholesterol 118 HDL Cholesterol 48.0 [place] 0.79
[2019-06-29] MEDS: Nicotine Patch Removal NOTE PATCH OFF SCH (19:19)
[2019-06-29] MEDS: Lithium Carbonate ER* 450 MG TAB.ER PO SCH (20:35)
[2019-06-29] MEDS: Nicotine* 2MG (FRUIT FLAVOR) GUM PO PRN (20:38)
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
== END 2019-06-30 10:19 | disposition home or self-care (01) | DRG 885 ==
LOC: ED 18:26 → BSU 06-15 11:10
PROVIDERS: ADMIT Psychiatry & Neurology Psychiatry; ATTEND Psychiatry & Neurology Psychiatry
PROC: GZHZZZZ Group Psychotherapy (ICD-10-PCS; principal; 2019-06-27)
DX: F25.0 Schizoaffective disorder, bipolar type (principal); F12.90 Cannabis use, unspecified, uncomplicated; F14.90 Cocaine use, unspecified, uncomplicated; F17.210 Nicotine dependence, cigarettes, uncomplicated; F41.9 Anxiety disorder, unspecified; Z72.89 Other problems related to lifestyle; Z79.899 Other long term (current) drug therapy; Z91.19 Patient's noncompliance with other medical treatment and regimen; Z28.21 Immunization not carried out because of patient refusal
CPT/HCPCS: 36415; 80053; 80061; 80178; 80307; 80320; 80329; 81003; 81015; 83036; 84443; 85025; 87086; 87491; 87591; 90853; 99222; 99231; 99232; 99238; 99284; A9270-GY; G0480; J1200; J1630; J2060; J2680

== ENCOUNTER 2019-07-07 19:07 | Emergency (ER) | payer MEDICARE, MEDICAID ==
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
[2019-07-07 19:41] LABS: ABS Basophils 0.1 10^3/ul (0-0.2); ABS Eosinophils 0.4 10^3/ul (0-0.6); ABS Lymphocytes 2.2 10^3/ul (1.0-4.8); ABS Monocytes 0.9 10^3/ul (0-0.8); ABS Neutrophils 5.3 10^3/ul (1.5-7.7); Eosinophil % 4.2 %; Hematocrit 41 % (42-52); Hemoglobin 14.1 g/dL (14.0-18.0); Lymphocyte % 25.4 %; Mean Corpuscular HGB Conc 35 g/dL (31-36); Mean Corpuscular Hemoglobin 32 pg (27-31); Mean Corpuscular Volume 92 fL (80-94); Mean Platelet Volume 7.3 fL (7.4-10.4); Platelet Count 309 10^3/uL (150-450); Red Blood Count 4.39 10^6 /uL (4.18-5.48); Red Cell Distribution Width 14 % (10-15); White Blood Count 8.8 10^3/uL (3.5-10.8)
[2019-07-07 19:59] LABS: ALT 30 U/L (7-52); AST 19 U/L (13-39); Albumin 4.2 g/dL (3.2-5.2); Albumin/Globulin Ratio 2.1 (1-3); Alkaline Phosphatase 64 U/L (34-104); Anion Gap 7 mmol/L (2-11); BUN/Creatinine Ratio 16.5 (8-20); Blood Urea Nitrogen 15 mg/dL (6-24); CO2 Carbon Dioxide 27 mmol/L (22-32); Chloride 104 mmol/L (101-111); EGFR African American 120.9 (>60); EGFR Non-African American 99.9 (>60); Glucose 108 mg/dL (70-100); Potassium 3.9 mmol/L (3.5-5.0); Sodium 138 mmol/L (135-145); Total Protein 6.2 g/dL (6.4-8.9)
[2019-07-07 20:07] LABS: Urine Appearance Clear; Urine Bilirubin Negative (Negative); Urine Blood Negative (Negative); Urine Color Yellow; Urine Glucose Negative (Negative); Urine Ketones Negative (Negative); Urine Nitrite Negative (Negative); Urine Protein Negative (Negative); Urine Specific Gravity 1.019 (1.010-1.030); Urine Urobilinogen Negative (Negative)
[2019-07-07 20:38] LABS: Acetaminophen < 15 mcg/mL; Alcohol < 10 mg/dL (<10); Lithium 0.59 mmol/L (0.6-1.2); Salicylate < 2.50 mg/dL (<30)
[2019-07-07 20:48] LABS: TSH (Thyroid Stimulating Horm) 0.76 mcIU/mL (0.34-5.60)
[2019-07-07 20:53] LABS: Urine Benzodiazepine Screen None Detected (None Detect); Urine Opiates Screen None Detected (None Detect)
--- NOTE | 2019-07-08 07:14 | ED ---
Progress - Progress Note Progress Note: Pt is a signout from Dr. Newsome at 0700 on 07/08/2019 pending MH transfer. Re-Evaluation - Re-Evaluation 1st re-eval Re-Evaluation Time: 11:16 Change: Improved Comment: As per Dr. Duque, pt will be sent home with dx of substance induced mood disorder. Course/Dx - Diagnoses Provider Diagnoses: Substance induced mood disorder Discharge ED - Sign-Out/Discharge Documenting (check all that apply): Patient Departure, Receiving Sign-Out Receiving patient FROM: Dedrick Newsome - Discharge Plan Condition: Stable Disposition: HOME Referrals: [facility] [Outside] - Billing Disposition and Condition Condition: STABLE Disposition: Home - Attestation Statements Document Initiated by Scribe: Yes Documenting Scribe: Myrna Perez Provider For Whom Miguel is Documenting (Include Credential): Caro York MD. Scribe Attestation: Myrna Wallace, homeibed for Caro York MD. on 07/08/19 at 1123. Scribe Documentation Reviewed: Yes Provider Attestation: The documentation as recorded by the homeibeMyrna accurately reflects the service I personally performed and the decisions made by , Caro York MD. Status of Scribe Document: Viewed
[2019-07-08] MEDS ORDERED: Nicotine* 4MG (FRUIT FLAVOR) GUM PO PRN (11:25)
[2019-07-08 12:02] VITALS: BP 0/0
== END 2019-07-08 11:55 | disposition home or self-care (01) ==
LOC: ED 19:07
DX: F19.94 Other psychoactive substance use, unspecified with psychoactive substance-induced mood disorder (principal); R44.3 Hallucinations, unspecified; F41.9 Anxiety disorder, unspecified; F17.210 Nicotine dependence, cigarettes, uncomplicated; F43.10 Post-traumatic stress disorder, unspecified; F31.9 Bipolar disorder, unspecified; R51 Headache
CPT/HCPCS: 36415; 80053; 80178; 80307; 80320; 80329; 81003; 84443; 85025; 93005; 99283; A9270-GY; G0480

== ENCOUNTER 2019-08-03 12:22 | Inpatient (IN) | payer MEDICARE, MEDICAID ==
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
[2019-08-03 12:51] LABS: ABS Basophils 0.1 10^3/ul (0-0.2); ABS Eosinophils 0.3 10^3/ul (0-0.6); ABS Lymphocytes 1.7 10^3/ul (1.0-4.8); ABS Monocytes 0.6 10^3/ul (0-0.8); ABS Neutrophils 4.7 10^3/ul (1.5-7.7); Eosinophil % 4.4 %; Hematocrit 45 % (42-52); Hemoglobin 15.4 g/dL (14.0-18.0); Lymphocyte % 23.4 %; Mean Corpuscular HGB Conc 34 g/dL (31-36); Mean Corpuscular Hemoglobin 32 pg (27-31); Mean Corpuscular Volume 92 fL (80-94); Nucleated Red Blood Cells % 0.1; Platelet Count 291 10^3/uL (150-450); Red Blood Count 4.84 10^6 /uL (4.18-5.48); Red Cell Distribution Width 14 % (10-15); White Blood Count 7.4 10^3/uL (3.5-10.8)
[2019-08-03 13:16] LABS: ALT 25 U/L (7-52); AST 18 U/L (13-39); Albumin 4.3 g/dL (3.2-5.2); Alkaline Phosphatase 57 U/L (34-104); Anion Gap 7 mmol/L (2-11); BUN/Creatinine Ratio 12.4 (8-20); Blood Urea Nitrogen 11 mg/dL (6-24); CO2 Carbon Dioxide 23 mmol/L (22-32); Calcium 8.8 mg/dL (8.6-10.3); Chloride 108 mmol/L (101-111); EGFR African American 124.1 (>60); EGFR Non-African American 102.5 (>60); Globulin 2.1 g/dL (2-4); Glucose 99 mg/dL (70-100); Potassium 3.9 mmol/L (3.5-5.0); Sodium 138 mmol/L (135-145); Total Protein 6.4 g/dL (6.4-8.9)
[2019-08-03 13:43] LABS: Acetaminophen < 15 mcg/mL; Alcohol < 10 mg/dL (<10); Salicylate < 2.50 mg/dL (<30)
[2019-08-03] MEDS ORDERED: LORazepam INJ* 2 MG/ML 1 ML VIAL ONE ×2 (13:52→13:55)
[2019-08-03] MEDS ORDERED: diPHENhydraMINE IV* 50 MG/ML 1 ml VIAL (BENADRYL) ONE (13:55)
[2019-08-03] MEDS ORDERED: Haloperidol INJ IV/IM* 5 MG/ML AMP ONE (13:55)
[2019-08-03] MEDS ORDERED: Haloperidol INJ IV/IM* 5 MG/ML AMP IM ONE (13:56)
[2019-08-03] MEDS ORDERED: LORazepam INJ* 2 MG/ML 1 ML VIAL IM ONE (13:56)
[2019-08-03] MEDS ORDERED: diPHENhydraMINE IV* 50 MG/ML 1 ml VIAL (BENADRYL) IM ONE (13:56)
[2019-08-03] MEDS ORDERED: Lorazepam PYXIS KEY PRN (13:56)
[2019-08-03 14:31] LABS: Urine Appearance Clear; Urine Bilirubin Negative (Negative); Urine Blood Negative (Negative); Urine Color Yellow; Urine Glucose Negative (Negative); Urine Ketones Negative (Negative); Urine Nitrite Negative (Negative); Urine Protein Negative (Negative); Urine Specific Gravity 1.009 (1.010-1.030); Urine Urobilinogen Negative (Negative)
[2019-08-03 14:47] LABS: Urine Benzodiazepine Screen None Detected (None Detect); Urine Opiates Screen None Detected (None Detect)
[2019-08-03] MEDS ORDERED: Al Hydrox/Mg Hydrox/Simet LIQ* 30 ML UDC PO PRN (16:26)
[2019-08-03] MEDS ORDERED: Acetaminophen TAB* 325 MG PO PRN (16:26)
[2019-08-03] MEDS ORDERED: NS 0.9% 1000 ML** 1,000 ML IV.FLUID IV ONE (16:27)
[2019-08-03] MEDS ORDERED: Haloperidol TAB* 5 MG PO PRN (16:35)
--- OUTSIDE RECORDS SUMMARY | 2019-08-03 18:09 | XMS REPORT | Summary of Care ---
:1990 Demographics Phone Unavailable Preferred Language Unknown Marital Status Unknown Catholic Affiliation Unknown Race Unknown Ethnic Group Unknown Author Organization [facility] Address [address] [place] [address] Care Team Providers Name Role Phone Unavailable Primary Care Provider Unavailable Encounter Details Date Type Department Care Team Description 07/08/2019 Hospital Encounter [facility] [address] [place] [address] Allergies Not on Filedocumented as of this encounter (statuses as of 07/23/2019) Medications Not on filedocumented as of this encounter (statuses as of 07/23/2019) Active Problems Not on filedocumented as of this encounter (statuses as of 07/23/2019) Social History Tobacco Use Types Packs/Day Years Used Date Never Assessed Sex Assigned at Date Recorded Not on file Job Start Date Occupation Industry Not on file Not on file Not on file Travel History Travel Start Travel End No recent travel history available. documented as of this encounter Last Filed Vital Signs Not on filedocumented in this encounter Plan of Treatment Health Maintenance Due Date Last Done Comments MMR Vaccines (1 of 1 - Standard 1993 series) Varicella Vaccines (1 of 2 - 1993 2-dose childhood series) DTaP,Tdap,and Td Vaccines (1 - 1999 Tdap) HIV Screening 2005 Influenza Vaccine 03/29/2019 Pneumococcal Vaccine: 65+ Years (1 2057 of 2 - PCV13) HIB Vaccines Aged Out No longer eligible based on patient's age to complete this topic Hepatitis A Vaccines Aged Out No longer eligible based on patient's age to complete this topic Hepatitis B Vaccines Aged Out No longer eligible based on patient's age to complete this topic IPV Vaccines Aged Out No longer eligible based on patient's age to complete this topic Pneumococcal Vaccine: Pediatrics Aged Out No longer eligible based on (0 to 5 Years) and At-Risk patient's age to complete this Patients (6 to 64 Years) topic documented as of this encounter Results Not on filedocumented in this encounter
[2019-08-03] MEDS ORDERED: Fluphenazine Decanoate* 25 MG/ML 5 ML VIAL IM SCH (18:30)
[2019-08-03] MEDS: LORazepam TAB(*) 1 MG PO PRN (19:08)
[2019-08-03] MEDS: Lithium Carbonate TAB* 300 MG PO SCH (20:32)
[2019-08-03] MEDS: Nicotine* 2MG (FRUIT FLAVOR) GUM PO PRN (20:32)
[2019-08-04] MEDS: Lithium Carbonate TAB* 300 MG PO SCH ×2 (11:01→22:14)
[2019-08-04] MEDS: Nicotine* 2MG (FRUIT FLAVOR) GUM PO PRN ×3 (12:53→22:46)
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
[2019-08-04] MEDS: Naproxen TAB* 375 MG PO SCH ×3 (14:16→22:07)
[2019-08-04] MEDS: LORazepam TAB(*) 1 MG PO PRN ×2 (15:40→22:08)
[2019-08-04] MEDS: diPHENhydraMINE PO* 50 MG PO PRN ×2 (15:42→22:08)
[2019-08-05] MEDS: Nicotine* 2MG (FRUIT FLAVOR) GUM PO PRN ×2 (06:30→09:32)
[2019-08-05] MEDS: diPHENhydraMINE PO* 50 MG PO PRN (09:31)
[2019-08-05] MEDS: Lithium Carbonate TAB* 300 MG PO SCH ×2 (09:54→21:52)
[2019-08-05] MEDS: Nicotine* 4MG (FRUIT FLAVOR) GUM PO PRN ×2 (12:19→13:22)
[2019-08-05] MEDS: Naproxen TAB* 375 MG PO SCH ×2 (12:28→21:52)
--- NOTE | 2019-08-05 12:51 | PN ---
Subjective - Subjective Date of Service: 08/05/19 Service Type: 24463 Hosp care 15 min low complexity Subjective: Ba is found in the day area, where he is covered in blankets and lying down on a couch. He continues to c/o nausea and vomiting, which he still attributes to his psychiatric medicines, despite being off them for close to 10 days. Ba denies having a psychotic disorder and states that he can control his symptoms "with my mind." He acknowledges having been threatening in the community, but "only to the people that piss me off." He is mostly isolative and somatic on the unit. He currently denies SI or HI. Objective - General Observations Appearance: Disheveled Appears Stated Age: Yes Stature: Overweight Posture: Slumped Eye Contact: Intense Behavior/Activity: Peculiar - Interaction Observations Attitude Towards Examiner: Cooperative Stated Mood: Dysphoric Affect: Flat Speech Pattern/Tone: Clear Thought Process: [place] Thought Content: Paranoid, Grandiose Thought Process: Lethality: Paranoid Ideation Hallucination Type: Auditory Delusion Type: Persecution, Anglican - Cognitive Function Orientation: A&O x 4 Level of Consciousness: Awake Cognition: WNL Estimated Intelligence: Normal Insight: Difficulty Acknowledging Presence of Psyciatric Problems Judgment Within Normal Limits: No Ability to Make Reasonable Decisions: Serverely Impaired - Medication Compliance Cooperative with Inpatient Medication Regimen: No - Group Participation Participates in Group Activities: No Assessment - Assessment Merits Inpatient Hospitalization: For Immediate Safety, For Stabilization Inpatient DSM-V Dx: F25.0 Clinical Impression: 29 y.o. single, AA male with a history of schizoaffective disorder, bipolar type and polydrug abuse who arrives at the hospital on an involuntary 9.45 status from [facility] where he has been acting in a threatening, agitated , paranoid and delusional fashion in the setting of nonadherence to medications. [facility]: Problem List - Patient Problems (1) schizoaffective d/o, bipolar type, manic Current Visit: No Status: Acute Priority: High Plan - Plan Treatment Plan: Name: BA JONES Birthdate: 1990 [id number] Will continue fluphenazine decanoate 50mg IM q2wks and lithium ER 1350mg PO qhs. Consider T.O.O. if adherence does not improve. Will consult Hospitalist service for abdominal pain. Continued Medication Management: Continue Outpt Medication Medications: Current Medications Acetaminophen (Tylenol Tab*) 650 mg PO Q4H PRN PRN Reason: for pain; or Temp >101 F Al Hydrox/Mg Hydrox/Simethicone (Maalox Plus*) 30 ml PO Q4H PRN PRN Reason: INDIGESTION Diphenhydramine HCl (Benadryl Po*) 50 mg PO Q6H PRN PRN Reason: AGITATION Last Admin: 08/05/19 09:31 Dose: 50 mg Fluphenazine Decanoate (Prolixin Decanoate*) 50 mg IM Q14D [facility] Last Admin: 08/03/19 19:36 Dose: Not Given Haloperidol (Haldol Tab*) 5 mg PO Q6H PRN PRN Reason: AGITATION [place] Carbonate ([place] Carbonate Tab*) 600 mg PO BID [facility] Last Admin: 08/05/19 09:54 Dose: Not Given Lorazepam (Ativan Tab(*)) 2 mg PO Q6H PRN PRN Reason: ANXIETY Last Admin: 08/04/19 22:08 Dose: 2 mg Miscellaneous (Ativan Pyxis Soto) 1 ea N/A .ATIVAN IV SOTO PRN PRN Reason: PYXIS SOTO Naproxen (Naprosyn Tab*) 375 mg PO BID [facility] Last Admin: 08/05/19 12:28 Dose: Not Given Nicotine Polacrilex (Nicotine Gum*) 4 mg PO Q2H PRN PRN Reason: NICOTINE CRAVINGS Last Admin: 08/05/19 12:19 Dose: 4 mg Ondansetron HCl (Zofran Tab*) 4 mg PO Q6H PRN PRN Reason: CONSTIPATION - Discharge Plan Discharge Plan: Inpatient Hospitalization Lab Results - Lab Results Lab Results: 08/03/19 08/03/19 08/03/19 12:39 12:39 13:50 WBC 7.4 RBC 4.84 Hgb 15.4 Hct 45 MCV 92 MCH 32 H MCHC 34 RDW 14 Plt Count 291 MPV 8.0 Neut % (Auto) 62.9 Lymph % (Auto) 23.4 Giles % (Auto) 8.4 Eos % (Auto) 4.4 Baso % (Auto) 0.9 Absolute Neuts (auto) 4.7 Absolute Lymphs (auto) 1.7 Absolute Monos (auto) 0.6 Absolute Eos (auto) 0.3 Absolute Basos (auto) 0.1 Absolute Nucleated RBC 0.0 Nucleated RBC % 0.1 Sodium 138 Potassium 3.9 Chloride 108 Carbon Dioxide 23 Anion Gap 7 BUN 11 Creatinine 0.89 Est GFR ( Amer) 124.1 Est GFR (Non-Af Amer) 102.5 BUN/Creatinine Ratio 12.4 Glucose 99 Calcium 8.8 Total Bilirubin 0.30 AST 18 ALT 25 Alkaline Phosphatase 57 Total Protein 6.4 Albumin 4.3 Globulin 2.1 Albumin/Globulin Ratio 2.0 Urine Color Yellow Urine Appearance Clear Urine pH 7.0 Ur Specific [place] 1.009 L Urine Protein Negative Urine Ketones Negative Urine Blood Negative Urine Nitrate Negative Urine Bilirubin Negative Urine Urobilinogen Negative Ur Leukocyte Esterase Negative Urine Glucose Negative Salicylates < 2.50 Urine Opiates Screen Acetaminophen < 15 Ur Barbiturates Screen Ur Phencyclidine Scrn Ur Amphetamines Screen U Benzodiazepines Scrn [place] Urine Cocaine Screen U Cannabinoids Screen Serum Alcohol < 10 08/03/19 08/04/19 13:50 16:55 WBC RBC Hgb Hct MCV MCH MCHC RDW Plt Count MPV Neut % (Auto) Lymph % (Auto) Giles % (Auto) Eos % (Auto) Baso % (Auto) Absolute Neuts (auto) Absolute Lymphs (auto) Absolute Monos (auto) Absolute Eos (auto) Absolute Basos (auto) Absolute Nucleated RBC Nucleated RBC % Sodium Potassium Chloride Carbon Dioxide Anion Gap BUN Creatinine Est GFR ( Amer) Est GFR (Non-Af Amer) BUN/Creatinine Ratio Glucose Calcium Total Bilirubin AST ALT Alkaline Phosphatase Total Protein Albumin Globulin Albumin/Globulin Ratio Urine Color Urine Appearance Urine pH Ur Specific [place] Urine Protein Urine Ketones Urine Blood Urine Nitrate Urine Bilirubin Urine Urobilinogen Ur Leukocyte Esterase Urine Glucose Salicylates Urine Opiates Screen None detected Acetaminophen Ur Barbiturates Screen None detected Ur Phencyclidine Scrn None detected Ur Amphetamines Screen None detected U Benzodiazepines Scrn None detected [place] < 0.10 L Urine Cocaine Screen None detected U Cannabinoids Screen Presumptive positive A Serum Alcohol
--- NOTE | 2019-08-05 13:16 | CONSULT ---
Subjective Date of Service: 08/05/19 Interval History: Mr. Sutherland is a 29 yo male, seen today with concern for intractable nausea and vomiting. Mr. Sutherland provides most of the history to the best of his ability, with additional help from the nursing staff. Onset of symptoms: "Six years ago" - I vomit all the time because of "the abominations." Duration: "All the time" and states the only time he does not vomit is when he smokes marijuana. Characteristics: Feels hungry and thirsty, has normal appetite - tries to eat but then vomits it back up. Has had significant retching following food today and has a bucket of mostly clear bile and some blue liquid. He denies blood in emesis but states he'll notice a small spot every once in awhile with repeated retching. Aggravating factors: Medication. Refers to the "abominations" but cannot elaborate on this Alleviating factors: states marijuana is the only thing that makes this better. Denies any relief from Zofran Associated symptoms: denies fever/chills, CP, SOB. Has some stomach discomfort from retching, states he has had diarrhea for weeks. Does not recall the last time he had a formed bowel movement. Denies blood in the stool. Other pertinent history: has had cholecystectomy. States he had an appointment to see GI on the but missed it. Is unsure if it was the 22 of July or July. Patient is very fixated on getting marijuana or medicinal cannabis while here at [facility]. Family History: Unchanged from Admission Social History: Unchanged from Admission Past Medical History: Unchanged from Admission Review of Systems - Measurements Intake and Output: Intake and Output Last 24 Hours 08/03/19 08/04/19 08/05/19 08/06/19 06:59 06:59 06:59 06:59 Intake Total 1000 Balance 1000 Weight 260 lb 260 lb Intake: IV Fluids 1000 - Review of Systems Constitutional Symptoms: Positive: Fatigue Negative: Weight Gain, Weight Loss Dermatology: Positive: Normal HEENT: Positive: Normal Eyes: Positive: Normal Thyroid: Positive: Normal Pulmonary: Positive: Normal Negative: Wheezing, Respiratory Distress, Shortness of Breath Cardiology: Positive: Normal Negative: Chest Pain, Shortness of Breath, Palpitations Gastroenterology: Positive: Abdominal Pain, Nausea, Vomiting, Diarrhea Negative: Blood in Stools, Haematemesis, Melena Genital - Urinary: Positive: Normal Neurology: Negative: Headache, Dizziness Objective Active Medications: Acetaminophen (Tylenol Tab*) 650 mg PO Q4H PRN PRN Reason: for pain; or Temp >101 F Al Hydrox/Mg Hydrox/Simethicone (Maalox Plus*) 30 ml PO Q4H PRN PRN Reason: INDIGESTION Diphenhydramine HCl (Benadryl Po*) 50 mg PO Q6H PRN PRN Reason: AGITATION Last Admin: 08/05/19 09:31 Dose: 50 mg Fluphenazine Decanoate (Prolixin Decanoate*) 50 mg IM Q14D [facility] Last Admin: 08/03/19 19:36 Dose: Not Given Haloperidol (Haldol Tab*) 5 mg PO Q6H PRN PRN Reason: AGITATION [place] Carbonate ([place] Carbonate Tab*) 600 mg PO BID [facility] Last Admin: 08/05/19 09:54 Dose: Not Given Lorazepam (Ativan Tab(*)) 2 mg PO Q6H PRN PRN Reason: ANXIETY Last Admin: 08/04/19 22:08 Dose: 2 mg Miscellaneous (Ativan Pyxis Soto) 1 ea N/A .ATIVAN IV SOTO PRN PRN Reason: PYXIS SOTO Naproxen (Naprosyn Tab*) 375 mg PO BID [facility] Last Admin: 08/05/19 12:28 Dose: Not Given Nicotine Polacrilex (Nicotine Gum*) 4 mg PO Q2H PRN PRN Reason: NICOTINE CRAVINGS Last Admin: 08/05/19 12:19 Dose: 4 mg Ondansetron HCl (Zofran Tab*) 4 mg PO Q6H PRN PRN Reason: CONSTIPATION Vital Signs - 8 hr 08/05/19 08/05/19 08/05/19 08:00 09:31 12:28 Temperature 98 F Pulse Rate 104 Respiratory 14 14 14 Rate Blood Pressure 126/70 (mmHg) O2 Sat by Pulse 99 Oximetry Oxygen Devices in Use Now: None Appearance: 29 yo AA male, alert, interactive, makes good eye contact, cooperative Eyes: No Scleral Icterus, PERRLA Ears/Nose/Mouth/Throat: Clear Oropharnyx, Mucous Membranes Moist Neck: NL Appearance and Movements; NL JVP Respiratory: Symmetrical Chest Expansion and Respiratory Effort, Clear to Auscultation Cardiovascular: NL Sounds; No Murmurs; No JVD, RRR, No Edema Abdominal: No Hepatosplenomegaly, - - + BS x 4 quadrants, no bruits heard, no masses felt. Tenderness to epigastrum and diffusely across the mid abdomen with palpation. Extremities: No Clubbing, Cyanosis Skin: No Rash or Ulcers Neurological: NL Gait, NL Muscle Strength and Tone Result Diagrams: 08/03/19 12:39 08/03/19 12:39 Assessment/Plan - Billing Plan By Medical Problem: 1. Abdominal pain with intractable nausea and vomiting - unclear etiology, differential diagnosis is vast. Ultimately, he should follow up with gastroenterology as an outpatient as previously scheduled, as he endorses chronic symptoms of nausea and vomiting for several years. In review of his medical records, it appears he has a history of alcohol and marijuana use with concerns of excessive use. This would certainly predispose him to gastritis, cyclic vomiting syndrome, and cannabinoid hyperemesis (from marijuana use), and other GI pathology. He has been here for close to 48 hours, which makes hyperemesis lower in the differential; however, he endorses high amounts of marijuana use. Additionally, he reports inconsistently taking his behavioral health medications , which also predisposes him to withdrawal symptoms, due to his inconsistent dosing. With vomiting and discomfort immediately after eating, gastroparesis could also be in the differential. He has had little relief from Zofran; previous labs and CT abdomen (without contrast) are unremarkable. Recommend rechecking labs, including amylase/lipase , A1c, TSH along with CBC and CMP. Check gastric emptying studies. Continue antiemetics - can trial compazine; once gastric emptying study completed, metoclopramide would be a good medication to try as well. Thank you for this consult. We will follow up on results. Attending: Yamila Spicer
[2019-08-05 14:55] LABS: ABS Basophils 0.1 10^3/ul (0-0.2); ABS Eosinophils 0.2 10^3/ul (0-0.6); ABS Lymphocytes 1.7 10^3/ul (1.0-4.8); ABS Monocytes 0.6 10^3/ul (0-0.8); ABS Neutrophils 3.8 10^3/ul (1.5-7.7); Eosinophil % 2.5 %; Hematocrit 44 % (42-52); Hemoglobin 15.4 g/dL (14.0-18.0); Lymphocyte % 27.1 %; Mean Corpuscular HGB Conc 35 g/dL (31-36); Mean Corpuscular Hemoglobin 32 pg (27-31); Mean Corpuscular Volume 91 fL (80-94); Mean Platelet Volume 7.7 fL (7.4-10.4); Nucleated Red Blood Cells % 0.1; Platelet Count 270 10^3/uL (150-450); Red Blood Count 4.85 10^6 /uL (4.18-5.48); Red Cell Distribution Width 14 % (10-15); White Blood Count 6.4 10^3/uL (3.5-10.8)
[2019-08-05 15:23] LABS: Albumin 4.8 g/dL (3.2-5.2); BUN/Creatinine Ratio 12.5 (8-20); Calcium 9.2 mg/dL (8.6-10.3); EGFR African American 113.7 (>60); Potassium 3.8 mmol/L (3.5-5.0); Total Bilirubin 0.4 mg/dL (0.2-1.0)
[2019-08-05 15:37] LABS: TSH (Thyroid Stimulating Horm) 0.93 mcIU/mL (0.34-5.60)
[2019-08-05] MEDS ORDERED: Metoclopramide TAB* 10 MG PO ONE (16:00)
[2019-08-05 16:17] LABS: Albumin/Globulin Ratio 2.2 (1-3); Globulin 2.2 g/dL (2-4)
[2019-08-06 06:59] LABS: HDL Cholesterol 52.5 mg/dL
[2019-08-06] MEDS: diPHENhydraMINE PO* 50 MG PO PRN (07:43)
[2019-08-06] MEDS: Ondansetron TAB* 4 MG PO PRN ×3 (07:44→17:12)
[2019-08-06] MEDS: Naproxen TAB* 375 MG PO SCH ×2 (07:44→22:13)
[2019-08-06] MEDS: LORazepam TAB(*) 1 MG PO PRN (07:44)
[2019-08-06] MEDS: Lithium Carbonate TAB* 300 MG PO SCH ×2 (07:45→22:13)
--- NOTE | 2019-08-06 12:18 | PN ---
Subjective Date of Service: 08/06/19 Interval History: Patient has been asleep much of the day today per nursing. Regjyoti helped yesterday evening. He ate dinner without nausea or vomiting. Tells me he has nausea and diffuse abd pain now, abd pain he tells me is chronic. No vomiting thus far today. Family History: Unchanged from Admission Social History: Unchanged from Admission Past Medical History: Unchanged from Admission Objective Active Medications: Acetaminophen (Tylenol Tab*) 650 mg PO Q4H PRN PRN Reason: for pain; or Temp >101 F Al Hydrox/Mg Hydrox/Simethicone (Maalox Plus*) 30 ml PO Q4H PRN PRN Reason: INDIGESTION Diphenhydramine HCl (Benadryl Po*) 50 mg PO Q6H PRN PRN Reason: AGITATION Last Admin: 08/06/19 07:43 Dose: 50 mg Fluphenazine Decanoate (Prolixin Decanoate*) 50 mg IM Q14D [facility] Last Admin: 08/03/19 19:36 Dose: Not Given Haloperidol (Haldol Tab*) 5 mg PO Q6H PRN PRN Reason: AGITATION [place] Carbonate ([place] Carbonate Tab*) 600 mg PO BID [facility] Last Admin: 08/06/19 07:45 Dose: Not Given Lorazepam (Ativan Tab(*)) 2 mg PO Q6H PRN PRN Reason: ANXIETY Last Admin: 08/06/19 07:44 Dose: 2 mg Miscellaneous (Ativan Pyxis Soto) 1 ea N/A .ATIVAN IV SOTO PRN PRN Reason: PYXIS SOTO Naproxen (Naprosyn Tab*) 375 mg PO BID [facility] Last Admin: 08/06/19 07:44 Dose: 375 mg Nicotine Polacrilex (Nicotine Gum*) 4 mg PO Q2H PRN PRN Reason: NICOTINE CRAVINGS Last Admin: 08/05/19 13:22 Dose: 4 mg Ondansetron HCl (Zofran Tab*) 4 mg PO Q6H PRN PRN Reason: CONSTIPATION Last Admin: 08/06/19 12:13 Dose: 4 mg Prochlorperazine (Compazine 5 Mg Tab) 5 mg PO Q6H PRN PRN Reason: NAUSEA/VOMITING Vital Signs - 8 hr 08/06/19 08/06/19 08/06/19 07:43 07:44 09:40 Respiratory 16 16 16 Rate 08/06/19 10:40 Respiratory 16 Rate Oxygen Devices in Use Now: None Appearance: Young male, laying in bed, appearing comfortable and in NAD Eyes: No Scleral Icterus, - - PERRL Ears/Nose/Mouth/Throat: Mucous Membranes Moist Neck: Trachea Midline Respiratory: Symmetrical Chest Expansion and Respiratory Effort Cardiovascular: NL Sounds; No Murmurs; No JVD, RRR Abdominal: NL Sounds; No Tenderness; No Distention Extremities: No Edema Skin: No Rash or Ulcers Neurological: Alert and Oriented x 3 Result Diagrams: 08/05/19 14:39 08/05/19 14:49 Assess/Plan/Problems-Billing Plan By Medical Problem: 29 yo male with PMHx schizoaffective disorder and chronic n/v is inpatient on the behavioral services unit involuntarily due to agitated and threatening behavior in the community. - Patient Problems (1) Chronic nausea Current Visit: Yes Status: Acute Code(s): R11.0 - NAUSEA SNOMED Code(s): 507128229 Comment: -patient has had ongoing nausea/vomiting and chronic abd pain for 6 years -presents at admission with worsened vomiting from baseline during this current hospitalization -CT abdomen is without acute findings -ddx includes cannabinoid hyperemesis, cyclical vomiting, gastroparesis -gastric emptying study Thursday, NPO after midnight Thursday ordered -tolerated regular diet yesterday evening -reglan once helped yesterday, has not vomited in approx 24 hours -continue prn zofran -has outpatient GI appt scheduled for 08/22 with unclear provider, will need outpatient follow up at discharge (2) Cannabis dependence Current Visit: No Status: Acute Priority: High Onset Date: 01/03/15 Code (s): F12.20 - CANNABIS DEPENDENCE, UNCOMPLICATED SNOMED Code(s): 77685818 Comment: -possibly contributing to chronic n/v (3) schizoaffective d/o, bipolar type, manic Current Visit: No Status: Acute Priority: High Comment: -mgmt per psychiatry (4) DVT prophylaxis Current Visit: Yes Status: Acute Code(s): Z29.9 - ENCOUNTER FOR PROPHYLACTIC MEASURES, UNSPECIFIED SNOMED Code(s): 679237097 Comment: -ambulation (5) Full code status Current Visit: Yes Status: Acute Code(s): Z78.9 - OTHER SPECIFIED HEALTH STATUS SNOMED Code(s): 421236587 Status and Disposition: disposition per primary team, psychiatry
--- NOTE | 2019-08-06 15:19 | PN ---
Subjective - Subjective Date of Service: 08/06/19 Service Type: [id number] Hosp care 15 min low complexity Subjective: Ba remains paranoid and isolative. He is guarded and somatic. He continues to perseverate on his perceived need for medical marijuana for treatment of chronic pain and nausea. Medicine continues to follow and are recommending a gastric emptying study on Thursday (08/08) morning. He continues to refuse psych meds and is menacing at times. Objective - General Observations Appearance: Disheveled Appears Stated Age: Yes Stature: Overweight Posture: Slumped Eye Contact: Intense Behavior/Activity: Peculiar - Interaction Observations Attitude Towards Examiner: Hostile Stated Mood: Dysphoric Affect: Flat Speech Pattern/Tone: Pressured, Perseverating Thought Process: Disorganized Thought Content: Paranoid Thought Process: Lethality: Paranoid Ideation Hallucination Type: Auditory Delusion Type: Persecution, Shinto - Cognitive Function Orientation: A&O x 4 Level of Consciousness: Awake Cognition: WNL Estimated Intelligence: Normal Insight: WNL Judgment Within Normal Limits: No Ability to Make Reasonable Decisions: Serverely Impaired - Medication Compliance Cooperative with Inpatient Medication Regimen: No - Group Participation Participates in Group Activities: No Assessment - Assessment Merits Inpatient Hospitalization: For Immediate Safety, For Stabilization Inpatient DSM-V Dx: F25.0 Clinical Impression: 29 y.o. single, AA male with a history of schizoaffective disorder, bipolar type and polydrug abuse who arrives at the hospital on an involuntary 9.45 status from [facility] where he has been acting in a threatening, agitated , paranoid and delusional fashion in the setting of nonadherence to medications. BSU: Problem List - Patient Problems (1) schizoaffective d/o, bipolar type, manic Current Visit: No Status: Acute Priority: High Comment: -mgmt per psychiatry Plan - Plan Treatment Plan: Name: BA JONES Birthdate: 1990 [id number] Will continue fluphenazine decanoate 50mg IM q2wks and lithium ER 1350mg PO qhs. Consider T.O.O. if adherence does not improve. Appreciate Hospitalist input regarding abdominal distress. Continued Medication Management: Continue Outpt Medication Medications: Current Medications Acetaminophen (Tylenol Tab*) 650 mg PO Q4H PRN PRN Reason: for pain; or Temp >101 F Al Hydrox/Mg Hydrox/Simethicone (Maalox Plus*) 30 ml PO Q4H PRN PRN Reason: INDIGESTION Diphenhydramine HCl (Benadryl Po*) 50 mg PO Q6H PRN PRN Reason: AGITATION Last Admin: 08/06/19 07:43 Dose: 50 mg Fluphenazine Decanoate (Prolixin Decanoate*) 50 mg IM Q14D [facility] Last Admin: 08/03/19 19:36 Dose: Not Given Haloperidol (Haldol Tab*) 5 mg PO Q6H PRN PRN Reason: AGITATION Kaylor Carbonate (Kaylor Carbonate Tab*) 600 mg PO BID [facility] Last Admin: 08/06/19 07:45 Dose: Not Given Lorazepam (Ativan Tab(*)) 2 mg PO Q6H PRN PRN Reason: ANXIETY Last Admin: 08/06/19 07:44 Dose: 2 mg Miscellaneous (Ativan Pyxis Soto) 1 ea N/A .ATIVAN IV SOTO PRN PRN Reason: PYXIS SOTO Naproxen (Naprosyn Tab*) 375 mg PO BID [facility] Last Admin: 08/06/19 07:44 Dose: 375 mg Nicotine Polacrilex (Nicotine Gum*) 4 mg PO Q2H PRN PRN Reason: NICOTINE CRAVINGS Last Admin: 08/05/19 13:22 Dose: 4 mg Ondansetron HCl (Zofran Tab*) 4 mg PO Q6H PRN PRN Reason: CONSTIPATION Last Admin: 08/06/19 12:13 Dose: 4 mg Prochlorperazine (Compazine 5 Mg Tab) 5 mg PO Q6H PRN PRN Reason: NAUSEA/VOMITING - Discharge Plan Discharge Plan: Inpatient Hospitalization Lab Results - Lab Results Lab Results: 08/04/19 08/05/19 08/05/19 16:55 14:39 14:49 WBC 6.4 RBC 4.85 Hgb 15.4 Hct 44 MCV 91 MCH 32 H MCHC 35 RDW 14 Plt Count 270 MPV 7.7 Neut % (Auto) 59.4 Lymph % (Auto) 27.1 [place] % (Auto) 10.1 Eos % (Auto) 2.5 Baso % (Auto) 0.9 Absolute Neuts (auto) 3.8 Absolute Lymphs (auto) 1.7 Absolute Monos (auto) 0.6 Absolute Eos (auto) 0.2 Absolute Basos (auto) 0.1 Absolute Nucleated RBC 0.0 Nucleated RBC % 0.1 Sodium 139 Potassium 3.8 Chloride 107 Carbon Dioxide 26 Anion Gap 6 BUN 12 Creatinine 0.96 Est GFR ( Amer) 113.7 Est GFR (Non-Af Amer) 94.0 BUN/Creatinine Ratio 12.5 Glucose 90 Hemoglobin A1c Calcium 9.2 Total Bilirubin 0.40 AST 28 ALT 31 Alkaline Phosphatase 62 Total Protein 7.0 Albumin 4.8 Globulin 2.2 Albumin/Globulin Ratio 2.2 Triglycerides Cholesterol LDL Cholesterol HDL Cholesterol Amylase 59 Lipase 14 TSH 0.93 Kaylor < 0.10 L 08/05/19 08/06/19 08/06/19 14:49 06:31 06:31 WBC RBC Hgb Hct MCV MCH MCHC RDW Plt Count MPV Neut % (Auto) Lymph % (Auto) [place] % (Auto) Eos % (Auto) Baso % (Auto) Absolute Neuts (auto) Absolute Lymphs (auto) Absolute Monos (auto) Absolute Eos (auto) Absolute Basos (auto) Absolute Nucleated RBC Nucleated RBC % Sodium Potassium Chloride Carbon Dioxide Anion Gap BUN Creatinine Est GFR ( Amer) Est GFR (Non-Af Amer) BUN/Creatinine Ratio Glucose Hemoglobin A1c 5.3 5.2 Calcium Total Bilirubin AST ALT Alkaline Phosphatase Total Protein Albumin Globulin Albumin/Globulin Ratio Triglycerides 163 Cholesterol 187 LDL Cholesterol 102 HDL Cholesterol 52.5 Amylase Lipase TSH Kaylor
[2019-08-06] MEDS: Nicotine* 4MG (FRUIT FLAVOR) GUM PO PRN (17:16)
[2019-08-07] MEDS: Naproxen TAB* 375 MG PO SCH ×2 (10:23→19:49)
[2019-08-07] MEDS: Nicotine* 4MG (FRUIT FLAVOR) GUM PO PRN ×3 (10:25→19:47)
[2019-08-07] MEDS: Lithium Carbonate TAB* 300 MG PO SCH ×2 (10:25→20:39)
[2019-08-07] MEDS: LORazepam TAB(*) 1 MG PO PRN (19:47)
[2019-08-08 09:18] VITALS: BP 126/79
[2019-08-08] MEDS: Lithium Carbonate TAB* 300 MG PO SCH ×2 (09:51→21:42)
[2019-08-08] MEDS: Naproxen TAB* 375 MG PO SCH ×2 (09:51→21:33)
--- NOTE | 2019-08-08 12:37 | PN ---
Subjective - Subjective Date of Service: 08/08/19 Service Type: [id number] Hosp care 15 min low complexity Subjective: Ba is still refusing his psychiatric medications. He remains somatic with complaints of dyspepsia, nausea and vomiting, although this hasn't been observed by staff. He is smiling oddly, talking to himself and mostly isolating. On exam he wants to talk about medical marijuana. He denies SI or HI. Objective - General Observations Appearance: Disheveled Appears Stated Age: Yes Stature: Overweight Posture: WNL Eye Contact: Intense Behavior/Activity: Peculiar - Interaction Observations Attitude Towards Examiner: Dismissive Stated Mood: Dysphoric Affect: Flat Speech Pattern/Tone: Perseverating Thought Process: Disorganized Thought Content: Paranoid Thought Process: Lethality: Paranoid Ideation Hallucination Type: Auditory Delusion Type: Persecution, Pentecostalism - Cognitive Function Orientation: A&O x 4 Level of Consciousness: Awake, Alert Cognition: WNL Estimated Intelligence: Normal Insight: Difficulty Acknowledging Presence of Psyciatric Problems Judgment Within Normal Limits: No Ability to Make Reasonable Decisions: Serverely Impaired - Medication Compliance Cooperative with Inpatient Medication Regimen: No - Group Participation Participates in Group Activities: No Assessment - Assessment Merits Inpatient Hospitalization: For Immediate Safety, For Stabilization Inpatient DSM-V Dx: F25.0 Clinical Impression: 29 y.o. single, AA male with a history of schizoaffective disorder, bipolar type and polydrug abuse who arrives at the hospital on an involuntary 9.45 status from [facility] where he has been acting in a threatening, agitated , paranoid and delusional fashion in the setting of nonadherence to medications. BSU: Problem List - Patient Problems (1) schizoaffective d/o, bipolar type, manic Current Visit: No Status: Acute Priority: High Comment: -mgmt per psychiatry Plan - Plan Treatment Plan: Name: BA JONES Birthdate: 1990 [id number] Will continue fluphenazine decanoate 50mg IM q2wks and lithium ER 1350mg PO qhs. Consider T.O.O. if adherence does not improve. Appreciate Hospitalist input regarding abdominal distress. Continued Medication Management: Continue Outpt Medication Medications: Current Medications Acetaminophen (Tylenol Tab*) 650 mg PO Q4H PRN PRN Reason: for pain; or Temp >101 F Last Admin: 08/06/19 17:14 Dose: 650 mg Al Hydrox/Mg Hydrox/Simethicone (Maalox Plus*) 30 ml PO Q4H PRN PRN Reason: INDIGESTION Diphenhydramine HCl (Benadryl Po*) 50 mg PO Q6H PRN PRN Reason: AGITATION Last Admin: 08/06/19 07:43 Dose: 50 mg Fluphenazine Decanoate (Prolixin Decanoate*) 50 mg IM Q14D [facility] Last Admin: 08/03/19 19:36 Dose: Not Given Haloperidol (Haldol Tab*) 5 mg PO Q6H PRN PRN Reason: AGITATION [place] Carbonate ([place]cy Carbonate Tab*) 600 mg PO BID [facility] Last Admin: 08/08/19 09:51 Dose: Not Given Lorazepam (Ativan Tab(*)) 2 mg PO Q6H PRN PRN Reason: ANXIETY Last Admin: 08/07/19 19:47 Dose: 2 mg Miscellaneous (Ativan Pyxis Soto) 1 ea N/A .ATIVAN IV SOTO PRN PRN Reason: PYXIS SOTO Naproxen (Naprosyn Tab*) 375 mg PO BID [facility] Last Admin: 08/08/19 09:51 Dose: Not Given Nicotine Polacrilex (Nicotine Gum*) 4 mg PO Q2H PRN PRN Reason: NICOTINE CRAVINGS Last Admin: 08/07/19 19:47 Dose: 4 mg Ondansetron HCl (Zofran Tab*) 4 mg PO Q6H PRN PRN Reason: CONSTIPATION Last Admin: 08/06/19 17:12 Dose: 4 mg Prochlorperazine (Compazine 5 Mg Tab) 5 mg PO Q6H PRN PRN Reason: NAUSEA/VOMITING - Discharge Plan Discharge Plan: Inpatient Hospitalization Lab Results - Lab Results Lab Results: 08/05/19 08/05/19 08/05/19 14:39 14:49 14:49 WBC 6.4 RBC 4.85 Hgb 15.4 Hct 44 MCV 91 MCH 32 H MCHC 35 RDW 14 Plt Count 270 MPV 7.7 Neut % (Auto) 59.4 Lymph % (Auto) 27.1 [place] % (Auto) 10.1 Eos % (Auto) 2.5 Baso % (Auto) 0.9 Absolute Neuts (auto) 3.8 Absolute Lymphs (auto) 1.7 Absolute Monos (auto) 0.6 Absolute Eos (auto) 0.2 Absolute Basos (auto) 0.1 Absolute Nucleated RBC 0.0 Nucleated RBC % 0.1 Sodium 139 Potassium 3.8 Chloride 107 Carbon Dioxide 26 Anion Gap 6 BUN 12 Creatinine 0.96 Est GFR ( Amer) 113.7 Est GFR (Non-Af Amer) 94.0 BUN/Creatinine Ratio 12.5 Glucose 90 Hemoglobin A1c 5.3 Calcium 9.2 Total Bilirubin 0.40 AST 28 ALT 31 Alkaline Phosphatase 62 Total Protein 7.0 Albumin 4.8 Globulin 2.2 Albumin/Globulin Ratio 2.2 Triglycerides Cholesterol LDL Cholesterol HDL Cholesterol Amylase 59 Lipase 14 TSH 0.93 08/06/19 08/06/19 06:31 06:31 WBC RBC Hgb Hct MCV MCH MCHC RDW Plt Count MPV Neut % (Auto) Lymph % (Auto) [place] % (Auto) Eos % (Auto) Baso % (Auto) Absolute Neuts (auto) Absolute Lymphs (auto) Absolute Monos (auto) Absolute Eos (auto) Absolute Basos (auto) Absolute Nucleated RBC Nucleated RBC % Sodium Potassium Chloride Carbon Dioxide Anion Gap BUN Creatinine Est GFR ( Amer) Est GFR (Non-Af Amer) BUN/Creatinine Ratio Glucose Hemoglobin A1c 5.2 Calcium Total Bilirubin AST ALT Alkaline Phosphatase Total Protein Albumin Globulin Albumin/Globulin Ratio Triglycerides 163 Cholesterol 187 LDL Cholesterol 102 HDL Cholesterol 52.5 Amylase Lipase TSH
[2019-08-08] MEDS: Nicotine* 4MG (FRUIT FLAVOR) GUM PO PRN ×2 (14:54→21:33)
--- NOTE | 2019-08-08 16:11 | PN ---
Hospitalist Progress Note Date of Service: 08/08/19 Reviewed gastric emptying study results. Reveals a normal study, indicating that gastroparesis can be ruled out as to the differential for this patient's chronic abdominal pain, nausea, and vomiting. Nursing tells me he has been doing well with zofran, but needs frequent reminders that he should ask for it. I will schedule the zofran with meals because it seems the pattern is nausea starts after eating. He can have the compazine if there is n/v breakthrough. As previously mentioned, he should keep his outpatient GI follow up appointment , which he tells me is on August 22. The etiology of this chronic abd pain/n /v will require outpatient workup and management. If he does not have a PCP, he can follow up at the [facility] for further coordination of his care. Hospitalists will sign off for now, but please feel free to call us with any additional questions or problems. Thank you for allowing us to participate in the care of this patient.
[2019-08-08] MEDS: Ondansetron TAB* 4 MG PO SCH (16:14)
[2019-08-08] MEDS: LORazepam TAB(*) 1 MG PO PRN (16:15)
[2019-08-09] MEDS: Lithium Carbonate TAB* 300 MG PO SCH ×2 (10:20→20:38)
[2019-08-09] MEDS: Naproxen TAB* 375 MG PO SCH ×2 (10:21→20:39)
[2019-08-09] MEDS: Ondansetron TAB* 4 MG PO SCH ×3 (10:21→16:26)
[2019-08-09] MEDS ORDERED: Fluphenazine Decanoate* 25 MG/ML 5 ML VIAL IM SCH (10:25)
--- NOTE | 2019-08-09 10:42 | PN ---
Subjective - Subjective Date of Service: 08/09/19 Service Type: [id number] Hosp care 15 min low complexity Subjective: Ba continues to refuse psych meds. His gastric emptying study was completed without incident yesterday and the results were negative for abnormalities. The Hospitalist service has signed off and are recommending outpatient f/u. Today Robert is lying in bed, still complaining of dyspepsia and nausea. I point out that this issue is highly unlikely to be secondary to his psych medications, given that he has gone almost 2 weeks without them. "But why do I need the meds if you can see now that I'm not psychotic?" I bring up the various symptoms that we continue to observe on the unit, such as Ba talking and laughing to himself, his hyperreligiousity and his inability to engage meaningfully in group programming. He is also reminded of his AOT status , which mandates adherence with lithium and fluphenazine. He then agrees to resume the meds. Objective - General Observations Appearance: Disheveled Appears Stated Age: Yes Stature: Overweight Posture: Slumped Eye Contact: Intermittent Behavior/Activity: Peculiar - Interaction Observations Attitude Towards Examiner: Evasive Stated Mood: Dysphoric Affect: Flat Speech Pattern/Tone: Delayed Thought Process: Disorganized Thought Content: Paranoid Thought Process: Lethality: Paranoid Ideation Hallucination Type: Auditory Delusion Type: Persecution - Cognitive Function Orientation: A&O x 4 Level of Consciousness: Awake Cognition: WNL Estimated Intelligence: Normal Insight: Difficulty Acknowledging Presence of Psyciatric Problems Judgment Within Normal Limits: No Ability to Make Reasonable Decisions: Serverely Impaired - Medication Compliance Cooperative with Inpatient Medication Regimen: Yes - Group Participation Participates in Group Activities: Yes Assessment - Assessment Merits Inpatient Hospitalization: For Immediate Safety, For Stabilization Inpatient DSM-V Dx: F25.0 Clinical Impression: 29 y.o. single, AA male with a history of schizoaffective disorder, bipolar type and polydrug abuse who arrives at the hospital on an involuntary 9.45 status from [facility] where he has been acting in a threatening, agitated , paranoid and delusional fashion in the setting of nonadherence to medications. BSU: Problem List - Patient Problems (1) schizoaffective d/o, bipolar type, manic Current Visit: No Status: Acute Priority: High Comment: -mgmt per psychiatry Plan - Plan Treatment Plan: Name: BA JONES Birthdate: 1990 [id number] Will continue fluphenazine decanoate 50mg IM q2wks and lithium ER 1350mg PO qhs. Consider T.O.O. if adherence does not improve. Appreciate Hospitalist input regarding abdominal distress. Continued Medication Management: Continue Outpt Medication Medications: Current Medications Acetaminophen (Tylenol Tab*) 650 mg PO Q4H PRN PRN Reason: for pain; or Temp >101 F Last Admin: 08/06/19 17:14 Dose: 650 mg Al Hydrox/Mg Hydrox/Simethicone (Maalox Plus*) 30 ml PO Q4H PRN PRN Reason: INDIGESTION Diphenhydramine HCl (Benadryl Po*) 50 mg PO Q6H PRN PRN Reason: AGITATION Last Admin: 08/06/19 07:43 Dose: 50 mg Fluphenazine Decanoate (Prolixin Decanoate*) 50 mg IM Q14D [facility] Haloperidol (Haldol Tab*) 5 mg PO Q6H PRN PRN Reason: AGITATION [place] Carbonate (Puhi Carbonate Tab*) 600 mg PO BID [facility] Last Admin: 08/09/19 10:20 Dose: 600 mg Lorazepam (Ativan Tab(*)) 2 mg PO Q6H PRN PRN Reason: ANXIETY Last Admin: 08/08/19 16:15 Dose: 2 mg Miscellaneous (Ativan Pyxis Soto) 1 ea N/A .ATIVAN IV SOTO PRN PRN Reason: PYXIS SOTO Naproxen (Naprosyn Tab*) 375 mg PO BID [facility] Last Admin: 08/09/19 10:21 Dose: Not Given Nicotine Polacrilex (Nicotine Gum*) 4 mg PO Q2H PRN PRN Reason: NICOTINE CRAVINGS Last Admin: 08/08/19 21:33 Dose: 4 mg Ondansetron HCl (Zofran Tab*) 4 mg PO AC [facility] Last Admin: 08/09/19 10:21 Dose: Not Given Prochlorperazine (Compazine 5 Mg Tab) 5 mg PO Q6H PRN PRN Reason: Nausea/Vomiting breakthrough - Discharge Plan Discharge Plan: Inpatient Hospitalization
[2019-08-09] MEDS: Nicotine* 4MG (FRUIT FLAVOR) GUM PO PRN (20:38)
[2019-08-10] MEDS: Ondansetron TAB* 4 MG PO SCH ×3 (07:48→16:22)
[2019-08-10] MEDS: Naproxen TAB* 375 MG PO SCH ×2 (09:13→21:42)
[2019-08-10] MEDS: Lithium Carbonate TAB* 300 MG PO SCH (09:13)
[2019-08-10] MEDS: Nicotine* 4MG (FRUIT FLAVOR) GUM PO PRN ×3 (09:15→21:42)
--- NOTE | 2019-08-10 10:38 | PN ---
Subjective - Subjective Date of Service: 08/10/19 Service Type: [id number] Hosp care 15 min low complexity Subjective: Ba continues to be isolative but not violent or overtly psychotic. He agreed to resume medications yesterday and took his fluphenazine decanoate injection as well as his oral lithium. He denies SI or HI. We have not seen any evidence of agitation since admission. Objective - General Observations Appearance: Well Groomed Appears Stated Age: Yes Stature: Overweight Posture: WNL Eye Contact: Average Behavior/Activity: Peculiar - Interaction Observations Attitude Towards Examiner: Cooperative Stated Mood: Euthymic Affect: Flat Speech Pattern/Tone: Clear Thought Process: Coherent Perception: WNL Thought Content: WNL Hallucination Type: None Delusion Type: None - Cognitive Function Orientation: A&O x 4 Level of Consciousness: Awake Cognition: WNL Estimated Intelligence: Normal Insight: WNL Judgment Within Normal Limits: Yes - Medication Compliance Cooperative with Inpatient Medication Regimen: Yes - Group Participation Participates in Group Activities: Yes Assessment - Assessment Merits Inpatient Hospitalization: Consolidate Improvements, Pending Safe DC Plan Inpatient DSM-V Dx: F25.0 Clinical Impression: 29 y.o. single, AA male with a history of schizoaffective disorder, bipolar type and polydrug abuse who arrives at the hospital on an involuntary 9.45 status from [facility] where he has been acting in a threatening, agitated , paranoid and delusional fashion in the setting of nonadherence to medications. BSU: Problem List - Patient Problems (1) schizoaffective d/o, bipolar type, manic Current Visit: No Status: Acute Priority: High Comment: -mgmt per psychiatry Plan - Plan Treatment Plan: Name: BA JONES Birthdate: 1990 [id number] The patient has resumed medications and is doing about as well as his baseline allows. We will continue fluphenazine decanoate 50mg IM q2wks and lithium ER 1350mg PO qhs. Appreciate Hospitalist input regarding abdominal distress. Possible discharge tomorrow (08/11) with ACT team f/u. Continued Medication Management: Continue Outpt Medication Medications: Current Medications Acetaminophen (Tylenol Tab*) 650 mg PO Q4H PRN PRN Reason: for pain; or Temp >101 F Last Admin: 08/06/19 17:14 Dose: 650 mg Al Hydrox/Mg Hydrox/Simethicone (Maalox Plus*) 30 ml PO Q4H PRN PRN Reason: INDIGESTION Last Admin: 08/10/19 04:12 Dose: 30 ml Diphenhydramine HCl (Benadryl Po*) 50 mg PO Q6H PRN PRN Reason: AGITATION Last Admin: 08/06/19 07:43 Dose: 50 mg Fluphenazine Decanoate (Prolixin Decanoate*) 50 mg IM Q14D [facility] Last Admin: 08/09/19 11:20 Dose: 50 mg Haloperidol (Haldol Tab*) 5 mg PO Q6H PRN PRN Reason: AGITATION [place] Carbonate (Brook Carbonate Er Tab*) 1,350 mg PO BEDTIME [facility] Lorazepam (Ativan Tab(*)) 2 mg PO Q6H PRN PRN Reason: ANXIETY Last Admin: 08/08/19 16:15 Dose: 2 mg Miscellaneous (Ativan Pyxis Soto) 1 ea N/A .ATIVAN IV SOTO PRN PRN Reason: PYXIS SOTO Naproxen (Naprosyn Tab*) 375 mg PO BID [facility] Last Admin: 08/10/19 09:13 Dose: 375 mg Nicotine Polacrilex (Nicotine Gum*) 4 mg PO Q2H PRN PRN Reason: NICOTINE CRAVINGS Last Admin: 08/10/19 09:15 Dose: 4 mg Ondansetron HCl (Zofran Tab*) 4 mg PO AC [facility] Last Admin: 08/10/19 07:48 Dose: Not Given Prochlorperazine (Compazine 5 Mg Tab) 5 mg PO Q6H PRN PRN Reason: Nausea/Vomiting breakthrough Last Admin: 08/10/19 04:27 Dose: 5 mg - Discharge Plan Discharge Plan: Inpatient Hospitalization
[2019-08-10] MEDS ORDERED: Lithium Carbonate ER* 450 MG TAB.ER PO SCH (21:00)
[2019-08-11] MEDS: Ondansetron TAB* 4 MG PO SCH ×2 (12:10→12:11)
[2019-08-11] MEDS: Naproxen TAB* 375 MG PO SCH (12:10)
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
== END 2019-08-11 14:40 | disposition home or self-care (01) | DRG 885 ==
LOC: ED 12:22 → BSU 16:26
PROVIDERS: ADMIT Psychiatry & Neurology Psychiatry; ATTEND Psychiatry & Neurology Psychiatry
DX: F25.0 Schizoaffective disorder, bipolar type (principal); R45.851 Suicidal ideations; M10.9 Gout, unspecified; F17.210 Nicotine dependence, cigarettes, uncomplicated; F14.90 Cocaine use, unspecified, uncomplicated; R45.850 Homicidal ideations; R11.2 Nausea with vomiting, unspecified; R10.9 Unspecified abdominal pain; F12.20 Cannabis dependence, uncomplicated; F43.10 Post-traumatic stress disorder, unspecified; F41.9 Anxiety disorder, unspecified; Z91.5 Personal history of self-harm; Z28.21 Immunization not carried out because of patient refusal; Z91.14 Patient's other noncompliance with medication regimen; Z90.49 Acquired absence of other specified parts of digestive tract
CPT/HCPCS: 36415; 74150; 78264; 80053; 80061; 80178; 80307; 80320; 80329; 81003; 82150; 83036; 83690; 84443; 85025; 96372; 99222; 99231; 99238; 99284; A9270-GY; A9541; G0480; J1200; J1630; J2060; J2680

== ENCOUNTER 2019-08-29 13:52 | Inpatient (IN) | payer MEDICARE, MEDICAID ==
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
[2019-08-29 14:35] LABS: ABS Basophils 0.1 10^3/ul (0-0.2); ABS Eosinophils 0.2 10^3/ul (0-0.6); ABS Lymphocytes 2.3 10^3/ul (1.0-4.8); ABS Monocytes 0.7 10^3/ul (0-0.8); ABS Neutrophils 5.8 10^3/ul (1.5-7.7); Hematocrit 44 % (42-52); Hemoglobin 15.2 g/dL (14.0-18.0); Lymphocyte % 25.9 %; Mean Corpuscular HGB Conc 35 g/dL (31-36); Mean Corpuscular Hemoglobin 32 pg (27-31); Mean Corpuscular Volume 92 fL (80-94); Mean Platelet Volume 7.6 fL (7.4-10.4); Platelet Count 326 10^3/uL (150-450); Red Blood Count 4.77 10^6 /uL (4.18-5.48); Red Cell Distribution Width 14 % (10-15); White Blood Count 9.1 10^3/uL (3.5-10.8)
[2019-08-29] MEDS ORDERED: Nicotine PATCH 21 MG/24 HR* PATCH TRANSDERM ONE (14:40)
[2019-08-29 14:57] LABS: ALT 29 U/L (7-52); AST 24 U/L (13-39); Albumin 4.6 g/dL (3.2-5.2); Albumin/Globulin Ratio 2.1 (1-3); Alkaline Phosphatase 61 U/L (34-104); Anion Gap 5 mmol/L (2-11); BUN/Creatinine Ratio 11.3 (8-20); Blood Urea Nitrogen 11 mg/dL (6-24); CO2 Carbon Dioxide 30 mmol/L (22-32); Calcium 9.4 mg/dL (8.6-10.3); Chloride 103 mmol/L (101-111); EGFR African American 112.3 (>60); EGFR Non-African American 92.8 (>60); Globulin 2.2 g/dL (2-4); Glucose 89 mg/dL (70-100); Sodium 138 mmol/L (135-145); Total Protein 6.8 g/dL (6.4-8.9)
[2019-08-29] MEDS ORDERED: Al Hydrox/Mg Hydrox/Simet LIQ* 30 ML UDC PO PRN (14:57)
[2019-08-29 14:58] LABS: Alcohol < 10 mg/dL (<10); Salicylate < 2.50 mg/dL (<30)
[2019-08-29] MEDS ORDERED: Senna TAB 8.6 mg* TAB PO PRN (15:00)
[2019-08-29] MEDS ORDERED: Fluphenazine Decanoate* 25 MG/ML 5 ML VIAL IM SCH (15:00)
[2019-08-29 15:07] LABS: TSH (Thyroid Stimulating Horm) 0.66 mcIU/mL (0.34-5.60)
[2019-08-29 15:08] LABS: Acetaminophen < 15 mcg/mL
--- OUTSIDE RECORDS SUMMARY | 2019-08-29 15:19 | XMS REPORT | Continuity of Care Document ---
:1990 External Reference #:[id number] Demographics Home Phone [phone] Email Address Preferred Language en Marital Status Not or Moravian Affiliation Unknown Race Unknown Additional Race(s) Other Race Ethnic Group Not or Author Name Neeraj Biswas MD (transmitted by agent of provider Anneliese Mariee) Address [address] [place] [address] Care Team Providers Name Role Phone Other Physician Practices Care Team Information Clinical Investigator Unavailable Problems Active Problems Provider Date Psychotic disorder Felipe Alva M.D. Onset: 01/11/2013 Alcohol dependence Felipe Alva M.D. Onset: 01/11/2013 Mixed hyperlipidemia Felipe Alva M.D. Onset: 01/11/2013 Obesity Felipe Alva M.D. Onset: 01/11/2013 Nondependent alcohol abuse in remission Felipe Alva M.D. Onset: 2012 Organic delusional disorder Felipe Alva M.D. Onset: 05/16/2015 Sprain of shoulder Reagan Walker M.D. Onset: 07/10/2015 Nausea and vomiting Neeraj Biswas MD Onset: 08/12/2019 Abdominal pain Neeraj Biswas MD Onset: 08/12/2019 Diarrhea Neeraj Biswas MD Onset: 08/12/2019 Gout Felipe Alva M.D. Onset: 02/18/2017 Social History Type Date Description Comments Sex Unknown Tobacco Use Start: Unknown Never Smoked Cigarettes ETOH Use Denies alcohol use Recreational Drug Use Denies Drug Use Tobacco Use Start: Unknown Light tobacco smoker (10 or fewer cigarettes/day) Smoking Status Reviewed: 08/12/19 Light tobacco smoker (10 or fewer cigarettes/day) Allergies, Adverse Reactions, Alerts Description No Known Drug Allergies Medications Active Medications SIG Qnty Indications Ordering Date Provider Finesse Ankle Brace wear daily on left 1units M25.572 Neeraj Biswas MD 08/12/2019 Left/Right ankle Misc [place] Carbonate ER 1 by mouth bid 60tabs Other Ordering 02/11/2017 Provider 450mg Tablets ER Zofran 1 tab by mouth Unknown 4mg Tablets three times a day as needed Fluphenazine 50mg Im injection Unknown Decanoate every 2 weeks 25mg/ml Solution Immunizations Description No Information Available Vital Signs Date Vital Result Comment 08/12/2019 9:06am Height 73 inches 6'1" Weight 240.00 lb Heart Rate 63 /min BP Systolic Sitting 119 mmHg BP Diastolic Sitting 74 mmHg Body Temperature 97.4 F O2 % BldC Oximetry 98 % BMI (Body Mass Index) 31.7 kg/m2 08/10/2017 3:29pm Weight 244.00 lb Heart Rate 84 /min BP Systolic 117 mmHg BP Diastolic 75 mmHg Body Temperature 98.4 F O2 % BldC Oximetry 98 % Results Test Acquired Date Facility Test Result H/L Range Note Laboratory test 08/12/2019 [facility] Pancreatic <pending> finding [address] [place] [address] [phone] Stool Culture <pending> O&P Ova & Parasites Screen <pending> Helico Pylori Antigen- Stool <pending> Laboratory test 08/12/2019 [facility] C Difficile PCR <pending> finding [address] [place] [address] [phone] Procedures Description No Information Available Medical Devices Description No Information Available Encounters Type Date Location Provider Dx Diagnosis Office Visit 08/08/2019 [facility] Krissy Pineda, 10:16a Asslaureano connolly PA-C Hospitalists Office Visit 08/06/2019 [facility] Krissy Pineda, R11.2 Nausea with 10:15a Assoc,pc PA-C vomiting, Hospitalists unspecified F12.288 Cannabis dependence with other cannabis-induced disorder Office Visit 08/05/2019 [facility] Kira R10.9 Unspecified 10:12a laureano Putnam NP abdominal pain Hospitalists R11.2 Nausea with vomiting, unspecified F12.90 Cannabis use, unspecified, uncomplicated Assessments Date Code Description Provider 08/12/2019 R19.7 Diarrhea, unspecified Neeraj Biswas MD 08/12/2019 R10.9 Unspecified abdominal pain Neeraj Biswas MD 08/12/2019 R11.2 Nausea with vomiting, unspecified Neeraj Biswas MD 08/12/2019 M25.572 Pain in left ankle and joints of left foot Neeraj Biswas MD 08/12/2019 F06.2 Psychotic disorder with delusions due to Neeraj Biswas MD known physiological condition 08/12/2019 F12.90 Cannabis use, unspecified, uncomplicated Neeraj Biswas MD 08/06/2019 R11.2 Nausea with vomiting, unspecified Krissy Pineda PA-C 08/06/2019 F12.288 Cannabis dependence with other Krissy Pineda PA-C cannabis-induced disorder 08/05/2019 R10.9 Unspecified abdominal pain Kira Altamirano NP 08/05/2019 R11.2 Nausea with vomiting, unspecified Kira Altamirano, SALOMON 08/05/2019 F12.90 Cannabis use, unspecified, uncomplicated Kira Altamirano NP Plan of Treatment Future Appointment(s):09/09/2019 8:00 am - Neeraj Biswas MD at [facility] Internal Medicine - [address]/12/2019 - Neeraj Biswas MDR19.7 Diarrhea, unspecifiedComments: Please follow-up with GI on 08/22.Follow up:3-4 weeks.R10.9 Unspecified abdominal painComments:Follow up with GIGet the stool studies I have ordered. Your CT scan in the hospital and gastric emptying study were normal and did not show anything that would explain your symptoms. Frequent marijuanause can sometimes cause nausea and vomiting and would recommend stopping that for now until we can figure out what is going on.R11.2 Nausea with vomiting, gbybyouxcdtX00.572 Pain in left ankle and joints of left footNew Medication:Finesse Ankle Brace Left/Right - wear daily on left ankleNew Therapy:Physical TherapyComments:I am referring you to physical therapy and a sports medicine doctor for your various joint pains. You can also try an ankle braceReferral: Keisha Escobar MD, Sports Medicine:Family prF06.2 Psychotic disorder with delusions due to known physiological conditionComments:Please continue your lithium and shots with ACTF12.90 Cannabis use, unspecified, uncomplicated Functional Status Description No Information Available Mental Status Description No Information Available Referrals Refer to Reason for Referral Status Appt Date Keisha Escobar MD pains all over from various "sports injuries" Created [address] [place] [address] [phone]
[2019-08-29] MEDS ORDERED: diPHENhydraMINE IV* 50 MG/ML 1 ml VIAL (BENADRYL) ONE (17:18)
[2019-08-29] MEDS ORDERED: Haloperidol INJ IV/IM* 5 MG/ML AMP ONE (17:19)
[2019-08-29] MEDS ORDERED: LORazepam INJ* 2 MG/ML 1 ML VIAL ONE (17:19)
[2019-08-29] MEDS ORDERED: LORazepam TAB(*) 1 MG PO ONE (17:35)
[2019-08-29] MEDS ORDERED: diPHENhydraMINE PO* 50 MG PO ONE (17:35)
[2019-08-29] MEDS ORDERED: Haloperidol TAB* 5 MG PO ONE (17:35)
[2019-08-29] MEDS ORDERED: LORazepam TAB(*) 1 MG ONE (17:36)
[2019-08-29] MEDS ORDERED: diPHENhydraMINE PO* 50 MG ONE (17:37)
[2019-08-29] MEDS ORDERED: Haloperidol TAB* 5 MG ONE (17:37)
[2019-08-29] MEDS: Ondansetron TAB* 4 MG PO SCH (21:18)
[2019-08-29] MEDS: Lithium Carbonate ER* 450 MG TAB.ER PO SCH (21:18)
[2019-08-30] MEDS: Lithium Carbonate ER* 450 MG TAB.ER PO SCH (13:13)
[2019-08-30] MEDS: Nicotine* 4MG (FRUIT FLAVOR) GUM PO PRN ×2 (13:13→17:22)
[2019-08-30] MEDS: Ondansetron TAB* 4 MG PO SCH (13:13)
--- NOTE | 2019-08-30 14:03 | HP ---
PSYCHIATRIC HISTORY AND PHYSICAL: DATE OF ADMISSION: 08/29/19 JUSTIFICATION FOR ADMISSION: The patient is experiencing acute psychosis and is making homicidal thr eats towards others. CHIEF COMPLAINT: "I don't want any more of your medications." HISTORY OF PRESENT ILLNESS: The patient is a 29-year-old -Nigerian male with a history of qamar izophrenia, who was just discharged from the behavioral science unit on the 08/11/19, who now returns to the hospital on an involuntary basis with paranoid psychotic agitation and making homicidal threa ts. When the patient was discharged earlier in July, he was instructed to return to the [facility] where he resides in a halfway. Unfortunately, he has been threatening others and has received his final eviction notice. Ba has 30 days to vacate the premises before having law enforcement evict him. He was also to continue to follow up with the [facility]; however, when I called lift team technician, Yoli Xiong, she indicates that Ba has been hostil e towards them and not taking his oral lithium medication. They were able to give him his biweekly i njection of Prolixin Decanoate on , 08/25/19. However, Ba has also been smoking cannabis on the streets and tends to become agitated when he uses synthetic cannabis in particular. As he ar ly, he appears to be agitated and violent. He is stating "I am an and a Black, I don't use medications." The patient is delusional, making statements about the bloods in th [place] gangs. He screams out "I'll kill all you mother-fkers in the hospital and I get my big time drug dealers on you and the [employer] is hiring me." The patient states that his brain hurts from schizop hrenia and that he wants to go back to the [facility] in [place] riding in a limousine. When I tried to assess the patient, he is hostile towards me, making verbal threats and cannot provide muc h history. For further history and information, please see this clinician's most recent psychiatric H and P, which was dictated on 08/04/19. MENTAL STATUS EXAM: Ba is a young, light skinned -Nigerian male with stubbly delaney, who w as dressed in paper scrubs. He is disheveled, malodorous, agitated, hostile, screaming with a loud v oice and pressured speech. Mood appears to be agitated with a labile affect. Thought process is dis organized. Thought content is significant for delusions of a paranoid and grandiose nature as well a s hyperreligiosity. He is denying suicidal ideations, but he is making homicidal threats towards peo ple in our emergency room. Insight and judgment are markedly impaired. Cognitively, he is awake and alert with what would appear to be an average intellect. DIAGNOSES: [place] I: Schizophrenia, cannabis use disorder. [place] II: Deferred. IMPRESSION: The patient is a 29-year-old single -Nigerian male with a history of schizophreni a, who was most recently discharged from the [facility] less than 30 days ago, who now returns on an involun tary status due to threatening, agitated, hostile behavior in the community. In our emergency room, he is making homicidal threats and is clear that he is psychiatrically destabilized. The patient has been evicted from his halfway here in [place] and this is his fourth behavioral science hospitaliz ation since his release from the CTU on the grounds of [facility] in April 17. Clearly, he is not doing well in the community. PLAN: The patient is readmitted to the adult behavioral health unit where he was placed on q.15-zamzam te checks for his own safety. I will resume lithium therapy at 1350 mg p.o. daily. We will also res ume Prolixin 50 mg IM every 2 weeks with his next injection due on 09/08/19. At this time, it is sasha rly evident that [facility] needs [facility] and we will wait the requisite 2 weeks to make that referral. In the meantime, he is certainly encouraged to avail himself of all m ilieu activities including individual and group psychotherapies. [id number][place] [place]: [id number]
[2019-08-31] MEDS: Nicotine* 4MG (FRUIT FLAVOR) GUM PO PRN ×3 (07:44→12:41)
--- NOTE | 2019-08-31 10:23 | PN ---
Subjective - Subjective Date of Service: 08/31/19 Service Type: [id number] Hosp care 15 min low complexity Subjective: Ba is in the day area where he is found on a couch, sleeping under a blanket. "Dr. Dnuia Lazaro. Why did you give me those medicines. I'm and . I need medicine that is from here. I need medical marijuana. Marijuana is from [place]it[place] from this [place]. " Ba is less threatening today but very delusional and uncooperative. He is aware of being evicted from [place] but insists that the ACT team is finding him an apartment elsewhere in the community. Objective - General Observations Appearance: Disheveled, Malodorous Appears Stated Age: Yes Stature: Overweight Posture: WNL Eye Contact: Intense Behavior/Activity: Peculiar - Interaction Observations Attitude Towards Examiner: Demanding Stated Mood: Irritable Affect: Labile Speech Pattern/Tone: Pressured Thought Process: Disorganized Thought Content: Paranoid Thought Process: Lethality: Paranoid Ideation Hallucination Type: Auditory Delusion Type: Persecution - Cognitive Function Orientation: A&O x 4 Level of Consciousness: Awake Cognition: WNL Estimated Intelligence: Normal Insight: Difficulty Acknowledging Presence of Psyciatric Problems Judgment Within Normal Limits: No Ability to Make Reasonable Decisions: Serverely Impaired - Medication Compliance Cooperative with Inpatient Medication Regimen: No - Group Participation Participates in Group Activities: No Assessment - Assessment Merits Inpatient Hospitalization: For Immediate Safety, For Stabilization Inpatient DSM-V Dx: F20.9 Clinical Impression: 29 y.o. AA male with a history of schizophrenia and cannabis abuse, just discharged two weeks ago from the [facility], who returns involuntarily due to paranoia , agitation and threatening behavior in the community in the setting of poor adherence to medications and use of synthetic cannabis. BSU: Problem List - Patient Problems (1) Schizophrenia Current Visit: No Status: Chronic Priority: High Onset Date: 01/03/15 Code(s): F20.9 - SCHIZOPHRENIA, UNSPECIFIED SNOMED Code(s): 59250032 Plan - Plan Treatment Plan: Name: BA JONES Birthdate: 1990 [id number] Will continue outpatient medication regimen of fluphenazine decanoate 50mg IM q2wks (next due 09/07) and lithium ER 1350mg PO qday. The patient is now evicted from housing. We will likely refer to the [facility] system. Continued Medication Management: Continue Outpt Medication Medications: Current Medications Acetaminophen (Tylenol Tab*) 650 mg PO Q4H PRN PRN Reason: for pain; or Temp >101 F Al Hydrox/Mg Hydrox/Simethicone (Maalox Plus*) 30 ml PO Q4H PRN PRN Reason: INDIGESTION Chlorpromazine HCl (Thorazine Tab*) 100 mg PO Q6H PRN PRN Reason: AGITATION [place] Carbonate ([place] Carbonate Er Tab*) 1,350 mg PO DAILY [facility] Last Admin: 08/30/19 13:13 Dose: Not Given Nicotine Polacrilex (Nicotine Gum*) 4 mg PO Q2H PRN PRN Reason: CRAVINGS Last Admin: 08/31/19 10:10 Dose: 4 mg Ondansetron HCl (Zofran Tab*) 4 mg PO DAILY [facility] Last Admin: 08/30/19 13:13 Dose: Not Given Senna (Senokot 8.6 Mg Tab*) 1 tab PO DAILY PRN PRN Reason: CONSTIPATION - Discharge Plan Discharge Plan: Consider Longer Term Tx
[2019-08-31] MEDS: Ondansetron TAB* 4 MG PO SCH (12:43)
[2019-08-31] MEDS: Lithium Carbonate ER* 450 MG TAB.ER PO SCH (12:43)
[2019-09-01] MEDS: Nicotine* 4MG (FRUIT FLAVOR) GUM PO PRN ×3 (07:33→18:53)
[2019-09-01 08:35] LABS: HDL Cholesterol 45.9 mg/dL
[2019-09-01] MEDS: Lithium Carbonate ER* 450 MG TAB.ER PO SCH (11:04)
[2019-09-01] MEDS: Ondansetron TAB* 4 MG PO SCH (11:04)
--- NOTE | 2019-09-01 11:55 | PN ---
BSU: Group Therapy Note - Service Type Service Type: [id number] Group Psychotherapy - Cognitive Behavioral Therapy (CBT): Patient presents with high volume of speech that impresses as being coherent within the context of self-report, but is tangential and off topic in group context. Concerns regarding disorganization of thought are apparent.
--- NOTE | 2019-09-01 11:57 | PN ---
Subjective - Subjective Date of Service: 09/01/19 Service Type: [id number] Hosp care 15 min low complexity Subjective: Ba is hypertalkative and delusional. He claims that psychological testing performed at [facility] demonstrated that he was "non-human" and that's when he decided to become interested in sabianist. "To me it was like they were telling me that I was like an alien or something. I said 'Aliens aren't real' so I got into the Bible, just looking for that explanation." He apparently made suicidal statements to staff last night that he was going to kill himself because [place]an was chasing him. He denies this now. Objective - General Observations Appearance: Disheveled Appears Stated Age: Yes Stature: Overweight Posture: WNL Eye Contact: Intense Behavior/Activity: Peculiar - Interaction Observations Attitude Towards Examiner: Cooperative Stated Mood: Euthymic Affect: Labile Speech Pattern/Tone: Excessive, Pressured Thought Process: Disorganized Thought Content: Paranoid, Grandiose Thought Process: Lethality: Paranoid Ideation Hallucination Type: Auditory Delusion Type: Persecution, Grandeur - Cognitive Function Orientation: A&O x 4 Level of Consciousness: Awake Cognition: WNL Estimated Intelligence: Normal Insight: Difficulty Acknowledging Presence of Psyciatric Problems Judgment Within Normal Limits: No Ability to Make Reasonable Decisions: Serverely Impaired - Medication Compliance Cooperative with Inpatient Medication Regimen: Partial - Group Participation Participates in Group Activities: No Assessment - Assessment Merits Inpatient Hospitalization: For Immediate Safety, For Stabilization Inpatient DSM-V Dx: F20.9 Clinical Impression: 29 y.o. AA male with a history of schizophrenia and cannabis abuse, just discharged two weeks ago from the [facility], who returns involuntarily due to paranoia , agitation and threatening behavior in the community in the setting of poor adherence to medications and use of synthetic cannabis. BSU: Problem List - Patient Problems (1) Schizophrenia Current Visit: No Status: Chronic Priority: High Onset Date: 01/03/15 Code(s): F20.9 - SCHIZOPHRENIA, UNSPECIFIED SNOMED Code(s): 98426238 Plan - Plan Treatment Plan: Name: BA JONES Birthdate: 1990 [id number] Will continue outpatient medication regimen of fluphenazine decanoate 50mg IM q2wks (next due 09/07) and lithium ER 1350mg PO qday. The patient is now evicted from housing. We will likely refer to the [facility] system. Continued Medication Management: Continue Outpt Medication Medications: Current Medications Acetaminophen (Tylenol Tab*) 650 mg PO Q4H PRN PRN Reason: for pain; or Temp >101 F Al Hydrox/Mg Hydrox/Simethicone (Maalox Plus*) 30 ml PO Q4H PRN PRN Reason: INDIGESTION Chlorpromazine HCl (Thorazine Tab*) 100 mg PO Q6H PRN PRN Reason: AGITATION [place] Carbonate ([place] Carbonate Er Tab*) 1,350 mg PO DAILY [facility] Last Admin: 09/01/19 11:04 Dose: Not Given Nicotine (Nicotine Patch 21 Mg/24 Hr*) 1 patch TRANSDERM DAILY@0800 [facility] Nicotine Polacrilex (Nicotine Gum*) 4 mg PO Q2H PRN PRN Reason: CRAVINGS Last Admin: 09/01/19 11:02 Dose: 4 mg Ondansetron HCl (Zofran Tab*) 4 mg PO DAILY [facility] Last Admin: 09/01/19 11:04 Dose: Not Given Senna (Senokot 8.6 Mg Tab*) 1 tab PO DAILY PRN PRN Reason: CONSTIPATION - Discharge Plan Discharge Plan: Consider Longer Term Tx
[2019-09-01] MEDS: Nicotine PATCH 21 MG/24 HR* PATCH TRANSDERM SCH (12:26)
[2019-09-02] MEDS: Nicotine PATCH 21 MG/24 HR* PATCH TRANSDERM SCH (12:42)
[2019-09-02] MEDS: Ondansetron TAB* 4 MG PO SCH (12:42)
[2019-09-02] MEDS: Lithium Carbonate ER* 450 MG TAB.ER PO SCH (12:42)
[2019-09-02] MEDS: Nicotine* 4MG (FRUIT FLAVOR) GUM PO PRN (12:44)
--- NOTE | 2019-09-02 15:39 | PN ---
Subjective - Subjective Date of Service: 09/02/19 Service Type: [id number] Hosp care 15 min low complexity Subjective: Ba remains grandiose and paranoid. "I don't have the regular kind of schizophrenia. I'm ...I'm from [place]. I need herbal remedies for what I got." He is less threatening but still has incredibly bad insight. "I got myself kicked out of [place] because that's the only way the court order would release me so that I could get my own apartment." He denies SI or HI. Objective - General Observations Appearance: Disheveled Appears Stated Age: No Stature: Overweight Posture: Slumped Eye Contact: Intense Behavior/Activity: Peculiar - Interaction Observations Attitude Towards Examiner: Demanding Stated Mood: Irritable Affect: Blunted Speech Pattern/Tone: Excessive, Pressured Thought Process: Disorganized, Tangential Thought Content: Paranoid, Grandiose Thought Process: Lethality: Paranoid Ideation Hallucination Type: Auditory Delusion Type: Persecution, Grandeur - Cognitive Function Orientation: A&O x 4 Level of Consciousness: Awake Cognition: WNL Estimated Intelligence: Normal Insight: Difficulty Acknowledging Presence of Psyciatric Problems Judgment Within Normal Limits: No Ability to Make Reasonable Decisions: Serverely Impaired - Medication Compliance Cooperative with Inpatient Medication Regimen: Partial - Group Participation Participates in Group Activities: No Assessment - Assessment Merits Inpatient Hospitalization: For Immediate Safety, For Stabilization Inpatient DSM-V Dx: F20.9 Clinical Impression: 29 y.o. AA male with a history of schizophrenia and cannabis abuse, just discharged two weeks ago from the [facility], who returns involuntarily due to paranoia , agitation and threatening behavior in the community in the setting of poor adherence to medications and use of synthetic cannabis. BSU: Problem List - Patient Problems (1) Schizophrenia Current Visit: No Status: Chronic Priority: High Onset Date: 01/03/15 Code(s): F20.9 - SCHIZOPHRENIA, UNSPECIFIED SNOMED Code(s): 23380637 Plan - Plan Treatment Plan: Name: BA JONES Birthdate: 1990 [id number] Will continue outpatient medication regimen of fluphenazine decanoate 50mg IM q2wks (next due 09/07) and lithium ER 1350mg PO qday. The patient is now evicted from housing at [place]. We will likely [facility]. Continued Medication Management: Continue Outpt Medication Medications: Current Medications Acetaminophen (Tylenol Tab*) 650 mg PO Q4H PRN PRN Reason: for pain; or Temp >101 F Al Hydrox/Mg Hydrox/Simethicone (Maalox Plus*) 30 ml PO Q4H PRN PRN Reason: INDIGESTION Chlorpromazine HCl (Thorazine Tab*) 100 mg PO Q6H PRN PRN Reason: AGITATION [place] Carbonate ([place] Carbonate Er Tab*) 1,350 mg PO DAILY [facility] Last Admin: 09/02/19 12:42 Dose: Not Given Nicotine (Nicotine Patch 21 Mg/24 Hr*) 1 patch TRANSDERM DAILY@0800 [facility] Last Admin: 09/02/19 12:42 Dose: Not Given Nicotine Polacrilex (Nicotine Gum*) 4 mg PO Q2H PRN PRN Reason: CRAVINGS Last Admin: 09/02/19 12:44 Dose: 4 mg Ondansetron HCl (Zofran Tab*) 4 mg PO DAILY [facility] Last Admin: 09/02/19 12:42 Dose: Not Given Senna (Senokot 8.6 Mg Tab*) 1 tab PO DAILY PRN PRN Reason: CONSTIPATION - Discharge Plan Discharge Plan: Consider Longer Term Tx
[2019-09-03] MEDS: Nicotine* 4MG (FRUIT FLAVOR) GUM PO PRN (06:53)
[2019-09-03] MEDS: Nicotine PATCH 21 MG/24 HR* PATCH TRANSDERM SCH (06:53)
[2019-09-03] MEDS: Ondansetron TAB* 4 MG PO SCH (11:15)
[2019-09-03] MEDS: Lithium Carbonate ER* 450 MG TAB.ER PO SCH (11:15)
[2019-09-04] MEDS: Nicotine* 4MG (FRUIT FLAVOR) GUM PO PRN (09:44)
[2019-09-04] MEDS: Ondansetron TAB* 4 MG PO SCH (09:45)
[2019-09-04] MEDS: Lithium Carbonate ER* 450 MG TAB.ER PO SCH (09:45)
[2019-09-04] MEDS: Nicotine PATCH 21 MG/24 HR* PATCH TRANSDERM SCH (09:45)
[2019-09-05] MEDS: Lithium Carbonate ER* 450 MG TAB.ER PO SCH ×2 (08:38→08:54)
[2019-09-05] MEDS: Nicotine PATCH 21 MG/24 HR* PATCH TRANSDERM SCH (08:38)
[2019-09-05] MEDS: Ondansetron TAB* 4 MG PO SCH ×2 (08:38→20:19)
[2019-09-05] MEDS: Nicotine* 4MG (FRUIT FLAVOR) GUM PO PRN ×3 (08:38→20:20)
[2019-09-05] MEDS: Acetaminophen TAB* 325 MG PO PRN ×2 (08:39→17:34)
--- NOTE | 2019-09-05 12:17 | PN ---
Subjective - Subjective Date of Service: 09/05/19 Service Type: [id number] Hosp care 15 min low complexity Subjective: Ba is taking his medications as prescribed, stating "That Zofran really worked. I figure if Zofran works, then all western medicines must work. There' s only one true science and it's chemistry." He is bizarre and hyperverbal, telling me "I know I have schizophrenia. I know I need to take my medicine. I know I need to go back to [facility]. It's a nuclear facility...they do nuclear testing there." He denies SI or HI. Objective - General Observations Appearance: Disheveled, Malodorous, Unkempt Appears Stated Age: Yes Stature: WNL Posture: WNL Eye Contact: Intense Behavior/Activity: Peculiar - Interaction Observations Attitude Towards Examiner: Cooperative Stated Mood: Expansive Affect: Blunted Speech Pattern/Tone: Excessive Thought Process: Disorganized Thought Content: Paranoid, Grandiose Thought Process: Lethality: Paranoid Ideation Hallucination Type: Auditory Delusion Type: Persecution, Grandeur - Cognitive Function Orientation: A&O x 4 Level of Consciousness: Awake, Alert Cognition: WNL Estimated Intelligence: Normal Insight: Difficulty Acknowledging Presence of Psyciatric Problems Judgment Within Normal Limits: No Ability to Make Reasonable Decisions: Serverely Impaired - Medication Compliance Cooperative with Inpatient Medication Regimen: Yes - Group Participation Participates in Group Activities: No Assessment - Assessment Merits Inpatient Hospitalization: For Immediate Safety, For Stabilization Inpatient DSM-V Dx: F20.9 Clinical Impression: 29 y.o. AA male with a history of schizophrenia and cannabis abuse, just discharged two weeks ago from the [facility], who returns involuntarily due to paranoia , agitation and threatening behavior in the community in the setting of poor adherence to medications and use of synthetic cannabis. BSU: Problem List - Patient Problems (1) Schizophrenia Current Visit: No Status: Chronic Priority: High Onset Date: 01/03/15 Code(s): F20.9 - SCHIZOPHRENIA, UNSPECIFIED SNOMED Code(s): 09707624 Plan - Plan Treatment Plan: Name: BA JONES Birthdate: 1990 [id number] Will continue outpatient medication regimen of fluphenazine decanoate 50mg IM q2wks (next due 09/07) and lithium ER 1350mg PO qday. The patient is now evicted from housing at [place]. We will likely refer to the [facility] system. Continued Medication Management: Continue Outpt Medication Medications: Current Medications Acetaminophen (Tylenol Tab*) 650 mg PO Q4H PRN PRN Reason: for pain; or Temp >101 F Last Admin: 09/05/19 08:39 Dose: 650 mg Al Hydrox/Mg Hydrox/Simethicone (Maalox Plus*) 30 ml PO Q4H PRN PRN Reason: INDIGESTION Chlorpromazine HCl (Thorazine Tab*) 100 mg PO Q6H PRN PRN Reason: AGITATION Fluphenazine Decanoate (Prolixin Decanoate*) 50 mg IM Q14D [facility] [place] Carbonate ([place] Carbonate Er Tab*) 1,350 mg PO DAILY [facility] Last Admin: 09/05/19 08:54 Dose: 1,350 mg Nicotine (Nicotine Patch 21 Mg/24 Hr*) 1 patch TRANSDERM DAILY@0800 [facility] Last Admin: 09/05/19 08:38 Dose: 1 patch Nicotine Polacrilex (Nicotine Gum*) 4 mg PO Q2H PRN PRN Reason: CRAVINGS Last Admin: 09/05/19 08:38 Dose: 4 mg Ondansetron HCl (Zofran Tab*) 4 mg PO Q8H PRN PRN Reason: NAUSEA Ondansetron HCl (Zofran Tab*) 4 mg PO BID [facility] Senna (Senokot 8.6 Mg Tab*) 1 tab PO DAILY PRN PRN Reason: CONSTIPATION - Discharge Plan Discharge Plan: Consider Longer Term Tx
[2019-09-05] MEDS: chlorproMAZINE TAB* 100 MG PO PRN (20:18)
[2019-09-06] MEDS: Ondansetron TAB* 4 MG PO SCH ×2 (07:35→20:55)
[2019-09-06] MEDS: Nicotine PATCH 21 MG/24 HR* PATCH TRANSDERM SCH (07:35)
[2019-09-06] MEDS: Lithium Carbonate ER* 450 MG TAB.ER PO SCH (07:35)
[2019-09-06] MEDS: Nicotine* 4MG (FRUIT FLAVOR) GUM PO PRN ×2 (07:38→17:35)
[2019-09-06] MEDS: Acetaminophen TAB* 325 MG PO PRN ×2 (07:38→17:34)
[2019-09-06] MEDS: Ondansetron TAB* 4 MG PO PRN (17:35)
[2019-09-06] MEDS: chlorproMAZINE TAB* 100 MG PO PRN (23:09)
[2019-09-07] MEDS: Ondansetron TAB* 4 MG PO SCH ×2 (10:40→21:37)
[2019-09-07] MEDS: Nicotine PATCH 21 MG/24 HR* PATCH TRANSDERM SCH (10:40)
[2019-09-07] MEDS: Lithium Carbonate ER* 450 MG TAB.ER PO SCH (10:41)
[2019-09-07] MEDS: Nicotine* 4MG (FRUIT FLAVOR) GUM PO PRN ×2 (10:43→15:31)
[2019-09-07] MEDS: Acetaminophen TAB* 325 MG PO PRN ×2 (11:05→17:15)
--- NOTE | 2019-09-07 11:06 | PN ---
Subjective - Subjective Date of Service: 09/07/19 Service Type: 02738 Hosp care 15 min low complexity Subjective: Ba remains bizarre and hyperreligious at times. He requested a prn of thorazine last night for feeling "agitated." The patient denies SI or HI and is cooperative with exam. Objective - General Observations Appearance: Disheveled, Malodorous Appears Stated Age: Yes Stature: WNL Posture: WNL Eye Contact: Intense Behavior/Activity: Peculiar - Interaction Observations Attitude Towards Examiner: Cooperative Stated Mood: Euthymic Affect: Blunted Speech Pattern/Tone: Excessive Thought Process: Disorganized Thought Content: Paranoid, Grandiose Thought Process: Lethality: Paranoid Ideation Hallucination Type: Auditory Delusion Type: Persecution, Grandeur - Cognitive Function Orientation: A&O x 4 Level of Consciousness: Awake Cognition: WNL Estimated Intelligence: Normal Insight: Difficulty Acknowledging Presence of Psyciatric Problems Judgment Within Normal Limits: No Ability to Make Reasonable Decisions: Serverely Impaired - Medication Compliance Cooperative with Inpatient Medication Regimen: Yes - Group Participation Participates in Group Activities: No Assessment - Assessment Merits Inpatient Hospitalization: For Immediate Safety, For Stabilization Inpatient DSM-V Dx: F20.9 Clinical Impression: 29 y.o. AA male with a history of schizophrenia and cannabis abuse, just discharged two weeks ago from the [facility], who returns involuntarily due to paranoia , agitation and threatening behavior in the community in the setting of poor adherence to medications and use of synthetic cannabis. BSU: Problem List - Patient Problems (1) Schizophrenia Current Visit: No Status: Chronic Priority: High Onset Date: 01/03/15 Code(s): F20.9 - SCHIZOPHRENIA, UNSPECIFIED SNOMED Code(s): 40745067 Plan - Plan Treatment Plan: Name: BA JONES Birthdate: 1990 [id number] Will continue outpatient medication regimen of fluphenazine decanoate 50mg IM q2wks (next due 09/07) and lithium ER 1350mg PO qday. The patient is now evicted from housing at [place]. We will likely refer to the [facility] system. Continued Medication Management: Continue Outpt Medication Medications: Current Medications Acetaminophen (Tylenol Tab*) 650 mg PO Q4H PRN PRN Reason: for pain; or Temp >101 F Last Admin: 09/06/19 17:34 Dose: 650 mg Al Hydrox/Mg Hydrox/Simethicone (Maalox Plus*) 30 ml PO Q4H PRN PRN Reason: INDIGESTION Chlorpromazine HCl (Thorazine Tab*) 100 mg PO Q6H PRN PRN Reason: AGITATION Last Admin: 09/06/19 23:09 Dose: 100 mg Fluphenazine Decanoate (Prolixin Decanoate*) 50 mg IM Q14D [facility] [place] Carbonate ([place] Carbonate Er Tab*) 1,350 mg PO DAILY [facility] Last Admin: 09/07/19 10:41 Dose: 1,350 mg Nicotine (Nicotine Patch 21 Mg/24 Hr*) 1 patch TRANSDERM DAILY@0800 [facility] Last Admin: 09/07/19 10:40 Dose: Not Given Nicotine Polacrilex (Nicotine Gum*) 4 mg PO Q2H PRN PRN Reason: CRAVINGS Last Admin: 09/07/19 10:43 Dose: 4 mg Ondansetron HCl (Zofran Tab*) 4 mg PO Q8H PRN PRN Reason: NAUSEA Last Admin: 09/06/19 17:35 Dose: 4 mg Ondansetron HCl (Zofran Tab*) 4 mg PO BID [facility] Last Admin: 09/07/19 10:40 Dose: 4 mg Senna (Senokot 8.6 Mg Tab*) 1 tab PO DAILY PRN PRN Reason: CONSTIPATION Last Admin: 09/05/19 20:19 Dose: 1 tab - Discharge Plan Discharge Plan: Consider Longer Term Tx
[2019-09-07] MEDS: Ondansetron TAB* 4 MG PO PRN (17:11)
[2019-09-07] MEDS: chlorproMAZINE TAB* 100 MG PO PRN (17:17)
[2019-09-08] MEDS ORDERED: Fluphenazine Decanoate* 25 MG/ML 5 ML VIAL IM SCH (09:00)
[2019-09-08] MEDS: Nicotine PATCH 21 MG/24 HR* PATCH TRANSDERM SCH (14:10)
[2019-09-08] MEDS: Lithium Carbonate ER* 450 MG TAB.ER PO SCH (14:11)
[2019-09-08] MEDS: Ondansetron TAB* 4 MG PO SCH ×2 (14:11→19:52)
[2019-09-08] MEDS: Nicotine* 4MG (FRUIT FLAVOR) GUM PO PRN ×2 (14:14→19:51)
[2019-09-08] MEDS: chlorproMAZINE TAB* 100 MG PO PRN (19:51)
[2019-09-08] MEDS: Acetaminophen TAB* 325 MG PO PRN (19:52)
[2019-09-09] MEDS: Nicotine PATCH 21 MG/24 HR* PATCH TRANSDERM SCH (08:32)
[2019-09-09] MEDS: Lithium Carbonate ER* 450 MG TAB.ER PO SCH (08:33)
[2019-09-09] MEDS: Ondansetron TAB* 4 MG PO SCH ×2 (08:34→21:15)
[2019-09-09] MEDS: Nicotine* 4MG (FRUIT FLAVOR) GUM PO PRN (08:42)
[2019-09-09] MEDS: Acetaminophen TAB* 325 MG PO PRN (08:42)
--- NOTE | 2019-09-09 13:50 | PN ---
Subjective - Subjective Date of Service: 09/09/19 Service Type: [id number] Hosp care 15 min low complexity Subjective: Ba is hyperreligious and irritable. He accuses staff of stealing a bible from his room. He is taking all medications and had his routine biweekly Prolixin decanoate shot yesterday as directed. He denies SI or HI. Objective - General Observations Appearance: Disheveled Appears Stated Age: Yes Stature: WNL Posture: WNL Eye Contact: Intense Behavior/Activity: Peculiar - Interaction Observations Attitude Towards Examiner: Demanding Stated Mood: Irritable Affect: Blunted Speech Pattern/Tone: Pressured Thought Process: Disorganized Thought Content: Paranoid, Grandiose Thought Process: Lethality: Paranoid Ideation Hallucination Type: Auditory Delusion Type: Persecution, Grandeur, Druze - Cognitive Function Orientation: A&O x 4 Level of Consciousness: Awake Cognition: WNL Estimated Intelligence: Normal Insight: WNL Judgment Within Normal Limits: Yes - Medication Compliance Cooperative with Inpatient Medication Regimen: Yes - Group Participation Participates in Group Activities: No Assessment - Assessment Merits Inpatient Hospitalization: For Immediate Safety, For Stabilization Inpatient DSM-V Dx: F20.9 Clinical Impression: 29 y.o. AA male with a history of schizophrenia and cannabis abuse, just [facility] two [facility] ago [facility] the [facility], who returns involuntarily due to paranoia , agitation and threatening behavior in the community in the setting of poor adherence to medications and use of synthetic cannabis. [facility]: Problem List - Patient Problems (1) Schizophrenia Current Visit: No Status: Chronic Priority: High Onset Date: 01/03/15 Code(s): F20.9 - SCHIZOPHRENIA, UNSPECIFIED SNOMED Code(s): 17483995 Plan - Plan Treatment Plan: Name: BA JONES Birthdate: 1990 [id number] Will continue outpatient medication regimen of fluphenazine decanoate 50mg IM q2wks (next due 09/07) and lithium ER 1350mg PO qday. The patient is now evicted from housing at [place]. We will likely refer to the [facility] system. Continued Medication Management: Continue Outpt Medication Medications: Current Medications Acetaminophen (Tylenol Tab*) 650 mg PO Q4H PRN PRN Reason: for pain; or Temp >101 F Last Admin: 09/09/19 08:42 Dose: 650 mg Al Hydrox/Mg Hydrox/Simethicone (Maalox Plus*) 30 ml PO Q4H PRN PRN Reason: INDIGESTION Chlorpromazine HCl (Thorazine Tab*) 100 mg PO Q6H PRN PRN Reason: AGITATION Last Admin: 09/08/19 19:51 Dose: 100 mg Fluphenazine Decanoate (Prolixin Decanoate*) 50 mg IM Q14D [facility] Last Admin: 09/08/19 15:20 Dose: 50 mg [place] Carbonate ([place] Carbonate Er Tab*) 1,350 mg PO DAILY [facility] Last Admin: 09/09/19 08:33 Dose: 1,350 mg Nicotine (Nicotine Patch 21 Mg/24 Hr*) 1 patch TRANSDERM DAILY@0800 [facility] Last Admin: 09/09/19 08:32 Dose: 1 patch Nicotine Polacrilex (Nicotine Gum*) 4 mg PO Q2H PRN PRN Reason: CRAVINGS Last Admin: 09/09/19 08:42 Dose: 4 mg Ondansetron HCl (Zofran Tab*) 4 mg PO Q8H PRN PRN Reason: NAUSEA Last Admin: 09/07/19 17:11 Dose: 4 mg Ondansetron HCl (Zofran Tab*) 4 mg PO BID [facility] Last Admin: 09/09/19 08:34 Dose: 4 mg Senna (Senokot 8.6 Mg Tab*) 1 tab PO DAILY PRN PRN Reason: CONSTIPATION Last Admin: 09/05/19 20:19 Dose: 1 tab - Discharge Plan Discharge Plan: Consider Longer Term Tx
[2019-09-10] MEDS: Lithium Carbonate ER* 450 MG TAB.ER PO SCH (10:08)
[2019-09-10] MEDS: Ondansetron TAB* 4 MG PO SCH ×2 (10:09→21:14)
[2019-09-10] MEDS: Nicotine* 4MG (FRUIT FLAVOR) GUM PO PRN (10:11)
[2019-09-10] MEDS: Nicotine PATCH 21 MG/24 HR* PATCH TRANSDERM SCH (13:15)
[2019-09-10] MEDS: Acetaminophen TAB* 325 MG PO PRN (21:19)
[2019-09-11] MEDS: Ondansetron TAB* 4 MG PO SCH ×2 (10:26→19:40)
[2019-09-11] MEDS: Ondansetron TAB* 4 MG PO PRN (10:36)
[2019-09-11] MEDS: Nicotine* 4MG (FRUIT FLAVOR) GUM PO PRN ×3 (10:36→19:40)
[2019-09-11] MEDS: Acetaminophen TAB* 325 MG PO PRN ×2 (10:36→16:49)
[2019-09-11] MEDS: Lithium Carbonate ER* 450 MG TAB.ER PO SCH (10:37)
[2019-09-11] MEDS: Nicotine PATCH 21 MG/24 HR* PATCH TRANSDERM SCH (12:02)
[2019-09-11] MEDS: chlorproMAZINE TAB* 100 MG PO PRN (19:40)
[2019-09-12] MEDS: Ondansetron TAB* 4 MG PO PRN (06:08)
[2019-09-12] MEDS: Ondansetron TAB* 4 MG PO SCH ×2 (10:37→22:30)
[2019-09-12] MEDS: Lithium Carbonate ER* 450 MG TAB.ER PO SCH (10:37)
[2019-09-12] MEDS: Nicotine PATCH 21 MG/24 HR* PATCH TRANSDERM SCH (10:38)
[2019-09-12] MEDS: Nicotine* 4MG (FRUIT FLAVOR) GUM PO PRN ×2 (10:38→19:55)
--- NOTE | 2019-09-12 11:49 | PN ---
Subjective - Subjective Date of Service: 09/12/19 Service Type: [id number] Hosp care 15 min low complexity Subjective: Ba is irritable this morning. He is adherent with medications but inpatient to go to [facility]. The patient denies SI or HI. Objective - General Observations Appearance: Disheveled Appears Stated Age: Yes Stature: WNL Posture: Slumped Eye Contact: Intense Behavior/Activity: Peculiar - Interaction Observations Attitude Towards Examiner: Demanding Stated Mood: Irritable Affect: Blunted Speech Pattern/Tone: Pressured Thought Process: Disorganized Thought Content: Paranoid, Grandiose Thought Process: Lethality: Paranoid Ideation Hallucination Type: Auditory Delusion Type: Persecution, Grandeur, Oriental Orthodox - Cognitive Function Orientation: A&O x 4 Level of Consciousness: Awake Cognition: WNL Estimated Intelligence: Normal Insight: Difficulty Acknowledging Presence of Psyciatric Problems Judgment Within Normal Limits: No Ability to Make Reasonable Decisions: Serverely Impaired - Medication Compliance Cooperative with Inpatient Medication Regimen: Yes - Group Participation Participates in Group Activities: No Assessment - Assessment Merits Inpatient Hospitalization: For Immediate Safety, For Stabilization Inpatient DSM-V Dx: F20.9 Clinical Impression: 29 y.o. AA male with a history of schizophrenia and cannabis abuse, just discharged two weeks ago from the [facility], who returns involuntarily due to paranoia , agitation and threatening behavior in the community in the setting of poor adherence to medications and use of synthetic cannabis. [facility]: Problem List - Patient Problems (1) Schizophrenia Current Visit: No Status: Chronic Priority: High Onset Date: 01/03/15 Code(s): F20.9 - SCHIZOPHRENIA, UNSPECIFIED SNOMED Code(s): 51939815 Plan - Plan Treatment Plan: Name: BA JONES Birthdate: 1990 [id number] Will continue outpatient medication regimen of fluphenazine decanoate 50mg IM q2wks (next due 09/21) and lithium ER 1350mg PO qday. The patient is now evicted from housing at [place]. We will refer to the [facility] system. Continued Medication Management: Continue Outpt Medication Medications: Current Medications Acetaminophen (Tylenol Tab*) 650 mg PO Q4H PRN PRN Reason: for pain; or Temp >101 F Last Admin: 09/11/19 16:49 Dose: 650 mg Al Hydrox/Mg Hydrox/Simethicone (Maalox Plus*) 30 ml PO Q4H PRN PRN Reason: INDIGESTION Last Admin: 09/11/19 19:40 Dose: 30 ml Chlorpromazine HCl (Thorazine Tab*) 100 mg PO Q6H PRN PRN Reason: AGITATION Last Admin: 09/11/19 19:40 Dose: 100 mg Fluphenazine Decanoate (Prolixin Decanoate*) 50 mg IM Q14D [facility] Last Admin: 09/08/19 15:20 Dose: 50 mg [place] Carbonate ([place] Carbonate Er Tab*) 1,350 mg PO DAILY [facility] Last Admin: 09/12/19 10:37 Dose: 1,350 mg Nicotine (Nicotine Patch 21 Mg/24 Hr*) 1 patch TRANSDERM DAILY@0800 [facility] Last Admin: 09/12/19 10:38 Dose: Not Given Nicotine Polacrilex (Nicotine Gum*) 4 mg PO Q2H PRN PRN Reason: CRAVINGS Last Admin: 09/12/19 10:38 Dose: 4 mg Ondansetron HCl (Zofran Tab*) 4 mg PO Q8H PRN PRN Reason: NAUSEA Last Admin: 09/12/19 06:08 Dose: 4 mg Ondansetron HCl (Zofran Tab*) 4 mg PO BID [facility] Last Admin: 09/12/19 10:37 Dose: 4 mg Senna (Senokot 8.6 Mg Tab*) 1 tab PO DAILY PRN PRN Reason: CONSTIPATION Last Admin: 09/05/19 20:19 Dose: 1 tab - Discharge Plan Discharge Plan: Consider Longer Term Tx
[2019-09-12] MEDS: Acetaminophen TAB* 325 MG PO PRN (19:57)
[2019-09-13] MEDS: Ondansetron TAB* 4 MG PO PRN (05:31)
[2019-09-13] MEDS: Nicotine* 4MG (FRUIT FLAVOR) GUM PO PRN ×3 (05:31→23:08)
[2019-09-13] MEDS: Acetaminophen TAB* 325 MG PO PRN ×2 (05:31→23:07)
[2019-09-13] MEDS: Lithium Carbonate ER* 450 MG TAB.ER PO SCH (08:55)
[2019-09-13] MEDS: Ondansetron TAB* 4 MG PO SCH ×2 (08:55→23:06)
[2019-09-13] MEDS: Nicotine PATCH 21 MG/24 HR* PATCH TRANSDERM SCH (08:57)
[2019-09-14 08:50] VITALS: BP 140/73
[2019-09-14] MEDS: Lithium Carbonate ER* 450 MG TAB.ER PO SCH (11:48)
[2019-09-14] MEDS: Ondansetron TAB* 4 MG PO SCH ×2 (11:48→21:02)
[2019-09-14] MEDS: Nicotine PATCH 21 MG/24 HR* PATCH TRANSDERM SCH (11:49)
--- NOTE | 2019-09-14 12:23 | PN ---
Subjective - Subjective Date of Service: 09/14/19 Service Type: [id number] Hosp care 15 min low complexity Subjective: Ba is calm and cooperative today, following several days of irritability. He is tolerating his medications well and taking them as directed. He denies SI or HI. Objective - General Observations Appearance: Disheveled Appears Stated Age: Yes Stature: WNL Posture: WNL Eye Contact: Intense Behavior/Activity: Peculiar - Interaction Observations Attitude Towards Examiner: Cooperative Stated Mood: Euthymic Affect: Blunted Speech Pattern/Tone: Pressured Thought Process: Disorganized Thought Content: Paranoid Thought Process: Lethality: Paranoid Ideation Hallucination Type: Auditory Delusion Type: Persecution - Cognitive Function Orientation: A&O x 4 Level of Consciousness: Awake Cognition: WNL Estimated Intelligence: Normal Insight: Difficulty Acknowledging Presence of Psyciatric Problems Judgment Within Normal Limits: No Ability to Make Reasonable Decisions: Serverely Impaired - Medication Compliance Cooperative with Inpatient Medication Regimen: Yes - Group Participation Participates in Group Activities: Partial Assessment - Assessment Merits Inpatient Hospitalization: For Immediate Safety, For Stabilization Inpatient DSM-V Dx: F20.9 Clinical Impression: 29 y.o. AA male with a history of schizophrenia and cannabis abuse, just discharged two weeks ago from the [facility], who returns involuntarily due to paranoia , agitation and threatening behavior in the community in the setting of poor adherence to medications and use of synthetic cannabis. [facility]: Problem List - Patient Problems (1) Schizophrenia Current Visit: No Status: Chronic Priority: High Onset Date: 01/03/15 Code(s): F20.9 - SCHIZOPHRENIA, UNSPECIFIED SNOMED Code(s): 76105815 Plan - Plan Treatment Plan: Name: BA JONES Birthdate: 1990 [id number] Will continue outpatient medication regimen of fluphenazine decanoate 50mg IM q2wks (next due 09/21) and lithium ER 1350mg PO qday. The patient is now evicted from housing at [place]. We will refer to the [facility] system. Continued Medication Management: Continue Outpt Medication Medications: Current Medications Acetaminophen (Tylenol Tab*) 650 mg PO Q4H PRN PRN Reason: for pain; or Temp >101 F Last Admin: 09/13/19 23:07 Dose: 650 mg Al Hydrox/Mg Hydrox/Simethicone (Maalox Plus*) 30 ml PO Q4H PRN PRN Reason: INDIGESTION Last Admin: 09/11/19 19:40 Dose: 30 ml Chlorpromazine HCl (Thorazine Tab*) 100 mg PO Q6H PRN PRN Reason: AGITATION Last Admin: 09/11/19 19:40 Dose: 100 mg Cholecalciferol (Vitamin D Tab*) 1,000 units PO DAILY [facility] Fluphenazine Decanoate (Prolixin Decanoate*) 50 mg IM Q14D [facility] Last Admin: 09/08/19 15:20 Dose: 50 mg [place] Carbonate ([place] Carbonate Er Tab*) 1,350 mg PO DAILY [facility] Last Admin: 09/14/19 11:48 Dose: 1,350 mg Multivitamins/Minerals (Theragran/Minerals Tab*) 1 tab PO DAILY [facility] Nicotine (Nicotine Patch 21 Mg/24 Hr*) 1 patch TRANSDERM DAILY@0800 [facility] Last Admin: 09/14/19 11:49 Dose: Not Given Nicotine Polacrilex (Nicotine Gum*) 4 mg PO Q2H PRN PRN Reason: CRAVINGS Last Admin: 09/13/19 23:08 Dose: 4 mg Ondansetron HCl (Zofran Tab*) 4 mg PO Q8H PRN PRN Reason: NAUSEA Last Admin: 09/13/19 05:31 Dose: 4 mg Ondansetron HCl (Zofran Tab*) 4 mg PO BID [facility] Last Admin: 09/14/19 11:48 Dose: 4 mg Senna (Senokot 8.6 Mg Tab*) 1 tab PO DAILY PRN PRN Reason: CONSTIPATION Last Admin: 09/05/19 20:19 Dose: 1 tab - Discharge Plan Discharge Plan: Consider Longer Term Tx
[2019-09-14] MEDS: Cholecalciferol TAB* 1000 UNITS PO SCH (12:43)
[2019-09-14] MEDS: Multivitamins/Minerals TAB PO SCH (12:43)
[2019-09-14] MEDS: Acetaminophen TAB* 325 MG PO PRN (21:02)
[2019-09-14] MEDS: chlorproMAZINE TAB* 100 MG PO PRN (21:03)
[2019-09-14] MEDS: Nicotine* 4MG (FRUIT FLAVOR) GUM PO PRN (21:04)
[2019-09-15] MEDS: Lithium Carbonate ER* 450 MG TAB.ER PO SCH (07:56)
[2019-09-15] MEDS: Ondansetron TAB* 4 MG PO SCH ×2 (07:56→21:40)
[2019-09-15] MEDS: Multivitamins/Minerals TAB PO SCH (07:56)
[2019-09-15] MEDS: Nicotine PATCH 21 MG/24 HR* PATCH TRANSDERM SCH (07:56)
[2019-09-15] MEDS: Cholecalciferol TAB* 1000 UNITS PO SCH (07:56)
[2019-09-15] MEDS: Nicotine* 4MG (FRUIT FLAVOR) GUM PO PRN (07:59)
[2019-09-15] MEDS: Acetaminophen TAB* 325 MG PO PRN (21:41)
[2019-09-16] MEDS: Nicotine PATCH 21 MG/24 HR* PATCH TRANSDERM SCH (09:37)
[2019-09-16] MEDS: Cholecalciferol TAB* 1000 UNITS PO SCH (09:38)
[2019-09-16] MEDS: Ondansetron TAB* 4 MG PO SCH (09:38)
[2019-09-16] MEDS: Lithium Carbonate ER* 450 MG TAB.ER PO SCH (09:38)
[2019-09-16] MEDS: Multivitamins/Minerals TAB PO SCH (09:38)
[2019-09-16] MEDS: Ondansetron TAB* 4 MG PO PRN (12:15)
[2019-09-16] MEDS ORDERED: Ondansetron TAB* 4 MG PO ONE (13:00)
--- NOTE | 2019-09-16 13:06 | DS ---
DISCHARGE SUMMARY: DATE OF ADMISSION: 08/29/19 DATE OF DISCHARGE: 09/16/19 DISCHARGE DIAGNOSES: Are as follows: [place] I: Schizophrenia, cannabis use disorder. [place] II: Deferr ed. CONDITION AT THE TIME OF DISCHARGE: Guarded. Ba remains paranoid, hyperreligious, and irritable despite the resumption of his lithium and injectable Prolixin therapies. In addition, he has been e victed from the supported housing facility through the [facility]. This has rendered ric hunt effectively homeless. At this time, given the fact that he has had five recent psychiatric acute h ospitalizations, we are feeling that it is necessary to transfer him to a higher level of care [facility]. There the accepting physician was psychiatrist, Dr. Sb Alford. MENTAL STATUS EXAM AT THE TIME OF DISCHARGE: Ba is a young somewhat heavy set, light skinned Afr ican-[place] male with a stubbly delaney, who is dressed in a light orange pullover shirt with a green dress jacket draped over him. He is somewhat disheveled, but calm and cooperative, makes fairly goo d eye contact. Speech is limited. Thought process is disorganized. Thought content is significant for paranoid and grandiose delusions as well as hyperreligiosity. He is currently denying suicidal o r homicidal ideations. He denies auditory or visual hallucinations. Insight and judgment are somewh at impaired by his mental illness. Cognitively, he is awake and alert with what would appear to be an average intellect. LABS: Comprehensive metabolic testing was performed on 09/01/19 revealing hemoglobin A1c of 5.2%, tr iglycerides 204, cholesterol 205, LDL-cholesterol 118, HDL-cholesterol 45.9. DISCHARGE INSTRUCTIONS: To the patient are as follows: Part A. Medications: The patient is taking Prolixin Decanoate 50 mg IM every 2 weeks. His next injection will be due on , 09/22/19. In addition, he takes lithium carbonate extended release 1350 mg p.o. daily. He takes Zofran 4 mg roxie y, senna 8.6 mg p.o. daily as p.r.n. for constipation, nicotine patch 21 mg, nicotine gum 4 mg as nee ded for nicotine cravings, multivitamin once daily and vitamin D 1000 mg p.o. daily. Part B. Diet is regular. Part C. Activities: As per [facility] protocol. The patient is a smoker and understands that he cannot s moke [facility], for this reason we are continuing his nicotine patch and gum. There are no laboratory or diagnostic studies pending at the time of discharge. Part D. Followup care: The patient will be transferred to the inpatient service at [facility]. All of his outpatient arrangements will be made by that facility at the [facility] e time of discharge. Part E. Substance abuse followup is nonapplicable. Part F. Disposition: The patient is going to the [facility]. HOSPITAL COURSE: Part A. Reason for admission: Ba is a 29-year-old single -Bah[place]i antonia remy with a history of schizophrenia and drug abuse, who was just discharged from our behavioral science unit on 08/11/19, who now returns to the hospital on an involuntary basis with paranoid psychotic ag itation and making homicidal threats. When the patient was discharged earlier in July, he was in structed to return to the [facility] where he resides in a long term. Unfortunately, [place] remy has been threatening others and has received his final eviction notice. Ba has 30 days to gerson te the premises before having law enforcement evict him. He was also to continue to follow up with [facility] assertive community treatment team; however, when I called body team member, Yoli Xiong, she ind icates that Ba has been hostile towards them and not taking his oral lithium medication. They we re able to give him his biweekly injection of Prolixin Decanoate, most recently on , 08/25/19 . However, Ba has also been smoking cannabis on the streets and tends to become agitated when he uses synthetic cannabis in particular. As he arrives, he appears to be agitated and violent. He is loudly stating "I am an and I am black, I don't use medications." The ryder ent is delusional, making statements about the bloods in the [place] gangs. He screams out "I'll kill a ll you mother-ferika in the hospital and I get my big time drug dealers on you and the [employer] is hiring me." The patient states that his brain hurts from schizophrenia and that he wants to go back to the [facility] [place] riding in a limousine. When I tried to assess the patient, he was host ile towards me, making verbal threats and could not provide much history. It was determined that he would benefit from inpatient psychiatric hospitalization. Part B. Psychiatric treatment rendered: The patient was admitted to the [facility] and placed on q.15 minute checks for his own safety. He initially declined all medications but gra dually was willing to take lithium daily as well as scheduled Zofran and certain vitamins. On , he received his scheduled Prolixin Decanoate shot, although he was less hostile and less aggressi ve, he continued to be somewhat irritable and hyperreligious. We also discovered that he has no hous ing in the community and is effectively homeless. With all of these factors put together, we felt [facility] referral to the [facility] was warranted and he was accepted by their treatment team for [facility]. [id number]/[facility] #: [id number]
== END 2019-09-16 13:26 | DRG 885 ==
LOC: ED 13:52 → BSU 14:57
PROVIDERS: ADMIT Psychiatry & Neurology Psychiatry; ATTEND Psychiatry & Neurology Psychiatry
PROC: GZHZZZZ Group Psychotherapy (ICD-10-PCS; principal; 2019-09-01)
DX: F20.9 Schizophrenia, unspecified (principal); F12.90 Cannabis use, unspecified, uncomplicated; R45.850 Homicidal ideations; F41.9 Anxiety disorder, unspecified; F43.10 Post-traumatic stress disorder, unspecified; F31.9 Bipolar disorder, unspecified; F17.210 Nicotine dependence, cigarettes, uncomplicated; Z79.899 Other long term (current) drug therapy
CPT/HCPCS: 36415; 80053; 80061; 80320; 80329; 83036; 84443; 85025; 90853; 93005; 99222; 99231; 99238; 99284; A9270-GY; G0480; J1200; J1630; J2060; J2680

== ENCOUNTER 2020-05-27 14:40 | Inpatient (IN) ==
[2020-05-27 16:03] LABS: ABS Eosinophils 0.1 10^3/ul (0-0.6); ABS Lymphocytes 1.1 10^3/ul (1.0-4.8); ABS Monocytes 0.7 10^3/ul (0-0.8); ABS Neutrophils 9.3 10^3/ul (1.5-7.7); Eosinophil % 0.6 %; Hematocrit 47 % (42-52); Hemoglobin 15.9 g/dL (14.0-18.0); Lymphocyte % 9.7 %; Mean Corpuscular HGB Conc 34 g/dL (31-36); Mean Corpuscular Hemoglobin 32 pg (27-31); Mean Corpuscular Volume 93 fL (80-94); Mean Platelet Volume 8.6 fL (7.4-10.4); Platelet Count 261 10^3/uL (150-450); Red Blood Count 5.02 10^6 /uL (4.18-5.48); Red Cell Distribution Width 15 % (10-15); White Blood Count 11.2 10^3/uL (3.5-10.8)
[2020-05-27 16:18] LABS: ALT 24 U/L (7-52); AST 18 U/L (13-39); Albumin 5.3 g/dL (3.2-5.2); Albumin/Globulin Ratio 2.3 (1-3); Alkaline Phosphatase 71 U/L (34-104); Anion Gap 10 mmol/L (2-11); BUN/Creatinine Ratio 10.1 (8-20); Blood Urea Nitrogen 11 mg/dL (6-24); CO2 Carbon Dioxide 25 mmol/L (22-32); Calcium 10.1 mg/dL (8.6-10.3); Chloride 104 mmol/L (101-111); EGFR African American 98.2 (>60); EGFR Non-African American 81.1 (>60); Globulin 2.3 g/dL (2-4); Glucose 99 mg/dL (70-100); Potassium 3.6 mmol/L (3.5-5.0); Sodium 139 mmol/L (135-145); Total Protein 7.6 g/dL (6.4-8.9)
[2020-05-27 16:51] LABS: Urine Appearance Cloudy; Urine Bilirubin Negative (Negative); Urine Blood Negative (Negative); Urine Color Yellow; Urine Glucose Negative (Negative); Urine Ketones 2+ (Negative); Urine Nitrite Negative (Negative); Urine Protein Negative (Negative); Urine Specific Gravity 1.021 (1.010-1.030); Urine Urobilinogen Negative (Negative)
[2020-05-27 17:02] LABS: Urine Benzodiazepine Screen None Detected (None Detect); Urine Cannabinoids Screen Presumptive Positive (None Detect); Urine Opiates Screen None Detected (None Detect)
[2020-05-27 17:39] LABS: Acetaminophen < 15 mcg/mL; Alcohol, S < 10 mg/dL (<10); Lithium 0.33 mmol/L (0.6-1.2); Salicylate < 2.50 mg/dL (<30)
[2020-05-27 17:53] LABS: TSH Ultra Thyroid Stim Horm 0.96 mcIU/mL (0.34-5.60)
[2020-05-27] MEDS: Lithium Carbonate ER 450mg TAB PO SCH (22:54)
[2020-05-27] MEDS ORDERED: Nicotine GUM 2MG FRUIT FLAVOR PO PRN (23:00)
[2020-05-28] MEDS: Nicotine PATCH 21 MG/24 HR PATCH TRANSDERM SCH (11:22)
[2020-05-28] MEDS: Vitamin THERAPEUTIC TAB PO SCH (11:22)
[2020-05-28] MEDS: Lithium Carbonate ER 450mg TAB PO SCH (21:50)
[2020-05-29] MEDS: Vitamin THERAPEUTIC TAB PO SCH (10:03)
[2020-05-29] MEDS: Nicotine PATCH 21 MG/24 HR PATCH TRANSDERM SCH (10:03)
[2020-05-29] MEDS: Lithium Carbonate ER 450mg TAB PO SCH (21:59)
[2020-05-30 08:37] LABS: HDL Cholesterol 51.8 mg/dL
[2020-05-30] MEDS: Lithium Carbonate ER 450mg TAB PO SCH (10:35)
[2020-05-30] MEDS: Vitamin THERAPEUTIC TAB PO SCH (10:35)
[2020-05-30] MEDS: Senna TAB 8.6 mg TAB PO PRN (10:35)
[2020-05-30] MEDS: Nicotine PATCH 21 MG/24 HR PATCH TRANSDERM SCH (10:46)
[2020-05-31] MEDS: Lithium Carbonate ER 450mg TAB PO SCH (11:18)
[2020-05-31] MEDS: Vitamin THERAPEUTIC TAB PO SCH (11:18)
[2020-05-31] MEDS: Nicotine PATCH 21 MG/24 HR PATCH TRANSDERM SCH (11:19)
[2020-06-01] MEDS: Vitamin THERAPEUTIC TAB PO SCH (15:44)
[2020-06-01] MEDS: Lithium Carbonate ER 450mg TAB PO SCH (15:44)
[2020-06-01] MEDS: Nicotine PATCH 21 MG/24 HR PATCH TRANSDERM SCH (15:44)
[2020-06-02] MEDS: Nicotine PATCH 21 MG/24 HR PATCH TRANSDERM SCH (08:34)
[2020-06-02] MEDS: Lithium Carbonate ER 450mg TAB PO SCH (08:36)
[2020-06-02] MEDS: Vitamin THERAPEUTIC TAB PO SCH (08:36)
[2020-06-03] MEDS: Nicotine PATCH 21 MG/24 HR PATCH TRANSDERM SCH (07:55)
[2020-06-03] MEDS: Lithium Carbonate ER 450mg TAB PO SCH (07:55)
[2020-06-03] MEDS: Vitamin THERAPEUTIC TAB PO SCH (07:55)
[2020-06-04] MEDS: Nicotine PATCH 21 MG/24 HR PATCH TRANSDERM SCH (10:24)
[2020-06-04] MEDS: Lithium Carbonate ER 450mg TAB PO SCH (10:25)
[2020-06-04] MEDS: Vitamin THERAPEUTIC TAB PO SCH (10:25)
[2020-06-05] MEDS: Vitamin THERAPEUTIC TAB PO SCH (08:55)
[2020-06-05] MEDS: Lithium Carbonate ER 450mg TAB PO SCH (08:55)
[2020-06-05] MEDS: Nicotine PATCH 21 MG/24 HR PATCH TRANSDERM SCH (08:56)
[2020-06-05] MEDS ORDERED: Ondansetron ODT 4 mg TAB 4 MG TAB PO PRN (15:22)
[2020-06-06] MEDS: Ondansetron ODT 4 mg TAB 4 MG TAB PO SCH (08:06)
[2020-06-06] MEDS: Vitamin THERAPEUTIC TAB PO SCH (08:07)
[2020-06-06] MEDS: Lithium Carbonate ER 450mg TAB PO SCH (08:07)
[2020-06-06] MEDS: Nicotine PATCH 21 MG/24 HR PATCH TRANSDERM SCH (14:03)
[2020-06-07] MEDS: Ondansetron ODT 4 mg TAB 4 MG TAB PO SCH (10:04)
[2020-06-07] MEDS: Lithium Carbonate ER 450mg TAB PO SCH (10:05)
[2020-06-07] MEDS: Vitamin THERAPEUTIC TAB PO SCH (10:06)
[2020-06-07] MEDS: Nicotine PATCH 21 MG/24 HR PATCH TRANSDERM SCH (10:06)
[2020-06-08] MEDS: Ondansetron ODT 4 mg TAB 4 MG TAB PO SCH (08:26)
[2020-06-08] MEDS: Lithium Carbonate ER 450mg TAB PO SCH (08:26)
[2020-06-08] MEDS: Vitamin THERAPEUTIC TAB PO SCH (08:27)
[2020-06-08] MEDS: Nicotine PATCH 21 MG/24 HR PATCH TRANSDERM SCH (08:27)
[2020-06-09] MEDS: Lithium Carbonate ER 450mg TAB PO SCH (10:01)
[2020-06-09] MEDS: Ondansetron ODT 4 mg TAB 4 MG TAB PO SCH (10:02)
[2020-06-09] MEDS: Vitamin THERAPEUTIC TAB PO SCH (10:02)
[2020-06-10] MEDS: Ondansetron ODT 4 mg TAB 4 MG TAB PO SCH (08:15)
[2020-06-10] MEDS: Lithium Carbonate ER 450mg TAB PO SCH (08:15)
[2020-06-10] MEDS: Vitamin THERAPEUTIC TAB PO SCH (08:15)
[2020-06-10] MEDS ORDERED: LORazepam 2 mg VIAL 1 ml IM ONE (18:05)
[2020-06-10] MEDS ORDERED: LORazepam 2 mg VIAL 1 ml ONE (18:05)
[2020-06-10] MEDS ORDERED: Lorazepam PYXIS KEY PRN (18:11)
[2020-06-11] MEDS: Ondansetron ODT 4 mg TAB 4 MG TAB PO SCH (09:12)
[2020-06-11] MEDS: Lithium Carbonate ER 450mg TAB PO SCH (09:13)
[2020-06-11] MEDS: Vitamin THERAPEUTIC TAB PO SCH (09:14)
[2020-06-11 11:28] LABS: Hepatitis B Surface Antigen Nonreactive (Nonreactive)
[2020-06-11 11:33] LABS: Hepatitis A Ab IgM Negative (Negative)
[2020-06-11 11:34] LABS: Hepatitis B Core IgM Nonreactive (Nonreactive)
[2020-06-11 11:45] LABS: Hepatitis C Antibody Negative (Negative)
[2020-06-11 18:04] LABS: HIV 4th Generation Nonreactive (Nonreactive)
[2020-06-12] MEDS: Lithium Carbonate ER 450mg TAB PO SCH (13:16)
[2020-06-12] MEDS: Ondansetron ODT 4 mg TAB 4 MG TAB PO SCH (13:16)
[2020-06-12] MEDS: Vitamin THERAPEUTIC TAB PO SCH (13:16)
[2020-06-13] MEDS: Ondansetron ODT 4 mg TAB 4 MG TAB PO SCH (10:50)
[2020-06-13] MEDS: Lithium Carbonate ER 450mg TAB PO SCH ×2 (10:51→12:12)
[2020-06-13] MEDS: Vitamin THERAPEUTIC TAB PO SCH (10:51)
[2020-06-13 12:58] LABS: ABS Basophils 0.1 10^3/ul (0-0.2); ABS Eosinophils 0.1 10^3/ul (0-0.6); ABS Lymphocytes 1.7 10^3/ul (1.0-4.8); ABS Monocytes 0.5 10^3/ul (0-0.8); ABS Neutrophils 6.4 10^3/ul (1.5-7.7); Eosinophil % 1.5 %; Hematocrit 45 % (42-52); Hemoglobin 15.5 g/dL (14.0-18.0); Lymphocyte % 18.9 %; Mean Corpuscular HGB Conc 34 g/dL (31-36); Mean Corpuscular Hemoglobin 32 pg (27-31); Mean Corpuscular Volume 93 fL (80-94); Mean Platelet Volume 7.8 fL (7.4-10.4); Nucleated Red Blood Cells % 0.1; Platelet Count 331 10^3/uL (150-450); Red Blood Count 4.84 10^6 /uL (4.18-5.48); Red Cell Distribution Width 14 % (10-15); White Blood Count 8.8 10^3/uL (3.5-10.8)
[2020-06-14] MEDS: Ondansetron ODT 4 mg TAB 4 MG TAB PO SCH (11:17)
[2020-06-14] MEDS: Vitamin THERAPEUTIC TAB PO SCH (11:17)
[2020-06-14] MEDS: Lithium Carbonate ER 450mg TAB PO SCH (11:17)
[2020-06-14] MEDS ORDERED: Polyethylene Glycol 3350 17 GM PACKET PO PRN (14:51)
[2020-06-15] MEDS: Ondansetron ODT 4 mg TAB 4 MG TAB PO SCH (09:17)
[2020-06-15] MEDS: Lithium Carbonate ER 450mg TAB PO SCH (10:01)
[2020-06-15] MEDS: Vitamin THERAPEUTIC TAB PO SCH (10:02)
[2020-06-16] MEDS: Vitamin THERAPEUTIC TAB PO SCH (11:03)
[2020-06-16] MEDS: Lithium Carbonate ER 450mg TAB PO SCH (11:03)
[2020-06-17] MEDS: Lithium Carbonate ER 450mg TAB PO SCH (12:35)
[2020-06-17] MEDS: Vitamin THERAPEUTIC TAB PO SCH (12:35)
[2020-06-17] MEDS: Senna TAB 8.6 mg TAB PO PRN (19:57)
[2020-06-18] MEDS: Lithium Carbonate ER 450mg TAB PO SCH (10:20)
[2020-06-18] MEDS: Vitamin THERAPEUTIC TAB PO SCH (10:21)
[2020-06-18] MEDS: Al Hydrox/Mg Hydrox/Simet LIQ 30 ML UDC PO PRN (20:56)
[2020-06-19] MEDS: Lithium Carbonate ER 450mg TAB PO SCH (12:01)
[2020-06-19] MEDS: Vitamin THERAPEUTIC TAB PO SCH (12:01)
[2020-06-20] MEDS: Lithium Carbonate ER 450mg TAB PO SCH (10:42)
[2020-06-20] MEDS: Vitamin THERAPEUTIC TAB PO SCH (10:43)
[2020-06-20] MEDS: Al Hydrox/Mg Hydrox/Simet LIQ 30 ML UDC PO PRN (18:11)
[2020-06-21 14:56] LABS: ABS Basophils 0.1 10^3/ul (0-0.2); ABS Eosinophils 0.4 10^3/ul (0-0.6); ABS Lymphocytes 2.1 10^3/ul (1.0-4.8); ABS Monocytes 0.6 10^3/ul (0-0.8); ABS Neutrophils 5.6 10^3/ul (1.5-7.7); Eosinophil % 4.1 %; Hematocrit 47 % (42-52); Hemoglobin 16.5 g/dL (14.0-18.0); Lymphocyte % 23.9 %; Mean Corpuscular HGB Conc 35 g/dL (31-36); Mean Corpuscular Hemoglobin 32 pg (27-31); Mean Corpuscular Volume 93 fL (80-94); Mean Platelet Volume 7.3 fL (7.4-10.4); Platelet Count 363 10^3/uL (150-450); Red Cell Distribution Width 14 % (10-15); White Blood Count 8.8 10^3/uL (3.5-10.8)
[2020-06-21] MEDS: Vitamin THERAPEUTIC TAB PO SCH (15:15)
[2020-06-21] MEDS: Lithium Carbonate ER 450mg TAB PO SCH (15:15)
[2020-06-22] MEDS: Lithium Carbonate ER 450mg TAB PO SCH (09:55)
[2020-06-22] MEDS: Vitamin THERAPEUTIC TAB PO SCH (09:55)
[2020-06-23] MEDS: Vitamin THERAPEUTIC TAB PO SCH (10:53)
[2020-06-23] MEDS: LITHIUM PO SCH (10:55)
[2020-06-24] MEDS: Vitamin THERAPEUTIC TAB PO SCH (10:08)
[2020-06-24] MEDS: LITHIUM PO SCH (10:12)
[2020-06-25] MEDS: LITHIUM PO SCH (12:10)
[2020-06-25] MEDS: Vitamin THERAPEUTIC TAB PO SCH (12:11)
[2020-06-26] MEDS: Vitamin THERAPEUTIC TAB PO SCH (14:22)
[2020-06-26] MEDS: LITHIUM PO SCH (14:29)
[2020-06-26 18:33] VITALS: BP 129/62
[2020-06-27] MEDS: Vitamin THERAPEUTIC TAB PO SCH (08:02)
[2020-06-27] MEDS: LITHIUM PO SCH (08:04)
== END 2020-06-27 08:30 | DRG 885 ==
LOC: ED 14:40 → BSU 21:45
PROVIDERS: ADMIT Psychiatry & Neurology Psychiatry; ATTEND Psychiatry & Neurology Psychiatry